=== PATIENT | female | born 1950 | race Caucasian/White ===

== ENCOUNTER → 2017-05-16 | Outpatient (CLI) | payer MEDICARE ==
[2017-05-16 08:57] LABS: Basophils % (A) 1 %; CH 33.1; CHCM 33.4; Eosinophils # (A) 0.1 k/uL (0-0.7); Eosinophils % (A) 3 %; HCT 43.4 % (34.0-46.0); HDW 3.13; HGB 14.5 gm/dL (11.4-16.0); Luc # (Auto) 0.12; Luc % (Auto) 5; Lymphocytes # (A) 0.7 k/uL (1.0-4.8); Lymphocytes % (A) 28 %; MCH 33.4 pg (25.0-35.0); MCHC 33.4 g/dL (31.0-37.0); MCV 99.9 fL (80.0-100.0); Macrocytosis Slight; Mean Platelet Volume 7.5; Monocytes # (A) 0.2 k/uL (0-1.0); Monocytes % (A) 7 %; Neutrophils # (A) 1.5 k/uL (1.3-7.7); Neutrophils % (A) 57 %; RBC 4.34 m/uL (3.80-5.40); RDW 14.5 % (11.5-15.5); WBC 2.7 k/uL (3.8-10.6); WBC (Perox) 2.74
== END | disposition home or self-care (01) ==
LOC: LABWHC1 08:11
PROVIDERS: ATTEND Internal Medicine Geriatric Medicine
DX: R79.9 Abnormal finding of blood chemistry, unspecified (principal)
CPT/HCPCS: 36415; 80061; 83036; 84439; 84443; 85025

== ENCOUNTER → 2017-06-05 | Outpatient (CLI) | payer MEDICARE ==
--- NOTE | 2017-06-05 14:30 | US ---
EXAMINATION TYPE: US kidneys/renal and bladder DATE OF EXAM: 06/05/2017 COMPARISON: CT urogram December 19, 2014 CLINICAL HISTORY: N28.1 CYST OF KIDNEY. Pt states recurrent UTI's EXAM MEASUREMENTS: Right Kidney: 10.6 x 5.4 x 6.0 cm Left Kidney: 8.4 x 3.4 x 3.4 cm Right Kidney: Appeared wnl Left Kidney: Atrophic with probable renal calculi at lower pole 7mm and 6mm in size Bladder: wnl Bilateral Jets seen: Yes Incidental finding enlarged spleen and cyst within spleen Visualized right kidney is unremarkable. Bilateral distal ureter jets are seen in not greatly distend ed bladder. There is redemonstration of asymmetric atrophy and cortical thinning left kidney. No jennifer s hydronephrosis is present. Suspect shadowing 7 mm calculus mid to lower pole level left kidney. Spl een is enlarged in size measuring 13.6 cm on long axis with 1.4 cm simple appearing cyst marked by te chnologist. Towards end of the exam technologist cook to 6 mm hyperechoic foci possible calculi lowe r pole level left kidney, finding correlates with prior CT. IMPRESSION: Asymmetric left-sided renal atrophy with left-sided renal calculi all redemonstrated.
== END | disposition home or self-care (01) ==
LOC: RADUSWWP 13:52
PROVIDERS: ATTEND Internal Medicine Geriatric Medicine
DX: N20.0 Calculus of kidney (principal); N26.1 Atrophy of kidney (terminal)
CPT/HCPCS: 76770

== ENCOUNTER → 2017-06-30 | Outpatient (CLI) | payer MEDICARE ==
[2017-06-30 12:07] LABS: Bilirubin, Delta 0.5 mg/dL (0.0-0.2); Calcium 10.5 mg/dL (8.4-10.2); Potassium 4.6 mmol/L (3.5-5.1); Total Bilirubin 2.1 mg/dL (0.2-1.3); Total Protein 6.4 g/dL (6.3-8.2)
[2017-06-30 12:40] LABS: Aty Lym Flag Slight; CH 33.2; CHCM 32.4; HCT 42.3 % (34.0-46.0); HDW 3.07; HGB 13.8 gm/dL (11.4-16.0); Hypochromasia Slight; MCH 33.6 pg (25.0-35.0); MCHC 32.5 g/dL (31.0-37.0); MCV 103.4 fL (80.0-100.0); Macrocytosis Moderate; Mean Platelet Volume 7.6; RBC 4.09 m/uL (3.80-5.40); RDW 15.4 % (11.5-15.5); WBC 2.4 k/uL (3.8-10.6); WBC (Perox) 2.49
[2017-06-30 13:00] LABS: Add Differential Manual Differential
[2017-06-30 13:07] LABS: Manual Review Performed; Nucleated Red Blood Cells 0 /100 WBC (0-0); Total Cells Counted 100
[2017-06-30 13:08] LABS: Polychromasia Present
[2017-06-30 13:43] LABS: Erythrocyte Sedimentation Rate 8 mm/hr (0-20)
== END | disposition home or self-care (01) ==
LOC: LABWHC1 11:26
PROVIDERS: ATTEND Nurse Practitioner Family
DX: R79.9 Abnormal finding of blood chemistry, unspecified (principal)
CPT/HCPCS: 36415; 80053; 82164; 82248; 85025; 85652

== ENCOUNTER → 2018-06-19 | Outpatient (CLI) | payer MEDICARE ==
[2018-06-19 08:52] LABS: Basophils % (A) 1 %; Eosinophils # (A) 0.2 k/uL (0-0.7); Eosinophils % (A) 6 %; HCT 40.8 % (34.0-46.0); HGB 13.1 gm/dL (11.4-16.0); Lymphocytes # (A) 1.1 k/uL (1.0-4.8); Lymphocytes % (A) 33 %; MCH 33.2 pg (25.0-35.0); MCHC 32.2 g/dL (31.0-37.0); MCV 103.2 fL (80.0-100.0); Macrocytosis Slight; Mean Platelet Volume 7.1; Monocytes # (A) 0.2 k/uL (0-1.0); Monocytes % (A) 7 %; Neutrophils # (A) 1.7 k/uL (1.3-7.7); Neutrophils % (A) 50 %; Platelet Count 100 k/uL (150-450); RBC 3.95 m/uL (3.80-5.40); WBC 3.5 k/uL (3.8-10.6)
[2018-06-19 09:07] LABS: Calcium 10.5 mg/dL (8.4-10.2); Magnesium 1.5 mg/dL (1.6-2.3); Total Bilirubin 2.2 mg/dL (0.2-1.3)
[2018-06-19 09:23] LABS: T4, Free (Free Thyroxine) 1.35 ng/dL (0.78-2.19)
[2018-06-19 17:31] LABS: Vitamin D 25 Hydroxy 11.7 ng/mL (30.0-100.0)
[2018-06-19 18:09] LABS: Hemoglobin A1C 4.8 % (4.0-6.0)
== END | disposition home or self-care (01) ==
LOC: LABWHC1 08:19
PROVIDERS: ATTEND Nurse Practitioner Family
DX: I10 Essential (primary) hypertension (principal); G89.4 Chronic pain syndrome; E55.9 Vitamin D deficiency, unspecified
CPT/HCPCS: 36415; 80053; 80061; 82306; 82607; 83036; 83735; 84439; 84443; 85025

== ENCOUNTER 2018-08-13 17:43 | Emergency (ER) | payer MEDICARE ==
[2018-08-13] MEDS ORDERED: IPRATROPIUM-ALBUTEROL 3 ML NEB INHALATION STA (18:35)
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
--- NOTE | 2018-08-13 19:26 | XR ---
EXAMINATION TYPE: XR chest 2V DATE OF EXAM: 08/13/2018 COMPARISON: 10/10/2015 HISTORY: Cough TECHNIQUE: Frontal and lateral views of the chest are obtained. FINDINGS: Heart and mediastinum are normal. There is some coarsening of interstitial markings. There is no heart failure. Bony thorax is intact. There is no pleural effusion. There is old left clavicle healed fracture. IMPRESSION: No active cardiopulmonary disease. Mild fibrotic changes.
[2018-08-13] MEDS ORDERED: methylPREDNISolone SOD SUCCI 125 MG/2 ML VIAL IM ONE (20:16)
[2018-08-13 21:06] VITALS: BP 140/53; PULSE 70; RESP 18; TEMP 97.9
== END 2018-08-13 21:06 | disposition home or self-care (01) ==
LOC: EC 17:43
DX: R05 Cough (principal); R06.2 Wheezing; H72.92 Unspecified perforation of tympanic membrane, left ear; R09.89 Other specified symptoms and signs involving the circulatory and respiratory systems; J84.10 Pulmonary fibrosis, unspecified; R06.02 Shortness of breath; I10 Essential (primary) hypertension; D86.9 Sarcoidosis, unspecified; Z87.891 Personal history of nicotine dependence; Z91.041 Radiographic dye allergy status; Z79.899 Other long term (current) drug therapy; Z86.14 Personal history of Methicillin resistant Staphylococcus aureus infection; Z82.5 Family history of asthma and other chronic lower respiratory diseases; Z90.89 Acquired absence of other organs
CPT/HCPCS: 94640; 71046; 99284; 96372; J2930

== ENCOUNTER → 2018-11-09 | Outpatient (CLI) | payer MEDICARE ==
[2018-11-09 10:09] LABS: Basophils % (A) 1 %; Eosinophils # (A) 0.1 k/uL (0-0.7); Eosinophils % (A) 5 %; HCT 40.5 % (34.0-46.0); HGB 12.7 gm/dL (11.4-16.0); Hypochromasia Slight; Lymphocytes # (A) 0.8 k/uL (1.0-4.8); Lymphocytes % (A) 33 %; MCH 32.7 pg (25.0-35.0); MCHC 31.4 g/dL (31.0-37.0); MCV 104.2 fL (80.0-100.0); Macrocytosis Moderate; Mean Platelet Volume 7.2; Monocytes # (A) 0.1 k/uL (0-1.0); Monocytes % (A) 6 %; Neutrophils # (A) 1.2 k/uL (1.3-7.7); Neutrophils % (A) 51 %; RBC 3.88 m/uL (3.80-5.40); RDW 15.6 % (11.5-15.5); WBC 2.3 k/uL (3.8-10.6)
[2018-11-09 10:33] LABS: Platelet Count 93 k/uL (150-450)
[2018-11-09 15:57] LABS: Parathyroid Hormone Intact 62.1 pg/mL (14.0-72.0)
[2018-11-09 15:58] LABS: Albumin 3.2 g/dL (3.80-4.90); Albumin/Globulin Ratio 1.39 (1.60-3.17); Anion Gap 6.9 mmol/L (4.00-12.00); Calcium 10.4 mg/dL (8.7-10.3); Carbon Dioxide 28.1 mmol/L (21.6-31.8); Globulin 2.3 g/dL (1.6-3.3); Magnesium 1.8 mg/dL (1.5-2.4); Phosphorus 2.4 mg/dL (2.4-5.1); Potassium 4.5 mmol/L (3.5-5.5); Total Bilirubin 2.7 mg/dL (0.3-1.2); Total Protein 5.5 g/dL (6.2-8.2)
== END | disposition home or self-care (01) ==
LOC: LABWHC1 09:00
PROVIDERS: ATTEND Nurse Practitioner Adult Health
DX: N20.0 Calculus of kidney (principal); G89.21 Chronic pain due to trauma; I10 Essential (primary) hypertension; E55.9 Vitamin D deficiency, unspecified; D89.9 Disorder involving the immune mechanism, unspecified; M15.9 Polyosteoarthritis, unspecified; K21.9 Gastro-esophageal reflux disease without esophagitis; D69.6 Thrombocytopenia, unspecified
CPT/HCPCS: 36415; 80053; 82164; 82306; 83735; 83970; 84100; 84133; 84300; 85025

== ENCOUNTER → 2018-11-22 | Outpatient (CLI) | payer MEDICARE ==
--- NOTE | 2018-11-24 09:18 | MM ---
Reason for exam: screening (asymptomatic). Last mammogram was performed 10 years ago. History: Patient is postmenopausal. Physical Findings: A clinical breast exam by your physician is recommended on an annual basis and results should be correlated with mammographic findings. MG 3D Screening Mammo W/Cad Bilateral CC and MLO view(s) were taken. Prior study comparison: November 28, 2008, bilateral digital screening mammogram. There are scattered fibroglandular densities. There is chronic nodularity in the right breast. Superior left breast asymmetry MLO view appears more defined. Incompletely disperses on 3D. ASSESSMENT: Incomplete: need additional imaging evaluation, BI-RAD 0 RECOMMENDATION: Special view mammogram of the left breast. (3D) If lesion persists on supplemental views, image directed ultrasound is recommended. [facility] will attempt to contact patient to return for supplemental views and ultrasound if indicated.
== END | disposition home or self-care (01) ==
LOC: RADMAMWWP 14:30
PROVIDERS: ATTEND Internal Medicine
DX: Z12.31 Encounter for screening mammogram for malignant neoplasm of breast (principal)
CPT/HCPCS: 77063; 77067

== ENCOUNTER → 2018-11-29 | Outpatient (CLI) | payer MEDICARE ==
--- NOTE | 2018-11-29 10:51 | MM ---
Reason for exam: additional evaluation requested from abnormal screening. Last mammogram was performed less than 1 month ago. History: Patient is postmenopausal. Physical Findings: Nurse did not find any significant physical abnormalities on exam. MG 3D Work Up W/Cad LT ML and spot compression MLO view(s) were taken of the left breast. Prior study comparison: November 22, 2018, bilateral MG 3d screening mammo w/cad. November 28, 2008, bilateral digital screening mammogram. The breast tissue is heterogeneously dense. This may lower the sensitivity of mammography. No suspicious abnormality. The previously seen left superior asymmetry appear as fibroglandular tissue on additional views. These results were verbally communicated with the patient and result sheet given to the patient on 11/29/18. ASSESSMENT: Negative, BI-RAD 1 RECOMMENDATION: Return to routine screening mammogram schedule for both breasts.
== END | disposition home or self-care (01) ==
LOC: RADMAMWWP 09:45
PROVIDERS: ATTEND Internal Medicine
DX: R92.8 Other abnormal and inconclusive findings on diagnostic imaging of breast (principal)
CPT/HCPCS: 77065; G0279; 77061

== ENCOUNTER → 2019-02-24 | Outpatient (CLI) | payer MEDICARE ==
--- NOTE | 2019-02-25 10:08 | ECHOF ---
Referral Reason:R60.0 Lower extremity edema MEASUREMENTS -------- HEIGHT: 160.0 cm WEIGHT: 108.9 kg BP: 221/92 RVIDd: 3.7 cm (< 3.3) IVSd: 1.3 cm (0.6 - 1.1) LVIDd: 4.0 cm (3.9 - 5.3) LVPWd: 1.3 cm (0.6 - 1.1) IVSs: 1.5 cm LVIDs: 2.9 cm LVPWs: 1.6 cm LA Diam: 3.4 cm (2.7 - 3.8) LAESV Index (A-L): 32.97 ml/m Ao Diam: 3.1 cm (2.0 - 3.7) AV Cusp: 2.2 cm (1.5 - 2.6) MV EXCURSION: 14.577 mm (> 18.000) MV EF SLOPE: 14 mm/s (70 - 150) EPSS: 0.8 cm MV E Earl: 0.78 m/s MV DecT: 360 ms MV A Earl: 0.90 m/s MV E/A Ratio: 0.87 AV maxP.96 mmHg AV meanP.68 mmHg RAP: 5.00 mmHg RVSP: 98.41 mmHg FINDINGS -------- Sinus rhythm. This was a technically good study. The left ventricular size is normal. There is mild concentric left ventricular hypertrophy. Overa ll left ventricular systolic function is normal with, an EF between 60 - 65 %. The right ventricle is mild to moderately enlarged. LA is midly dilated 29-33ml/m2. The right atrium is normal in size. Interatrial and interventricular septum intact. There is mild aortic valve sclerosis. The mitral valve leaflets are mildly thickened. Moderate tricuspid regurgitation present. There is severe pulmonary hypertension. The right ventr icular systolic pressure, as measured by Doppler, is 98.41mmHg. Trace/mild (physiologic) pulmonic regurgitation. The aortic root size is normal. The inferior vena cava is dilated with poor inspiratory collapse which is consistent with estimated r ight atrial pressure of 15 mmHg. There is no pericardial effusion. CONCLUSIONS -------- 1. Sinus rhythm. 2. This was a technically good study. 3. The left ventricular size is normal. 4. There is mild concentric left ventricular hypertrophy. 5. Overall left ventricular systolic function is normal with, an EF between 60 - 65 %. 6. The right ventricle is mild to moderately enlarged. 7. LA is midly dilated 29-33ml/m2. 8. The right atrium is normal in size. 9. Interatrial and interventricular septum intact. 10. There is mild aortic valve sclerosis. 11. The mitral valve leaflets are mildly thickened. 12. Moderate tricuspid regurgitation present. 13. There is severe pulmonary hypertension. 14. The right ventricular systolic pressure, as measured by Doppler, is 98.41mmHg. 15. Trace/mild (physiologic) pulmonic regurgitation. 16. The aortic root size is normal. 17. The inferior vena cava is dilated with poor inspiratory collapse which is consistent with estimat ed right atrial pressure of 20 mmHg. 18. There is no pericardial effusion. MORTGAGE ANALYST: Ragini Tolbert RDCS
== END | disposition home or self-care (01) ==
LOC: RADECHMAIN 11:02
PROVIDERS: ATTEND Internal Medicine
DX: I07.1 Rheumatic tricuspid insufficiency (principal); I27.20 Pulmonary hypertension, unspecified; I35.8 Other nonrheumatic aortic valve disorders; I05.9 Rheumatic mitral valve disease, unspecified; I86.8 Varicose veins of other specified sites
CPT/HCPCS: 93306

== ENCOUNTER 2019-02-28 02:01 | Emergency (ER) | payer MEDICARE ==
[2019-02-28 02:21] VITALS: RESP 18
[2019-02-28 03:10] LABS: Albumin 2.7 g/dL (3.5-5.0); Calcium 10.1 mg/dL (8.4-10.2); Magnesium 1.5 mg/dL (1.6-2.3); Potassium 4.3 mmol/L (3.5-5.1); Total Bilirubin 2.5 mg/dL (0.2-1.3); Total Protein 5.6 g/dL (6.3-8.2)
[2019-02-28 03:13] LABS: Basophils % (A) 0 %; Eosinophils # (A) 0.1 k/uL (0-0.7); Eosinophils % (A) 2 %; HCT 39.5 % (34.0-46.0); HGB 13.4 gm/dL (11.4-16.0); Lymphocytes # (A) 0.3 k/uL (1.0-4.8); Lymphocytes % (A) 6 %; MCHC 33.9 g/dL (31.0-37.0); MCV 97.2 fL (80.0-100.0); Monocytes # (A) 0.3 k/uL (0-1.0); Monocytes % (A) 7 %; Neutrophils # (A) 4.1 k/uL (1.3-7.7); Neutrophils % (A) 82 %; RBC 4.06 m/uL (3.80-5.40); RDW 15.5 % (11.5-15.5)
--- NOTE | 2019-02-28 03:16 | XR ---
EXAM: XR Chest, 1 View CLINICAL HISTORY: ITS.REASON XR Reason: Pain TECHNIQUE: Frontal view of the chest. COMPARISON: 08/13/18 x-ray IMPRESSION: Cardiomegaly. Trace left pleural effusion. No consolidation.
[2019-02-28] MEDS ORDERED: SODIUM CHLORIDE 0.9% 1,000 ML IV ONE (03:43)
[2019-02-28] MEDS: MAGNESIUM SULFATE-D5W PMX 1 GM in DEXTROSE/WATER 1 100ML.BAG IVPB SCH ×2 (03:54→04:52)
[2019-02-28 04:00] LABS: Appearance,Urine Cloudy (Clear); Bacteria,Urine Moderate /hpf; Bilirubin,Urine Negative (Negative); Blood,Urine Moderate (Negative); Color,Urine Yellow; Glucose,Urine (UA) Negative (Negative); Ketones,Urine Negative (Negative); Leukocyte Esterase,Urine Large (Negative); Mucus,Urine Rare /hpf; Nitrite,Urine Negative (Negative); Protein,Urine 2+ (Negative); RBC,Urine 133 /hpf (0-5); Specific Gravity,Urine 1.018 (1.001-1.035); Squamous Epithelial Cell,Urine 4 /hpf (0-4); WBC,Urine 94 /hpf (0-5)
[2019-02-28] MEDS ORDERED: LEVOFLOXACIN 750 MG TAB PO STA (04:11)
[2019-02-28 04:23] LABS: Platelet Count 65 k/uL (150-450)
[2019-02-28] MEDS ORDERED: HYDROmorphone 0.5 MG/0.5 ML SYRINGE IVP STA (04:42)
[2019-02-28] MEDS ORDERED: DIAZEPAM 5 MG/ML 2 ML INJ IVP STA (05:42)
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
--- NOTE | 2019-02-28 08:35 | US ---
EXAMINATION TYPE: US venous doppler duplex LE BI DATE OF EXAM: 02/28/2019 8:19 AM COMPARISON: NONE CLINICAL HISTORY: Pain. Left foot pain with weight bearing: HT5'4", WT 250lbs; sarcoidosis per patien t SIDE PERFORMED: bilateral TECHNIQUE: The lower extremity deep venous system is examined utilizing real time linear array sonog silvia with graded compression, doppler sonography and color-flow sonography. VESSELS IMAGED: Common Femoral Vein Deep Femoral Vein Greater Saphenous Vein * Femoral Vein Popliteal Vein Small Saphenous Vein * Proximal Calf Veins (* superficial vessels) US exam is technically limited by large body habitus. Right Leg: Negative for DVT Left Leg: Negative for DVT Grayscale, color doppler, spectral doppler imaging performed of the deep veins of the lower extremiti es. There is normal flow, compressibility, vascular waveforms. Subcutaneous edema is noted that is generalized. IMPRESSION: No sonographic evidence of deep venous thrombosis within either of the bilateral lower e xtremities. Subcutaneous edema is noted throughout.
[2019-02-28] MEDS ORDERED: KETOROLAC 30 MG/ML 1 ML VIAL IVP STA (08:45)
[2019-02-28] MEDS ORDERED: methylPREDNISolone SOD SUCCI 125 MG/2 ML VIAL IM ONE (12:44)
[2019-02-28] MEDS ORDERED: HYDROmorphone 1 MG/ML 1 ML SYRINGE IM STA (12:45)
[2019-02-28 13:39] VITALS: BP 134/66; PULSE 91; TEMP 98.7
== END 2019-02-28 13:40 | disposition home or self-care (01) ==
LOC: EC 02:01
DX: E83.42 Hypomagnesemia (principal); N39.0 Urinary tract infection, site not specified; M54.5 Low back pain; G89.29 Other chronic pain; I45.10 Unspecified right bundle-branch block; I10 Essential (primary) hypertension; Z87.891 Personal history of nicotine dependence; Z91.041 Radiographic dye allergy status; Z79.51 Long term (current) use of inhaled steroids; Z79.899 Other long term (current) drug therapy; Z86.14 Personal history of Methicillin resistant Staphylococcus aureus infection
CPT/HCPCS: 36415; 93005; 80053; 83605; 83735; 84484; 85025; 81001; 87086; 71045; 93970; 99285; 96365; 96375 ×3; 96361; 96372 ×2; J2930; J3360; J1885; J1170 ×2; J3475; 87077; 87186

== ENCOUNTER → 2019-04-12 | Outpatient (CLI) | payer MEDICARE ==
[2019-04-12 09:36] LABS: Basophils % (A) 0 %; Eosinophils # (A) 0.1 k/uL (0-0.7); Eosinophils % (A) 1 %; HCT 34.9 % (34.0-46.0); HGB 10.9 gm/dL (11.4-16.0); Hypochromasia Slight; Lymphocytes # (A) 0.8 k/uL (1.0-4.8); Lymphocytes % (A) 7 %; MCH 32.7 pg (25.0-35.0); MCHC 31.2 g/dL (31.0-37.0); Macrocytosis Moderate; Monocytes # (A) 0.4 k/uL (0-1.0); Monocytes % (A) 3 %; Neutrophils % (A) 86 %; RBC 3.33 m/uL (3.80-5.40); RDW 15.7 % (11.5-15.5); WBC 11.6 k/uL (3.8-10.6)
[2019-04-12 09:37] LABS: MCV 104.9 fL (80.0-100.0); Platelet Count 110 k/uL (150-450)
[2019-04-12 17:21] LABS: Vitamin D 25 Hydroxy 43.4 ng/mL (30.0-100.0)
[2019-04-12 17:36] LABS: African American GFR (CKD) 27.7 (60.0-200.0); Albumin 2.6 g/dL (3.80-4.90); Albumin/Globulin Ratio 0.76 (1.60-3.17); Anion Gap 8.4 mmol/L (4.00-12.00); BUN/Creat Ratio 35.24 Ratio (12.00-20.00); Carbon Dioxide 23.6 mmol/L (21.6-31.8); Globulin 3.4 g/dL (1.6-3.3); LDL Cholesterol,Calculated 53.8 mg/dL (0.0-131.0); Magnesium 2.2 mg/dL (1.5-2.4); Parathyroid Hormone Intact 37.2 pg/mL (14.0-72.0); Phosphorus 2.8 mg/dL (2.4-5.1); Potassium 4.9 mmol/L (3.5-5.5); Total Bilirubin 1.3 mg/dL (0.3-1.2); VLDL Calculation 20.2 mg/dL (5.00-40.00)
[2019-04-12 18:12] LABS: Vitamin B12 >4000.0 pg/mL (211-911)
== END | disposition home or self-care (01) ==
LOC: LABWHC1 07:51
PROVIDERS: ATTEND Nurse Practitioner Adult Health
DX: I10 Essential (primary) hypertension (principal); N20.0 Calculus of kidney; G89.21 Chronic pain due to trauma; E55.9 Vitamin D deficiency, unspecified; D89.9 Disorder involving the immune mechanism, unspecified; M15.9 Polyosteoarthritis, unspecified; K21.9 Gastro-esophageal reflux disease without esophagitis; D69.6 Thrombocytopenia, unspecified; F45.42 Pain disorder with related psychological factors
CPT/HCPCS: 36415; 80053; 80061; 82306; 82607; 83735; 83970; 84100; 85025

== ENCOUNTER 2019-04-20 19:30 | Inpatient (IN) | payer OTHER, MEDICARE ==
[2019-04-20] MEDS ORDERED: ACETAMINOPHEN TAB 500 MG TAB PO STA (20:00)
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
[2019-04-20 20:18] LABS: Anisocytosis Slight; Basophils % (A) 0 %; Eosinophils # (A) 0.1 k/uL (0-0.7); Eosinophils % (A) 1 %; HCT 31.6 % (34.0-46.0); HGB 10.2 gm/dL (11.4-16.0); Hypochromasia Slight; Lymphocytes # (A) 0.3 k/uL (1.0-4.8); Lymphocytes % (A) 4 %; MCH 33.4 pg (25.0-35.0); MCHC 32.4 g/dL (31.0-37.0); MCV 103.2 fL (80.0-100.0); Macrocytosis Moderate; Mean Platelet Volume 7.8; Monocytes # (A) 0.4 k/uL (0-1.0); Monocytes % (A) 4 %; Neutrophils # (A) 7.8 k/uL (1.3-7.7); Neutrophils % (A) 89 %; Platelet Count 215 k/uL (150-450); Poikilocytosis Slight; RBC 3.06 m/uL (3.80-5.40); RDW 16.7 % (11.5-15.5); WBC 8.8 k/uL (3.8-10.6)
[2019-04-20 20:23] LABS: Albumin 2.3 g/dL (3.5-5.0); Calcium 10.1 mg/dL (8.4-10.2); Magnesium 2.1 mg/dL (1.6-2.3); Potassium 4.5 mmol/L (3.5-5.1); Total Bilirubin 1.4 mg/dL (0.2-1.3)
[2019-04-20] MEDS ORDERED: SODIUM CHLORIDE 0.9% 1,000 ML IV ONE (20:29)
--- NOTE | 2019-04-20 21:07 | XR ---
EXAMINATION TYPE: XR chest 2V DATE OF EXAM: 04/20/2019 COMPARISON: Prior chest x-ray 02/28/2019 HISTORY: Difficulty breathing TECHNIQUE: Frontal and lateral views of the chest are obtained. FINDINGS: There are overlying cardiac leads. There is no focal air space opacity, pleural effusion, o r pneumothorax seen. The cardiac silhouette size is stable, enlarged. Prominence of pulmonary princess ry may be due to pulmonary artery hypertension. The osseous structures are intact. IMPRESSION: No acute cardiopulmonary process. Cardiomegaly. Correlate for pulmonary artery hypertens ion Additional findings above.
[2019-04-20 23:43] LABS: Appearance,Urine Cloudy (Clear); Bacteria,Urine Moderate /hpf; Bilirubin,Urine Negative (Negative); Blood,Urine Trace (Negative); Color,Urine Yellow; Glucose,Urine (UA) Negative (Negative); Ketones,Urine Negative (Negative); Leukocyte Esterase,Urine Large (Negative); Mucus,Urine Rare /hpf; Nitrite,Urine Positive (Negative); PH, Urine 5.5 (5.0-8.0); Protein,Urine 1+ (Negative); RBC,Urine 2 /hpf (0-5); Specific Gravity,Urine 1.017 (1.001-1.035); Squamous Epithelial Cell,Urine 5 /hpf (0-4); Urobilinogen,Urine <2.0 mg/dL (<2.0); WBC,Urine 54 /hpf (0-5)
[2019-04-21] MEDS ORDERED: cefTRIAXone IN SWFI 1,000 MG/10 ML SYRINGE IVP STA (02:08)
[2019-04-21] MEDS ORDERED: NALOXONE 0.4 MG/ML 1 ML VIAL IV PRN (03:38)
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
[2019-04-21] MEDS: PANTOPRAZOLE 40 MG TABLET PO SCH (09:52)
[2019-04-21] MEDS: LISINOPRIL 20 MG TAB PO SCH (09:52)
[2019-04-21 12:59] LABS: Basophils % (A) 0 %; Eosinophils % (A) 0 %; HCT 27.3 % (34.0-46.0); HGB 8.8 gm/dL (11.4-16.0); Hypochromasia Slight; Lymphocytes # (A) 0.2 k/uL (1.0-4.8); Lymphocytes % (A) 4 %; MCH 33.3 pg (25.0-35.0); MCHC 32.4 g/dL (31.0-37.0); Macrocytosis Moderate; Mean Platelet Volume 7.3; Monocytes # (A) 0.3 k/uL (0-1.0); Monocytes % (A) 5 %; Neutrophils # (A) 4.7 k/uL (1.3-7.7); Neutrophils % (A) 87 %; Platelet Count 143 k/uL (150-450); RBC 2.65 m/uL (3.80-5.40); RDW 15.6 % (11.5-15.5); WBC 5.4 k/uL (3.8-10.6)
[2019-04-21] MEDS: SODIUM CHLORIDE 0.9% 1,000 ML IV SCH ×2 (13:07→18:57)
[2019-04-21 13:13] LABS: Albumin 1.9 g/dL (3.5-5.0); Calcium 9.8 mg/dL (8.4-10.2); Potassium 5.4 mmol/L (3.5-5.1); Total Bilirubin 1.2 mg/dL (0.2-1.3); Total Protein 5.3 g/dL (6.3-8.2)
[2019-04-21] MEDS: HYDROcodone/APAP 10-325MG 1 EACH TAB PO PRN (14:02)
[2019-04-21] MEDS ORDERED: POLYETHYLENE GLYCOL 3350 17 GM POWD.PACK PO STA (16:28)
--- NOTE | 2019-04-21 16:29 | P.PN ---
Progress Note - Text Progress Note Date: 04/21/19 Briefly this is a 68-year-old female with a past medical history of sarcoidosis essential hypertension that was admitted with metabolic encephalopathy after she presented with confusion suspected secondary due to a urinary tract infection, she was started on empiric IV antibiotics and urine and blood cultures have been ordered, she is also noted to have a mildly elevated lactic acid. The patient has apparently failed outpatient therapy with Macrobid and Bactrim for previous urinary tract infections. I will plan to consult ID for further recommendations.She's also noted to be anemic with of 8.8, she reports constipation Also mentions chronic pain. Stool occult is been ordered, will check iron studies. Continue to follow her clinical course
[2019-04-21] MEDS: IBUPROFEN 600 MG TAB PO PRN (22:31)
[2019-04-22 01:04] LABS: Iron Saturation 4.32 (12.00-45.00)
[2019-04-22] MEDS: SODIUM CHLORIDE 0.9% 1,000 ML IV SCH ×4 (01:55→20:10)
[2019-04-22] MEDS: HYDROcodone/APAP 10-325MG 1 EACH TAB PO PRN ×2 (05:49→20:03)
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
[2019-04-22] MEDS: POLYETHYLENE GLYCOL 3350 17 GM POWD.PACK PO SCH (10:33)
[2019-04-22] MEDS: PANTOPRAZOLE 40 MG TABLET PO SCH (10:33)
[2019-04-22] MEDS: LISINOPRIL 20 MG TAB PO SCH (10:33)
[2019-04-22] MEDS: IBUPROFEN 600 MG TAB PO PRN (11:36)
--- NOTE | 2019-04-22 12:32 | P.PN ---
Subjective Progress Note Date: 04/22/19 Patient seen and examined at bedside. The resting in bed with present, patient reports that she's feeling fine and her pain is controlled. Apparently has had a bowel movement and has been sitting up and is been eating and is not nearly as confused. Urine cultures are pending, the patient remains afebrile Objective - Vital Signs Vital signs: Vital Signs Temp 97.8 F 04/22/19 07:55 Pulse 84 04/22/19 07:55 Resp 16 04/22/19 07:55 BP 142/71 04/22/19 07:55 Pulse Ox 96 04/22/19 07:55 Intake & Output 04/21/19 04/22/19 04/22/19 18:59 06:59 18:59 Intake Total 120 750 175 Output Total 400 Balance 120 350 175 Intake: Intake, IV Titration 750 Amount Sodium Chloride 0.9% 1, 600 000 ml @ 150 mls/hr IV . Q6H40M [facility] Rx#:[id number] ceFAZolin 2 gm In Sodium 150 Chloride 0.9% 50 ml @ 100 mls/hr IVPB Q8HR [facility] Rx# :[id number] Oral 120 175 Output: Urine 400 Other: Voiding Method Bedpan Incontinent # Voids 2 # Bowel Movements 1 - Exam Constitutional: No acute distress, conversant, pleasant Eyes: Anicteric sclerae, moist conjunctiva, no lid-lag, PERRLA ENMT: NC/AT,Oropharynx clear, no erythema, exudates Neck:Supple, FROM, no masses, or JVD, No carotid bruits; No thyromegaly Lungs: Clear to auscultation, Clear to percussion, Normal respiratory effort, no accessory muscle use Cardiovascular: Heart regular in rate and rhythm, No murmurs, gallops, or rubs no peripheral edema Abdominal: Soft Nontender, nom distended, no guarding, no rebound or rigidity, Normoactive bowel sounds No hepatomegaly, No splenomegaly, No palpable mass No abdominal wall hernia noted Skin: Normal temperature, tone, texture, turgor, No induration No subcutaneous nodules, No rash, lesions, No ulcers Extremities: Bilateral lymphedema in the lower extremities, Psychiatric: Alert and oriented to person, place and time, Appropriate affect Intact judgement Neuro: Muscles Strength 5/5 in all 4 extremities, Sensation to light touch grossly present throughout, Cranial nerves II-XII grossly intact. No focal sensory deficits - Labs CBC & Chem 7: 04/21/19 12:20 04/21/19 12:20 Labs: Abnormal Lab Results - Last 24 Hours (Table) 04/21/19 04/21/19 04/21/19 Range/Units 07:26 12:20 12:20 RBC 2.65 L (3.80-5.40) m/uL Hgb 8.8 L (11.4-16.0) gm/dL Hct 27.3 L (34.0-46.0) % MCV 103.0 H (80.0-100.0) fL RDW 15.6 H (11.5-15.5) % Plt Count 143 L (150-450) k/uL Lymphocytes # 0.2 L (1.0-4.8) k/uL Potassium 5.4 H (3.5-5.1) mmol/L Chloride 109 H (98-107) mmol/L BUN 39 H (7-17) mg/dL Creatinine 1.38 H (0.52-1.04) mg/dL Iron (50-170) ug/dL TIBC (228-460) ug/dL Iron Saturation (12.00-45.00) Ferritin (10.0-291.0) ng/mL Total Protein 5.3 L (6.3-8.2) g/dL Albumin 1.9 L (3.5-5.0) g/dL Stool Occult Blood Positive H (Negative) 04/21/19 Range/Units 12:28 RBC (3.80-5.40) m/uL Hgb (11.4-16.0) gm/dL Hct (34.0-46.0) % MCV (80.0-100.0) fL RDW (11.5-15.5) % Plt Count (150-450) k/uL Lymphocytes # (1.0-4.8) k/uL Potassium (3.5-5.1) mmol/L Chloride (98-107) mmol/L BUN (7-17) mg/dL Creatinine (0.52-1.04) mg/dL Iron 7 L (50-170) ug/dL TIBC 162 L (228-460) ug/dL Iron Saturation 4.32 L (12.00-45.00) Ferritin 680.0 H (10.0-291.0) ng/mL Total Protein (6.3-8.2) g/dL Albumin (3.5-5.0) g/dL Stool Occult Blood (Negative) Microbiology - Last 24 Hours (Table) 04/20/19 20:20 Blood Culture Gram Stain - Preliminary Blood Blood Culture - Preliminary Strep agalactiae - (group b) 04/20/19 20:20 Blood Culture - Final Blood Assessment and Plan (1) UTI (urinary tract infection) Narrative/Plan: * Review of prior cultures from patient's PCP clinic visit cultures growing Klebsiella and Citrobacter * The patient has apparently failed treatment with Macrobid and Bactrim both of which had indicated sensitivities to both strains of bacteria * Appreciate ID recommendations patient's changed to cefazolin * Positive blood culture with strep agalactiae possible contaminant ID following Current Visit: No Status: Acute Code(s): N39.0 - URINARY TRACT INFECTION, SITE NOT SPECIFIED SNOMED Code(s): 78843032 (2) Essential hypertension Narrative/Plan: * Blood pressure stable controlled resume home medications * Continue spironolactone and enalapril Current Visit: Yes Status: Chronic Code(s): I10 - ESSENTIAL (PRIMARY) HYPERTENSION SNOMED Code(s): 34066049 (3) Chronic pain Narrative/Plan: * Continue current regimen of home dose of Newell will add Cymbalta to her pain regimen Current Visit: Yes Status: Chronic Code(s): G89.29 - OTHER CHRONIC PAIN SNOMED Code(s): 76539793 (4) Constipation Narrative/Plan: * Continue with MiraLAX patient having bowel movements Current Visit: Yes Status: Resolved Code(s): K59.00 - CONSTIPATION, UNSPECIFIED SNOMED Code(s): 75768964 (5) CKD (chronic kidney disease), stage III Narrative/Plan: * Currently stable Current Visit: Yes Status: Chronic Code(s): N18.3 - CHRONIC KIDNEY DISEASE, STAGE 3 (MODERATE) SNOMED Code(s): 955897477 Plan: Disposition * Anticipated discharge 1-2 days
[2019-04-22] MEDS: DULoxetine HCL 30 MG CAPSULE.DR PO SCH (16:12)
[2019-04-22] MEDS ORDERED: ONDANSETRON 4 MG/2 ML VIAL IVP PRN (18:38)
--- NOTE | 2019-04-22 19:27 | PN ---
PROGRESS NOTE DATE OF SERVICE: 04/22/2019. REASON FOR FOLLOWUP: Streptococcus agalactiae bacteremia and left lower extremity cellulitis. INTERVAL HISTORY: The patient is currently afebrile. The patient has been breathing comfortably. The patient denies having any chest pain or shortness of breath or cough. No abdominal pain. No urinary symptoms. Did have swelling in the leg. No significant pain. PHYSICAL EXAMINATION: Blood pressure 146/78 with a pulse of 84, temperature 97.6. She is 95% on room air. General description is an elderly female lying in bed in no distress. Respiratory system: Unlabored breathing. Clear to auscultation anteriorly. Heart S1, S2. Regular rate and rhythm. Abdomen soft, no tenderness. Bilateral lower extremity swelling. However, left leg is warm to touch, more than the right. No open wound or any drainage. LABS: Hemoglobin is 8.8, white count 5.4, BUN of 39, creatinine is 1.3. DIAGNOSTIC IMPRESSION AND PLAN: Patient with streptococcal agalactiae bacteremia, source is likely left lower extremity cellulitis. The patient will continue with cefazolin 2 g q.8 hours and monitor clinical course closely. Hopefully finish therapy with oral antibiotics. Waiting for repeat blood cultures to finalize. Continue supportive care. MMODL / IJN: [id number] /
[2019-04-23] MEDS: SODIUM CHLORIDE 0.9% 1,000 ML IV SCH ×3 (01:02→22:36)
[2019-04-23] MEDS: IBUPROFEN 600 MG TAB PO PRN (04:04)
[2019-04-23 08:53] LABS: Calcium 9.9 mg/dL (8.4-10.2); Potassium 4.3 mmol/L (3.5-5.1)
[2019-04-23] MEDS ORDERED: SPIRONOLACTONE 25 MG TAB PO SCH (09:00)
[2019-04-23 10:03] LABS: HCT 29.7 % (34.0-46.0); HGB 9.3 gm/dL (11.4-16.0); Hypochromasia Slight; MCH 32.2 pg (25.0-35.0); MCHC 31.3 g/dL (31.0-37.0); MCV 102.9 fL (80.0-100.0); Macrocytosis Slight; Mean Platelet Volume 7.3; Platelet Count 185 k/uL (150-450); Poikilocytosis Slight; RBC 2.89 m/uL (3.80-5.40); RDW 15.3 % (11.5-15.5); WBC 6.7 k/uL (3.8-10.6)
[2019-04-23] MEDS: DULoxetine HCL 30 MG CAPSULE.DR PO SCH (10:04)
[2019-04-23] MEDS: PANTOPRAZOLE 40 MG TABLET PO SCH (10:04)
[2019-04-23] MEDS: POLYETHYLENE GLYCOL 3350 17 GM POWD.PACK PO SCH ×2 (10:05→10:07)
[2019-04-23] MEDS: LISINOPRIL 20 MG TAB PO SCH (10:06)
[2019-04-23] MEDS ORDERED: POLYETHYLENE GLYCOL 3350 17 GM POWD.PACK PO PRN (11:31)
[2019-04-23] MEDS: MORPHINE SULFATE 4 MG/ML SYRINGE IVP PRN (11:44)
--- NOTE | 2019-04-23 11:47 | P.PN ---
Subjective Progress Note Date: 04/23/19 Principal diagnosis: Confusion Patient is a 68-year-old female with a past medical history of lower extremity edema, sarcoidosis with kidney stones, hypertension, and arthritis who presented to the emergency department with complaints of confusion and generalized weakness. On arrival to the emergency department she was found to be hypoxic with an O2 sat of 88% on room air and was tachycardic with a pulse of 111. Initial laboratory analysis demonstrated newly discovered anemia with hemoglobin 10.9, elevated lactic acid at 2.1, elevated BNP at 6330, and elevated creatinine consistent with known prior. Urinalysis appeared contaminated, stool occult blood was positive. Blood cultures were completed. She was admitted for further monitoring and care. She was subsequently found to have bacteremia. Infectious disease was consulted and bacteremia came back as strep agalactiae and the patient was continued on Cefazolin 1. Was felt to likely be due secondary to skin infection from her lymphedema. Patient was supposed to see lymphedema clinic on 04/25. We have attempted to decrease her pain medications which has caused her to become more anxious and painful. Echo completed 02/13 consistent with severe pulmonary HTN. Patient seen and examined at bedside. No chest pain, shortness of breath, no numbness or tingling, does not feel any palpitations. Did have some nausea this morning. Feeling painful as her home pain medication dose had been decreased during hospitalization and she was started on Cymbalta. She also feels anxious but known is addressing her pain and concern that she is missing her appointment at the lymphedema clinic on Thursday. Daughter present at bedside and all questions answered. We discussed a trial of morphine and she remained tachycardic and assessment for possible pulmonary embolism. She does not have any known history of sarcoid in the lung. Objective - Vital Signs Vital signs: Vital Signs Temp 98.2 F 04/23/19 07:18 Pulse 128 H 04/23/19 10:09 Resp 20 04/23/19 07:18 BP 145/83 04/23/19 07:18 Pulse Ox 96 04/23/19 07:18 Intake & Output 04/22/19 04/23/19 04/23/19 18:59 06:59 18:59 Intake Total 375 718 180 Output Total 700 550 Balance -325 168 180 Weight 110.5 kg Intake: Intake, IV Titration 600 Amount Sodium Chloride 0.9% 1, 300 000 ml @ 150 mls/hr IV . Q6H40M [facility] Rx#:[id number] ceFAZolin 2 gm In Sodium 300 Chloride 0.9% 50 ml @ 100 mls/hr IVPB Q8HR [facility] Rx# :[id number] Oral 375 118 180 Output: Urine 700 550 Other: Voiding Method Incontinent Incontinent Incontinent - Exam General: ill appearing, no distress, appears at stated age Derm: warm, dry Head: atraumatic, normocephalic, symmetric Eyes: EOMI, no lid lag, anicteric sclera Mouth: no lip lesion, mucus membranes moist Cardiovascular: S1S2 reg, no murmur, positive posterior tibial pulse bilateral, Lungs: decreased bs bilateral, no rhonchi, no rales , no accessory muscle use Abdominal: soft, nontender to palpation, no guarding, no appreciable organomegaly Ext: no gross muscle atrophy, 4+ pitting edema bilateral lower extremities, no contractures Neuro: CN II-XI grossly intact, no focal neuro deficits Psych: Alert, oriented, appropriate affect - Labs CBC & Chem 7: 04/23/19 08:01 04/23/19 08:01 Labs: Abnormal Lab Results - Last 24 Hours (Table) 04/21/19 04/23/19 04/23/19 Range/Units 07:26 08:01 08:01 RBC 2.89 L (3.80-5.40) m/uL Hgb 9.3 L (11.4-16.0) gm/dL Hct 29.7 L (34.0-46.0) % MCV 102.9 H (80.0-100.0) fL Chloride 109 H (98-107) mmol/L BUN 33 H (7-17) mg/dL Creatinine 1.12 H (0.52-1.04) mg/dL Stool Occult Blood Positive H (Negative) Microbiology - Last 24 Hours (Table) 04/20/19 20:20 Blood Culture Gram Stain - Final Blood Blood Culture - Final Strep agalactiae - (group b) Assessment and Plan Assessment: Group B strep bacteremia, probable skin source - ID recs - Cefazolin - Likely from skin source pre ID Lymphedema - had echo in January showed severe pulm HTN (suspect related to sarcoidosis) - ACEI wraps - will start diuresis, if HR improves - associated with leg pain, resume home norco dose, morphine for prn pain, stop cymbalta as causing nausea. stop motrin as can exacerbate fluid retention. Tachycardia - no complaints of chest pain, EKG non ischemia - pain control - CTA chest if remains tachycardiac 30 mins after morphine given (will remain in bed until then Klebiella and citrobacteria CHronic conolization of Urine, hx of renal stones - per ID no need for treatment and agree as patient currently without complaints of urinary symptoms Anemia, + FOB - will need outpatient colonoscopy - Follow HgB - Fe studies consistent with chronic disease Morbid ibesity with BMI 41.8 - treatment of lymphedema and then outpatient structured weight loss Toxic metabolic encephalopathy - resolved Dehydration - resolved Elevated lactic acid, resolved Chronic conditions: HTN Sarcoidosis DVT prophylaxis: Will start lovenox Discussed with: Patient, daughter, nursing Anticipated discharge: 1-[address]: home with home health A total of 45 minutes was spent on the care of this complex patient more than 50% of the time was spent in counseling and care coordination.
[2019-04-23] MEDS ORDERED: methylPREDNISolone SOD SUCCI 40 MG/ML 1 ML VIAL IV STA (14:13)
[2019-04-23] MEDS ORDERED: methylPREDNISolone SOD SUCCI 125 MG/2 ML VIAL IV STA (14:42)
[2019-04-23] MEDS ORDERED: diphenhydrAMINE 50 MG/ML 1 ML VIAL IVP STA (14:42)
[2019-04-23] MEDS ORDERED: FAMOTIDINE 20 MG/2 ML VIAL IV STA (14:42)
[2019-04-23] MEDS ORDERED: diphenhydrAMINE 50 MG/ML 1 ML VIAL IVP ONE (16:00)
--- NOTE | 2019-04-23 16:51 | CT ---
EXAMINATION TYPE: CT angio chest DATE OF EXAM: 04/23/2019 COMPARISON: 10/10/2015 HISTORY: 68 year-old female shortness of breath Pulmonary embolism TECHNIQUE: Contiguous axial scanning of the chest performed with IV Contrast, patient injected with 8 0 mL of Isovue 370. Coronal/sagittal MIP reconstructions performed. CT DLP: 292.2 mGycm Automated exposure control for dose reduction was used. FINDINGS: Heart upper limits of normal in size without pericardial effusion. Aorta normal caliber with a conventional arch vessel branching anatomy. No evidence for aortic dissection. Large caliber to the main right and left pulmonary arteries measuring up to 3.1 cm. Satisfactory opac ification of the pulmonary arterial system below with respiratory motion limiting evaluation. No larg e central and no definite lobar pulmonary embolus. Many of the segmental and more distal arterial bra nches are very limited and nondiagnostic. Mild scattered emphysematous change. Small peribronchial thickening. Some mild patchy groundglass is also present suggesting the anterior right upper lobe and some mild reticular changes in the subpleur al region of the lower lungs. No pleural effusion. Visualized upper abdomen shows a probable cyst partially visualized in the spleen measuring 1.8 cm. S pleen is enlarged measuring 14.4 cm. Bones: No osseous destructive process. IMPRESSION: 1. RESPIRATORY MOTION ARTIFACT LIMITING ASSESSMENT. NO LARGE CENTRAL OR DEFINITE LOBAR PULMONARY EMBO THOR. MANY OF THE SEGMENTAL AND MORE DISTAL ARTERIAL BRANCHES ARE VERY LIMITED OR NONDIAGNOSTIC AND EM BOLI IN THESE LOCATIONS CANNOT BE ADEQUATELY EXCLUDED ON THE BASIS OF THIS EXAM. 2. PULMONARY ARTERIAL HYPERTENSION. 3. MILD EMPHYSEMATOUS CHANGE. MILD PATCHY GROUNDGLASS RIGHT UPPER LOBE COULD REPRESENT NONSPECIFIC IN FECTIOUS/INFLAMMATORY FOCUS. SOME CHRONIC INTERSTITIAL SCARRING IN THE LOWER LUNGS. 4. MILD SPLENOMEGALY (14.4 CM).
[2019-04-23] MEDS: HYDROcodone/APAP 7.5-325MG 1 EACH TAB PO PRN (22:43)
[2019-04-23] MEDS: ENOXAPARIN 40 MG/0.4 ML SYRINGE SQ SCH (22:45)
[2019-04-24] MEDS: HYDROcodone/APAP 7.5-325MG 1 EACH TAB PO PRN ×2 (08:16→15:29)
[2019-04-24] MEDS: ENOXAPARIN 40 MG/0.4 ML SYRINGE SQ SCH (08:18)
[2019-04-24] MEDS: PANTOPRAZOLE 40 MG TABLET PO SCH (08:18)
[2019-04-24] MEDS: LISINOPRIL 20 MG TAB PO SCH (08:18)
[2019-04-24 08:36] LABS: Magnesium 1.9 mg/dL (1.6-2.3); Potassium 4.8 mmol/L (3.5-5.1)
[2019-04-24 08:53] LABS: HCT 32.2 % (34.0-46.0); HGB 10.2 gm/dL (11.4-16.0); Hypochromasia Moderate; MCH 33.6 pg (25.0-35.0); MCHC 31.6 g/dL (31.0-37.0); MCV 106.3 fL (80.0-100.0); Macrocytosis Moderate; Mean Platelet Volume 7.7; Platelet Count 201 k/uL (150-450); Poikilocytosis Slight; RBC 3.03 m/uL (3.80-5.40); RDW 15.9 % (11.5-15.5); WBC 6.4 k/uL (3.8-10.6)
[2019-04-24] MEDS: FUROSEMIDE 10 MG/ML 4 ML VIAL IV SCH ×2 (12:51→20:01)
--- NOTE | 2019-04-24 13:37 | PN ---
PROGRESS NOTE DATE OF SERVICE: 04/23/2019. REASON FOR FOLLOWUP VISIT: Likely bacteremia secondary left lower extremity cellulitis. INTERVAL HISTORY: The patient is currently afebrile. Patient is breathing comfortably. The patient denies having any chest pain, shortness of breath or cough. No abdominal pain. No pain to the left leg area. PHYSICAL EXAMINATION: Blood pressure 142/83 with a pulse of 93, temperature 97.8. She is 90% on room air. General description is an elderly female lying in bed in no distress. RESPIRATORY SYSTEM: Unlabored breathing, clear to auscultation anteriorly. HEART: S1, S2. Regular rate and rhythm. ABDOMEN: Soft, no tenderness. Left leg swelling persists, not as warm to touch. No open wound or drainage. LABS: Hemoglobin 9.8, white count 6.7, BUN of 33, creatinine 1.12. DIAGNOSTIC IMPRESSION AND PLAN: Patient with Streptococcus agalactiae bacteremia, source is likely left lower consolidation. The patient did have evidence of significant lymphedema and warmth to the left leg responding to cefazolin. Continue to finish therapy with oral antibiotic. Family present at bedside. Questions are answered. MMODL / IJN: [id number] /
--- NOTE | 2019-04-24 15:56 | P.PN ---
Subjective Progress Note Date: 04/24/19 Principal diagnosis: Confusion Patient is a 68-year-old female with a past medical history of lower extremity edema, sarcoidosis with kidney stones, hypertension, and arthritis who presented to the emergency department with complaints of confusion and generalized weakness. On arrival to the emergency department she was found to be hypoxic with an O2 sat of 88% on room air and was tachycardic with a pulse of 111. Initial laboratory analysis demonstrated newly discovered anemia with hemoglobin 10.9, elevated lactic acid at 2.1, elevated BNP at 6330, and elevated creatinine consistent with known prior. Urinalysis appeared contaminated, stool occult blood was positive. Blood cultures were completed. She was admitted for further monitoring and care. She was subsequently found to have bacteremia. Infectious disease was consulted and bacteremia came back as strep agalactiae and the patient was continued on Cefazolin 1. Was felt to likely be due secondary to skin infection from her lymphedema. Patient was supposed to see lymphedema clinic on 04/25. We have attempted to decrease her pain medications which has caused her to become more anxious and painful. Tachycariac on 04/23 improved with pain medications, CTA negative for pulmonary embolism but did show ground glass opacification in the RUL and prior echo showed pulm HTN therefore would recommend outpatient rheumatology follow-up for sarcoidosis. Renal function stable after CTA chest and diuresis started. Bilateral Marcelino wrap applied 04/23 with good results. Patient seen and examined at bedside. No chest pain, no shortness breath, no nausea, no vomiting, edema slightly better after applying Marcelino wraps. Feeling fairly well overall. Patient states she saw Dr. Nunez for rheumatology in the past but she wanted her to get a liver biopsy which the patient was not comfortable with, she has ne thu been on any treatment for sarcoidosis. Objective - Vital Signs Vital signs: Vital Signs Temp 97.5 F L 04/24/19 07:00 Pulse 128 H 04/24/19 12:53 Resp 14 04/24/19 07:00 BP 142/87 04/24/19 12:53 Pulse Ox 93 L 04/24/19 12:53 Intake & Output 04/23/19 04/24/19 04/24/19 18:59 06:59 18:59 Intake Total 1560 1080 600 Output Total 1750 Balance 1560 -670 600 Weight 112 kg Intake: IV 1200 900 600 Sodium Chloride 0.9% 1, 1200 900 600 000 ml @ 150 mls/hr IV . Q6H40M [facility] Rx#:[id number] Oral 360 180 Output: Urine 1750 Other: Voiding Method Incontinent Incontinent - Exam General: ill appearing, no distress, appears at stated age, obese Derm: warm, dry Head: atraumatic, normocephalic, symmetric Eyes: EOMI, no lid lag, anicteric sclera Mouth: no lip lesion, mucus membranes moist Cardiovascular: S1S2 reg, no murmur, positive posterior tibial pulse bilateral, Lungs: decreased bs bilateral, no rhonchi, no rales , no accessory muscle use Abdominal: soft, nontender to palpation, no guarding, no appreciable organomegaly Ext: no gross muscle atrophy, 4+ pitting edema bilateral lower extremities, no contractures Neuro: CN II-XI grossly intact, no focal neuro deficits Psych: Alert, oriented, appropriate affect - Labs CBC & Chem 7: 04/24/19 07:37 04/24/19 07:37 Labs: Abnormal Lab Results - Last 24 Hours (Table) 04/24/19 04/24/19 Range/Units 07:37 07:37 RBC 3.03 L (3.80-5.40) m/uL Hgb 10.2 L (11.4-16.0) gm/dL Hct 32.2 L (34.0-46.0) % MCV 106.3 H (80.0-100.0) fL RDW 15.9 H (11.5-15.5) % Chloride 110 H (98-107) mmol/L Carbon Dioxide 21 L (22-30) mmol/L BUN 30 H (7-17) mg/dL Creatinine 1.09 H (0.52-1.04) mg/dL Glucose 121 H (74-99) mg/dL Microbiology - Last 24 Hours (Table) 04/23/19 08:11 Blood Culture - Preliminary Blood No Growth after 24 hours 04/23/19 08:01 Blood Culture - Preliminary Blood No Growth after 24 hours Assessment and Plan Assessment: Group B strep bacteremia, probable skin source - ID recs - Cefazolin - Likely from skin source pre ID -Repeat blood cultures in a.m. Lymphedema - had echo in January showed severe pulm HTN (suspect related to sarcoidosis) - ACEI wraps -Start Lasix 40 twice daily today, if does not diuresis well could consider Bumex secondary to low albumin - associated with leg pain, home norco dose, morphine for prn pain, Off motrin as can exacerbate fluid retention. Tachycardia - no complaints of chest pain, EKG non ischemia - pain control -CTA of the chest without signs of pulmonary embolism -To show groundglass opacification the right upper lobe likely consistent with sarcoidosis - Diuresis to see if this will improve work of breathing and tachycardia -Check thyroid studies Sarcodiosis - f/u with rheumatology (Dr. Benson) as an outpatient. Patient does have groundglass of calcification right upper lobe as well as elevated RVSP consistent with pulmonary hypertension. May benefit from treatment of sarcoidosis. Klebsiella and citrobacteria Chronic conolization of Urine, hx of renal stones - per ID no need for treatment and agree as patient currently without complaints of urinary symptoms Anemia, + FOB - will need outpatient colonoscopy - Follow HgB - Fe studies consistent with chronic disease, if able Morbid obesity with BMI 41.8 - treatment of lymphedema and then outpatient structured weight loss Toxic metabolic encephalopathy - resolved Dehydration - resolved Elevated lactic acid, resolved Chronic conditions: HTN Sarcoidosis DVT prophylaxis: lovenox Discussed with: Patient, , nursing Anticipated discharge: 1-[address]: home with home health A total of 45 minutes was spent on the care of this complex patient more than 50% of the time was spent in counseling and care coordination.
[2019-04-24] MEDS: MORPHINE SULFATE 4 MG/ML SYRINGE IVP PRN (20:07)
[2019-04-25] MEDS: PANTOPRAZOLE 40 MG TABLET PO SCH (08:11)
[2019-04-25] MEDS: ENOXAPARIN 40 MG/0.4 ML SYRINGE SQ SCH (08:11)
[2019-04-25] MEDS: LISINOPRIL 20 MG TAB PO SCH (08:12)
[2019-04-25] MEDS: FUROSEMIDE 10 MG/ML 4 ML VIAL IV SCH ×2 (08:12→19:58)
[2019-04-25] MEDS: MORPHINE SULFATE 4 MG/ML SYRINGE IVP PRN (08:17)
[2019-04-25] MEDS: HYDROcodone/APAP 7.5-325MG 1 EACH TAB PO PRN (09:17)
[2019-04-25 12:18] LABS: Magnesium 1.7 mg/dL (1.6-2.3); Potassium 4.5 mmol/L (3.5-5.1)
--- NOTE | 2019-04-25 12:51 | P.PN ---
Subjective Progress Note Date: 04/25/19 Principal diagnosis: lymphedema, right lower extremity. Patient was seen and examined. No acute events overnight. Heart rate in the 130s this morning. Patient states that she woke up with excruciating right lower extremity pain in the dorsum of foot. Described as knifelike in nature. Patient states that she was given morphine and [place] which relieved the pain slightly. patient also reports difficulty ambulating from bed to bathroom. States that she lives with her provides modest help. She denies any chest pain, shortness of breath or palpitations. Otherwise, patient reports improvement in her lower extremity swelling from lymphedema. Objective - Vital Signs Vital signs: Vital Signs Temp 97.9 F 04/25/19 07:00 Pulse 133 H 04/25/19 07:00 Resp 16 04/25/19 07:00 BP 142/89 04/25/19 07:00 Pulse Ox 98 04/25/19 07:00 Intake & Output 04/24/19 04/25/19 04/25/19 18:59 06:59 18:59 Intake Total 600 100 250 Output Total 1000 Balance 600 -900 250 Weight 112.5 kg Intake: IV 600 Sodium Chloride 0.9% 1, 600 000 ml @ 150 mls/hr IV . Q6H40M FOR[facility]LY [facility], [facility] Rx#:[id number] Oral 100 250 Output: Urine 1000 Other: Voiding Method Incontinent Incontinent - Exam General: [non toxic], [no distress], [appears at stated age] Derm: [warm], [dry] Head: [atraumatic], [normocephalic], [symmetric] Eyes: [EOMI], [no lid lag], [anicteric sclera] Mouth: [no lip lesion], [mucus membranes moist] Cardiovascular: [S1S2 reg], [no murmur], [positive posterior tibial pulse alvarez ateral], Lungs: [decreased breath sounds bilateral], [no rhonchi, no rales] , [no accessory muscle use] Abdominal: [soft], [ nontender to palpation], [no guarding], [no appreciable organomegaly] Ext: [no gross muscle atrophy], [bilateral edema, YAMILETH wrap], [no contractures] Neuro: [ CN II-XI grossly intact], [no focal neuro deficits] Psych: [Alert], [oriented], [appropriate affect] - Labs CBC & Chem 7: 04/24/19 07:37 04/25/19 11:21 Labs: Microbiology - Last 24 Hours (Table) 04/23/19 08:11 Blood Culture - Preliminary Blood No Growth after 48 hours 04/23/19 08:01 Blood Culture - Preliminary Blood No Growth after 48 hours Assessment and Plan Assessment: Group B strep bacteremia, probable cellulitis Lymphedema Tachycardia Sarcoidosis Asymptomatic bacteriuria Anemia with positive FOBT Morbid obesity with BMI 42.6 Hypertension Resolved: Acute kidney injury on chronic kidney disease, toxic metabolic encephalopathy, lactic acidosis Blood culture from 04/20/2019 positive for group B strep. Repeat blood cultures preliminary negative at 48 hours. Plans: Follow ID recommendations. Follow repeat blood cultures. Plans: YAMILETH wraps. Continue Lasix 40 mg IV twice a day. Adequate pain managementwith [place] and morphine as needed. Needs follow-up with PT and OT for lymphedema in the outpatient setting. Heart rate 133. In the 90s on admission. Heart rate 78 during examination today. Patient asymptomatic. CTA of the chest rules out PE. Likely related to pain. EKG shows sinus tachycardia without signs of ischemia. Plans: Insure adequate pain control. Follow TSH. Telemetry monitoring. Plans: Needs adequate outpatient follow up. Shows signs of right heart strain, would benefit from treatment. Urine culture positive Klebsiella and Citrobacter. Patient with no complaints. Plans: No treatment as per ID recommendations. Hemoglobin 10.2. Current study shows anemia of chronic disease. Plans: Daily CBC. Will need colonoscopy in the outpatient setting. Plans: Structured weight loss program. BP 142/89. Plans: Continue lisinopril. [Patient with improved swelling with Lasix IV. Would benefit from 1 more day. Plans to consult PT. Likely DC in 1-2 days this pain well-controlled.]
--- NOTE | 2019-04-25 19:48 | PN ---
PROGRESS NOTE DATE OF SERVICE: 04/25/2019. REASON FOR FOLLOWUP: Left lower extremity cellulitis and Streptococcus agalactiae bacteremia. INTERVAL HISTORY: The patient is currently afebrile. Patient has been breathing comfortably. Denies having any chest pain, shortness of breath or cough. No nausea, vomiting. No abdominal pain or any diarrhea. PHYSICAL EXAMINATION: Blood pressure 132/82 with a pulse of 130, temperature 97.7. He is 100% on 2 L nasal cannula. General description is an elderly female lying in bed in no distress. Respiratory system unlabored breathing. Clear to auscultation anteriorly. Heart S1, S2. Tachycardic. ABDOMEN: Soft. No tenderness. Left leg with swelling. No redness. No open wound or any drainage. LABS: BUN of 32, creatinine 1.32. Blood culture repeat has been negative. DIAGNOSTIC IMPRESSION AND PLAN: Patient with acute left lower extremity cellulitis in this patient who did have agalactiae bacteremia. Patient is currently with cefazolin 2 g q.8h to continue while monitoring clinical course closely. Continue supportive care. MMODL / IJN: [id number] /
[2019-04-26 07:35] VITALS: BP 144/84; PULSE 80; RESP 17; TEMP 97.8
[2019-04-26] MEDS: ENOXAPARIN 40 MG/0.4 ML SYRINGE SQ SCH (09:35)
[2019-04-26] MEDS: LISINOPRIL 20 MG TAB PO SCH (09:35)
[2019-04-26] MEDS: CEPHALEXIN 500 MG CAP PO SCH ×2 (09:35→13:44)
[2019-04-26] MEDS: PANTOPRAZOLE 40 MG TABLET PO SCH (09:35)
--- NOTE | 2019-04-26 10:09 | P.DS ---
Providers Date of admission: 04/22/19 09:56 Expected date of discharge: 04/26/19 Attending physician: Ashish Jones MD Consults: 04/21/19 08:24 Consult Physician Routine Consulting Provider: Rohan Crowe Consult Reason/Comments: recurrent UTI Do you want consulting provider notified?: Yes Primary care physician: [facility] Course: Patient is a 68-year-old female with a past medical history of lower extremity edema, sarcoidosis with kidney stones, hypertension, and arthritis who presented to the emergency department with complaints of confusion and generalized weakness. On arrival to the emergency department she was found to be hypoxic with an O2 sat of 88% on room air and was tachycardic with a pulse of 111. Initial laboratory analysis demonstrated newly discovered anemia with hemoglobin 10.9, elevated lactic acid at 2.1, elevated BNP at 6330, and elevated creatinine consistent with known prior. Urinalysis appeared contaminated, stool occult blood was positive. Blood cultures were completed. She was admitted for further monitoring and care. She was subsequently found to have bacteremia. Infectious disease was consulted and bacteremia came back as strep agalactiae and the patient was continued on Cefazolin 1. Was felt to likely be due secondary to skin infection from her lymphedema. Antibiotics were transitioned to oral on discharge. Repeat blood cultures are negative at 72 hours. With regard to her lymphedema, YAMILETH wraps were placed with good results. Patient was started on Lasix 40 mg IV twice a day and transition to oral on discharge. Her pain was managed with Aspers and morphine as needed. Patient was noted to be tachycardic throughout her admission. Her heart rate of on the morning of April 25 7 AM was around 130. Patient had reported severe 10 out of 10 pain at that time, recheck of her pulse after adequate pain medication was 78. CT of the chest was performed and ruled out PE as a cause of tachycardi a. Patient was noted to have a urine culture positive for Klebsiella and Citrobacter. This was a symptomatically bacteria as patient had no complaints. ID was consulted and recommended no treatment. Patient was noted to have anemia with a hemoglobin of 10.2 with positive FOBT. Her hemoglobin was stable throughout admission. Iron studies were performed which showed anemia of chronic disease. Patient was seen and examined prior to discharge. No acute events overnight. Patient reports significant improvement in her swelling since starting Lasix IV along with antibiotics. She denies any chest pain, shortness of breath or palpitations. General: [non toxic], [no distress], [appears at stated age] Derm: [warm], [dry] Head: [atraumatic], [normocephalic], [symmetric] Eyes: [EOMI], [no lid lag], [anicteric sclera] Mouth: [no lip lesion], [mucus membranes moist] Cardiovascular: [S1S2 reg], [no murmur] Lungs: [decreased breath sounds bilateral], [no rhonchi, no rales] , [no accessory muscle use] Abdominal: [soft], [ nontender to palpation], [no guarding], [no appreciable organomegaly] Ext: [no gross muscle atrophy], [bilateral edema, YAMILETH wrap], [no contractures] Neuro: [no focal neuro deficits] Psych: [Alert], [oriented], [appropriate affect] Group B strep bacteremia, probable cellulitis Lymphedema Tachycardia Sarcoidosis Asymptomatic bacteriuria Anemia with positive FOBT Morbid obesity with BMI 42.6 Hypertension Resolved: Acute kidney injury on chronic kidney disease, toxic metabolic encephalopathy, lactic acidosis Blood culture from 04/20/2019 positive for group B strep. Repeat blood cultures preliminary negative at 48 hours. Plans: Follow ID recommendations. Follow repeat blood cultures. Transition to Keflex on discharge. Plans: YAMILETH wraps. Transition Lasix IV to oral. Adequate pain management with Aspers and morphine as needed. Needs follow-up with PT and OT for lymphedema in the outpatient setting. TSH within normal limits. Within normal limits today. Patient asymptomatic. CTA of the chest rules out PE. Likely related to pain. EKG shows sinus tachycardia without signs of ischemia. Plans: Insure adequate pain control. Telemetry monitoring. Plans: Needs adequate outpatient follow up. Shows signs of right heart strain, would benefit from treatment. Urine culture positive Klebsiella and Citrobacter. Patient with no complaints. Plans: No treatment as per ID recommendations. Hemoglobin 10.2. Current study shows anemia of chronic disease. Plans: Daily CBC. Will need colonoscopy in the outpatient setting. Plans: Structured weight loss program. BP 144/84. Plans: Continue lisinopril. [Patient with improved swelling with Lasix IV. We'll transition to by mouth. DC today.] Pertinent Studies: Chest x-ray, chest CTA Patient Condition at Discharge: Stable Plan - Discharge Summary Discharge Rx Participant: No New Discharge Prescriptions: New Cephalexin [Keflex] 500 mg PO Q6HR #40 cap HYDROcodone/APAP 7.5-325MG [Aspers 7.5-325] 2 each PO Q6H PRN #24 tab PRN Reason: Pain Cephalexin [Keflex] 500 mg PO QID cap Furosemide [Lasix] 40 mg PO DAILY #30 tablet Continue Cholecalciferol [Vitamin D3 (25 Mcg = 1000 Iu)] 5,000 unit PO DAILY Omeprazole [PriLOSEC] 20 mg PO DAILY Enalapril Maleate [Vasotec] 20 mg PO DAILY Ibuprofen [Motrin] 600 mg PO Q8HR PRN PRN Reason: Pain Spironolactone [Aldactone] 50 mg PO DAILY Cyanocobalamin (Vitamin B-12) [Vitamin B-12] 1,000 mg PO DAILY Discontinued Papaya [Papaya Enzyme] 1 tab PO QID Vitamin E 1,000 unit PO DAILY HYDROcodone/APAP 10-325MG [Aspers 10-325] 1 tab PO BID PRN PRN Reason: Pain Discharge Medication List Cholecalciferol [Vitamin D3 (25 Mcg = 1000 Iu)] 5,000 unit PO DAILY 08/13/18 [History] Enalapril Maleate [Vasotec] 20 mg PO DAILY 02/28/19 [History] Ibuprofen [Motrin] 600 mg PO Q8HR PRN 02/28/19 [History] Omeprazole [PriLOSEC] 20 mg PO DAILY 02/28/19 [History] Spironolactone [Aldactone] 50 mg PO DAILY 02/28/19 [History] Cyanocobalamin (Vitamin B-12) [Vitamin B-12] 1,000 mg PO DAILY 04/20/19 [History] Cephalexin [Keflex] 500 mg PO Q6HR #40 cap 04/26/19 [Rx] Cephalexin [Keflex] 500 mg PO QID cap 04/26/19 [Rx] Furosemide [Lasix] 40 mg PO DAILY #30 tablet 04/26/19 [Rx] HYDROcodone/APAP 7.5-325MG [Aspers 7.5-325] 2 each PO Q6H PRN #24 tab 04/26/19 [Rx] Follow up Appointment(s)/Referral(s): Chente Reyes MD [Primary Care Provider] - 1-2 days Rohan Crowe MD [STAFF PHYSICIAN] - 1 Week Emmie Nunez MD [STAFF PHYSICIAN] - 1 Week Activity/Diet/Wound Care/Special Instructions: Diet: Heart healthy Follow-up PCP within 1-2 days of discharge. Follow-up infectious disease within 1 week of discharge. Follow-up rheumatology within 1 week of discharge. Take all medications as advised. Discharge Disposition: HOME SELF-CARE
[2019-04-26] MEDS: FUROSEMIDE 10 MG/ML 4 ML VIAL IV SCH (10:35)
--- NOTE | 2019-04-26 13:40 | PN ---
PROGRESS NOTE DATE OF SERVICE: 04/26/2018 REASON FOR FOLLOWUP: Streptococcus agalactiae bacteremia and left lower extremity cellulitis. INTERVAL HISTORY: The patient is currently afebrile. The patient has been breathing comfortably. Denies having any chest pain or cough. No nausea, vomiting. No abdominal pain. No pain to the left leg area. PHYSICAL EXAMINATION: On examination, blood pressure is 144/84 with a pulse of 80, temperature 97.8. She is 92% on room air. General description is an elderly female lying in bed in no distress. RESPIRATORY SYSTEM: Unlabored breathing, clear to auscultation anteriorly. HEART: S1, S2. Regular rate and rhythm. ABDOMEN: Soft, no tenderness. Left leg swelling but no redness. LABS: No new labs have been obtained today. Blood cultures from 04/23 has been negative. DIAGNOSTIC IMPRESSION AND PLAN: Patient with Streptococcus agalactiae bacteremia, possible infection left leg as patient did have lymphedema, bacteremia very quickly, less likely in deep or any vascular source. The patient also on IV antibiotic switched over to Keflex 500 mg q.6 hours for another 10 days with close outpatient followup. MMODL / IJN: [id number] /
--- NOTE | 2019-05-01 17:59 | CDI ---
Documentation Clarification Form Date: 04/29/19 From: MARIA TERESA Minor Phone: If you have question, contact Therese Vear at [phone] M-F 8:30 am to 6pm Admit Date: 04/22/2019 9:56:00 AM Patient Name: Marifer Crespo Visit Number: [id number] Discharge Date: 04/26/2019 3:50:00 PM ATTENTION: The Clinical Documentation Specialists (CDI) and [facility] Coding Staff appreciate your assistance in clarifying documentation. Please respond to the clarification below the line at the bottom and electronically sign. The CDI & [facility] Coding staff will review the response and follow-up if needed. Please note: Queries are made part of the Legal Health Record. If you have any questions, please contact the author of this message via ITS. Dr. Ashish Jones Patient is admitted with left lower extremity cellulitis Bacteremia documented throughout the chart. Labs show positive streptococcus agalactiae. Antibiotics: Rocephin was started and then was switched cefazolin Bacteremia is considered a lab finding. Please clarify if that lab finding is clinical indicator of a more definitive medical diagnosis such as: Sepsis Infectious Process, please specify: Other, please specify Unable to determine ___unable to determine , please forward to Dr. Juarez, or [place] for clarification MTDD
--- NOTE | 2019-05-02 09:52 | CDI ---
Documentation Clarification Form Date: 04/29/19 From: MARIA TERESA Minor Phone: If you have question, contact Therese Vera at [phone] M-F 8:30 am to 6pm Admit Date: 04/22/2019 9:56:00 AM Patient Name: Marifer Crespo Visit Number: [id number] Discharge Date: 04/26/2019 3:50:00 PM ATTENTION: The Clinical Documentation Specialists (CDI) and [facility] Coding Staff appreciate your assistance in clarifying documentation. Please respond to the clarification below the line at the bottom and electronically sign. The CDI & [facility] Coding staff will review the response and follow-up if needed. Please note: Queries are made part of the Legal Health Record. If you have any questions, please contact the author of this message via ITS. Dr. Ashish Jones Patient is admitted with left lower extremity cellulitis Bacteremia documented throughout the chart. Labs show positive streptococcus agalactiae. Antibiotics: Rocephin was started and then was switched cefazolin Bacteremia is considered a lab finding. Please clarify if that lab finding is clinical indicator of a more definitive medical diagnosis such as: Sepsis Infectious Process, please specify: Other, please specify Unable to determine iinfectious process from cellulitis MTDD
== END 2019-04-26 15:50 | disposition home or self-care (01) | DRG 602 ==
LOC: EC 19:30 → 4SSUR 04-21 03:38 → OBSVTOIN 04-22 09:56
PROVIDERS: ADMIT Internal Medicine; ATTEND Internal Medicine
DX: L03.116 Cellulitis of left lower limb (principal); G93.41 Metabolic encephalopathy; N39.0 Urinary tract infection, site not specified; R78.81 Bacteremia; Z68.41 Body mass index [BMI] 40.0-44.9, adult; E87.2 Acidosis; N17.9 Acute kidney failure, unspecified; I89.0 Lymphedema, not elsewhere classified; G89.29 Other chronic pain; I12.9 Hypertensive chronic kidney disease with stage 1 through stage 4 chronic kidney disease, or unspecified chronic kidney disease; N18.3 Chronic kidney disease, stage 3 (moderate); D63.8 Anemia in other chronic diseases classified elsewhere; K59.00 Constipation, unspecified; B95.1 Streptococcus, group B, as the cause of diseases classified elsewhere; I27.20 Pulmonary hypertension, unspecified; D86.9 Sarcoidosis, unspecified; E66.01 Morbid (severe) obesity due to excess calories; E86.0 Dehydration; B96.1 Klebsiella pneumoniae [K. pneumoniae] as the cause of diseases classified elsewhere; B96.89 Other specified bacterial agents as the cause of diseases classified elsewhere; G40.909 Epilepsy, unspecified, not intractable, without status epilepticus; Z87.440 Personal history of urinary (tract) infections; Z79.899 Other long term (current) drug therapy; Z86.14 Personal history of Methicillin resistant Staphylococcus aureus infection; Z87.442 Personal history of urinary calculi; Z90.49 Acquired absence of other specified parts of digestive tract; Z91.041 Radiographic dye allergy status; Z87.891 Personal history of nicotine dependence; Z82.5 Family history of asthma and other chronic lower respiratory diseases; Z82.3 Family history of stroke; Z82.0 Family history of epilepsy and other diseases of the nervous system
CPT/HCPCS: 36415; 71046; 71275; 80048; 80053; 81001; 82272; 82728; 83540; 83550; 83605; 83735; 83880; 84443; 85025; 85027; 87040; 87077; 87186; 93005; 96361; 96374; 99285

== ENCOUNTER 2019-05-14 00:01 | Inpatient (IN) | payer MEDICARE, OTHER ==
[2019-05-14] MEDS ORDERED: SODIUM CHLORIDE 0.9% 500 ML 500 ML IV STA (00:39)
[2019-05-14] MEDS ORDERED: PANTOPRAZOLE 40 MG/10 ML VIAL IVP STA (00:41)
[2019-05-14] MEDS ORDERED: ONDANSETRON 4 MG/2 ML VIAL IVP STA (00:41)
[2019-05-14 02:21] LABS: Anisocytosis Slight; Basophils # (A) 0.1 k/uL (0-0.2); Basophils % (A) 1 %; Eosinophils # (A) 0.2 k/uL (0-0.7); Eosinophils % (A) 2 %; HCT 33.7 % (34.0-46.0); HGB 10.6 gm/dL (11.4-16.0); Hypochromasia Slight; Lymphocytes # (A) 1.6 k/uL (1.0-4.8); Lymphocytes % (A) 18 %; MCH 33.1 pg (25.0-35.0); MCHC 31.4 g/dL (31.0-37.0); MCV 105.4 fL (80.0-100.0); Mean Platelet Volume 9.1; Monocytes # (A) 0.4 k/uL (0-1.0); Monocytes % (A) 4 %; Neutrophils # (A) 6.4 k/uL (1.3-7.7); Neutrophils % (A) 74 %; Platelet Count 120 k/uL (150-450); Poikilocytosis Slight; RDW 17.8 % (11.5-15.5); WBC 8.7 k/uL (3.8-10.6)
[2019-05-14 02:27] LABS: Albumin 2.5 g/dL (3.5-5.0); Calcium 10.2 mg/dL (8.4-10.2); Potassium 4.5 mmol/L (3.5-5.1); Total Bilirubin 2.4 mg/dL (0.2-1.3); Total Protein 6.5 g/dL (6.3-8.2)
[2019-05-14 02:55] LABS: INR 1.6 (<1.2); Prothrombin Time 16.3 sec (9.0-12.0)
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
[2019-05-14 03:24] LABS: Macrocytosis Marked; Polychromasia Present
[2019-05-14] MEDS ORDERED: ONDANSETRON 4 MG/2 ML VIAL IVP PRN (04:11)
[2019-05-14] MEDS ORDERED: NALOXONE 0.4 MG/ML 1 ML VIAL IV PRN (04:11)
[2019-05-14] MEDS: SODIUM CHLORIDE 0.9% 1,000 ML IV SCH (04:55)
[2019-05-14] MEDS ORDERED: SODIUM CHLORIDE 0.9% 500 ML 500 ML IV ONE (07:09)
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
[2019-05-14 08:11] LABS: Anisocytosis Slight; Basophils # (A) 0.1 k/uL (0-0.2); Basophils % (A) 1 %; Eosinophils # (A) 0.1 k/uL (0-0.7); Eosinophils % (A) 1 %; HCT 27.3 % (34.0-46.0); Hypochromasia Moderate; Lymphocytes # (A) 0.6 k/uL (1.0-4.8); Lymphocytes % (A) 8 %; MCH 33.8 pg (25.0-35.0); MCHC 31.9 g/dL (31.0-37.0); Macrocytosis Marked; Mean Platelet Volume 8.7; Monocytes # (A) 0.5 k/uL (0-1.0); Monocytes % (A) 6 %; Neutrophils % (A) 84 %; Poikilocytosis Slight; RBC 2.57 m/uL (3.80-5.40); RDW 17.3 % (11.5-15.5); WBC 7.2 k/uL (3.8-10.6)
[2019-05-14 08:13] LABS: HGB 8.7 gm/dL (11.4-16.0)
[2019-05-14 08:21] LABS: Platelet Count 90 k/uL (150-450)
[2019-05-14] MEDS ORDERED: PANTOPRAZOLE 40 MG/10 ML VIAL IV SCH (09:00)
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
[2019-05-14] MEDS ORDERED: PROPOFOL 10 MG/ML 20 ML VIAL IV ONE (09:56)
[2019-05-14] MEDS ORDERED: IV FLUID CONTINUATION 1,000 ML IV ONE (10:02)
[2019-05-14] MEDS ORDERED: EPINEPHrine 10 ML SYRINGE (0.1 MG/ML) MISCELLANE ONE (10:15)
--- NOTE | 2019-05-14 11:08 | P.PCN ---
Date of Procedure: 05/14/19 Description of Procedure: BRIEF HISTORY: Patient is a 68 yo female with a PMH of HTN, sarcoidos, and recent treatment of lower extremity cellulitis who presented to the hospital with complaints of vomiting blood. She reports 2 episodes of vomiting of gross red blood prior to presentation to the hospital. She reports no previous episodes of vomiting blood and has never required an EGD in the past. She reports feeling nauseated prior to the vomiting. After presentation to the hospital she reported dark colored stool. She also seen melanotic bowel movements 2 weeks earlier when she had presented for treatment of lower extremity cellulitis. She denies any history of peptic ulcer disease. No colonoscopy in the past. She denies any associated abdominal pain. No blood thinner use. She has been taking to 600 mg Motrin nightly over the past 2 weeks. On presentation hemoglobin was found to be 10.6 and subsequently fell to 8.7. In February 2019 hemoglobin was noted to be 13.4, and was also normal prior to this. Creatinine on presentation 1.2, total bilirubin 2.4, hemoglobin 135, AST 36, T12, lactic acid 4.2 on presentation and 3 on repeat draw. Currently the patient is seen lying in bed. She denies any further signs or symptoms of GI bleeding since presentation to the hospital. She has been nothing by mouth and started on IV Protonix 40 mg twice a day. PROCEDURE PERFORMED: Esophagogastroduodenoscopy with epinephrine injection and Endo Clip placement. PREOPERATIVE DIAGNOSIS: Hematemesis, anemia of acute blood loss, melena. ESTIMATED BLOOD LOSS: Minimal. IV sedation per anesthesia. PROCEDURE: After informed consent was obtained, the patient was brought into the endoscopy unit. IV sedation was administered by Anesthesia under continuous monitoring. Initially the Olympus GIF-190 video endoscope was inserted into the mouth. Esophagus intubated without any difficulty. It was gradually advanced into the stomach and duodenum and carefully examined. A 1 cm nonbleeding ulcer was seen in the duodenal bulb with a clot noted at the ulcer site. Lavage was performed to try to remove the clot however was unsuccessful. Injection of 6 mL of epinephrine was then placed circumferentially around the ulcer. 4 endoclips were used to approximate the edges of the ulcer. No bleeding was noted at the end of the interventions. The scope at this time was withdrawn to the stomach, adequately insufflated with air, and upon careful examination, mucosa of the antrum, body, cardia and the fundus appeared normal. The scope was then withdrawn into the esophagus. The GE junction was located at 35 cm from the incisors. The esophagus appeared normal. There were no erosions or ulcerations seen and the patient tolerated the procedure well. IMPRESSION: 1. 1 cm duodenal bulb ulcer with clot noted over the ulcer site. Injection of epinephrine and Endo Clip placement performed with no bleeding at the end of the intervention. RECOMMENDATIONS: The findings of this examination were discussed with the patient and her . Given the location of the ulcer if further bleeding occurs surgical service should be consult dated for evaluation of surgical intervention or patient should be transferred to tertiary center for CT angiography with coiling. Okay for liquids today. Continue to monitor hemoglobin every 6 hours and transfuse as needed. Continue Protonix 40 mg IV twice a day. Avoid NSAID use. Patient should also have a colonoscopy in the outpatient setting after discharge.
[2019-05-14] MEDS: CYANOCOBALAMIN 500 MCG TAB PO SCH (11:23)
[2019-05-14] MEDS: PANTOPRAZOLE 40 MG/10 ML VIAL IV SCH ×2 (11:23→20:00)
[2019-05-14] MEDS: FUROSEMIDE 40 MG TAB PO SCH (11:24)
[2019-05-14] MEDS ORDERED: HYDROcodone/APAP 5-325MG 1 EACH TAB PO PRN (14:09)
[2019-05-14] MEDS: HYDROcodone/APAP 10-325MG 1 EACH TAB PO PRN (14:22)
[2019-05-14 14:30] LABS: Anisocytosis Slight; Basophils % (A) 0 %; Eosinophils # (A) 0.1 k/uL (0-0.7); Eosinophils % (A) 1 %; HCT 28.7 % (34.0-46.0); HGB 8.9 gm/dL (11.4-16.0); Hypochromasia Marked; Lymphocytes # (A) 0.6 k/uL (1.0-4.8); Lymphocytes % (A) 5 %; MCH 34.2 pg (25.0-35.0); MCV 110.6 fL (80.0-100.0); Macrocytosis Marked; Mean Platelet Volume 8.5; Monocytes # (A) 0.4 k/uL (0-1.0); Monocytes % (A) 4 %; Neutrophils % (A) 89 %; RDW 17.9 % (11.5-15.5); WBC 10.1 k/uL (3.8-10.6)
[2019-05-14 14:31] LABS: Platelet Count 99 k/uL (150-450)
[2019-05-14] MEDS ORDERED: SODIUM CHLORIDE 0.9% 1,000 ML IV ONE (15:00)
--- NOTE | 2019-05-14 16:31 | P.PN ---
Subjective Progress Note Date: 05/14/19 (Delayed charting patient seen at 11:30 AM) Principal diagnosis: GI bleed Patient is a 68-year-old female with a past medical history of hypertension, sarcoidosis, lymphedema, arthritis, and seizure disorder who presented to the ER after 2 episodes of vomiting up blood. Patient had been taking Motrin 600 mg nightly for the last 2 weeks secondary to pain from her lymphedema. In the ER she underwent an extensive evaluation. On arrival she was tachycardic with a pulse of 133 vital signs were otherwise within normal limits. Laboratory analysis showed a hemoglobin of 10.6 which was consistent with her prior hemoglobin from last month. An hour slightly prolonged at 1.6. Lactic acid was significantly elevated at 4.2. Patient's creatinine was near her baseline of 1.1-1.2. She is given a dose of IV Protonix and arrangements were made for admission. She was started on serial CBCs and IV fluids. She was seen by GI and underwent EGD which showed a 1 cm duodenal ulcer with clot over the ulcer site. This was injected with epinephrine and Endo Clip placed with no bleeding at the end intervention. GI recommended clear liquid diet today, continue to monitor hemoglobin every 6 hours, Protonix IV twice a day, and avoiding NSAID use. They also recommended colonoscopy in outpatient setting after discharge. Family notified that if further bleeding should occur patient to be transferred to a tertiary care center for CTA with coiling. Patient seen and examined at bedside. She is still lethargic from her procedure. She denies any chest pain or shortness of breath. She is currently not nauseous. She is having some abdominal pain that is epigastric. She denies any diarrhea. was present and states that she is due to start at the lymphedema clinic in 3 weeks. She is due to have Marcelino wrap. Objective - Vital Signs Vital signs: Vital Signs Temp 98.3 F 05/14/19 16:00 Pulse 133 H 05/14/19 16:00 Resp 18 05/14/19 16:00 BP 130/61 05/14/19 16:00 Pulse Ox 97 05/14/19 16:00 Intake & Output 05/13/19 05/14/19 05/14/19 18:59 06:59 18:59 Intake Total 300 Balance 300 Weight 113.398 kg Intake: IV 300 Other: # Bowel Movements 1 - Exam General: Ill-appearing, no distress, appears at stated age Derm: warm, dry Head: atraumatic, normocephalic, symmetric Eyes: EOMI, no lid lag, anicteric sclera Mouth: no lip lesion, mucus membranes moist Cardiovascular: S1S2 reg, no murmur, positive posterior tibial pulse bilateral, Lungs: Decreased breath sounds bilateral, no rhonchi, no rales , no accessory muscle use Abdominal: soft, nontender to palpation, no guarding, no appreciable organo megaly Ext: no gross muscle atrophy, gross lymphedema bilateral lower extremities, no contractures Neuro: CN II-XI grossly intact, no focal neuro deficits Psych: Alert, lethargic due to recent procedure, appropriate affect - Labs CBC & Chem 7: 05/14/19 14:01 05/14/19 02:04 Labs: Abnormal Lab Results - Last 24 Hours (Table) 05/14/19 05/14/19 05/14/19 Range/Units 02:04 02:04 02:04 RBC 3.20 L (3.80-5.40) m/uL Hgb 10.6 L (11.4-16.0) gm/dL Hct 33.7 L (34.0-46.0) % MCV 105.4 H (80.0-100.0) fL RDW 17.8 H (11.5-15.5) % Plt Count 120 L (150-450) k/uL Neutrophils # (1.3-7.7) k/uL Lymphocytes # (1.0-4.8) k/uL Macrocytosis Marked A PT (9.0-12.0) sec INR (<1.2) BUN 34 H (7-17) mg/dL Creatinine 1.20 H (0.52-1.04) mg/dL Glucose 110 H (74-99) mg/dL Plasma Lactic Acid Remy 4.2 H* (0.7-2.0) mmol/L Total Bilirubin 2.4 H (0.2-1.3) mg/dL Alkaline Phosphatase 135 H (38-126) U/L Albumin 2.5 L (3.5-5.0) g/dL Crossmatch 05/14/19 05/14/19 05/14/19 Range/Units 02:04 02:04 06:30 RBC (3.80-5.40) m/uL Hgb (11.4-16.0) gm/dL Hct (34.0-46.0) % MCV (80.0-100.0) fL RDW (11.5-15.5) % Plt Count (150-450) k/uL Neutrophils # (1.3-7.7) k/uL Lymphocytes # (1.0-4.8) k/uL Macrocytosis PT 16.3 H (9.0-12.0) sec INR 1.6 H (<1.2) BUN (7-17) mg/dL Creatinine (0.52-1.04) mg/dL Glucose (74-99) mg/dL Plasma Lactic Acid Remy 3.0 H* (0.7-2.0) mmol/L Total Bilirubin (0.2-1.3) mg/dL Alkaline Phosphatase (38-126) U/L Albumin (3.5-5.0) g/dL Crossmatch See Detail 05/14/19 05/14/19 05/14/19 Range/Units 07:42 11:00 14:01 RBC 2.57 L 2.60 L (3.80-5.40) m/uL Hgb 8.7 L D 8.9 L (11.4-16.0) gm/dL Hct 27.3 L 28.7 L (34.0-46.0) % MCV 106.0 H 110.6 H (80.0-100.0) fL RDW 17.3 H 17.9 H (11.5-15.5) % Plt Count 90 L 99 L (150-450) k/uL Neutrophils # 9.0 H (1.3-7.7) k/uL Lymphocytes # 0.6 L 0.6 L (1.0-4.8) k/uL Macrocytosis Marked A Marked A PT (9.0-12.0) sec INR (<1.2) BUN (7-17) mg/dL Creatinine (0.52-1.04) mg/dL Glucose (74-99) mg/dL Plasma Lactic Acid Remy 3.3 H* (0.7-2.0) mmol/L Total Bilirubin (0.2-1.3) mg/dL Alkaline Phosphatase (38-126) U/L Albumin (3.5-5.0) g/dL Crossmatch 05/14/19 Range/Units 14:01 RBC (3.80-5.40) m/uL Hgb (11.4-16.0) gm/dL Hct (34.0-46.0) % MCV (80.0-100.0) fL RDW (11.5-15.5) % Plt Count (150-450) k/uL Neutrophils # (1.3-7.7) k/uL Lymphocytes # (1.0-4.8) k/uL Macrocytosis PT (9.0-12.0) sec INR (<1.2) BUN (7-17) mg/dL Creatinine (0.52-1.04) mg/dL Glucose (74-99) mg/dL Plasma Lactic Acid Remy 4.1 H* (0.7-2.0) mmol/L Total Bilirubin (0.2-1.3) mg/dL Alkaline Phosphatase (38-126) U/L Albumin (3.5-5.0) g/dL Crossmatch Assessment and Plan Assessment: GI bleed secondary to duodenal ulcer status post appendectomy injection along with clipping -Continue serial CBCs -Avoid NSAIDs -PPI twice a day -GI recommendations appreciated -She'll need to be transferred to a tertiary care center if bleeding recurs for CT-guided quailing Lactic acidosis suspect secondary to GI bleed -IV fluids -Continue to follow lactic acid Sinus tachycardia -Persistent from last hospitalization -Await cardiology consultation -Trend troponins -Continue with telemetry monitoring Coagulopathy INR 1.6 -Undetermined etiology -Patient had been having poor appetite may be due to vitamin K deficiency due to poor oral intake -Repeat INR in a.m. Hypertension - lisinopril - follow BP Chronic kidney disease stage III -Creatinine at baseline -Continue to follow basic metabolic profile -Avoid NSAID therapy DVT prophylaxis: SCDs Discussed with: patient, nursing, family Anticipated discharge: 1-[address]: home A total of 45 minutes was spent on the care of this complex patient more than 50% of the time was spent in counseling and care coordination.
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
[2019-05-14] MEDS: VERAPAMIL 40 MG TAB PO SCH ×2 (17:27→20:00)
[2019-05-14 20:11] LABS: Anisocytosis Slight; Basophils % (A) 0 %; Eosinophils # (A) 0.1 k/uL (0-0.7); Eosinophils % (A) 1 %; HCT 22.6 % (34.0-46.0); Hypochromasia Moderate; Lymphocytes # (A) 0.9 k/uL (1.0-4.8); Lymphocytes % (A) 11 %; MCH 33.4 pg (25.0-35.0); MCHC 31.1 g/dL (31.0-37.0); MCV 107.5 fL (80.0-100.0); Mean Platelet Volume 8.4; Monocytes # (A) 0.4 k/uL (0-1.0); Monocytes % (A) 5 %; Neutrophils # (A) 6.2 k/uL (1.3-7.7); Neutrophils % (A) 80 %; Platelet Count 87 k/uL (150-450); Poikilocytosis Slight; RDW 18.1 % (11.5-15.5); WBC 7.7 k/uL (3.8-10.6)
[2019-05-14 20:27] LABS: Macrocytosis Marked
[2019-05-14] MEDS ORDERED: DICYCLOMINE 20 MG TAB PO STA (21:10)
[2019-05-15 02:44] LABS: Anisocytosis Slight; Basophils % (A) 1 %; Eosinophils # (A) 0.2 k/uL (0-0.7); Eosinophils % (A) 3 %; HCT 25.6 % (34.0-46.0); HGB 7.7 gm/dL (11.4-16.0); Hypochromasia Marked; Lymphocytes % (A) 17 %; MCHC 29.9 g/dL (31.0-37.0); MCV 106.9 fL (80.0-100.0); Macrocytosis Marked; Monocytes # (A) 0.3 k/uL (0-1.0); Monocytes % (A) 5 %; Neutrophils # (A) 4.1 k/uL (1.3-7.7); Neutrophils % (A) 70 %; Platelet Count 84 k/uL (150-450); Poikilocytosis Moderate; RDW 19.7 % (11.5-15.5); WBC 5.9 k/uL (3.8-10.6)
[2019-05-15] MEDS: SODIUM CHLORIDE 0.9% 1,000 ML IV SCH ×2 (04:15→10:26)
[2019-05-15] MEDS: PANTOPRAZOLE 40 MG/10 ML VIAL IV SCH ×2 (08:39→20:30)
[2019-05-15] MEDS: LISINOPRIL 20 MG TAB PO SCH (08:39)
[2019-05-15] MEDS: CYANOCOBALAMIN 500 MCG TAB PO SCH (08:39)
[2019-05-15] MEDS: FUROSEMIDE 40 MG TAB PO SCH (08:39)
[2019-05-15] MEDS: VERAPAMIL 40 MG TAB PO SCH ×3 (08:39→21:21)
[2019-05-15] MEDS ORDERED: LISINOPRIL 20 MG TAB PO SCH (09:00)
[2019-05-15 10:12] LABS: Anisocytosis Slight; HCT 25.6 % (34.0-46.0); Hypochromasia Marked; MCH 32.8 pg (25.0-35.0); MCHC 31.2 g/dL (31.0-37.0); MCV 105.1 fL (80.0-100.0); Macrocytosis Marked; Mean Platelet Volume 8.4; Poikilocytosis Moderate; RBC 2.44 m/uL (3.80-5.40); WBC 6.1 k/uL (3.8-10.6)
[2019-05-15 10:16] LABS: Platelet Count 94 k/uL (150-450)
[2019-05-15 11:22] LABS: Eosinophils # (M) 0.24 k/uL (0-0.7); Lymphocytes # (M) 0.98 k/uL (1.0-4.8); Monocytes # (M) 0.31 k/uL (0-1.0); Neutrophils # (M) 4.58 k/uL (1.3-7.7); Neutrophils % (M) 75 %; Nucleated Red Blood Cells 0 /100 WBC (0-0); Total Cells Counted 100
--- NOTE | 2019-05-15 14:39 | P.PN ---
Subjective This is Kavitha Darling PA-C dictating a progress note on this patient The patient was interviewed and examined by me as well as by Dr. Bean Case discussed with Dr. Bean and he agrees with the plan of care IMPRESSION / ASSESSMENT: Upper GI bleed status post endoscopy Supraventricular tachycardia, converted with verapamil, currently in sinus rhythm, TSH within normal limits PLAN: Decrease Lisinopril Continue verapamil 40 mg 3 times a day Continue to monitor telemetry HPI/interval history Patient is a 68-year-old female with a past medical history of hypertension, sarcoidosis, presented with GI bleeding. She underwent endoscopy with epinephrine injection and Endo Clip placement yesterday. She was found to have atrial tachycardia the 130 bpm and was started on verapamil 40 mg 3 times a day. She converted to sinus rhythm but became slightly hypotensive with this. Has been in sinus rhythm the 70s overnight. Patient seen and examined sitting up at the side of the bed. States she feels much better today. Her breathing has improved. Denies palpitations or chest pain. Denies dizziness, lightheadedness or syncope. EXAMINATION Temperature 98.2F, pulse 74, respirations 18, blood pressure 111/64, oxygen saturation 97% on 2 L nasal cannula Patient seen and examined sitting up at the side of the bed, in no acute dis tress Lungs clear to auscultation bilaterally Heart is regular, normal S1-S2, no murmurs appreciated 1+ pitting edema bilaterally REVIEW OF LABS, ECG Telemetry revealed sinus rhythm overnight line TSH within normal limits Hemoglobin 8.0, WBC 6.1, potassium 4.5, BUN 34, creatinine 1.2 Objective - Vital Signs Vital signs: Vital Signs Temp 98.2 F 05/15/19 12:00 Pulse 74 05/15/19 12:00 Resp 18 05/15/19 12:00 BP 111/64 05/15/19 12:00 Pulse Ox 97 05/15/19 12:00 Intake & Output 05/14/19 05/15/19 05/15/19 18:59 06:59 18:59 Intake Total 660 310 480 Balance 660 310 480 Weight 112 kg Intake: IV 300 Oral 360 480 Blood Product 310 Rc As-1 Unit 310 [id number] Other: # Bowel Movements 1 - Labs CBC & Chem 7: 05/15/19 09:50 05/14/19 02:04 Labs: Abnormal Lab Results - Last 24 Hours (Table) 05/14/19 05/14/19 05/14/19 Range/Units 02:04 19:57 19:57 RBC 2.10 L (3.80-5.40) m/uL Hgb 7.0 L D (11.4-16.0) gm/dL Hct 22.6 L (34.0-46.0) % MCV 107.5 H (80.0-100.0) fL MCHC (31.0-37.0) g/dL RDW 18.1 H (11.5-15.5) % Plt Count 87 L (150-450) k/uL Lymphocytes # 0.9 L (1.0-4.8) k/uL Lymphocytes # (Manual) (1.0-4.8) k/uL Macrocytosis Marked A Plasma Lactic Acid Remy 3.0 H* (0.7-2.0) mmol/L Crossmatch See Detail 05/15/19 05/15/19 Range/Units 02:23 09:50 RBC 2.40 L 2.44 L (3.80-5.40) m/uL Hgb 7.7 L 8.0 L (11.4-16.0) gm/dL Hct 25.6 L 25.6 L (34.0-46.0) % MCV 106.9 H 105.1 H (80.0-100.0) fL MCHC 29.9 L (31.0-37.0) g/dL RDW 19.7 H 20.0 H (11.5-15.5) % Plt Count 84 L 94 L (150-450) k/uL Lymphocytes # (1.0-4.8) k/uL Lymphocytes # (Manual) 0.98 L (1.0-4.8) k/uL Macrocytosis Marked A Marked A Plasma Lactic Acid Remy (0.7-2.0) mmol/L Crossmatch
--- NOTE | 2019-05-15 14:46 | P.PN ---
Subjective Progress Note Date: 05/15/19 (delayed charting seen at 10am) Principal diagnosis: GI bleed Patient is a 68-year-old female with a past medical history of hypertension, sarcoidosis, lymphedema, arthritis, and seizure disorder who presented to the ER after 2 episodes of vomiting up blood. Patient had been taking Motrin 600 mg nightly for the last 2 weeks secondary to pain from her lymphedema. In the ER she underwent an extensive evaluation. On arrival she was tachycardic with a pulse of 133 vital signs were otherwise within normal limits. Laboratory analysis showed a hemoglobin of 10.6 which was consistent with her prior hemoglobin from last month. An hour slightly prolonged at 1.6. Lactic acid was significantly elevated at 4.2. Patient's creatinine was near her baseline of 1.1-1.2. She is given a dose of IV Protonix and arrangements were made for admission. She was started on serial CBCs and IV fluids. She was seen by GI and underwent EGD which showed a 1 cm duodenal ulcer with clot over the ulcer site. This was injected with epinephrine and Endo Clip placed with no bleeding at the end intervention. GI recommended clear liquid diet today, continue to monitor hemoglobin every 6 hours, Protonix IV twice a day, and avoiding NSAID use. They also recommended colonoscopy in outpatient setting after discharge. Family notified that if further bleeding should occur patient to be transferred to a tertiary care center for CTA with coiling. HgB dropped slightly overnight, given 1 unit or pRBC but likely due to fluid resuscitation and not continued bleeding. Patient seen and examined at bedside. Feeling well today. Slightly short of breath with increasing lower extremity edema. No chest pain. Some abdominal pain no vomiting. Tolerating clear liquid diet. Still had several stools that were dark in color but improving. Objective - Vital Signs Vital signs: Vital Signs Temp 98.2 F 05/15/19 12:00 Pulse 74 05/15/19 12:00 Resp 18 05/15/19 12:00 BP 111/64 05/15/19 12:00 Pulse Ox 97 05/15/19 12:00 Intake & Output 05/14/19 05/15/19 05/15/19 18:59 06:59 18:59 Intake Total 660 310 480 Balance 660 310 480 Weight 112 kg Intake: IV 300 Oral 360 480 Blood Product 310 Rc As-1 Unit 310 [id number] Other: # Bowel Movements 1 - Exam General: Nontoxic, no distress, appears at stated age Derm: warm, dry Head: atraumatic, normocephalic, symmetric Eyes: EOMI, no lid lag, anicteric sclera Mouth: no lip lesion, mucus membranes moist Cardiovascular: S1S2 reg, no murmur, positive posterior tibial pulse bilateral, Lungs: Decreased breath sounds bilateral, no rhonchi, no rales , no accessory muscle use Abdominal: soft, nontender to palpation, no guarding, no appreciable organomeg cat Ext: no gross muscle atrophy, gross lymphedema bilateral lower extremities, no contractures Neuro: CN II-XI grossly intact, no focal neuro deficits Psych: Alert, oriented, appropriate affect - Labs CBC & Chem 7: 05/15/19 09:50 05/14/19 02:04 Labs: Abnormal Lab Results - Last 24 Hours (Table) 05/14/19 05/14/19 05/14/19 Range/Units 02:04 19:57 19:57 RBC 2.10 L (3.80-5.40) m/uL Hgb 7.0 L D (11.4-16.0) gm/dL Hct 22.6 L (34.0-46.0) % MCV 107.5 H (80.0-100.0) fL MCHC (31.0-37.0) g/dL RDW 18.1 H (11.5-15.5) % Plt Count 87 L (150-450) k/uL Lymphocytes # 0.9 L (1.0-4.8) k/uL Lymphocytes # (Manual) (1.0-4.8) k/uL Macrocytosis Marked A Plasma Lactic Acid Remy 3.0 H* (0.7-2.0) mmol/L Crossmatch See Detail 05/15/19 05/15/19 Range/Units 02:23 09:50 RBC 2.40 L 2.44 L (3.80-5.40) m/uL Hgb 7.7 L 8.0 L (11.4-16.0) gm/dL Hct 25.6 L 25.6 L (34.0-46.0) % MCV 106.9 H 105.1 H (80.0-100.0) fL MCHC 29.9 L (31.0-37.0) g/dL RDW 19.7 H 20.0 H (11.5-15.5) % Plt Count 84 L 94 L (150-450) k/uL Lymphocytes # (1.0-4.8) k/uL Lymphocytes # (Manual) 0.98 L (1.0-4.8) k/uL Macrocytosis Marked A Marked A Plasma Lactic Acid Remy (0.7-2.0) mmol/L Crossmatch Assessment and Plan Assessment: GI bleed secondary to duodenal ulcer status post appendectomy injection along with clipping -Continue serial CBCs -Avoid NSAIDs -PPI twice a day -GI recommendations appreciated: We'll advance diet today, if hemoglobin stable okay for discharge in a.m. -She'll need to be transferred to a tertiary care center if bleeding recurs for CT-guided quailing Supraventricular tachycardia -Cardiology recommendations appreciated -Patient is on verapamil and lisinopril - decreased and now is in sinus rhythm -Outpatient follow-up with Dr. Rosas Chronic lymphedema b/l LE - lasix IVP BID - resume oral lasix once improved - b/l LE ACEI wrappings - outpatient lymphedema clinic to start in may. Coagulopathy INR 1.6 -Undetermined etiology -Patient had been having poor appetite may be due to vitamin K deficiency due to poor oral intake -Repeat INR in a.m. Hypertension - lisinopril - follow BP Chronic kidney disease stage III -Creatinine at baseline -Continue to follow basic metabolic profile -Avoid NSAID therapy Lactic acidosis suspect secondary to GI bleed, resolved DVT prophylaxis: SCDs Discussed with: patient, nursing, family, GI Anticipated discharge: in AM Anticipated discharge place: home A total of 25 minutes was spent on the care of this complex patient more than 50% of the time was spent in counseling and care coordination.
[2019-05-15] MEDS: FUROSEMIDE 10 MG/ML 4 ML VIAL IV SCH ×2 (15:17→20:30)
[2019-05-15 16:19] LABS: Anisocytosis Slight; HCT 24.8 % (34.0-46.0); Hypochromasia Slight; MCH 33.5 pg (25.0-35.0); MCHC 32.4 g/dL (31.0-37.0); MCV 103.4 fL (80.0-100.0); Macrocytosis Marked; Mean Platelet Volume 8.8; Poikilocytosis Moderate; RDW 19.9 % (11.5-15.5); WBC 5.8 k/uL (3.8-10.6)
[2019-05-15 16:23] LABS: Platelet Count 87 k/uL (150-450)
[2019-05-15 17:11] LABS: Eosinophils # (M) 0.35 k/uL (0-0.7); Monocytes # (M) 0.12 k/uL (0-1.0); Neutrophils # (M) 4.64 k/uL (1.3-7.7); Neutrophils % (M) 80 %; Nucleated Red Blood Cells 0 /100 WBC (0-0); Total Cells Counted 100
--- NOTE | 2019-05-15 18:19 | P.PN ---
Subjective Progress Note Date: 05/15/19 Principal diagnosis: Anemia of acute blood loss, hematemesis Patient seen lying in bed denying any abdominal pain. Tolerating a liquid diet. Did report one dark bowel movement this morning. No further hematemesis. Objective - Vital Signs Vital signs: Vital Signs Temp 98.6 F 05/15/19 08:00 Pulse 74 05/15/19 08:00 Resp 18 05/15/19 08:00 BP 107/74 05/15/19 08:00 Pulse Ox 97 05/15/19 08:00 Intake & Output 05/14/19 05/15/19 05/15/19 18:59 06:59 18:59 Intake Total 660 310 Balance 660 310 Weight 112 kg Intake: IV 300 Oral 360 Blood Product 310 Rc As-1 Unit 310 [id number] Other: # Bowel Movements 1 - Exam On physical examination, patient appears comfortable in no apparent distress. HEAD: Normocephalic, atraumatic. EYES: No scleral icterus. No conjunctival injection. MOUTH: No lesions, tongue midline. NECK: Trachea midline, no gross abnormalities. CHEST: Clear to auscultation with no wheezing or rhonchi appreciated. HEART: Regular rate and rhythm. ABDOMEN: Soft, obese. Bowel sounds are positive. No organomegaly. No guarding or rigidity. EXTREMITIES: Bilateral lower extremity lymphedema. SKIN: No rashes, no jaundice. NEUROLOGIC: Alert and oriented x3. No focal deficits. . - Labs CBC & Chem 7: 05/15/19 15:54 05/14/19 02:04 Labs: Abnormal Lab Results - Last 24 Hours (Table) 05/14/19 05/14/19 05/14/19 Range/Units 02:04 11:00 14:01 RBC 2.60 L (3.80-5.40) m/uL Hgb 8.9 L (11.4-16.0) gm/dL Hct 28.7 L (34.0-46.0) % MCV 110.6 H (80.0-100.0) fL MCHC (31.0-37.0) g/dL RDW 17.9 H (11.5-15.5) % Plt Count 99 L (150-450) k/uL Neutrophils # 9.0 H (1.3-7.7) k/uL Lymphocytes # 0.6 L (1.0-4.8) k/uL Macrocytosis Marked A Plasma Lactic Acid Remy 3.3 H* (0.7-2.0) mmol/L Crossmatch See Detail 05/14/19 05/14/19 05/14/19 Range/Units 14:01 19:57 19:57 RBC 2.10 L (3.80-5.40) m/uL Hgb 7.0 L D (11.4-16.0) gm/dL Hct 22.6 L (34.0-46.0) % MCV 107.5 H (80.0-100.0) fL MCHC (31.0-37.0) g/dL RDW 18.1 H (11.5-15.5) % Plt Count 87 L (150-450) k/uL Neutrophils # (1.3-7.7) k/uL Lymphocytes # 0.9 L (1.0-4.8) k/uL Macrocytosis Marked A Plasma Lactic Acid Remy 4.1 H* 3.0 H* (0.7-2.0) mmol/L Crossmatch 05/15/19 Range/Units 02:23 RBC 2.40 L (3.80-5.40) m/uL Hgb 7.7 L (11.4-16.0) gm/dL Hct 25.6 L (34.0-46.0) % MCV 106.9 H (80.0-100.0) fL MCHC 29.9 L (31.0-37.0) g/dL RDW 19.7 H (11.5-15.5) % Plt Count 84 L (150-450) k/uL Neutrophils # (1.3-7.7) k/uL Lymphocytes # (1.0-4.8) k/uL Macrocytosis Marked A Plasma Lactic Acid Remy (0.7-2.0) mmol/L Crossmatch Assessment and Plan (1) Upper GI bleed Narrative/Plan: The patient is a 68 yo F with a PMH of HTN, sarcoidos, and recent treatment of lower extremity cellulitis who presented to the hospital with complaints of vomiting blood. She reports 2 episodes of vomiting of gross red blood prior to presentation to the hospital. She reports no previous episodes of vomiting blood and has never required an EGD in the past. After presentation to the hospital she reported dark colored stool. She also seen melanotic bowel mov ements 2 weeks earlier when she had presented for treatment of lower extremity cellulitis. She denies any history of peptic ulcer disease. No colonoscopy in the past. She denies any associated abdominal pain. No blood thinner use. She has been taking to 600 mg Motrin nightly over the past 2 weeks. Patient was taken for EGD with findings of a duodenal bulb ulcer treated with Endo Clip placement and injection of epinephrine Current Visit: Yes Status: Acute Code(s): K92.2 - GASTROINTESTINAL HEMORRHAGE, UNSPECIFIED SNOMED Code(s): 17705977 (2) Anemia associated with acute blood loss Current Visit: Yes Status: Acute Code(s): D62 - ACUTE POSTHEMORRHAGIC ANEMIA SNOMED Code(s): 896689839 Plan: Supportive care Okay for full liquid diet Continue Protonix 40 mg IV twice a day Continue to monitor hemoglobin and transfuse as needed Continue to monitor for signs or symptoms of bleeding If further bleeding occurs patient would need transfer to tertiary referral center for CT angiography with coiling Avoid NSAID use Thank you for allowing us to dissipate in the care of the patient, if patient remains clinically stable and hemoglobin remains normal okay for advancing diet tomorrow and discharging
[2019-05-15] MEDS: HYDROcodone/APAP 10-325MG 1 EACH TAB PO PRN (20:30)
[2019-05-16] MEDS: FUROSEMIDE 10 MG/ML 4 ML VIAL IV SCH (06:32)
--- NOTE | 2019-05-16 08:18 | P.PN ---
Subjective Progress Note Date: 05/16/19 Principal diagnosis: GI bleeding No abdominal complaints. Tolerating clear liquids. No BMs last night. No episodes of hematemesis. CBC pending. Afebrile. Objective - Vital Signs Vital signs: Vital Signs Temp 97.6 F 05/16/19 04:00 Pulse 70 05/16/19 04:00 Resp 20 05/16/19 04:00 BP 127/69 05/16/19 04:00 Pulse Ox 95 05/16/19 04:00 Intake & Output 05/15/19 05/16/19 05/16/19 18:59 06:59 18:59 Intake Total 840 400 Output Total 200 Balance 840 200 Weight 104.3 kg Intake: Intake, IV Titration 400 Amount Sodium Chloride 0.9% 1, 400 000 ml @ 100 mls/hr IV . Q10H STEFAN Rx#:[id number] Oral 840 Output: Urine 200 Other: # Voids 1 - Exam General appearance: The patient is alert, oriented, in no acute distress. HET: Head is normocephalic and atraumatic. Pupils are equal and reactive. Oropharynx is clear without lesions. Neck: Supple without lymphadenopathy. Trachea midline. Heart: S1 S2. Regular rate and rhythm. Lungs: No crackles or wheezes are heard. Abdomen: Soft, nontender, nondistended with bowel sounds. No peritoneal signs. No palpable organomegaly or masses. Extremities: Normal skin color and turgor. No cyanosis, rash, ulceration, clubbing, or edema. Radial and pedal pulses are 2/4 bilaterally. Neurological: No focal deficits. Strength and sensation are grossly intact. - Labs CBC & Chem 7: 05/15/19 15:54 05/14/19 02:04 Labs: Abnormal Lab Results - Last 24 Hours (Table) 05/14/19 05/15/19 05/15/19 Range/Units 02:04 09:50 15:54 RBC 2.44 L 2.40 L (3.80-5.40) m/uL Hgb 8.0 L 8.0 L (11.4-16.0) gm/dL Hct 25.6 L 24.8 L (34.0-46.0) % MCV 105.1 H 103.4 H (80.0-100.0) fL RDW 20.0 H 19.9 H (11.5-15.5) % Plt Count 94 L 87 L (150-450) k/uL Lymphocytes # (Manual) 0.98 L 0.70 L (1.0-4.8) k/uL Macrocytosis Marked A Marked A Crossmatch See Detail Assessment and Plan (1) Duodenal ulcer Current Visit: Yes Status: Acute Code(s): K26.9 - DUODENAL ULCER, UNSP ACUTE OR CHRONIC, W/O HEMOR OR PERF SNOMED Code(s): 85665148 (2) Upper GI bleed Current Visit: Yes Status: Acute Code(s): K92.2 - GASTROINTESTINAL HEMORRHAGE, UNSPECIFIED SNOMED Code(s): 51727261 (3) Anemia associated with acute blood loss Current Visit: Yes Status: Acute Code(s): D62 - ACUTE POSTHEMORRHAGIC ANEMIA SNOMED Code(s): 629577705 Plan: 1. Full liquid diet. Continue Protonix 40 mg twice daily. Avoid NSAIDs. Discharge per medicine. Return to GI office in 2-3 weeks. Assessment and plan a care discussed with Dr. May
[2019-05-16] MEDS: LISINOPRIL 20 MG TAB PO SCH (08:27)
[2019-05-16] MEDS: VERAPAMIL 40 MG TAB PO SCH ×2 (08:27→16:37)
[2019-05-16] MEDS: CYANOCOBALAMIN 500 MCG TAB PO SCH (08:27)
[2019-05-16] MEDS: PANTOPRAZOLE 40 MG/10 ML VIAL IV SCH (08:29)
[2019-05-16 08:37] LABS: Anisocytosis Slight; HCT 27.3 % (34.0-46.0); HGB 8.4 gm/dL (11.4-16.0); Hypochromasia Marked; MCH 33.4 pg (25.0-35.0); Macrocytosis Marked; Mean Platelet Volume 8.8; Poikilocytosis Slight; RBC 2.53 m/uL (3.80-5.40); RDW 19.4 % (11.5-15.5); WBC 4.9 k/uL (3.8-10.6)
[2019-05-16 08:49] LABS: Calcium 9.5 mg/dL (8.4-10.2)
[2019-05-16 08:50] LABS: INR 1.5 (<1.2); Prothrombin Time 15.5 sec (9.0-12.0)
[2019-05-16 08:53] LABS: Potassium 3.9 mmol/L (3.5-5.1)
[2019-05-16 08:55] LABS: Magnesium 1.6 mg/dL (1.6-2.3)
[2019-05-16 10:10] LABS: Anisocytosis Slight; HCT 26.8 % (34.0-46.0); HGB 8.5 gm/dL (11.4-16.0); Hypochromasia Moderate; MCH 32.8 pg (25.0-35.0); MCHC 31.6 g/dL (31.0-37.0); MCV 103.6 fL (80.0-100.0); Macrocytosis Marked; Mean Platelet Volume 8.8; Poikilocytosis Moderate; RBC 2.59 m/uL (3.80-5.40); RDW 18.9 % (11.5-15.5)
[2019-05-16 10:28] LABS: Platelet Count 83 k/uL (150-450)
--- NOTE | 2019-05-16 11:24 | P.PN ---
Subjective Progress Note Date: 05/16/19 this is a pleasant 68 -year-old female with known history of hypertension, history of sarcoidosis, who underwent endoscopy, she presented to the hospital with active bleeding and hematocrit emesis. Cardiology consultation was initially requested because of a tachyarrhythmia which appears to be possibly atrial tachycardia. TSH level came back to be normal. Patient had been getting IV Lasix, her creatinine today went up to 1.8 from 1.2 yesterday. hemoglobin8.5 today. today She does have chronic lymphedema according to her. Blood pressure 132/60 with a heart rate in the 70s, 98% on room air. In normal sinus rhythm no arrhythmias noted. Objective - Vital Signs Vital signs: Vital Signs Temp 98.1 F 05/16/19 08:00 Pulse 70 05/16/19 08:00 Resp 16 05/16/19 08:00 BP 132/61 05/16/19 08:00 Pulse Ox 98 05/16/19 08:00 Intake & Output 05/15/19 05/16/19 05/16/19 18:59 06:59 18:59 Intake Total 840 400 Output Total 200 Balance 840 200 Weight 104.3 kg Intake: Intake, IV Titration 400 Amount Sodium Chloride 0.9% 1, 400 000 ml @ 100 mls/hr IV . Q10H STEFAN Rx#:[id number] Oral 840 Output: Urine 200 Other: # Voids 1 - Exam PHYSICAL EXAMINATION: GENERAL: 68-year-old female in no acute distress at the time of my examination HEENT: Head is atraumatic, normocephalic. Pupils equal, round. Sclera anicteric. Conjunctiva are clear. Mucous membranes of the mouth are moist. Nec k is supple. There is no elevated jugular venous pressure.No carotid bruit is heard. HEART EXAMINATION: [Heart S1, S2 systolic murmur is heard] CHEST EXAMINATION:[ Lungs are clear to auscultation and precussion. No chest wall tenderness is noted on palpation or with deep breathing.] ABDOMEN: [ Soft, nontender. Bowel sounds are heard. No organomegaly noted]. EXTREMITIES:[ 2+ peripheral pulses with 1-2 + evidence of peripheral edema and no calf tenderness noted]. NEUROLOGIC [patient is awake, alert and oriented 3.] . - Labs CBC & Chem 7: 05/16/19 09:09 05/16/19 07:50 Labs: Abnormal Lab Results - Last 24 Hours (Table) 05/14/19 05/15/19 05/15/19 Range/Units 02:04 09:50 15:54 RBC 2.40 L (3.80-5.40) m/uL Hgb 8.0 L (11.4-16.0) gm/dL Hct 24.8 L (34.0-46.0) % MCV 103.4 H (80.0-100.0) fL RDW 19.9 H (11.5-15.5) % Plt Count 94 L 87 L (150-450) k/uL Lymphocytes # (Manual) 0.98 L 0.70 L (1.0-4.8) k/uL Macrocytosis Marked A PT (9.0-12.0) sec INR (<1.2) Chloride (98-107) mmol/L BUN (7-17) mg/dL Creatinine (0.52-1.04) mg/dL Glucose (74-99) mg/dL Crossmatch See Detail 05/16/19 05/16/19 05/16/19 Range/Units 07:50 07:50 07:50 RBC 2.53 L (3.80-5.40) m/uL Hgb 8.4 L (11.4-16.0) gm/dL Hct 27.3 L (34.0-46.0) % MCV 108.0 H (80.0-100.0) fL RDW 19.4 H (11.5-15.5) % Plt Count (150-450) k/uL Lymphocytes # (Manual) (1.0-4.8) k/uL Macrocytosis Marked A PT 15.5 H (9.0-12.0) sec INR 1.5 H (<1.2) Chloride 111 H (98-107) mmol/L BUN 44 H (7-17) mg/dL Creatinine 1.85 H (0.52-1.04) mg/dL Glucose 73 L (74-99) mg/dL Crossmatch 05/16/19 Range/Units 09:09 RBC 2.59 L (3.80-5.40) m/uL Hgb 8.5 L (11.4-16.0) gm/dL Hct 26.8 L (34.0-46.0) % MCV 103.6 H (80.0-100.0) fL RDW 18.9 H (11.5-15.5) % Plt Count 83 L (150-450) k/uL Lymphocytes # (Manual) (1.0-4.8) k/uL Macrocytosis Marked A PT (9.0-12.0) sec INR (<1.2) Chloride (98-107) mmol/L BUN (7-17) mg/dL Creatinine (0.52-1.04) mg/dL Glucose (74-99) mg/dL Crossmatch Assessment and Plan Plan: Assessment and plan #1 Upper GI bleed status post endoscopy #2 tachyarrhythmia in the form of atrial tachycardia, remaining in normal sinus rhythm #3 mild renal insufficiency #4 chronic lymphedema Plan We will discontinue the Lasix today and repeat lytes BUN and creatinine tomorrow, decrease her IV fluids to 75 mL per hour. DNP note has been reviewed, I agree with a documented findings and plan of care. Patient was seen and examined.
--- NOTE | 2019-05-16 12:04 | P.DS ---
Providers Date of admission: 05/14/19 04:44 Expected date of discharge: 05/16/19 Attending physician: Jim Gomez MD Consults: 05/14/19 04:12 Consult Physician Routine Consulting Provider: David May Consult Reason/Comments: Upper GI Bleed Do you want consulting provider notified?: Yes 05/14/19 06:39 Consult Physician Urgent Consulting Provider: Yogi Key Consult Reason/Comments: ST-changes w/ tachycardia Do you want consulting provider notified?: Yes Primary care physician: [facility] Course: 68-year-old female with PMH of hypertension, sarcoidosis, lymphedema and seizure disorder presented to the ED after 2 episodes of vomiting blood. She reported taking Motrin on a regular basis over the last 2 weeks for her lymphedema. On arrival, she was tachycardic with a pulse of 133. Hemoglobin was 10.6 and lactic acid was elevated at 4.2. Patient was given IV Protonix and GI was consulted. Patient underwent EGD which showed a 1 cm duodenal ulcer with clot over the ulcer. This was injected with epinephrine and Endo Clip placed without complication. On 05/14/2019 her hemoglobin dropped from 10.6-8.7 and 7.0. The drop in hemoglobin that was thought to be due to hemodilution rather than from acute bleed. She was transfused 1 unit of PRBC. Her hemoglobin remained stable and was 8.5 on discharge. Patient was seen and examined prior to discharge. No acute events overnight. Patient reports no more episodes of vomiting blood. She denies any chest pain, shortness of breath or palpitations. No nausea or vomiting. No fever or chills. General [no distress], [appears at stated age] Derm: [warm], [dry] Head: [atraumatic], [normocephalic], [symmetric] Eyes: [EOMI], [no lid lag], [anicteric sclera] Mouth: [no lip lesion], [mucus membranes moist] Cardiovascular: [S1S2 reg], [no murmur], [positive posterior tibial pulse bilateral] Lungs: [CTA bilateral], [no rhonchi, no rales] , [no accessory muscle use] Abdominal: [soft], [ nontender to palpation], [no guarding], [no appreciable organomegaly] Ext: [no gross muscle atrophy], [no edema], [no contractures] Neuro: [ CN II-XI grossly intact], [no focal neuro deficits] Psych: [Alert], [oriented], [appropriate affect] Assessment and Plan GI bleed secondary to duodenal ulcer status post epinephrine injection and Endo Clip Acute kidney injury on chronic kidney disease stage III Supraventricular tachycardia Chronic bilateral lymphedema Coagulopathy with INR 1.6 Hypertension Resolved: Lactic acidosis Post EGD showing duodenal ulcer, post epinephrine injection with Endo Clip. As per GI, cleared for DC, outpatient follow-up for colonoscopy. Plans: Repeat CBC in 3 days. Continue Protonix by mouth. Creatinine 1.85, above baseline. Likely secondary to IV Lasix. Plans: Repeat BMP in 3 days. Avoid nephrotoxins. Encourage hydration by mouth. TSH is within normal limits. Discussed with HERI Prasad and Dr. Corea, cleared for DC. Plans: Continue verapamil. Outpatient lymphedema clinic to start in May. Plans: Resume Lasix by mouth. Continue bilateral YAMILETH wraps. INR 1.6-1.5. Possibly due to poor appetite. Plans: Repeat INR in 3 days. BP 132/61. Plans: Continue verapamil and lisinopril. Monitor vitals, adjust medications as necessary. Patient to be DC today. Follow-up with cardiology within 1 week. Follow-up with GI within 1 week. Take Protonix by mouth. Repeat CBC and BMP in 3 days, to be followed with PCP.. Procedures: EGD Patient Condition at Discharge: Stable Plan - Discharge Summary Discharge Rx Participant: No New Discharge Prescriptions: New Verapamil [Isoptin] 40 mg PO TID #90 tab Pantoprazole Sodium [Protonix] 40 mg PO BID #60 tablet. Continue Cholecalciferol [Vitamin D3 (25 Mcg = 1000 Iu)] 5,000 unit PO DAILY Enalapril Maleate [Vasotec] 20 mg PO DAILY Cyanocobalamin (Vitamin B-12) [Vitamin B-12] 1,000 mg PO DAILY Furosemide [Lasix] 40 mg PO DAILY #30 tablet HYDROcodone/APAP 10-325MG [Kennard 10-325] 1 tab PO TID PRN PRN Reason: Pain Acetaminophen Tab [Tylenol] 1,000 mg PO Q6HR PRN PRN Reason: Pain Magnesium 200 mg PO DAILY Discontinued Omeprazole [PriLOSEC] 20 mg PO DAILY PRN PRN Reason: Heartburn Ibuprofen [Motrin] 600 mg PO Q8HR PRN PRN Reason: Pain Discharge Medication List Cholecalciferol [Vitamin D3 (25 Mcg = 1000 Iu)] 5,000 unit PO DAILY 08/13/18 [History] Enalapril Maleate [Vasotec] 20 mg PO DAILY 02/28/19 [History] Cyanocobalamin (Vitamin B-12) [Vitamin B-12] 1,000 mg PO DAILY 04/20/19 [History] Furosemide [Lasix] 40 mg PO DAILY #30 tablet 04/26/19 [Rx] Acetaminophen Tab [Tylenol] 1,000 mg PO Q6HR PRN 05/14/19 [History] HYDROcodone/APAP 10-325MG [Kennard 10-325] 1 tab PO TID PRN 05/14/19 [History] Magnesium 200 mg PO DAILY 05/14/19 [History] Pantoprazole Sodium [Protonix] 40 mg PO BID #60 tablet. 05/16/19 [Rx] Verapamil [Isoptin] 40 mg PO TID #90 tab 05/16/19 [Rx] Follow up Appointment(s)/Referral(s): Chente Reyes MD [Primary Care Provider] - 1-2 days Zoe Corea MD [STAFF PHYSICIAN] - 1 Week David May MD [STAFF PHYSICIAN] - 1 Week Ambulatory/Diagnostic Orders: Basic Metabolic Panel [LAB.AMB] Time Frame: 3 Days, Location: None Selected Complete Blood Count w/diff [LAB.AMB] Time Frame: 3 Days, Location: None Selected Prothrombin Time INR [LAB.AMB] Time Frame: 3 Days, Location: None Selected Activity/Diet/Wound Care/Special Instructions: Diet: GI soft Follow-up with PCP within 1-2 days of discharge. Follow-up with GI within 1 week of discharge. Follow-up with cardiology within 1 week of discharge. Please obtain CBC, BMP and INR within 3 days of discharge. Please follow results with PCP. Discharge Disposition: HOME SELF-CARE
[2019-05-16 12:29] VITALS: BP 123/58; PULSE 72; RESP 18; TEMP 97.9
[2019-05-16] MEDS: HYDROcodone/APAP 10-325MG 1 EACH TAB PO PRN (16:37)
== END 2019-05-16 17:41 | disposition home or self-care (01) | DRG 378 ==
LOC: EC 00:01 → 3SCARD 04:44
PROVIDERS: ADMIT Internal Medicine; ATTEND Internal Medicine
PROC: 30233N1 Transfusion of Nonautologous Red Blood Cells into Peripheral Vein, Percutaneous Approach (ICD-10-PCS; 2019-05-14)
PROC: 3E0G8GC Introduction of Other Therapeutic Substance into Upper GI, Via Natural or Artificial Opening Endoscopic (ICD-10-PCS; principal; 2019-05-14 09:26)
PROC: 0W3P8ZZ Control Bleeding in Gastrointestinal Tract, Via Natural or Artificial Opening Endoscopic (ICD-10-PCS; 2019-05-14 09:26)
DX: K26.4 Chronic or unspecified duodenal ulcer with hemorrhage (principal); D62 Acute posthemorrhagic anemia; E87.2 Acidosis; I47.1 Supraventricular tachycardia; N17.9 Acute kidney failure, unspecified; D69.6 Thrombocytopenia, unspecified; N18.3 Chronic kidney disease, stage 3 (moderate); R79.1 Abnormal coagulation profile; D86.9 Sarcoidosis, unspecified; G40.909 Epilepsy, unspecified, not intractable, without status epilepticus; I12.9 Hypertensive chronic kidney disease with stage 1 through stage 4 chronic kidney disease, or unspecified chronic kidney disease; I89.0 Lymphedema, not elsewhere classified; T50.1X5A Adverse effect of loop [high-ceiling] diuretics, initial encounter; M19.90 Unspecified osteoarthritis, unspecified site; Z79.899 Other long term (current) drug therapy; Z91.041 Radiographic dye allergy status; Z90.49 Acquired absence of other specified parts of digestive tract; Z87.891 Personal history of nicotine dependence; Z87.442 Personal history of urinary calculi; Z87.440 Personal history of urinary (tract) infections; Z86.14 Personal history of Methicillin resistant Staphylococcus aureus infection; Z82.0 Family history of epilepsy and other diseases of the nervous system; Z82.3 Family history of stroke; Z82.5 Family history of asthma and other chronic lower respiratory diseases; Z82.49 Family history of ischemic heart disease and other diseases of the circulatory system
CPT/HCPCS: 36415; 43243; 43255; 80048; 80053; 83605; 83735; 84443; 84484; 85025; 85027; 85610; 85730; 86850; 86900; 86901; 86920; 93005; 96374; 96375; 99285

== ENCOUNTER → 2019-05-18 | Outpatient (CLI) | payer MEDICARE, OTHER ==
[2019-05-18 12:12] LABS: ALT 24 U/L (9-52); AST 34 U/L (14-36); African American GFR (CKD) 40 (>60 ml/min/1.73 sqM); Albumin 2.4 g/dL (3.5-5.0); Albumin/Globulin Ratio 0.7; Alkaline Phosphatase 114 U/L (38-126); Anion Gap 5 mmol/L; Blood Urea Nitrogen 40 mg/dL (7-17); Calcium 10.4 mg/dL (8.4-10.2); Carbon Dioxide 24 mmol/L (22-30); Chloride 112 mmol/L (98-107); Globulin 3.5 g/dL; Glucose 97 mg/dL (74-99); Non-African American GFR(CKD) 35 (>60 ml/min/1.73 sqM); Sodium 141 mmol/L (137-145); Total Bilirubin 1.9 mg/dL (0.2-1.3); Total Protein 5.9 g/dL (6.3-8.2)
== END | disposition home or self-care (01) ==
LOC: LABWHC1 10:43
PROVIDERS: ATTEND Nurse Practitioner Adult Health
DX: D62 Acute posthemorrhagic anemia (principal); K92.2 Gastrointestinal hemorrhage, unspecified; D68.9 Coagulation defect, unspecified; N18.3 Chronic kidney disease, stage 3 (moderate)
CPT/HCPCS: 36415; 80053

== ENCOUNTER 2019-05-20 13:16 | Inpatient (IN) | payer MEDICARE ==
[2019-05-20] MEDS ORDERED: ACETAMINOPHEN TAB 500 MG TAB PO STA (13:40)
[2019-05-20] MEDS ORDERED: methylPREDNISolone SOD SUCCI 125 MG/2 ML VIAL IV STA (13:41)
[2019-05-20] MEDS ORDERED: diphenhydrAMINE 50 MG/ML 1 ML VIAL IVP STA (13:41)
[2019-05-20] MEDS: SODIUM CHLORIDE 0.9% 1,000 ML IV SCH ×2 (14:21→17:56)
[2019-05-20] MEDS: SODIUM CHLORIDE 0.9% 500 ML 500 ML IV SCH ×2 (14:22→15:04)
[2019-05-20] MEDS ORDERED: cefTRIAXone IN SWFI 1,000 MG/10 ML SYRINGE IVP STA (14:45)
[2019-05-20 14:54] LABS: Albumin 2.1 g/dL (3.5-5.0); Calcium 9.9 mg/dL (8.4-10.2); Total Bilirubin 2.6 mg/dL (0.2-1.3); Total Protein 5.3 g/dL (6.3-8.2)
[2019-05-20 14:59] LABS: Anisocytosis Slight; Basophils % (A) 0 %; Eosinophils % (A) 1 %; HCT 28.3 % (34.0-46.0); HGB 8.7 gm/dL (11.4-16.0); Hypochromasia Slight; INR 1.6 (<1.2); Lymphocytes # (A) 0.2 k/uL (1.0-4.8); Lymphocytes % (A) 5 %; MCH 32.5 pg (25.0-35.0); MCHC 30.9 g/dL (31.0-37.0); MCV 105.1 fL (80.0-100.0); Macrocytosis Marked; Mean Platelet Volume 8.6; Monocytes # (A) 0.2 k/uL (0-1.0); Monocytes % (A) 4 %; Neutrophils # (A) 4.6 k/uL (1.3-7.7); Neutrophils % (A) 90 %; Partial Thromboplastin Time 22.3 sec (22.0-30.0); Poikilocytosis Slight; Prothrombin Time 15.8 sec (9.0-12.0); RBC 2.69 m/uL (3.80-5.40); RDW 18.7 % (11.5-15.5); WBC 5.1 k/uL (3.8-10.6)
[2019-05-20 15:20] LABS: Anisocytosis (M) Present; Hypochromasia (M) Present; Polychromasia Present
[2019-05-20 15:21] LABS: Platelet Count 98 k/uL (150-450)
[2019-05-20] MEDS ORDERED: MORPHINE SULFATE 4 MG/ML SYRINGE IVP STA (16:08)
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
--- NOTE | 2019-05-20 16:33 | US ---
EXAMINATION TYPE: US venous doppler duplex LE LT DATE OF EXAM: 05/20/2019 1:38 PM COMPARISON: US CLINICAL HISTORY: Pain. Bilateral large lower extremities with edema post gastric ulcer surgery repai r SIDE PERFORMED: Left TECHNIQUE: The lower extremity deep venous system is examined utilizing real time linear array sonog silvia with graded compression, doppler sonography and color-flow sonography. VESSELS IMAGED: Common Femoral Vein Deep Femoral Vein Greater Saphenous Vein * Femoral Vein Popliteal Vein Small Saphenous Vein * Proximal Calf Veins (* superficial vessels) Left Leg: Negative for DVT as technologist was able to assess leg as very large lower extremities li mited distal Femoral Vein visualization. Multiple edema channels are noted anteriorly throughout left leg. IMPRESSION: No evidence for DVT.
[2019-05-20 16:50] LABS: Appearance,Urine Cloudy (Clear); Bacteria,Urine Many /hpf; Bilirubin,Urine Negative (Negative); Blood,Urine Negative (Negative); Color,Urine Yellow; Glucose,Urine (UA) Negative (Negative); Ketones,Urine Negative (Negative); Leukocyte Esterase,Urine Moderate (Negative); Mucus,Urine Rare /hpf; Nitrite,Urine Positive (Negative); PH, Urine 5.5 (5.0-8.0); Protein,Urine Trace (Negative); Specific Gravity,Urine 1.012 (1.001-1.035); Squamous Epithelial Cell,Urine 1 /hpf (0-4); Urobilinogen,Urine <2.0 mg/dL (<2.0); WBC,Urine 35 /hpf (0-5)
--- NOTE | 2019-05-20 17:01 | CT ---
EXAMINATION TYPE: CT chest angio for PE DATE OF EXAM: 05/20/2019 COMPARISON: 04/23/2019 HISTORY: Post-op complications. PT recently had sx for GI bleed. Pt has not had bowel movement since, nauseated and swelling. Elevated D-dimer. Labs B-32 C-1.[address] G-[address] Lipscomb approved, pending pt hy drated before and after exam. CT DLP: 719.4 mGycm Automated exposure control for dose reduction was used. CONTRAST: CT Chest for pulmonary embolism performed with with IV Contrast, patient injected with 80 mL of Isovu e 370. FINDINGS: Heart is enlarged. There are no hilar masses. There is normal contrast opacification of the pulmonary arteries. I see no filling defect. There is no mediastinal adenopathy. Thoracic aorta shows no aneur ysm or dissection. There is some mild reticular interstitial infiltrate anterior segment right upper lobe. There is mild pleural thickening left posterior lung base with pleural fluid and atelectasis. T here are large central pulmonary arteries. Bony thorax is intact. I see no bony destructive process. IMPRESSION: Cardiomegaly. Small left pleural effusion and left basilar minimal infiltrate and atelectasis. Right upper lobe interstitial infiltrate. No evidence of pulmonary embolism. Left lower lobe abnormality increased compared to old exam. Large pulmonary arteries consistent with pulmonary hypertension.
--- NOTE | 2019-05-20 17:02 | XR ---
EXAMINATION TYPE: XR chest 2V DATE OF EXAM: 05/20/2019 COMPARISON: 04/20/2019 HISTORY: Nausea and fever TECHNIQUE: Frontal and lateral views of the chest are obtained. FINDINGS: Heart is enlarged. Is coarsening of the lung markings. There is no gross heart failure. Th ere is some blunting of left costophrenic angle. IMPRESSION: Cardiomegaly. Left pleural effusion and minimal left lower lobe infiltrate new compared to old exam. Pulmonary fibrotic changes. No overt heart failure.
[2019-05-20] MEDS ORDERED: PIPERACILLIN-TAZOBACTAM 3.375 GM in SODIUM CHLORIDE 0.9% 100 ML IVPB STA (17:22)
[2019-05-20] MEDS ORDERED: VANCOMYCIN IV PER PHARMACY 1 EACH MISC MISCELLANE PRN (17:22)
[2019-05-20] MEDS ORDERED: VANCOMYCIN 1,750 MG in SODIUM CHLORIDE 0.9% 500 ML 500 ML IVPB STA (17:37)
[2019-05-20] MEDS ORDERED: NALOXONE 0.4 MG/ML 1 ML VIAL IV PRN (17:49)
[2019-05-20] MEDS ORDERED: IBUPROFEN IV 400 MG in SODIUM CHLORIDE 0.9% 100 ML IV ONE (18:00)
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
[2019-05-20] MEDS ORDERED: ACETAMINOPHEN TAB 325 MG TAB PO PRN (22:00)
[2019-05-21] MEDS ORDERED: VANCOMYCIN IV PER PHARMACY 1 EACH MISC MISCELLANE PRN (09:10)
--- NOTE | 2019-05-21 09:21 | US ---
EXAMINATION TYPE: US abdomen limited DATE OF EXAM: 05/21/2019 COMPARISON: NONE CLINICAL HISTORY: RUQ . Cholecystectomy, sepsis EXAM MEASUREMENTS: Liver Length: 13.2 cm Gallbladder Wall: Surgically absent CBD: 0.9 cm Right Kidney: 10.7 x 5.2 x 5.9 cm *Technical limitations due to patient's body habitus and large amount of overlying bowel content Pancreas: Obscured by bowel gas Liver: left portal vein appears enlarged as on prior exam Gallbladder: Surgically absent Evidence for sonographic Ramirez's sign: no CBD: appears wnl Right Kidney: no evidence of hydronephrosis IMPRESSION: 1. No suspicious acute ultrasound abnormality within the abdomen. 2. Some limitation due to body habitus and bowel gas.
[2019-05-21 10:19] LABS: Calcium 9.5 mg/dL (8.4-10.2)
[2019-05-21] MEDS: PANTOPRAZOLE 40 MG TABLET PO SCH ×2 (10:49→17:37)
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
[2019-05-21] MEDS: VANCOMYCIN 1,750 MG in SODIUM CHLORIDE 0.9% 500 ML 500 ML IVPB SCH (12:19)
--- NOTE | 2019-05-21 13:00 | ECHOF ---
Referral Reason:edema, CHF, pulm HTN MEASUREMENTS -------- HEIGHT: 162.6 cm WEIGHT: 103.9 kg BP: 109/55 RVIDd: 4.2 cm (< 3.3) IVSd: 1.4 cm (0.6 - 1.1) LVIDd: 3.7 cm (3.9 - 5.3) LVPWd: 1.2 cm (0.6 - 1.1) IVSs: 1.9 cm LVIDs: 2.7 cm LVPWs: 1.6 cm LA Diam: 3.1 cm (2.7 - 3.8) LAESV Index (A-L): 22.51 ml/m Ao Diam: 3.4 cm (2.0 - 3.7) AV Cusp: 2.0 cm (1.5 - 2.6) MV EXCURSION: 16.269 mm (> 18.000) MV EF SLOPE: 57 mm/s (70 - 150) EPSS: 0.5 cm MV E Earl: 0.96 m/s MV DecT: 245 ms MV A Earl: 0.87 m/s MV E/A Ratio: 1.11 RAP: 15.00 mmHg RVSP: 85.28 mmHg FINDINGS -------- Sinus rhythm. This was a technically adequate study. The left ventricular size is normal. There is moderate concentric left ventricular hypertrophy. O verall left ventricular systolic function is normal with, an EF between 60 - 65 %. There is septal flattening in diastole which is consistent with right ventricular volume overload. The right ventricle is severely enlarged. The right ventricular systolic function is moderately imp aired. Normal LA size by volume 22+/-6 ml/m2. RA appears enlarged. Interatrial and interventricular septum intact. The aortic valve is trileaflet, and appears structurally normal. No aortic stenosis or regurgitation. The mitral valve leaflets are mildly thickened. There is trace to mild mitral regurgitation. Moderate tricuspid regurgitation present. There is severe pulmonary hypertension. The right ventr icular systolic pressure, as measured by Doppler, is 85.28mmHg. There is no pulmonic regurgitation present. The aortic root size is normal. The inferior vena cava is dilated with poor inspiratory collapse which is consistent with estimated r ight atrial pressure of 15 mmHg. There is no pericardial effusion. CONCLUSIONS -------- 1. Sinus rhythm. 2. This was a technically adequate study. 3. The left ventricular size is normal. 4. There is moderate concentric left ventricular hypertrophy. 5. Overall left ventricular systolic function is normal with, an EF between 60 - 65 %. 6. There is septal flattening in diastole which is consistent with right ventricular volume overload. 7. The right ventricle is severely enlarged. 8. The right ventricular systolic function is moderately impaired. 9. Normal LA size by volume 22+/-6 ml/m2. 10. RA appears enlarged. 11. The aortic valve is trileaflet, and appears structurally normal. No aortic stenosis or regurgitat ion. 12. The mitral valve leaflets are mildly thickened. 13. There is trace to mild mitral regurgitation. 14. Moderate tricuspid regurgitation present. 15. There is severe pulmonary hypertension. 16. There is no pulmonic regurgitation present. 17. The aortic root size is normal. 18. The inferior vena cava is dilated with poor inspiratory collapse which is consistent with estimat ed right atrial pressure of 20 mmHg. 19. There is no pericardial effusion. WINDOW CLEANER: Ragini Tolbert RDCS
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
[2019-05-21] MEDS: HYDROcodone/APAP 10-325MG 1 EACH TAB PO PRN ×2 (15:25→23:12)
[2019-05-21] MEDS: VERAPAMIL 40 MG TAB PO SCH ×2 (15:25→21:12)
[2019-05-22] MEDS: PANTOPRAZOLE 40 MG TABLET PO SCH ×2 (06:21→16:16)
[2019-05-22 07:57] LABS: Potassium 5.2 mmol/L (3.5-5.1)
[2019-05-22] MEDS: VERAPAMIL 40 MG TAB PO SCH ×3 (08:03→20:18)
[2019-05-22 08:37] LABS: Anisocytosis Slight; Basophils % (A) 0 %; Eosinophils # (A) 0.1 k/uL (0-0.7); Eosinophils % (A) 0 %; HGB 9.8 gm/dL (11.4-16.0); Hypochromasia Moderate; Lymphocytes # (A) 0.5 k/uL (1.0-4.8); Lymphocytes % (A) 3 %; MCH 33.6 pg (25.0-35.0); MCHC 31.7 g/dL (31.0-37.0); Macrocytosis Marked; Mean Platelet Volume 10.6; Monocytes # (A) 0.7 k/uL (0-1.0); Monocytes % (A) 4 %; Neutrophils # (A) 14.3 k/uL (1.3-7.7); Neutrophils % (A) 91 %; Poikilocytosis Slight; RBC 2.93 m/uL (3.80-5.40); RDW 18.2 % (11.5-15.5); WBC 15.8 k/uL (3.8-10.6)
[2019-05-22 08:38] LABS: Platelet Count 89 k/uL (150-450)
[2019-05-22 09:18] LABS: Crenated RBC Present
[2019-05-22] MEDS ORDERED: PIPERACILLIN-TAZOBACTAM 3.375 GM in SODIUM CHLORIDE 0.9% 100 ML IVPB SCH (11:00)
[2019-05-22] MEDS: VANCOMYCIN 1,750 MG in SODIUM CHLORIDE 0.9% 500 ML 500 ML IVPB SCH (11:39)
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
[2019-05-22] MEDS ORDERED: PHYTONADIONE 5 MG in SODIUM CHLORIDE 0.9% 50 ML IVPB STA (12:42)
[2019-05-22 12:45] LABS: Bilirubin, Delta 0.5 mg/dL (0.0-0.2); Bilirubin,Unconjugated 0.5 mg/dL (0.0-1.1)
--- NOTE | 2019-05-22 15:57 | P.PN ---
Subjective Progress Note Date: 05/22/19 Principal diagnosis: altered mentation Patient is a 68-year-old female past medical history of hypertension, sarcoidosis, lymphedema bilateral lower extremities, and arthritis who presented to the emergency department via EMS initially was believed to be for left lower extremity redness and pain, however her states it was because she was so lethargic and sleeping so much. She had recently been hospitalized here from 05/14 through 05/16 for upper GI bleed secondary to bleeding duodenal ulcer. She underwent injection with epinephrine as well as Endo Clip without complication. In the ER here she underwent an extensive evaluation. On initial exam she had a temperature of 101.6 hypoxic at 88% on room air. Initial laboratory analysis showed hemoglobin of 8.7, up from discharge, platelet count of 98 which is chronic for her, INR 1.6, creatinine 1.29 which is chronic, and albumin of 2.1. Her lactic acid was elevated at 2.3. She was started on IV fluids, Rocephin, and vancomycin. She underwent a CTA of the chest which showed infiltrate and pleural effusion. She underwent lower extremity venous Doppler which did not show any evidence of DVT. She was admitted for further management of her cellulitis with sepsis. Also found to have gram negative UTI and bacteremia. IF consulted. Heme consulted for chronic thrombocytopenia with coagulopathy, or not patient had a complete liver eval in 2013. Patient seen and examined at bedside. Feeling better today. Energy increasing, no chest pain, breathing at baseline, no nausea, no diarrhea. She states her sarcoidosis was diagnosed in 2004 or 2005 after suffering a ankle fracture and rejecting the hardware that was placed. The surgeon referred her to oncology. She subsequently states she underwent bone marrow biopsy which was consistent with sarcoidosis. She saw Dr. Wiseman for this. She is currently not seeing anyone for sarcoid. She has seen Dr. Nunez in the past to undergo additional testing but the patient refused. She also reports she has seen rheumatology out of [facility] but is not currently seeing them. She is not on any medications for her sarcoidosis. Objective - Vital Signs Vital signs: Vital Signs Temp 97.8 F 05/22/19 08:00 Pulse 63 05/22/19 08:00 Resp 16 05/22/19 08:00 BP 121/54 05/22/19 08:00 Pulse Ox 99 05/22/19 08:00 Intake & Output 05/21/19 05/22/19 05/22/19 18:59 06:59 18:59 Intake Total 1182 452 Output Total 950 0 Balance 232 452 Weight 104.3 kg 68 kg Intake: Intake, IV Titration 630 Amount Sodium Chloride 0.9% 1, 80 000 ml @ 100 mls/hr IV . Q10H [facility] Rx#:[id number] Vancomycin 1,750 mg In 500 Sodium Chloride 0.9% 500 ml 500 ml @ 167 mls/hr IVPB Q24H [facility] Rx#: [id number] cefTRIAXone 2 gm In 50 Sodium Chloride 0.9% 50 ml @ 100 mls/hr IVPB Q24HR [facility] Rx#:[id number] Oral 552 452 Output: Urine 950 0 Other: Voiding Method Indwelling Catheter Indwelling Catheter Indwelling Catheter # Voids 0 - Exam General: non toxic, no distress, ears older than stated age, obese Derm: warm, dry Head: atraumatic, normocephalic, symmetric Eyes: EOMI, no lid lag, anicteric sclera Mouth: no lip lesion, mucus membranes moist Cardiovascular: S1S2 reg, no murmur, positive posterior tibial pulse bilateral, Lungs: Decreased breath sounds bilateral bases, no rhonchi, no rales , no accessory muscle use Abdominal: soft, nontender to palpation, no guarding, no appreciable organomegaly Ext: no gross muscle atrophy, diffuse anasarca, no contractures Neuro: CN II-XI grossly intact, no focal neuro deficits Psych: Alert, oriented, affect - Labs CBC & Chem 7: 05/22/19 06:56 05/22/19 06:56 Labs: Abnormal Lab Results - Last 24 Hours (Table) 05/22/19 05/22/19 Range/Units 06:56 06:56 WBC 15.8 H (3.8-10.6) k/uL RBC 2.93 L (3.80-5.40) m/uL Hgb 9.8 L (11.4-16.0) gm/dL Hct 31.0 L (34.0-46.0) % MCV 106.0 H (80.0-100.0) fL RDW 18.2 H (11.5-15.5) % Plt Count 89 L (150-450) k/uL Neutrophils # 14.3 H (1.3-7.7) k/uL Lymphocytes # 0.5 L (1.0-4.8) k/uL Macrocytosis Marked A Potassium 5.2 H (3.5-5.1) mmol/L Chloride 117 H (98-107) mmol/L Carbon Dioxide 17 L (22-30) mmol/L BUN 40 H (7-17) mg/dL Creatinine 1.53 H (0.52-1.04) mg/dL Glucose 121 H (74-99) mg/dL Microbiology - Last 24 Hours (Table) 05/20/19 14:30 Blood Culture Gram Stain - Preliminary Blood Blood Culture - Preliminary Gram Neg Bacilli 05/20/19 16:14 Urine Culture - Preliminary Urine,Catheterized Gram Neg Bacilli Assessment and Plan Assessment: UTI with gram negative bacteremia with sepsis and chronic lymphedema -Continue with Vanco and Rocephin -ID recs appreciated -Repeat blood cultures id able Pulmonary infiltrates with history of sarcoidosis -Pulm recs appreciated, Do not recommend ABX at this time -Does not appear to fit with pneumonia type picture clinically. Patient denies productive cough. - YAMILETH level 9 in 10/30/18 Severe pulmonary hypertension as diagnosed on previous echocardiogram - IV diuretic therapy -Follow creatinine Chronic kidney disease stage III - atrophic left kidney on prior imaging 2014 -Undetermined cause -With diuresis continue to follow basic metabolic profile -Avoid additional nephrotoxic medications -outpatient follow-up SVT -Continue patient's home verapamil -Patient has outpatient appointment with Dr. craven on 05/23 Coagulopathy, thrombocytopenia, anemia, and history of leukopenia, splenomegally on CT from 04/23/19 with cyst -heme onc recs appreciated - Patient had a complete liver evaluation when the symptoms were present in 2013. She had a negative hepatitis profile, negative CALLIE, slightly positive antimitochondrial antibody, negative anti-smooth muscle antibody, elevated gamma globulins with normal profile, SPEP which showed hypoalbuminemia, negative AFP, negative CEA. Will ask GI to re-eval to see if repeat testing warranted. -Secondary to thrombocytopenia and coagulopathy liver ultrasound was done which was unremarkable. - ferritin 680, B 12 >4000, HTN, controlled - verapamil - follow BP High suspicion for component of sarcoidosis causing multiple symptoms. DVT prophylaxis: SCDs due to recent GI bleed Discussed with: patient, ID, nursing Anticipated discharge: 3-[address]: SNF vs home A total of 35 minutes was spent on the care of this complex patient more than 50% of the time was spent in counseling and care coordination.
[2019-05-22] MEDS: HYDROcodone/APAP 10-325MG 1 EACH TAB PO PRN (18:07)
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
[2019-05-23] MEDS: PANTOPRAZOLE 40 MG TABLET PO SCH ×2 (06:47→16:57)
[2019-05-23] MEDS: VERAPAMIL 40 MG TAB PO SCH ×3 (09:54→22:35)
[2019-05-23] MEDS ORDERED: FUROSEMIDE 10 MG/ML 2 ML VIAL IV ONE (14:25)
--- NOTE | 2019-05-23 14:36 | P.PN ---
Subjective Progress Note Date: 05/23/19 Patient is a 68-year-old female past medical history of hypertension, sarcoidosis, lymphedema bilateral lower extremities, and arthritis who presented to the emergency department via EMS initially was believed to be for left lower extremity redness and pain, however her states it was because she was so lethargic and sleeping so much. She had recently been hospitalized here from 05/14 through 05/16 for upper GI bleed secondary to bleeding duodenal ulcer. She underwent injection with epinephrine as well as Endo Clip without complication. In the ER here she underwent an extensive evaluation. On initial exam she had a temperature of 101.6 hypoxic at 88% on room air. Initial laboratory analysis showed hemoglobin of 8.7, up from discharge, platelet count of 98 which is chronic for her, INR 1.6, creatinine 1.29 which is chronic, and albumin of 2.1. Her lactic acid was elevated at 2.3. She was started on IV fluids, Rocephin, and vancomycin. She underwent a CTA of the chest which showed infiltrate and pleural effusion. She underwent lower extremity venous Doppler which did not show any evidence of DVT. She was admitted for further management of her cellulitis with sepsis. Also found to have gram negative UTI and bacteremia. IF consulted. Heme consulted for chronic thrombocytopenia with coagulopathy, or not patient had a complete liver eval in 2013. Patient reports that she is feeling better today her was at the bedside and he stated that patient's appetite is now slightly better as compared to a few days ago. She reported that she is getting swelling of her both upper extremity along with her chronic leg swelling. Patient denies complaints today and denies chest pain, palpitation, diaphoresis, nausea, vomiting, diarrhea, fever, chills and denies rest of the review of system. Patient reported that she has not got out of the bed and she is feeling weak and requires physical therapy helps to lift her legs. Patient also reported that she had outpatient follow-up with the lymphedema specialist nurse for the Marcelino wrap around her legs. Objective - Vital Signs Vital signs: Vital Signs Temp 97.6 F 05/23/19 08:10 Pulse 75 05/23/19 11:05 Resp 16 05/23/19 11:05 BP 140/53 05/23/19 11:05 Pulse Ox 96 05/23/19 11:05 Intake & Output 0805/23/19 05/23/19 18:59 06:59 18:59 Intake Total 1459 50 Output Total 200 350 Balance 1259 -350 50 Weight 124.5 kg Intake: Intake, IV Titration 650 50 Amount Phytonadione 5 mg In 50 Sodium Chloride 0.9% 50 ml @ 100 mls/hr IVPB [facility] Rx#:[id number] Piperacillin-Tazobactam 3 100 .375 gm In Sodium Chloride 0.9% 100 ml @ 25 mls/hr IVPB Q8HR [facility] Rx# :[id number] Vancomycin 1,750 mg In 500 Sodium Chloride 0.9% 500 ml 500 ml @ 167 mls/hr IVPB Q24H [facility] Rx#: [id number] cefTRIAXone 2 gm In 50 Sodium Chloride 0.9% 50 ml @ 100 mls/hr IVPB Q24HR [facility] Rx#:[id number] Oral 809 Output: Urine 200 350 Other: Voiding Method Indwelling Catheter Indwelling Catheter Indwelling Catheter # Bowel Movements 1 - Constitutional General appearance: Present: cooperative, no acute distress - EENT Eyes: Present: EOMI, normal appearance ENT: Present: hearing grossly normal, NA/AT - Neck Neck: Present: normal ROM. Absent: lymphadenopathy, rigidity, stridor, thyromegaly - Respiratory Respiratory: bilateral: CTA, negative: rales, rhonchi, wheezing - Cardiovascular Rhythm: regular Heart sounds: normal: S1, S2 Abnormal Heart Sounds: Absent: systolic murmur, diastolic murmur, S3 Gallop, S4 Gallop - Gastrointestinal General gastrointestinal: Present: normal bowel sounds, soft. Absent: distended, rigid, tenderness - Neurologic Neurologic: Present: CNII-XII intact. Absent: focal deficits - Psychiatric Psychiatric: Present: A&O x's 3, appropriate affect, intact judgment & insight - Allied health notes Allied health notes reviewed: nursing - Labs CBC & Chem 7: 05/22/19 06:56 05/22/19 06:56 Labs: Abnormal Lab Results - Last 24 Hours (Table) 05/22/19 Range/Units 16:45 Fibrinogen 156 L (200-500) mg/dL Microbiology - Last 24 Hours (Table) 05/20/19 14:30 Blood Culture Gram Stain - Final Blood Blood Culture - Final Citrobacter freundii 05/20/19 16:14 Urine Culture - Final Urine,Catheterized Citrobacter youngae Assessment and Plan (1) Gram negative sepsis Current Visit: Yes Status: Acute Priority: High Code(s): A41.50 - GRAM- NEGATIVE SEPSIS, UNSPECIFIED SNOMED Code(s): 746871638 (2) UTI (urinary tract infection) Current Visit: Yes Status: Acute Priority: High Code(s): N39.0 - URINARY TRACT INFECTION, SITE NOT SPECIFIED SNOMED Code(s): 06667828 (3) Coagulopathy Current Visit: Yes Status: Acute Priority: High Code(s): D68.9 - COAGULATION DEFECT, UNSPECIFIED SNOMED Code(s): 27093480 (4) History of GI bleed Current Visit: Yes Status: Acute Priority: High Code(s): Z87.19 - PERSONAL HISTORY OF OTHER DISEASES OF THE DIGESTIVE SYSTEM SNOMED Code(s): 076244065 (5) Sarcoidosis Current Visit: Yes Status: Acute Priority: Medium Code(s): D86.9 - SARCOIDOSIS, UNSPECIFIED SNOMED Code(s): 29947703 (6) CKD (chronic kidney disease), stage III Current Visit: Yes Status: Chronic Priority: Medium Code(s): N18.3 - CHRONIC KIDNEY DISEASE, STAGE 3 (MODERATE) SNOMED Code(s): 105108864 (7) Chronic pain Current Visit: Yes Status: Chronic Priority: Low Code(s): G89.29 - OTHER CHRONIC PAIN SNOMED Code(s): 84053359 (8) Essential hypertension Current Visit: Yes Status: Chronic Priority: Medium Code(s): I10 - ESSENTIAL (PRIMARY) HYPERTENSION SNOMED Code(s): 82386393 (9) Constipation Current Visit: Yes Status: Resolved Priority: Medium Code(s): K59.00 - CONSTIPATION, UNSPECIFIED SNOMED Code(s): 22837201 Plan: Patient was difficult to get IV access and blood drawn her blood work was not done this morning. It was recommended to get central line single-lumen with the anesthesiologist help and that will be used for frequent blood draws and to do the repeat blood cultures. Patient will be continued on IV antibiotics for her gram-negative bacteremia and urinary tract infection. She is being followed by hematology for her thrombocytopenia and coagulopathy and she has been referred to Dr. Nunez for her sarcoidosis as she had seen her in the past but was not able to follow up regularly. Dr.'s office has been notified and await her recommendations. Patient was encouraged and counseled a lot regarding her rehabilitation process and she will be a good candidate for subacute rehabilitation. She is the unable to move her legs because of the weakness/deconditioning and worsening chronic lymphedema of the legs. Once she gets her rehabilitation process she will be able to ambulate on her own. Patient and her both were educated about the rehabilitation process and deconditioning during acute hospitalization and patient's proactive involvement in the rehabilitation process and both verbalized understanding. Total time spent was more than 45 minutes and more than 50% was in counseling and educating the patient and her . Time with Patient: Greater than 30
--- NOTE | 2019-05-23 15:37 | P.PN ---
Subjective Progress Note Date: 05/23/19 Principal diagnosis: bacteremia and Cytopenia No labs today. Afebrile Objective - Vital Signs Vital signs: Vital Signs Temp 97.6 F 05/23/19 08:10 Pulse 75 05/23/19 11:05 Resp 16 05/23/19 11:05 BP 140/53 05/23/19 11:05 Pulse Ox 96 05/23/19 11:05 Intake & Output 05/22/19 05/23/19 05/23/19 18:59 06:59 18:59 Intake Total 1459 50 Output Total 200 350 Balance 1259 -350 50 Weight 124.5 kg Intake: Intake, IV Titration 650 50 Amount Phytonadione 5 mg In 50 Sodium Chloride 0.9% 50 ml @ 100 mls/hr IVPB ONCE [facility] Rx#:[id number] Piperacillin-Tazobactam 3 100 .375 gm In Sodium Chloride 0.9% 100 ml @ 25 mls/hr IVPB Q8HR [facility] Rx# :[id number] Vancomycin 1,750 mg In 500 Sodium Chloride 0.9% 500 ml 500 ml @ 167 mls/hr IVPB Q24H [facility] Rx#: [id number] cefTRIAXone 2 gm In 50 Sodium Chloride 0.9% 50 ml @ 100 mls/hr IVPB Q24HR [facility] Rx#:[id number] Oral 809 Output: Urine 200 350 Other: Voiding Method Indwelling Catheter Indwelling Catheter Indwelling Catheter # Bowel Movements 1 - Exam - Constitutional General appearance: cooperative, morbidly obese, no acute distress - EENT Eyes: anicteric sclerae, EOMI ENT: hearing grossly normal, normal oropharynx - Neck Neck: no lymphadenopathy - Respiratory Respiratory: bilateral: CTA, no increased effort - Cardiovascular generalized anasarca Rhythm: regular Heart sounds: normal: S1, S2 Abnormal Heart Sounds: no systolic murmur, no diastolic murmur, no rub, no S3 Gallop, no S4 Gallop, no click, no other leg Peripheral Edema: bilateral: 2+ - Gastrointestinal General gastrointestinal: no absent bowel sounds, no decreased bowel sounds, a - Neurologic Neurologic: Non focal - Musculoskeletal Musculoskeletal: generalized weakness, strength equal bilaterally - Psychiatric Psychiatric: A&O x's 3, appropriate affect, intact judgment & insight - Labs CBC & Chem 7: 05/22/19 06:56 05/22/19 06:56 Labs: Abnormal Lab Results - Last 24 Hours (Table) 05/22/19 Range/Units 16:45 Fibrinogen 156 L (200-500) mg/dL Microbiology - Last 24 Hours (Table) 05/22/19 12:10 Blood Culture - Preliminary Blood No Growth after 24 hours 05/20/19 14:30 Blood Culture Gram Stain - Final Blood Blood Culture - Final Citrobacter freundii 05/20/19 16:14 Urine Culture - Final Urine,Catheterized Citrobacter youngae Assessment and Plan Plan: CT scan - chest: report reviewed US - abdomen: report reviewed Venous US: report reviewed Assessment and Plan Sepsis - Gram Negative Bacteremia - Blood cultures and Urine Cultures Positive - IV antibiotics managed by Infectious Disease History of GI bleed Anemia associated with acute blood loss - Patient hemoglobin is overall stable in comparison with her hemoglobin during admission for GI bleed. - Iron studies were evaluated at that time, she was low on iron. - During acute illness parenteral iron is not usually recommended. - We'll hold until she has had adequate treatment for her gram-negative bacilli bacteremia and UTI before initiating. Thrombocytopenia - Patient's platelet count greater than 50K yesterday although decreased. - Monitor Daily - Patient's platelets have been noted to be low since 2013. Due to patient's other abnormal lab values (i.e. INR of 1.6, bilirubin of 2.6) high suspicion for underlying liver disease etiology Coagulopathy - INR is 1.6. Hemolysis labs have been ordered. Recheck INR in the a.m. - Monitor for DIC CKD (chronic kidney disease), stage III - Could impact patient's ability to recover after recent acute bleeding episode. - Supplementation with iron first, as she was noted to be low at the end of March. Would recommend follow-up with Nephrology for chronic kidney disease, and the potential need for erythropoietin supplementation in the future. Continue current supportive care and close monitor of CBC
[2019-05-23] MEDS: HYDROcodone/APAP 10-325MG 1 EACH TAB PO PRN (16:57)
[2019-05-23] MEDS ORDERED: PHYTONADIONE 5 MG in SODIUM CHLORIDE 0.9% 50 ML IVPB STA (19:51)
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
--- NOTE | 2019-05-23 22:18 | P.PN ---
Subjective Progress Note Date: 05/23/19 68-year-old female who is known to infectious disease service from her many hospitalizations. Was recently hospitalized with difficulty for an upper gastrointestinal bleed should require intervention with endoscopic evaluation and injection therapy. She fortunately recovered and was to do somewhat better, but then developed difficulties as noted to presentation. She had progressive weakness, difficulty trying to ambulate, fever and altered mental status. With her history of her many problems she was brought to the emergency center has been admitted with concerns to fever, leukocytosis and sepsis. Imaging studies did not reveal evidence of any acute new pneumonia and with hydration was started on antibiotic therapy her fever has started to improve. She still feels quite weak but has regained her appetite is denying other acute new symptoms. She has chronic lymphedema and is to be evaluated in the outpatient clinic by the lymphedema specialist near future. The goal will be to have the drained and lymphedema wraps in the near future. She relates that she would really like to go to home for her to care for her. It is noted that she has had multiple bouts of infections usually urinary tract and has had many pathogens that include E. coli ,klebsiella and Citrobacter. 05/23/2019 the patient's care has been complicated by her very poor IV access and great difficulty with blood draw. The anesthesia services have been able to apply and anterior chest wall small gauge IV which is adequate for the treatment that she is getting with Rocephin which is a somewhat low volume and non- astringent agent. Once we have negative blood culture PICC line can be placed which will facilitate her antibiotic therapy and I believe it utilization at the time of discharge. Objective - Vital Signs Vital signs: Vital Signs Temp 98.8 F 05/23/19 19:52 Pulse 75 05/23/19 19:52 Resp 18 05/23/19 19:52 BP 124/56 05/23/19 19:52 Pulse Ox 93 L 05/23/19 19:52 Intake & Output 05/23/19 05/23/19 05/24/19 06:59 18:59 06:59 Intake Total 50 Output Total 350 Balance -350 50 Weight 124.5 kg Intake: Intake, IV Titration 50 Amount cefTRIAXone 2 gm In 50 Sodium Chloride 0.9% 50 ml @ 100 mls/hr IVPB Q24HR [facility] Rx#:[id number] Output: Urine 350 Other: Voiding Method Indwelling Catheter Indwelling Catheter Indwelling Catheter # Voids 0 # Bowel Movements 1 - Exam HEENT: Anicteric conjunctiva are pink and moist nasal mucosa grossly intact without significant lesions, there is no thrush. Neck: The neck is supple without significant lymphadenopathy or thyromegaly. Lungs: Symmetrical air entry with expiratory wheezes that are scattered no bronchial sounds in all dullness or egophony Heart: Irregular with a soft S4. There is no significant murmur click or rub, PMI was nondisplaced. Abdomen: Positive bowel sounds soft and nontender without palpable masses or organomegaly. There was no guarding or rebound. Extremities: The upper extremities have excellent pulses they are symmetric, no significant petechiae or telangiectasia. No splinter hemorrhages were noted. The lower extremities have evidence of the chronic bilateral lower extremity edema and lymphedema for which some wraps are in place. This chronic skin discoloration but no open ulcerations are noted Neuro: Awake alert oriented to person place and time. There are no acute new gross focal sensory motor deficits. Apparently this is markedly improved from admission. - Labs CBC & Chem 7: 05/22/19 06:56 05/22/19 06:56 Labs: Microbiology - Last 24 Hours (Table) 05/22/19 12:10 Blood Culture - Preliminary Blood No Growth after 24 hours 05/20/19 14:30 Blood Culture Gram Stain - Final Blood Blood Culture - Final Citrobacter freundii Laboratory Results WBC 15.8 k/uL (3.8-10.6) H 05/22/19 06:56 RBC 2.93 m/uL (3.80-5.40) L 05/22/19 06:56 Hgb 9.8 gm/dL (11.4-16.0) L 05/22/19 06:56 Hct 31.0 % (34.0-46.0) L 05/22/19 06:56 MCV 106.0 fL (80.0-100.0) H 05/22/19 06:56 MCH 33.6 pg (25.0-35.0) 05/22/19 06:56 MCHC 31.7 g/dL (31.0-37.0) 05/22/19 06:56 RDW 18.2 % (11.5-15.5) H 05/22/19 06:56 Plt Count 89 k/uL (150-450) L 05/22/19 06:56 Neutrophils % 91 % 05/22/19 06:56 Lymphocytes % 3 % 05/22/19 06:56 Monocytes % 4 % 05/22/19 06:56 Eosinophils % 0 % 05/22/19 06:56 Basophils % 0 % 05/22/19 06:56 Neutrophils # 14.3 k/uL (1.3-7.7) H 05/22/19 06:56 Lymphocytes # 0.5 k/uL (1.0-4.8) L 05/22/19 06:56 Monocytes # 0.7 k/uL (0-1.0) 05/22/19 06:56 Eosinophils # 0.1 k/uL (0-0.7) 05/22/19 06:56 Basophils # 0.0 k/uL (0-0.2) 05/22/19 06:56 Manual Slide Review Performed 05/22/19 06:56 Polychromasia Present 05/20/19 14:30 Hypochromasia Moderate 05/22/19 06:56 Hypochromasia (manual) Present 05/20/19 14:30 Poikilocytosis Slight 05/22/19 06:56 Anisocytosis Slight 05/22/19 06:56 Anisocytosis (manual) Present 05/20/19 14:30 Macrocytosis Marked A 05/22/19 06:56 Crenated Cell Present 05/22/19 06:56 Haptoglobin 113.0 mg/dL (31.2-198.0) 05/22/19 12:10 PT 15.8 sec (9.0-12.0) H 05/20/19 14:30 INR 1.6 (<1.2) H 05/20/19 14:30 APTT 22.3 sec (22.0-30.0) 05/20/19 14:30 Fibrinogen 156 mg/dL (200-500) L 05/22/19 16:45 D-Dimer 6.09 mg/L FEU (<0.60) H 05/20/19 14:30 Sodium 142 mmol/L (137-145) 05/22/19 06:56 Potassium 5.2 mmol/L (3.5-5.1) H 05/22/19 06:56 Chloride 117 mmol/L (98-107) H 05/22/19 06:56 Carbon Dioxide 17 mmol/L (22-30) L 05/22/19 06:56 Anion Gap 8 mmol/L 05/22/19 06:56 BUN 40 mg/dL (7-17) H 05/22/19 06:56 Creatinine 1.53 mg/dL (0.52-1.04) H 05/22/19 06:56 Est GFR (CKD-EPI)AfAm 41 (>60 ml/min/1.73 sqM) 05/22/19 06:56 Est GFR (CKD-EPI)NonAf 35 (>60 ml/min/1.73 sqM) 05/22/19 06:56 Glucose 121 mg/dL (74-99) H 05/22/19 06:56 Lactic Ac Sepsis Rflx Y 05/20/19 19:20 Plasma Lactic Acid Remy 1.6 mmol/L (0.7-2.0) 05/20/19 22:44 Calcium 10.0 mg/dL (8.4-10.2) 05/22/19 06:56 Total Bilirubin 1.0 mg/dL (0.2-1.3) 05/22/19 12:10 Conjugated Bilirubin 0.0 mg/dL (0.0-0.3) 05/22/19 12:10 Unconjugated Bilirubin 0.5 mg/dL (0.0-1.1) 05/22/19 12:10 Delta Bilirubin 0.5 mg/dL (0.0-0.2) H 05/22/19 12:10 AST 27 U/L (14-36) 05/20/19 14:30 ALT 23 U/L (9-52) 05/20/19 14:30 Alkaline Phosphatase 110 U/L (38-126) 05/20/19 14:30 Lactate Dehydrogenase 743 U/L (313-618) H 05/22/19 12:10 Troponin I <0.012 ng/mL (0.000-0.034) 05/20/19 14:30 NT-Pro-B Natriuret Pep 2160 pg/mL 05/20/19 14:30 Total Protein 5.3 g/dL (6.3-8.2) L 05/20/19 14:30 Albumin 2.1 g/dL (3.5-5.0) L 05/20/19 14:30 Urine Color Yellow 05/20/19 16:14 Urine Appearance Cloudy (Clear) H 05/20/19 16:14 Urine pH 5.5 (5.0-8.0) 05/20/19 16:14 Ur Specific Norco 1.012 (1.001-1.035) 05/20/19 16:14 Urine Protein Trace (Negative) H 05/20/19 16:14 Urine Glucose (UA) Negative (Negative) 05/20/19 16:14 Urine Ketones Negative (Negative) 05/20/19 16:14 Urine Blood Negative (Negative) 05/20/19 16:14 Urine Nitrite Positive (Negative) H 05/20/19 16:14 Urine Bilirubin Negative (Negative) 05/20/19 16:14 Urine Urobilinogen <2.0 mg/dL (<2.0) 05/20/19 16:14 Ur Leukocyte Esterase Moderate (Negative) H 05/20/19 16:14 Urine WBC 35 /hpf (0-5) H 05/20/19 16:14 Urine WBC Clumps Few /hpf (None) H 05/20/19 16:14 Ur Squamous Epith Cells 1 /hpf (0-4) 05/20/19 16:14 Urine Bacteria Many /hpf (None) H 05/20/19 16:14 Urine Mucus Rare /hpf (None) H 05/20/19 16:14 Stool Occult Blood Negative (Negative) 05/20/19 17:17 Blood Type A Positive 05/20/19 14:30 Blood Type Recheck No 05/20/19 14:30 Antibody Screen NEGATIVE 05/20/19 14:30 Spec Expiration Date 05/23/2019 - 232905/20/19 14:30 Microbiology 05/22/19 12:10 Blood Blood Culture - Preliminary No Growth after 24 hours 05/20/19 14:30 Blood Blood Culture Gram Stain - Final 05/20/19 14:30 Blood Blood Culture - Final Citrobacter freundii 05/20/19 16:14 Urine,Catheterized Urine Culture - Final Citrobacter youngae 05/20/19 14:30 Blood Blood Culture - Final Assessment and Plan (1) UTI (urinary tract infection) Current Visit: Yes Status: Acute Priority: High Code(s): N39.0 - URINARY TRACT INFECTION, SITE NOT SPECIFIED SNOMED Code(s): 22907700 (2) Gram negative sepsis Narrative/Plan: 68-year-old woman who has a history of multiple medical troubles inclu ding multiple recent hospitalizations now presents to hospital with alteration of her mental status generalized fatigue malaise and fever. She's noticed to have evidence of gram-negative sepsis from a urinary tract infection. Urinalysis is abnormal, urine culture reveals evidence of gram-negative bacilli as does the blood culture. There is evidence of recent urinary tract infection with E. coli is resistant to Bactrim and Levaquin she also has had Citrobacter and Klebsiella in the recent past. Ceftriaxone will give us coverage for most recent pathogens and other antibiotics can be discontinued. Follow blood cultures been requested and once this is negative and IV to be placed and hopefu lly outpatient intravenous antibiotic therapy with Rocephin can be completed in the home setting. 05/23/2019 the patient is feeling somewhat better but is anxious about her IV access. Anesthesia has applied a small gauge IV to the left anterior chest which is working well. Hopefully we'll have a negative blood culture tomorrow which will allow the placement of the PICC line so she can complete her several week course of intravenous antibiotic therapy for her Citrobacter urinary tract infection and bacteremia. She does feel slightly better today. The extensive lower extremity lymphedema is noted is being wrapped with Marcelino wraps. She has been seen by the carding utility tender and will phone the outpatient clinic will likely be referred to the pulmonary hypertension clinic [facility] for evaluation of the pulmonary retention and her pulmonary sarcoidosis. She is not a candidate for immunosuppressive therapy at this time given her sepsis and poor functional status. Current Visit: Yes Status: Acute Priority: High Code(s): A41.50 - GRAM- NEGATIVE SEPSIS, UNSPECIFIED SNOMED Code(s): 187606014 (3) Fever Current Visit: Yes Status: Acute Code(s): R50.9 - FEVER, UNSPECIFIED SNOMED Code(s): 719345551 (4) Sarcoidosis Current Visit: Yes Status: Acute Priority: Medium Code(s): D86.9 - SARCOIDOSIS, UNSPECIFIED SNOMED Code(s): 73983881
[2019-05-24] MEDS: PANTOPRAZOLE 40 MG TABLET PO SCH ×2 (06:35→16:19)
--- NOTE | 2019-05-24 07:45 | P.ANPRN ---
Procedure Note - Anesthesia - Invasive Line Central Line Time Out Performed: Yes Date of Procedure: 05/24/19 Time of Procedure: 07:42 Location of Patient Procedure: PACU Preparation: Sterile Prep, Sterile Dressing ( i put in a triple lumen central line 7fr.sterile technique used) Narrative: Central line placement per sterile protocol utilized.
--- NOTE | 2019-05-24 08:17 | XR ---
EXAMINATION TYPE: XR chest 1V confirm line plcny DATE OF EXAM: 05/24/2019 COMPARISON: 05/20/19 HISTORY: Central line placement TECHNIQUE: Single frontal view of the chest is obtained. FINDINGS: Right internal jugular central venous catheter has been placed terminating in the high rig ht atrium. No postprocedural pneumothorax is seen. Small left pleural effusion layers at the costophr enic angle. Cardiomediastinal silhouette is enlarged with enlargement of the central pulmonary vascul ature. IMPRESSION: Newly placed right internal jugular central venous catheter terminates in the high right atrium. Persistent small left pleural effusion in Central pulmonary vascular engorgement.
[2019-05-24] MEDS: HYDROcodone/APAP 10-325MG 1 EACH TAB PO PRN ×2 (08:53→17:39)
[2019-05-24 10:22] LABS: INR 1.3 (<1.2); Partial Thromboplastin Time 27.9 sec (22.0-30.0); Prothrombin Time 13.4 sec (9.0-12.0)
[2019-05-24] MEDS: VERAPAMIL 40 MG TAB PO SCH ×3 (10:25→20:56)
[2019-05-24 10:31] LABS: Albumin 1.9 g/dL (3.5-5.0); Bilirubin, Delta 0.5 mg/dL (0.0-0.2); Bilirubin,Unconjugated 0.4 mg/dL (0.0-1.1); Calcium 9.7 mg/dL (8.4-10.2); Total Bilirubin 0.9 mg/dL (0.2-1.3)
[2019-05-24 11:03] LABS: Anisocytosis Slight; Basophils % (A) 0 %; Eosinophils # (A) 0.3 k/uL (0-0.7); Eosinophils % (A) 4 %; HCT 28.2 % (34.0-46.0); HGB 8.6 gm/dL (11.4-16.0); Hypochromasia Marked; Lymphocytes # (A) 0.8 k/uL (1.0-4.8); Lymphocytes % (A) 11 %; MCH 32.3 pg (25.0-35.0); MCHC 30.4 g/dL (31.0-37.0); MCV 106.2 fL (80.0-100.0); Macrocytosis Marked; Mean Platelet Volume 8.8; Monocytes # (A) 0.3 k/uL (0-1.0); Monocytes % (A) 5 %; Neutrophils # (A) 5.3 k/uL (1.3-7.7); Neutrophils % (A) 78 %; Platelet Count 111 k/uL (150-450); Poikilocytosis Slight; RBC 2.65 m/uL (3.80-5.40); RDW 17.6 % (11.5-15.5); WBC 6.9 k/uL (3.8-10.6)
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
[2019-05-24 12:14] LABS: Polychromasia Present
--- NOTE | 2019-05-24 13:16 | P.PN ---
Subjective Progress Note Date: 05/24/19 Principal diagnosis: Elevated bilirubin History sarcoidosis 2004/2005 per bone marrow biopsy. Underlying stage III kidney disease. Evidence of clinical megaly on CT. History of positive AMA in the past. Repeat AMA pending. Total bilirubin normalized 0.9. AST ALT AP normal. No abdominal complaints. Objective - Vital Signs Vital signs: Vital Signs Temp 98.4 F 05/24/19 12:37 Pulse 80 05/24/19 12:37 Resp 18 05/24/19 10:58 BP 151/71 05/24/19 12:37 Pulse Ox 92 L 05/24/19 12:37 Intake & Output 05/23/19 05/24/19 05/24/19 18:59 06:59 18:59 Intake Total 50 200 240 Output Total 700 Balance 50 -500 240 Weight 118.5 kg Intake: Intake, IV Titration 50 200 Amount Phytonadione 5 mg In 100 Sodium Chloride 0.9% 50 ml @ 100 mls/hr IVPB ONCE STA Rx#:[id number] cefTRIAXone 2 gm In 50 100 Sodium Chloride 0.9% 50 ml @ 100 mls/hr IVPB Q24HR [facility] Rx#:[id number] Oral 240 Output: Urine 700 Uretheral (Santos) 450 Other: Voiding Method Indwelling Catheter Indwelling Catheter Indwelling Catheter # Voids 0 # Bowel Movements 1 - Exam General appearance: The patient is alert, oriented, in no acute distress. HET: Head is normocephalic and atraumatic. Pupils are equal and reactive. Oropharynx is clear without lesions. Neck: Supple without lymphadenopathy. Trachea midline. Heart: S1 S2. Regular rate and rhythm. Lungs: Clear bilaterally. Abdomen: Soft, nontender, nondistended with bowel sounds. No peritoneal signs. No palpable organomegaly or masses. Extremities: +2 bilateral lower extremity edema. Neurological: No focal deficits. Strength and sensation are grossly intact. - Labs CBC & Chem 7: 05/24/19 09:52 05/24/19 09:52 Labs: Abnormal Lab Results - Last 24 Hours (Table) 05/24/19 05/24/19 05/24/19 Range/Units 09:52 09:52 09:52 RBC 2.65 L (3.80-5.40) m/uL Hgb 8.6 L (11.4-16.0) gm/dL Hct 28.2 L (34.0-46.0) % MCV 106.2 H (80.0-100.0) fL MCHC 30.4 L (31.0-37.0) g/dL RDW 17.6 H (11.5-15.5) % Plt Count 111 L (150-450) k/uL Lymphocytes # 0.8 L (1.0-4.8) k/uL Macrocytosis Marked A PT 13.4 H (9.0-12.0) sec INR 1.3 H (<1.2) Chloride 109 H (98-107) mmol/L BUN 34 H (7-17) mg/dL Creatinine 1.16 H (0.52-1.04) mg/dL Glucose 109 H (74-99) mg/dL Delta Bilirubin 0.5 H (0.0-0.2) mg/dL Total Protein 5.0 L (6.3-8.2) g/dL Albumin 1.9 L (3.5-5.0) g/dL Microbiology - Last 24 Hours (Table) 05/22/19 12:10 Blood Culture - Preliminary Blood No Growth after 24 hours 05/20/19 14:30 Blood Culture Gram Stain - Final Blood Blood Culture - Final Citrobacter freundii Assessment and Plan (1) Antimitochondrial antibody positive Narrative/Plan: History of sarcoidosis per bone marrow biopsy and history of elevated antimitochondrial antibody repeat testing is pending. Underlying intrinsic live r disease cannot be excluded. Current Visit: Yes Status: Acute Code(s): R76.8 - OTHER SPECIFIED ABNORMAL IMMUNOLOGICAL FINDINGS IN SERUM SNOMED Code(s): 145522798 (2) Elevated bilirubin Current Visit: Yes Status: Acute Code(s): R17 - UNSPECIFIED JAUNDICE SNOMED Code(s): 98416927 (3) Coagulopathy Current Visit: Yes Status: Acute Priority: High Code(s): D68.9 - COAGULATION DEFECT, UNSPECIFIED SNOMED Code(s): 25031166 (4) Gram negative sepsis Current Visit: Yes Status: Acute Priority: High Code(s): A41.50 - GRAM- NEGATIVE SEPSIS, UNSPECIFIED SNOMED Code(s): 253599601 (5) History of GI bleed Current Visit: Yes Status: Acute Priority: High Code(s): Z87.19 - PERSONAL HISTORY OF OTHER DISEASES OF THE DIGESTIVE SYSTEM SNOMED Code(s): 928914138 (6) Sarcoidosis Current Visit: Yes Status: Chronic Priority: Medium Code(s): D86.9 - SARCOIDOSIS, UNSPECIFIED SNOMED Code(s): 03663970 (7) Duodenal ulcer Current Visit: No Status: Acute Code(s): K26.9 - DUODENAL ULCER, UNSP ACUTE OR CHRONIC, W/O HEMOR OR PERF SNOMED Code(s): 40497850 Plan: 1. From a GI standpoint no further workup. Patient is advised to follow-up in the office 2 weeks after discharge discuss repeat serologic testing results. If AMA is positive liver biopsy is recommended which can be pursued on an outpatient basis. Assessment and plan a care discussed with Dr. May
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
[2019-05-24 15:00] LABS: Protein, Total 4.5 g/dL (6.2-8.2)
[2019-05-24] MEDS: FUROSEMIDE 10 MG/ML 2 ML VIAL IV SCH (16:19)
--- NOTE | 2019-05-25 00:01 | P.PN ---
Subjective Progress Note Date: 05/24/19 68-year-old female who is known to infectious disease service from her many hospitalizations. Was recently hospitalized with difficulty for an upper gastrointestinal bleed should require intervention with endoscopic evaluation and injection therapy. She fortunately recovered and was to do somewhat better, but then developed difficulties as noted to presentation. She had progressive weakness, difficulty trying to ambulate, fever and altered mental status. With her history of her many problems she was brought to the emergency center has been admitted with concerns to fever, leukocytosis and sepsis. Imaging studies did not reveal evidence of any acute new pneumonia and with hydration was started on antibiotic therapy her fever has started to improve. She still feels quite weak but has regained her appetite is denying other acute new symptoms. She has chronic lymphedema and is to be evaluated in the outpatient clinic by the lymphedema specialist near future. The goal will be to have the drained and lymphedema wraps in the near future. She relates that she would really like to go to home for her to care for her. It is noted that she has had multiple bouts of infections usually urinary tract and has had many pathogens that include E. coli ,klebsiella and Citrobacter. 05/23/2019 the patient's care has been complicated by her very poor IV access and great difficulty with blood draw. The anesthesia services have been able to apply and anterior chest wall small gauge IV which is adequate for the treatment that she is getting with Rocephin which is a somewhat low volume and non- astringent agent. Once we have negative blood culture PICC line can be placed which will facilitate her antibiotic therapy and I believe it utilization at the time of discharge. 05/24/2019 the patient is feeling somewhat better, her voluminous and placed the right jugular. Receiving antibiotics and ongoing therapy. Objective - Vital Signs Vital signs: Vital Signs Temp 97.9 F 05/24/19 23:25 Pulse 72 05/24/19 23:25 Resp 18 05/24/19 23:25 BP 137/76 05/24/19 23:25 Pulse Ox 93 L 05/24/19 23:25 Intake & Output 05/24/19 05/24/19 05/25/19 06:59 18:59 06:59 Intake Total 200 462 Output Total 700 1000 Balance -500 -538 Weight 118.5 kg Intake: Intake, IV Titration 200 Amount Phytonadione 5 mg In 100 Sodium Chloride 0.9% 50 ml @ 100 mls/hr IVPB ONCE ST[facility] Rx#:[id number] cefTRIAXone 2 gm In 100 Sodium Chloride 0.9% 50 ml @ 100 mls/hr IVPB Q24HR [facility] Rx#:[id number] Oral 462 Output: Urine 700 1000 Uretheral (Santos) 450 Other: Voiding Method Indwelling Catheter Indwelling Catheter Indwelling Catheter # Voids 0 - Exam HEENT: Anicteric conjunctiva are pink and moist nasal mucosa grossly intact without significant lesions, there is no thrush. Neck: Is no thyromegaly no lymphadenopathy, triple-lumen catheter right jugular without bleeding Lungs: Symmetrical air entry with expiratory wheezes that are scattered no bronchial sounds in all dullness or egophony Heart: Irregular with a soft S4. There is no significant murmur click or rub, PMI was nondisplaced. Abdomen: Positive bowel sounds soft and nontender without palpable masses or organomegaly. There was no guarding or rebound. Extremities: The upper extremities have excellent pulses they are symmetric, no significant petechiae or telangiectasia. No splinter hemorrhages were noted. The lower extremities have evidence of the chronic bilateral lower extremity edema and lymphedema for which some wraps are in place. This chronic skin discoloration but no open ulcerations are noted Neuro: Awake alert oriented to person place and time. There are no acute new gross focal sensory motor deficits. Apparently this is markedly improved from admission. - Labs CBC & Chem 7: 05/24/19 09:52 05/24/19 09:52 Labs: Abnormal Lab Results - Last 24 Hours (Table) 05/24/19 05/24/19 05/24/19 Range/Units 09:52 09:52 09:52 RBC 2.65 L (3.80-5.40) m/uL Hgb 8.6 L (11.4-16.0) gm/dL Hct 28.2 L (34.0-46.0) % MCV 106.2 H (80.0-100.0) fL MCHC 30.4 L (31.0-37.0) g/dL RDW 17.6 H (11.5-15.5) % Plt Count 111 L (150-450) k/uL Lymphocytes # 0.8 L (1.0-4.8) k/uL Macrocytosis Marked A PT 13.4 H (9.0-12.0) sec INR 1.3 H (<1.2) Chloride (98-107) mmol/L BUN (7-17) mg/dL Creatinine (0.52-1.04) mg/dL Glucose (74-99) mg/dL Delta Bilirubin (0.0-0.2) mg/dL Total Protein (6.3-8.2) g/dL Total Protein (PEP) 4.5 L (6.2-8.2) g/dL Albumin (3.5-5.0) g/dL CALLIE Screen POSITIVE H (NEGATIVE) 05/24/19 Range/Units 09:52 RBC (3.80-5.40) m/uL Hgb (11.4-16.0) gm/dL Hct (34.0-46.0) % MCV (80.0-100.0) fL MCHC (31.0-37.0) g/dL RDW (11.5-15.5) % Plt Count (150-450) k/uL Lymphocytes # (1.0-4.8) k/uL Macrocytosis PT (9.0-12.0) sec INR (<1.2) Chloride 109 H (98-107) mmol/L BUN 34 H (7-17) mg/dL Creatinine 1.16 H (0.52-1.04) mg/dL Glucose 109 H (74-99) mg/dL Delta Bilirubin 0.5 H (0.0-0.2) mg/dL Total Protein 5.0 L (6.3-8.2) g/dL Total Protein (PEP) (6.2-8.2) g/dL Albumin 1.9 L (3.5-5.0) g/dL CALLIE Screen (NEGATIVE) Microbiology - Last 24 Hours (Table) 05/22/19 12:10 Blood Culture - Preliminary Blood No Growth after 48 hours Laboratory Results WBC 6.9 k/uL (3.8-10.6) 05/24/19 09:52 RBC 2.65 m/uL (3.80-5.40) L 05/24/19 09:52 Hgb 8.6 gm/dL (11.4-16.0) L 05/24/19 09:52 Hct 28.2 % (34.0-46.0) L 05/24/19 09:52 MCV 106.2 fL (80.0-100.0) H 05/24/19 09:52 MCH 32.3 pg (25.0-35.0) 05/24/19 09:52 MCHC 30.4 g/dL (31.0-37.0) L 05/24/19 09:52 RDW 17.6 % (11.5-15.5) H 05/24/19 09:52 Plt Count 111 k/uL (150-450) L 05/24/19 09:52 Neutrophils % 78 % 05/24/19 09:52 Lymphocytes % 11 % 05/24/19 09:52 Monocytes % 5 % 05/24/19 09:52 Eosinophils % 4 % 05/24/19 09:52 Basophils % 0 % 05/24/19 09:52 Neutrophils # 5.3 k/uL (1.3-7.7) 05/24/19 09:52 Lymphocytes # 0.8 k/uL (1.0-4.8) L 05/24/19 09:52 Monocytes # 0.3 k/uL (0-1.0) 05/24/19 09:52 Eosinophils # 0.3 k/uL (0-0.7) 05/24/19 09:52 Basophils # 0.0 k/uL (0-0.2) 05/24/19 09:52 Manual Slide Review Performed 05/24/19 09:52 Polychromasia Present 05/24/19 09:52 Hypochromasia Marked 05/24/19 09:52 Hypochromasia (manual) Present 05/20/19 14:30 Poikilocytosis Slight 05/24/19 09:52 Anisocytosis Slight 05/24/19 09:52 Anisocytosis (manual) Present 05/20/19 14:30 Macrocytosis Marked A 05/24/19 09:52 Crenated Cell Present 05/22/19 06:56 Haptoglobin 113.0 mg/dL (31.2-198.0) 05/22/19 12:10 PT 13.4 sec (9.0-12.0) H 05/24/19 09:52 INR 1.3 (<1.2) H 05/24/19 09:52 APTT 27.9 sec (22.0-30.0) 05/24/19 09:52 Fibrinogen 156 mg/dL (200-500) L 05/22/19 16:45 D-Dimer 6.09 mg/L FEU (<0.60) H 05/20/19 14:30 Sodium 137 mmol/L (137-145) 05/24/19 09:52 Potassium 4.0 mmol/L (3.5-5.1) 05/24/19 09:52 Chloride 109 mmol/L (98-107) H 05/24/19 09:52 Carbon Dioxide 25 mmol/L (22-30) 05/24/19 09:52 Anion Gap 3 mmol/L 05/24/19 09:52 BUN 34 mg/dL (7-17) H 05/24/19 09:52 Creatinine 1.16 mg/dL (0.52-1.04) H 05/24/19 09:52 Est GFR (CKD-EPI)AfAm 57 (>60 ml/min/1.73 sqM) 05/24/19 09:52 Est GFR (CKD-EPI)NonAf 49 (>60 ml/min/1.73 sqM) 05/24/19 09:52 Glucose 109 mg/dL (74-99) H 05/24/19 09:52 Lactic Ac Sepsis Rflx Y 05/20/19 19:20 Plasma Lactic Acid Remy 1.6 mmol/L (0.7-2.0) 05/20/19 22:44 Calcium 9.7 mg/dL (8.4-10.2) 05/24/19 09:52 Total Bilirubin 0.9 mg/dL (0.2-1.3) 05/24/19 09:52 Conjugated Bilirubin 0.0 mg/dL (0.0-0.3) 05/24/19 09:52 Unconjugated Bilirubin 0.4 mg/dL (0.0-1.1) 05/24/19 09:52 Delta Bilirubin 0.5 mg/dL (0.0-0.2) H 05/24/19 09:52 AST 23 U/L (14-36) 05/24/19 09:52 ALT 23 U/L (9-52) 05/24/19 09:52 Alkaline Phosphatase 108 U/L (38-126) 05/24/19 09:52 Lactate Dehydrogenase 743 U/L (313-618) H 05/22/19 12:10 Troponin I <0.012 ng/mL (0.000-0.034) 05/20/19 14:30 NT-Pro-B Natriuret Pep 2160 pg/mL 05/20/19 14:30 Total Protein 5.0 g/dL (6.3-8.2) L 05/24/19 09:52 Total Protein (PEP) 4.5 g/dL (6.2-8.2) L 05/24/19 09:52 Albumin 1.9 g/dL (3.5-5.0) L 05/24/19 09:52 Urine Color Yellow 05/20/19 16:14 Urine Appearance Cloudy (Clear) H 05/20/19 16:14 Urine pH 5.5 (5.0-8.0) 05/20/19 16:14 Ur Specific [place] 1.012 (1.001-1.035) 05/20/19 16:14 Urine Protein Trace (Negative) H 05/20/19 16:14 Urine Glucose (UA) Negative (Negative) 05/20/19 16:14 Urine Ketones Negative (Negative) 05/20/19 16:14 Urine Blood Negative (Negative) 05/20/19 16:14 Urine Nitrite Positive (Negative) H 05/20/19 16:14 Urine Bilirubin Negative (Negative) 05/20/19 16:14 Urine Urobilinogen <2.0 mg/dL (<2.0) 05/20/19 16:14 Ur Leukocyte Esterase Moderate (Negative) H 05/20/19 16:14 Urine WBC 35 /hpf (0-5) H 05/20/19 16:14 Urine WBC Clumps Few /hpf (None) H 05/20/19 16:14 Ur Squamous Epith Cells 1 /hpf (0-4) 05/20/19 16:14 Urine Bacteria Many /hpf (None) H 05/20/19 16:14 Urine Mucus Rare /hpf (None) H 05/20/19 16:14 Stool Occult Blood Negative (Negative) 05/20/19 17:17 CALLIE Screen POSITIVE (NEGATIVE) H 05/24/19 09:52 Blood Type A Positive 08/23/19 14:30 Blood Type Recheck No 05/20/19 14:30 Antibody Screen NEGATIVE 05/20/19 14:30 Spec Expiration Date 05/23/2019 - 2330 05/20/19 14:30 Microbiology 05/22/19 12:10 Blood Blood Culture - Preliminary No Growth after 48 hours 05/20/19 14:30 Blood Blood Culture Gram Stain - Final 05/20/19 14:30 Blood Blood Culture - Final Citrobacter freundii 05/20/19 16:14 Urine,Catheterized Urine Culture - Final Citrobacter youngae 05/20/19 14:30 Blood Blood Culture - Final Assessment and Plan (1) UTI (urinary tract infection) Current Visit: Yes Status: Acute Priority: High Code(s): N39.0 - URINARY TRACT INFECTION, SITE NOT SPECIFIED SNOMED Code(s): 17683517 (2) Gram negative sepsis Narrative/Plan: 68-year-old woman who has a history of multiple medical troubles including multiple recent hospitalizations now presents to hospital with alteration of her mental status generalized fatigue malaise and fever. She's noticed to have evidence of gram-negative sepsis from a urinary tract infection. Urinalysis is abnormal, urine culture reveals evidence of gram-negative bacilli as does the blood culture. There is evidence of recent urinary tract infection with E. coli is resistant to Bactrim and Levaquin she also has had Citrobacter and Klebsiella in the recent past. Ceftriaxone will give us coverage for most recent pathogens and other antibiotics can be discontinued. Follow blood cultures been requested and once this is negative and IV to be placed and hopefully outpatient intravenous antibiotic therapy with Rocephin can be completed in the home setting. 05/23/2019 the patient is feeling somewhat better but is anxious about her IV access. Anesthesia has applied a small gauge IV to the left anterior chest which is working well. Hopefully we'll have a negative blood culture tomorrow which will allow the placement of the PICC line so she can complete her several week course of intravenous antibiotic therapy for her Citrobacter urinary tract infection and bacteremia. She does feel slightly better today. The extensive lower extremity lymphedema is noted is being wrapped with Marcelino wraps. She has been seen by the men's custom hair piece consultant and will phone the outpatient clinic will likely be referred to the pulmonary hypertension clinic [facility] for evaluation of the pulmonary retention and her pulmonary sarcoidosis. She is not a candidate for immunosuppressive therapy at this time given her sepsis and poor functional status. 05/24/2019 patient is improving. If blood cultures are negative then arrangements for a PICC line can be made for her to complete HER-2 weeks of intravenous antibiotic therapy with Rocephin for Citrobacter infection. As noted yesterday when she has improved only to follow-up the [facility] pulmonary hypertension clinic as well as evaluation of her sarcoidosis. Current Visit: Yes Status: Acute Priority: High Code(s): A41.50 - GRAM- NEGATIVE SEPSIS, UNSPECIFIED SNOMED Code(s): 752028384 (3) Fever Current Visit: Yes Status: Acute Code(s): R50.9 - FEVER, UNSPECIFIED S NOMED Code(s): 899201795 (4) Sarcoidosis Current Visit: Yes Status: Chronic Priority: Medium Code(s): D86.9 - SARCOIDOSIS, UNSPECIFIED SNOMED Code(s): 51693468
[2019-05-25 06:29] LABS: Anisocytosis Slight; Basophils % (A) 0 %; Eosinophils # (A) 0.5 k/uL (0-0.7); Eosinophils % (A) 9 %; HCT 28.7 % (34.0-46.0); HGB 8.6 gm/dL (11.4-16.0); Hypochromasia Marked; Lymphocytes # (A) 1.1 k/uL (1.0-4.8); Lymphocytes % (A) 20 %; MCH 32.2 pg (25.0-35.0); MCV 107.1 fL (80.0-100.0); Mean Platelet Volume 8.1; Monocytes # (A) 0.4 k/uL (0-1.0); Monocytes % (A) 7 %; Neutrophils # (A) 3.4 k/uL (1.3-7.7); Neutrophils % (A) 60 %; Platelet Count 108 k/uL (150-450); Poikilocytosis Slight; RBC 2.68 m/uL (3.80-5.40); RDW 17.4 % (11.5-15.5); WBC 5.6 k/uL (3.8-10.6)
[2019-05-25 06:40] LABS: Calcium 9.9 mg/dL (8.4-10.2); Potassium 3.9 mmol/L (3.5-5.1)
[2019-05-25 06:51] LABS: Macrocytosis Marked
[2019-05-25] MEDS: PANTOPRAZOLE 40 MG TABLET PO SCH ×2 (08:12→16:00)
[2019-05-25] MEDS: FUROSEMIDE 10 MG/ML 2 ML VIAL IV SCH (08:12)
[2019-05-25] MEDS: VERAPAMIL 40 MG TAB PO SCH ×2 (08:12→16:00)
[2019-05-25 10:30] LABS: Albumin 1.82 g/dL (3.80-4.90); Gamma Globulin 1.41 g/dL (0.70-1.50)
[2019-05-25 10:58] LABS: ANA Pattern Homogeneous
[2019-05-25 11:00] VITALS: BMI 43.3
[2019-05-25 11:46] LABS: Liver/Kidney Microsome Antibod 1.1 UNITS (<=20)
[2019-05-25] MEDS: HYDROcodone/APAP 10-325MG 1 EACH TAB PO PRN (11:47)
[2019-05-25] MEDS ORDERED: LIDOCAINE 1% INJ 10MG/ML (20 ML MDV) ONE (14:01)
[2019-05-25] MEDS ORDERED: LIDOCAINE 1% INJ 10MG/ML (20 ML MDV) SQ ONE (14:14)
[2019-05-25 14:16] VITALS: BP 157/81; PULSE 90; RESP 16; TEMP 98
--- NOTE | 2019-05-25 14:32 | P.DS ---
Providers Date of admission: 05/20/19 17:49 Expected date of discharge: 05/25/19 Attending physician: Jim Gomez MD Consults: 05/21/19 08:03 Consult Physician Routine Consulting Provider: Frederick Reid Consult Reason/Comments: abnormal CT chest with hx sacroid Do you want consulting provider notified?: Yes 05/21/19 09:11 Consult Physician Routine Consulting Provider: Baldemar Silvestre Consult Reason/Comments: cellulits LLE recent bacteremia Do you want consulting provider notified?: Yes 05/21/19 10:55 Consult Physician Routine Consulting Provider: Germán Cunningham Consult Reason/Comments: thrombocytopenia, coagulopathy, anemia Do you want consulting provider notified?: Yes 05/22/19 08:48 Consult Physician Routine Consulting Provider: Emmie Nunez Consult Reason/Comments: sarcoidosis Do you want consulting provider notified?: Yes, Notify in am 05/22/19 15:55 Consult Physician Routine Consulting Provider: David May Consult Reason/Comments: elevated INR and bili, low plts Do you want consulting provider notified?: Yes, Notify in am 05/23/19 09:29 Consult Physician Routine Consulting Provider: Dustin Miller Consult Reason/Comments: Central line insertion for ABx & blood draws- avoiding PICC line Do you want consulting provider notified?: Yes Primary care physician: Chente [facility] Course: 68-year-old female past medical history of hypertension, sarcoidosis, lymphedema bilateral lower extremities, and arthritis who presented to the emergency department via EMS initially was believed to be for left lower extremity redness and pain, however her states it was because she was so lethargic and sleeping so much. She had recently been hospitalized here from 05/14 through 05/16 for upper GI bleed secondary to bleeding duodenal ulcer. She underwent injection with epinephrine as well as Endo Clip without complication. In the ER here she underwent an extensive evaluation. On initial exam she had a temperature of 101.6 hypoxic at 88% on room air. Initial laboratory analysis showed hemoglobin of 8.7, up from discharge, platelet count of 98 which is chronic for her, INR 1.6, creatinine 1.29 which is chronic, and albumin of 2.1. Her lactic acid was elevated at 2.3. She was started on IV fluids, Rocephin, and vancomycin. She underwent a CTA of the chest which showed infiltrate and pleural effusion. She underwent lower extremity venous Doppler which did not show any evidence of DVT. She was admitted for further management of her cellulitis with sepsis. Also found to have gram negative UTI and bacteremia. ID consulted. Heme consulted for chronic thrombocytopenia with coagulopathy, or not patient had a complete liver eval in 2013. Blood cultures from May 20 positive for Citrobacter. Urine culture was positive for Citrobacter. Repeat blood cultures on May 22 was preliminary negative at 48 hours. ID was consulted and recommended 2 weeks of Rocephin IV on discharge. Patient difficulties with IV access and central line was placed on May 24. Her leukocytosis resolved at the time of discharge. Lactic acid was within normal limits on repeat. GI was consulted for elevated liver enzymes. Total bilirubin is 2.6 on admission. Liver enzymes were within normal limits on discharge. GI recommended autoimmune workup including CALLIE, antimitochondrial antibody, liver and kidney microsomal antibody, protein electrophoresis, smooth muscle antibody. GI recommended outpatient follow-up for possible liver biopsy if AMA was positive. CALLIE was positive at the time of discharge. Rheumatology was consulted for patient's sarcoidosis and recommended outpatient follow-up in 4 weeks. Patient was seen and examined prior to discharge. No acute events overnight. She denies any chest pain, shortness of breath or palpitations. No nausea or vomiting. No fever or chills. Patient reports improvement in her fatigue and symptoms since admission. General: [no distress], [appears at stated age] Derm: [warm], [dry] Head: [atraumatic], [normocephalic], [symmetric], [right EJ] Eyes: [EOMI], [no lid lag], [anicteric sclera] Mouth: [no lip lesion], [mucus membranes moist] Cardiovascular: [S1S2 reg], [no murmur] Lungs: [CTA bilateral], [no rhonchi, no rales] , [no accessory muscle use] Abdominal: [soft], [ nontender to palpation], [no guarding], [no appreciable organomegaly] Ext: [no gross muscle atrophy], [3+ nonpitting lower extremity edema], [no contractures] Neuro: [no focal neuro deficits] Psych: [Alert], [oriented], [appropriate affect] Assessment and Plan UTI gram-negative bacteremia with sepsis Pulmonary infiltrates with history of sarcoidosis Severe pulmonary hypertension Chronic kidney disease stage III SVT Anemia with recent history of GI bleed Coagulopathy with elevated liver enzymes Thrombocytopenia Hypertension Patient initially met sepsis criteria. Sepsis has resolved. Lactic acid initially elevated, within normal limits on repeat. Urine culture positive for Citrobacter. Blood culture from May 20 positive for Citrobacter. Repeat blood cultures from May 22 negative at 48 hours. ID consulted, recommends 2 weeks of Rocephin IV on discharge. Plans: Follow repeat blood cultures. Continue Rocephin. Tylenol as needed for fever. As seen on chest CTA. Clinically, no concerns for pneumonia. Repeat chest x- ray showing no consolidation. Plans: Follow pulmonology and ID recommendations. No clinical signs of pneumonia. As seen on previous echocardiogram. Plans: Continue diuresis with Lasix 20 mg IV daily. Per rheumatology, needs follow-up with claim processing specialist at [facility] for treatment of pulmonary hypertension. Atrophic left kidney. Creatinine 1.07. Improved from previous admission. Plans: Avoid nephrotoxins. Daily BMP. Stable. Plans: Continue verapamil. Follow Dr. Corea May 23 appointment. Hemoglobin remaining stable from previous admission. Macrocytic. Plans: Transfuse if hemoglobin less than 7. GI consulted. CALLIE positive. INR 1.6-1.3. Plans: Autoimmune workup ordered. Needs follow-up with GI in the outpatient setting. Platelet count 108. Likely related to bone marrow involvement of sarcoidosis. No signs of bleeding. Plans: Daily CBC. BP 131/60. Plans: Continue verapamil. Monitor vitals, adjust medications as necessary. [Pending repeat cultures for discharge planning. Will need PICC line and removal of EJ, to complete 2 weeks of Rocephin. Likely DC 1-2 days.] Pertinent Studies: He next duplex, chest CTA, abdominal ultrasound, echocardiogram Procedures: Right EJ, PICC line Patient Condition at Discharge: Stable Plan - Discharge Summary Discharge Rx Participant: No New Discharge Prescriptions: Continue Cyanocobalamin (Vitamin B-12) [Vitamin B-12] 1,000 mg PO DAILY HYDROcodone/APAP 10-325MG [[place] 10-325] 1 tab PO TID PRN PRN Reason: Pain Verapamil [Isoptin] 40 mg PO TID #90 tab Pantoprazole Sodium [Protonix] 40 mg PO BID #60 tablet. Ondansetron Odt [Zofran ODT] 4 mg PO Q12HR PRN #10 tab PRN Reason: Nausea Vitamin D3(Unknown Dose) 1 cap PO DAILY Magnesium Oxide [Howell] 500 mg PO DAILY Discharge Medication List Cyanocobalamin (Vitamin B-12) [Vitamin B-12] 1,000 mg PO DAILY 04/20/19 [History] HYDROcodone/APAP 10-325MG [[place] 10-325] 1 tab PO TID PRN 05/14/19 [History] Ondansetron Odt [Zofran ODT] 4 mg PO Q12HR PRN #10 tab 05/16/19 [Rx] Pantoprazole Sodium [Protonix] 40 mg PO BID #60 tablet.dr 05/16/19 [Rx] Verapamil [Isoptin] 40 mg PO TID #90 tab 05/16/19 [Rx] Magnesium Oxide [[place]ell] 500 mg PO DAILY 05/20/19 [History] Vitamin D3(Unknown Dose) 1 cap PO DAILY 05/20/19 [History] Follow up Appointment(s)/Referral(s): Chente Reyes MD [Primary Care Provider] - 1-2 days
--- NOTE | 2019-05-25 15:13 | IR ---
PICC LINE PLACEMENT: HISTORY: Infection requiring long-term antibiotic therapy PROCEDURE: Ultrasound and fluoroscopic guidance of PICC line placement. COMPLICATIONS: None ANESTHESIA: 1. 1% Lidocaine locally. FINDINGS/TECHNIQUE: The procedure was explained to the patient. The risks, complications, benefits and alternatives were discussed and any questions were answered. Informed consent was obtained. The patient was placed supine on the fluoroscopic table and prepped and draped [facility] the [facility]. Utilizing a 21 gauge needle and sonographic and fluoroscopic guidance, access in the vein was achieved and there is placement of a 0.018 guidewire. The vein is patent. A 4-F sheath was placed o thu the guidewire. The guidewire and dilator were removed and a 4-F. PICC line was placed through th e sheath with the tip at the level of the SVC. The sheath was removed, the catheter was flushed and sutured into position. The patient was stable throughout the procedure and remained stable upon disc harge from the Department of Radiology. The vein puncture was patent under ultrasound. A barrera scale image was obtained to document patency of the vein punctured. All elements of the maximal barrier technique were utilized. FLUOROSCOPY TIME: 0.1 minutes and one image submitted IMPRESSION: Successful PICC line placement under ultrasound and fluoroscopic guidance.
== END 2019-05-25 16:50 | DRG 872 ==
LOC: EC 13:16 → 3SCARD 17:49 → 4MS4W 05-24 22:44
PROVIDERS: ADMIT Internal Medicine; ATTEND Internal Medicine
PROC: 02H633Z Insertion of Infusion Device into Right Atrium, Percutaneous Approach (ICD-10-PCS; principal; 2019-05-24 07:08)
PROC: 02HV33Z Insertion of Infusion Device into Superior Vena Cava, Percutaneous Approach (ICD-10-PCS; 2019-05-25)
DX: A41.50 Gram-negative sepsis, unspecified (principal); N39.0 Urinary tract infection, site not specified; E87.2 Acidosis; L03.116 Cellulitis of left lower limb; D62 Acute posthemorrhagic anemia; D68.9 Coagulation defect, unspecified; J84.9 Interstitial pulmonary disease, unspecified; I47.1 Supraventricular tachycardia; Z68.41 Body mass index [BMI] 40.0-44.9, adult; J90 Pleural effusion, not elsewhere classified; R17 Unspecified jaundice; R65.20 Severe sepsis without septic shock; E66.01 Morbid (severe) obesity due to excess calories; D69.6 Thrombocytopenia, unspecified; N18.3 Chronic kidney disease, stage 3 (moderate); K26.9 Duodenal ulcer, unspecified as acute or chronic, without hemorrhage or perforation; I27.20 Pulmonary hypertension, unspecified; E88.09 Other disorders of plasma-protein metabolism, not elsewhere classified; I12.9 Hypertensive chronic kidney disease with stage 1 through stage 4 chronic kidney disease, or unspecified chronic kidney disease; R09.02 Hypoxemia; D86.0 Sarcoidosis of lung; D63.8 Anemia in other chronic diseases classified elsewhere; D53.9 Nutritional anemia, unspecified; R60.1 Generalized edema; N26.1 Atrophy of kidney (terminal); I89.0 Lymphedema, not elsewhere classified; M19.90 Unspecified osteoarthritis, unspecified site; G89.29 Other chronic pain; K59.00 Constipation, unspecified; R26.2 Difficulty in walking, not elsewhere classified; Z79.899 Other long term (current) drug therapy; Z71.3 Dietary counseling and surveillance; Z87.440 Personal history of urinary (tract) infections; Z87.442 Personal history of urinary calculi; Z87.828 Personal history of other (healed) physical injury and trauma; Z86.69 Personal history of other diseases of the nervous system and sense organs; Z86.14 Personal history of Methicillin resistant Staphylococcus aureus infection; Z90.49 Acquired absence of other specified parts of digestive tract; Z87.891 Personal history of nicotine dependence; Z74.01 Bed confinement status; Z91.041 Radiographic dye allergy status; Z81.8 Family history of other mental and behavioral disorders; Z82.3 Family history of stroke; Z83.2 Family history of diseases of the blood and blood-forming organs and certain disorders involving the immune mechanism; Z82.5 Family history of asthma and other chronic lower respiratory diseases
CPT/HCPCS: 36415; 71046; 71275; 76705; 80048; 80053; 81001; 82248; 82272; 83010; 83516; 83605; 83615; 83880; 83921; 84165; 84484; 85025; 85379; 85384; 85610; 85730; 86038; 86039; 86376; 86850; 86900; 86901; 87040; 87077; 87086; 87186; 93005; 93306; 96365; 96375; 99285

== ENCOUNTER 2019-09-10 12:39 | Inpatient (IN) | payer MEDICARE ==
[2019-09-10] MEDS ORDERED: SODIUM CHLORIDE 0.9% 500 ML 500 ML IV STA (12:54)
[2019-09-10] MEDS ORDERED: methylPREDNISolone SOD SUCCI 125 MG/2 ML VIAL IV STA (12:54)
[2019-09-10] MEDS ORDERED: IPRATROPIUM-ALBUTEROL 3 ML NEB INHALATION STA (12:54)
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
[2019-09-10 13:36] LABS: Anisocytosis Slight; Basophils % (A) 1 %; Eosinophils # (A) 0.1 k/uL (0-0.7); Eosinophils % (A) 3 %; HCT 33.7 % (34.0-46.0); HGB 10.4 gm/dL (11.4-16.0); Hypochromasia Slight; Lymphocytes # (A) 0.5 k/uL (1.0-4.8); Lymphocytes % (A) 11 %; MCH 31.3 pg (25.0-35.0); MCHC 30.9 g/dL (31.0-37.0); MCV 101.2 fL (80.0-100.0); Macrocytosis Moderate; Mean Platelet Volume 7.8; Monocytes # (A) 0.2 k/uL (0-1.0); Monocytes % (A) 5 %; Neutrophils # (A) 3.3 k/uL (1.3-7.7); Neutrophils % (A) 77 %; Platelet Count 109 k/uL (150-450); RBC 3.33 m/uL (3.80-5.40); RDW 18.7 % (11.5-15.5); WBC 4.2 k/uL (3.8-10.6)
[2019-09-10 13:47] LABS: Albumin 2.9 g/dL (3.5-5.0); Calcium 11.4 mg/dL (8.4-10.2); Magnesium 1.9 mg/dL (1.6-2.3); Potassium 3.7 mmol/L (3.5-5.1); Total Bilirubin 2.6 mg/dL (0.2-1.3); Total Protein 6.6 g/dL (6.3-8.2)
[2019-09-10 13:49] LABS: INR 1.2 (<1.2); Partial Thromboplastin Time 23.5 sec (22.0-30.0); Prothrombin Time 12.5 sec (9.0-12.0)
--- NOTE | 2019-09-10 14:23 | XR ---
EXAMINATION TYPE: XR chest 2V DATE OF EXAM: 09/10/2019 COMPARISON: 05/24/2019 HISTORY: Short of breath TECHNIQUE: 2 views FINDINGS: Heart is enlarged. There is pulmonary vascular congestion. There is slight blunting of the costophrenic angles. IMPRESSION: There is mild heart failure that is new compared to old exam. Small pleural effusions pro bably new compared to old exam.
[2019-09-10] MEDS ORDERED: FUROSEMIDE 10 MG/ML 4 ML VIAL IV STA (14:46)
[2019-09-10] MEDS ORDERED: AZITHROMYCIN 500 MG in SODIUM CHLORIDE 0.9% 250 ML IVPB STA (15:12)
[2019-09-10] MEDS: SODIUM CHLORIDE 0.9% 1,000 ML IV SCH (15:23)
[2019-09-10] MEDS ORDERED: IPRATROPIUM-ALBUTEROL 3 ML NEB INHALATION PRN (18:52)
[2019-09-10] MEDS ORDERED: ACETAMINOPHEN TAB 325 MG TAB PO PRN (18:54)
[2019-09-10] MEDS ORDERED: HYDROmorphone 0.5 MG/0.5 ML SYRINGE IVP PRN (18:54)
[2019-09-10] MEDS ORDERED: NALOXONE 0.4 MG/ML 1 ML VIAL IV PRN (18:54)
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
[2019-09-10] MEDS: IPRATROPIUM-ALBUTEROL 3 ML NEB INHALATION SCH (20:58)
[2019-09-10] MEDS: HEPARIN SODIUM,PORCINE 5,000 UNIT/ML 1 ML VIAL SQ SCH (22:40)
[2019-09-10] MEDS: FUROSEMIDE 10 MG/ML 4 ML VIAL IV SCH (22:41)
[2019-09-10] MEDS: VERAPAMIL SR 120 MG TABLET.ER PO SCH (22:41)
[2019-09-11 06:56] LABS: Glucose,Whole Blood 145 mg/dL (75-99)
[2019-09-11 06:58] LABS: Anisocytosis Slight; Basophils % (A) 0 %; Eosinophils % (A) 0 %; HCT 31.7 % (34.0-46.0); HGB 9.8 gm/dL (11.4-16.0); Hypochromasia Slight; Lymphocytes # (A) 0.3 k/uL (1.0-4.8); Lymphocytes % (A) 7 %; MCH 31.6 pg (25.0-35.0); Macrocytosis Moderate; Monocytes # (A) 0.1 k/uL (0-1.0); Monocytes % (A) 2 %; Neutrophils # (A) 3.2 k/uL (1.3-7.7); Neutrophils % (A) 90 %; Platelet Count 114 k/uL (150-450); RBC 3.11 m/uL (3.80-5.40); RDW 18.4 % (11.5-15.5); WBC 3.6 k/uL (3.8-10.6)
[2019-09-11] MEDS: methylPREDNISolone SOD SUCCI 125 MG/2 ML VIAL IV SCH ×2 (06:59→07:00)
[2019-09-11] MEDS: INSULIN ASPART (NovoLOG) 100 UNIT/ML VIAL SQ SCH ×4 (07:00→21:48)
[2019-09-11 07:18] LABS: Calcium 10.8 mg/dL (8.4-10.2); Potassium 3.8 mmol/L (3.5-5.1)
[2019-09-11] MEDS: FUROSEMIDE 10 MG/ML 4 ML VIAL IV SCH ×2 (08:35→21:49)
[2019-09-11] MEDS: HEPARIN SODIUM,PORCINE 5,000 UNIT/ML 1 ML VIAL SQ SCH ×2 (08:35→21:47)
[2019-09-11] MEDS: AZITHROMYCIN 500 MG in SODIUM CHLORIDE 0.9% 250 ML IVPB SCH (08:36)
[2019-09-11] MEDS: VERAPAMIL SR 120 MG TABLET.ER PO SCH ×2 (08:36→21:47)
[2019-09-11] MEDS: PANTOPRAZOLE 40 MG TABLET PO SCH (08:41)
[2019-09-11] MEDS: IPRATROPIUM-ALBUTEROL 3 ML NEB INHALATION SCH ×4 (08:55→19:34)
--- NOTE | 2019-09-11 09:06 | US ---
EXAMINATION TYPE: US kidneys/renal and bladder DATE OF EXAM: 09/11/2019 COMPARISON: US CLINICAL HISTORY: Urinary hesitancy, elevated Cr. Abnormal renal labs EXAM MEASUREMENTS: Right Kidney: 11.6 5.8 x 6.3 cm Left Kidney: 8.3 x 3.9 x 3.9 cm Severely, morbidly obese pt, difficult exam Right Kidney: Appeared wnl Left Kidney: Atrophic, difficult to visualize Bladder: wnl Bilateral Jets seen: No Incidental findings, enlarged spleen with cyst and varicosities at splenic hilum The spleen is upper limits of normal in size at 12.4 cm. There are varices in the splenic hilum. Ther e is a cyst within the spleen. The left kidney is not well seen and appears atrophic measuring only 8.3 cm. IMPRESSION: 1. ATROPHIC LEFT KIDNEY. 2. EVIDENCE OF SPLENIC VARICES.
--- NOTE | 2019-09-11 10:22 | P.PN ---
Subjective Progress Note Date: 09/11/19 Principal diagnosis: shortness of breath Patient was seen and examined. No acute events overnight. Patient reports slight improvement in her breathing. States that she is able to ambulate to bedside commode with minor difficulties. She denies any chest pain or palpitations. No nausea or vomiting. No fever or chills. Objective - Vital Signs Vital signs: Vital Signs Temp 98 F 09/11/19 08:00 Pulse 80 09/11/19 09:07 Resp 20 09/11/19 08:00 BP 164/71 09/11/19 08:00 Pulse Ox 96 09/11/19 08:55 Intake & Output 09/10/19 09/11/19 09/11/19 18:59 06:59 18:59 Intake Total 360 Balance 360 Weight 104.326 kg 102.1 kg Intake: Oral 360 Other: # Voids 1 - Exam General: [non toxic], [no distress on 4 L NC], [appears at stated age] Derm: [warm], [dry] Head: [atraumatic], [normocephalic], [symmetric] Eyes: [EOMI], [no lid lag], [anicteric sclera] Mouth: [no lip lesion], [mucus membranes moist] Cardiovascular: [S1S2 reg], [mild diastolic murmur] Lungs: [End expiratory wheezing bilateral], [no rhonchi, no rales] , [no accessory muscle use] Abdominal: [soft], [ nontender to palpation], [no guarding], [no appreciable organomegaly] Ext: [no gross muscle atrophy], [lower extremities wrapped bilaterally to the thighs], [no contractures] Neuro: [no focal neuro deficits] Psych: [Alert], [oriented], [appropriate affect] - Labs CBC & Chem 7: 09/11/19 06:23 09/11/19 06:23 Labs: Abnormal Lab Results - Last 24 Hours (Table) 09/10/19 09/10/19 09/10/19 Range/Units 13:21 13:21 13:21 WBC (3.8-10.6) k/uL RBC 3.33 L (3.80-5.40) m/uL Hgb 10.4 L (11.4-16.0) gm/dL Hct 33.7 L (34.0-46.0) % MCV 101.2 H (80.0-100.0) fL MCHC 30.9 L (31.0-37.0) g/dL RDW 18.7 H (11.5-15.5) % Plt Count 109 L (150-450) k/uL Lymphocytes # 0.5 L (1.0-4.8) k/uL PT (9.0-12.0) sec INR (<1.2) Carbon Dioxide 33 H (22-30) mmol/L BUN (7-17) mg/dL Creatinine 1.28 H (0.52-1.04) mg/dL Glucose (74-99) mg/dL POC Glucose (mg/dL) (75-99) mg/dL Plasma Lactic Acid Remy 2.3 H* (0.7-2.0) mmol/L Calcium 11.4 H (8.4-10.2) mg/dL Total Bilirubin 2.6 H (0.2-1.3) mg/dL Alkaline Phosphatase 164 H (38-126) U/L Albumin 2.9 L (3.5-5.0) g/dL 09/10/19 09/11/19 09/11/19 Range/Units 13:21 06:23 06:23 WBC 3.6 L (3.8-10.6) k/uL RBC 3.11 L (3.80-5.40) m/uL Hgb 9.8 L (11.4-16.0) gm/dL Hct 31.7 L (34.0-46.0) % MCV 102.0 H (80.0-100.0) fL MCHC (31.0-37.0) g/dL RDW 18.4 H (11.5-15.5) % Plt Count 114 L (150-450) k/uL Lymphocytes # 0.3 L (1.0-4.8) k/uL PT 12.5 H (9.0-12.0) sec INR 1.2 H (<1.2) Carbon Dioxide 33 H (22-30) mmol/L BUN 18 H (7-17) mg/dL Creatinine 1.29 H (0.52-1.04) mg/dL Glucose 139 H (74-99) mg/dL POC Glucose (mg/dL) (75-99) mg/dL Plasma Lactic Acid Remy (0.7-2.0) mmol/L Calcium 10.8 H (8.4-10.2) mg/dL Total Bilirubin (0.2-1.3) mg/dL Alkaline Phosphatase (38-126) U/L Albumin (3.5-5.0) g/dL 09/11/19 Range/Units 06:56 WBC (3.8-10.6) k/uL RBC (3.80-5.40) m/uL Hgb (11.4-16.0) gm/dL Hct (34.0-46.0) % MCV (80.0-100.0) fL MCHC (31.0-37.0) g/dL RDW (11.5-15.5) % Plt Count (150-450) k/uL Lymphocytes # (1.0-4.8) k/uL PT (9.0-12.0) sec INR (<1.2) Carbon Dioxide (22-30) mmol/L BUN (7-17) mg/dL Creatinine (0.52-1.04) mg/dL Glucose (74-99) mg/dL POC Glucose (mg/dL) 145 H (75-99) mg/dL Plasma Lactic Acid Remy (0.7-2.0) mmol/L Calcium (8.4-10.2) mg/dL Total Bilirubin (0.2-1.3) mg/dL Alkaline Phosphatase (38-126) U/L Albumin (3.5-5.0) g/dL Assessment and Plan Assessment: Acute on chronic hypoxic respiratory failure likely due to a combination of sarcoidosis, pulmonary hypertension, purulent tracheobronchitis and diastolic CHF Lactic acidosis Acute kidney injury Urinary hesitancy with history of kidney stones Lower extremity edema related to lymphedema Hypertension Morbid obesity with BMI 39.5 Macrocytic anemia Eesolved: Lactic acidosis Patient is currently on 4 L NC saturating 90s. BNP 2850,chest x-ray shows mild heart failure with pleural effusions. Troponin 0.016, less than 0.0122 EKG showing sinus rhythm with first-degree AV block and occasional PVCs, ACS ruled out. Most recent echocardiogram in April is EF 60-65% with moderate concentric LVH and severe pulmonary hypertension. Plans: [Patient will be started on Lasix 40 mg IV twice a day. Repeat echocardiogram is ordered. Strict intake and output. Daily weights. Telemetry monitoring. Cardiology consultation.][We will also optimize her COPD medications including DuoNeb scheduled and as needed for shortness of breath and wheezing along with Solu-Medrol.][Patient to be started on azithromycin for treatment of her line tracheobronchitis.][We will also consult pulmonology for further recommendations of her Sarcoidosis.] Creatinine 1.28-1.29. Likely due to Lasix use. Given bolus in the ED. Plans: Avoid nephrotoxins. We will repeat BMP tomorrow morning. Patient reports urinary hesitancy with history of kidney stones. Kidney and bladder ultrasound shows atrophic left kidney as seen on previous ultrasounds. Plans: Repeat UA with reflux to urine culture. Plans: YAMILETH wrap above the thighs. BP 164/71. Plans: Continue verapamil. Monitor vitals, adjust medications as necessary. Plans: Structured weight loss program. Hemoglobin 9.8 with MCV 102. Patient is on B12 supplementation at home. Plans: Continue to monitor hemoglobin here. Transfuse if hemoglobin less than 7. [Patient has shown mild improvement. Continue diuresis with Lasix IV. Repeat chest x-ray tomorrow morning. Echocardiogram pending. Attempt wean down oxygen. Follow UA and urine culture. Patient is pending clinical improvement. Likely DC in 1-2 days.]
[2019-09-11 10:48] LABS: Appearance,Urine Clear (Clear); Bilirubin,Urine Negative (Negative); Blood,Urine Negative (Negative); Color,Urine Light Yellow; Glucose,Urine (UA) Negative (Negative); Ketones,Urine Negative (Negative); Leukocyte Esterase,Urine Negative (Negative); Nitrite,Urine Negative (Negative); PH, Urine 6.5 (5.0-8.0); Protein,Urine Trace (Negative); Specific Gravity,Urine 1.006 (1.001-1.035); Urobilinogen,Urine <2.0 mg/dL (<2.0)
--- NOTE | 2019-09-11 11:31 | CONS ---
CONSULTATION PULMONARY/CRITICAL CARE CONSULTATION: DATE OF SERVICE: September 11, 2019 This is a patient who typically sees Dr. Chente Reyes as a primary. She presents to the emergency room on September [address] Dhaliwal for shortness of breath. This is a 68-year-old female with a history of a seizure disorder, chronic kidney disease, sarcoidosis, who presents to the emergency room with complaints of shortness of breath. She apparently went to the walk-in clinic in [place] and was instructed to come to the emergency department due to abnormal chest x-ray. For the last couple of days prior to admission, she had been having worsening shortness of breath, and cough. She is bringing up occasional phlegm. She feels like she is also wheezing. She denies any fever or chills. No night sweats. No chest pain or chest discomfort. She has been using oxygen at home since she was discharged from the hospital back in May. She does have a history of sarcoidosis, but denies a history of asthma, COPD, emphysema chronic bronchitis, etc. The patient was seen in the emergency room by Dr. Dhaliwal and admitted with diagnosis of heart failure, and respiratory failure with hypoxia. Her chest x-ray shows some mild heart failure. She had never had heart failure before she tells us. I have apparently seen her in the distant past at which time I made a diagnosis of sarcoidosis. She also had a recent admission to the hospital for lower extremity edema and cellulitis with sepsis. She was seen by our nurse practitioner, Dr. Marisela Biggs at that time. She seems to be resting comfortably. Nasal O2 in place. CURRENT HOME MEDICATIONS: Include vitamin B12, magnesium oxide, Macrobid, Protonix, papaya, verapamil, vitamin D3, and Meeker. ALLERGIES: IVP DYE. MEDICAL HISTORY: GI bleed, hypertension, osteoarthritis, chronic kidney disease, seizure disorder, UTI, sarcoidosis, kidney stones, cellulitis with sepsis, and chronic anemia requiring blood transfusions. She has also had multiple infections including vancomycin-resistant enterococci and Methicillin-resistant Staph aureus. SURGICAL HISTORY: Includes adenoidectomy, appendectomy, cholecystectomy, tonsillectomy, multiple ankle and knee surgeries, and kidney stone removal. SOCIAL HISTORY: Positive for previous tobacco use. She denies any alcohol use or illicit drug use. FAMILY HISTORY: Positive for father with dementia. Mother with DVT and stroke, a sister with COPD. A brother who is healthy. Daughter who is healthy and a son is healthy. REVIEW OF SYSTEMS: CONSTITUTIONAL negative. NEUROLOGIC negative. HEENT negative. CARDIOVASCULAR negative. PULMONARY: Shortness of breath, chest congestion, wheezing and occasional phlegm production. GI negative. negative. RHEUMATOLOGIC negative. IMMUNOLOGIC negative. ENDOCRINOLOGIC negative. DERMATOLOGIC negative. PHYSICAL EXAMINATION: VITAL SIGNS: Current vital signs are reviewed. Temperature is 98, heart rate 78, respiratory rate 20, blood pressure 164/71, mean 102, 4 L saturations between 96% and 97%. Appears no acute distress. HEENT examination is grossly unremarkable. Mucous membranes are moist. No oral lesions. NECK: Supple. Full range of motion. No adenopathy. Neck veins are flat. CARDIOVASCULAR examination reveals regular rhythm and rate. Heart rate about 80 beats per minute. S1, S2 normal. No distinct murmur. LUNGS: Reveal some crackles bilaterally. No wheezes. No rhonchi. Breath sounds are equal. ABDOMEN: Soft. Bowel sounds are heard. EXTREMITIES are not viewed directly. Her lower extremities are quite edematous and are wrapped bilaterally. She apparently has chronic cellulitis and chronic venous stasis changes with edema of the lower extremities. As mentioned above, she did have a recent admission for lower extremity cellulitis and sepsis. SKIN otherwise is without lesion. NEUROLOGIC: Examination is brief but nonfocal. Microbiology is thus far negative. LABS: Reviewed. White count 3.6, hemoglobin 9.8, hematocrit 31.7, platelet count 114,000. Sodium and potassium were normal. Chloride 103. CO2 33. Anion gap is 4. BUN and creatinine were 18 and 1.29. Troponins were negative x2. Calcium 10.8. Urine is negative. Her N terminal proBNP was elevated at 2850. The rest of the labs look okay. A chest x-ray is consistent with mild fluid overload/CHF. There are small bilateral pleural effusions. Current medications are reviewed, she is currently on Tylenol, Zithromax, Lasix, heparin, Meeker, Dilaudid, insulin, updrafts, Solu-Medrol, Narcan, Protonix, verapamil, and a basic IV. ASSESSMENT: 1. Shortness of breath, most likely related to underlying fluid overload/congestive heart failure. 2. Possible mild tracheobronchitis with reactive bronchospasm. 3. History of chronic lower extremity edema with cellulitis and recent admission for sepsis. 4. Multiple previous infections including vancomycin-resistant enterococcal urinary tract infection and prior MRSA infection secondary to cellulitis. 5. History of gastrointestinal bleed. 6. Hypertension. 7. Degenerative joint disease. 8. History of seizure disorder. 9. Prior history of urinary tract infection. 10.History of history of inactive sarcoidosis. 11.History of nephrolithiasis. 12.Previous history of sepsis. PLAN: Please see my orders. I think the updrafts are appropriate. We will DC the Solu- Medrol. The antibiotics are fine for now. No additional recommendations are made. We will continue to follow. Obviously she needs treatment for her fluid overload with diuretics. Her sarcoidosis is inactive/quiescent. Apparently I made a diagnosis many years back. No additional recommendations are made. MMODL / IJN: [id number] /
[2019-09-11 12:58] LABS: Glucose,Whole Blood 133 mg/dL (75-99)
[2019-09-11] MEDS: HYDROcodone/APAP 10-325MG 1 EACH TAB PO PRN ×2 (13:45→21:53)
[2019-09-11 14:49] VITALS: BMI 38.6
[2019-09-11 17:08] LABS: Glucose,Whole Blood 145 mg/dL (75-99)
[2019-09-11 20:35] LABS: Glucose,Whole Blood 191 mg/dL (75-99)
[2019-09-11] MEDS: SODIUM CHLORIDE 0.9% 1,000 ML IV SCH (21:49)
[2019-09-12 06:05] LABS: Calcium 10.9 mg/dL (8.4-10.2); Potassium 4.1 mmol/L (3.5-5.1)
[2019-09-12] MEDS: PANTOPRAZOLE 40 MG TABLET PO SCH (06:55)
--- NOTE | 2019-09-12 08:03 | XR ---
EXAMINATION TYPE: XR chest 1V portable DATE OF EXAM: 09/12/2019 COMPARISON: Prior chest x-ray dated 09/10/2019 HISTORY: Shortness of breath TECHNIQUE: Single frontal view of the chest is obtained. FINDINGS: The heart is enlarged. Left hemidiaphragm is obscured similar to prior exam. There is no e vident pneumothorax. Central vascularity and interstitium are increased. There are overlying cardiac leads. IMPRESSION: Correlate for pulmonary venous hypertension and interstitial edema, there may be left lo wer lobe atelectasis versus pneumonia, associated effusion, edema. Follow-up suggested.
[2019-09-12] MEDS: IPRATROPIUM-ALBUTEROL 3 ML NEB INHALATION SCH ×3 (08:22→15:33)
[2019-09-12] MEDS: VERAPAMIL SR 120 MG TABLET.ER PO SCH (09:30)
[2019-09-12] MEDS: FUROSEMIDE 10 MG/ML 4 ML VIAL IV SCH (09:31)
[2019-09-12] MEDS: HEPARIN SODIUM,PORCINE 5,000 UNIT/ML 1 ML VIAL SQ SCH (09:31)
[2019-09-12] MEDS: AZITHROMYCIN 500 MG in SODIUM CHLORIDE 0.9% 250 ML IVPB SCH (09:31)
[2019-09-12] MEDS: INSULIN ASPART (NovoLOG) 100 UNIT/ML VIAL SQ SCH ×2 (09:32→12:20)
[2019-09-12 10:47] VITALS: RESP 16; TEMP 97.9
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
--- NOTE | 2019-09-12 11:21 | P.DS ---
Providers Date of admission: 09/10/19 15:13 Expected date of discharge: 09/12/19 Attending physician: Chip Schulz MD Consults: 09/10/19 15:13 Consult Physician Routine Consulting Provider: Amber Hernandez Consult Reason/Comments: hypoxia, history of sarcoidosis Do you want consulting provider notified?: Yes Consult Physician Routine Consulting Provider: [place] Consult Reason/Comments: new heart failure Do you want consulting provider notified?: Yes Primary care physician: [facility] Course: 68-year-old female with PMH of sarcoidosis, history of urinary tract infection with kidney stones, hypertension, history of GI bleed, lymphedema presents to the ED for shortness of breath. Patient states that she has had a cold for the last 3-4 days. Patient reports coughing up green sputum. Patient states that she is coughing so much that it is causing her to throw up. When her symptoms did not resolve, she went to her walk-in clinic today. She was found to have a low O2 saturation and sent to the ED for further evaluation. Of note, patient was recently discharged from [facility] on June 13 on 2 L nasal cannula. Patient reports since then, she has experienced multiple UTIs and has been prescribed 6-7 different antibiotics. Patient reports smoking half pack a day for 15 years but quit 30 years ago. She denies any headache, nausea, fever or chills, chest pain, palpitations, changes in bowel habits. She does report urinary hesitancy and malodorous urine. No changes in appetite or weight. She denies any dizziness, numbness/weakness/tingling of the extremities. Patient does report a history of bilateral lower extremity swelling that she attributes to lymphedema. In the ED, patient underwent extensive evaluation. Vital signs showed the patient was hypoxic to 77% on admission. Her vital signs were otherwise relatively stable. CBC showed hemoglobin of 10.4, MCV of 101.2 and platelet count of 109. Coagulation panel showed INR of 1.2. CMP showed bicarbonate of 31, creatinine of 1.28, calcium of 11.4, total bilirubin of 2.6, alkaline phosphatase of 164. Lactic acid was 2.3. BNP was 2850 with chest x- ray showing signs of congestive heart failure. Patient is admitted for shortness of breath, CHF exacerbation with pulmonology on consult. Her shortness of breath was thought to be secondary to a combination of sarcoi dosis, pulmonary hypertension, Tracheobronchitis and diastolic CHF exacerbation. Troponin was 0.016, less than 0.0122 with EKG showing sinus rhythm with first degree AV block and occasional PVCs, ACS was ruled out. Patient had an echocardiogram in April which showed EF 60-65% with moderate concentric LVH and severe pulmonary hypertension. She was started on Lasix 40 mg IV twice a day. Repeat echocardiogram was ordered and cardiology was consulted. Patient was also started on her COPD medications including DuoNeb scheduled and as needed for shortness of breath and wheezing along with Solu-Medrol that was discontinued by pulmonology. She was given 3 days of azithromycin for acute bronchitis. Patient had acute kidney injury with creatinine of 1.28 on admission. This was thought to be related to the use of Lasix. Her creatinine was 1.42 on discharge. Patient did complain of urinary hesitancy on admission. Urinalysis was negative for UTI. Kidney and bladder ultrasound showed atrophic left kidney. She was provided YAMILETH wrap for her lymphedema. Otherwise, her home medications were resumed for hypertension. Patient was seen and examined. No acute events overnight. Patient is currently saturating mid 90s on 2 L NC. She reports considerable improvement in her breathing since admission. she denies any chest pain or palpitations. No nausea or vomiting. No fever or chills. General: [non toxic], [no distress on 2 L NC], [appears at stated age] Derm: [warm], [dry] Head: [atraumatic], [normocephalic], [symmetric] Eyes: [EOMI], [no lid lag], [anicteric sclera] Mouth: [no lip lesion], [mucus membranes moist] Cardiovascular: [S1S2 reg], [mild diastolic murmur] Lungs: [Decreased breath sounds bilateral], [no rhonchi, no rales] , [no accessory muscle use] Abdominal: [soft], [ nontender to palpation], [no guarding], [no appreciable organomegaly] Ext: [no gross muscle atrophy], [lower extremities wrapped bilaterally to the thighs], [no contractures] Neuro: [no focal neuro deficits] Psych: [Alert], [oriented], [appropriate affect] Acute on chronic hypoxic respiratory failure likely due to a combination of sarcoidosis, pulmonary hypertension, purulent tracheobronchitis and diastolic CHF Lactic acidosis Acute kidney injury Urinary hesitancy with history of kidney stones Lower extremity edema related to lymphedema Hypertension Morbid obesity with BMI 39.5 Macrocytic anemia Eesolved: Lactic acidosis Patient is currently on 2 L NC saturating 90s. BNP 2850, chest x-ray shows mild heart failure with pleural effusions. Troponin 0.016, less than 0.0122 EKG showing sinus rhythm with first-degree AV block and occasional PVCs, ACS ruled out. Most recent echocardiogram in April is EF 60-65% with moderate concentric LVH and severe pulmonary hypertension. Plans: [Transition Lasix to oral. Repeat echocardiogram is ordered. Strict intake and output. Daily weights. Telemetry monitoring. Cardiology consultation.][We will also optimize her COPD medications including DuoNeb scheduled and as needed for shortness of breath and wheezing, Solu-Medrol discontinued by pulmonology.][Completed 3 days of azithromycin for tracheobronchitis.][We will also consult pulmonology for further recommendations of her Sarcoidosis.] Creatinine 1.28-1.29-1.42. Likely due to Lasix use. Given bolus in the ED. Plans: Avoid nephrotoxins. Repeat BMP in 3 days. Patient reports urinary hesitancy with history of kidney stones. Kidney and bladder ultrasound shows atrophic left kidney as seen on previous ultrasounds. UA shows no LE or nitrites. Plans: Nothing further to do. Plans: YAMILETH wrap above the thighs. BP 138/63. Plans: Continue verapamil. Monitor vitals, adjust medications as necessary. Plans: Structured weight loss program. Hemoglobin 9.8 with MCV 102. Patient is on B12 supplementation at home. Plans: Continue to monitor hemoglobin here. Transfuse if hemoglobin less than 7. [Patient has shown mild improvement. Echocardiogram pending. Advised to ambulate hallway on 2L NC. Plans for DC today if cleared by Cardiology and Pulmonology.] Pertinent Studies: chest x-ray, echocardiogram, kidney and bladder ultrasound Patient Condition at Discharge: Stable Plan - Discharge Summary Discharge Rx Participant: No New Discharge Prescriptions: New Ipratropium-Albuterol Nebulize [Duoneb 0.5 mg-3 mg/3 ml Soln] 3 ml INHALATION RT-QID PRN #90 ampul.neb PRN Reason: Shortness Of Breath Or Wheezing Furosemide [Lasix] 40 mg PO DAILY #30 tablet Continue Cyanocobalamin (Vitamin B-12) [Vitamin B-12] 500 mg PO DAILY Magnesium Oxide [Howell] 500 mg PO DAILY Cholecalciferol (Vitamin D3) [Vitamin D3] 2,000 unit PO DAILY #30 capsule Pantoprazole Sodium [Protonix] 40 mg PO DAILY Verapamil HCl [Verapamil ER] 60 mg PO BID Ascorbic Acid [Vitamin C] 1,000 mg PO DAILY HYDROcodone/APAP 10-325MG [Lumpkin 10-325] 1 each PO TID PRN PRN Reason: Pain Discharge Medication List Cyanocobalamin (Vitamin B-12) [Vitamin B-12] 500 mg PO DAILY 04/20/19 [History] Magnesium Oxide [Howell] 500 mg PO DAILY 05/20/19 [History] Cholecalciferol (Vitamin D3) [Vitamin D3] 2,000 unit PO DAILY #30 capsule 05/25/19 [Rx] Pantoprazole Sodium [Protonix] 40 mg PO DAILY 08/23/19 [History] Ascorbic Acid [Vitamin C] 1,000 mg PO DAILY 09/10/19 [History] HYDROcodone/APAP 10-325MG [Lumpkin 10-325] 1 each PO TID PRN 09/10/19 [History] Verapamil HCl [Verapamil ER] 60 mg PO BID 09/10/19 [History] Furosemide [Lasix] 40 mg PO DAILY #30 tablet 09/12/19 [Rx] Ipratropium-Albuterol Nebulize [Duoneb 0.5 mg-3 mg/3 ml Soln] 3 ml INHALATION RT-QID PRN #90 ampul.neb 09/12/19 [Rx] Follow up Appointment(s)/Referral(s): Chente Reyes MD [Primary Care Provider] - 1-2 days Ambulatory/Diagnostic Orders: Basic Metabolic Panel [LAB.AMB] Time Frame: 3 Days, Location: None Selected XR chest 2V [RAD.AMB] Time Frame: 1 Week, Location: None Selected Activity/Diet/Wound Care/Special Instructions: Diet: Low-salt Follow-up PCP within 3 days. Repeat BMP within 3 days. repeat chest x-ray in 1 week. Follow-up results of BMP and chest x-ray with PCP. Follow-up cardiology within 1 week. Follow-up pulmonology within 1 week. take all medications as advised. Discharge Disposition: HOME SELF-CARE
[2019-09-12 12:15] LABS: Glucose,Whole Blood 82 mg/dL (75-99)
[2019-09-12] MEDS ORDERED: SPIRONOLACTONE 25 MG TAB PO SCH (12:30)
--- NOTE | 2019-09-12 12:53 | CONS ---
CONSULTATION Mrs. Crespo is a 68-year-old female who is seen for cardiac evaluation. The patient's medical records reviewed. She is a 68-year-old female who has a history of chronic kidney disease, sarcoidosis and seizure disorder. Patient presented to the hospital with complaint of increasing shortness of breath for about 2 days prior to the admission. She has been having some minimal nonproductive cough. She denied any fever or chills. Denied any chest pain. Patient denies any history of asthma, emphysema or chronic bronchitis. Patient has a history of sarcoidosis. Patient's chest x-ray showed mild heart failure. PAST MEDICAL HISTORY: Past medical history includes a history of a GI bleed, hypertension, osteoarthritis, chronic kidney disease, seizure disorder, appendicectomy, cholecystectomy, multiple ankle and knee surgeries. MEDICATIONS: Patient's home medications included Macrobid, Protonix, verapamil, vitamin D3, and [place]. PHYSICAL EXAMINATION: Physical examination at present reveals a 68-year-old female who at present is comfortable, does not appear to be in any acute distress. Patient's heart rate is 84 per minute, blood pressure is 138/63 mmHg. HEENT examination is negative. Neck is supple. There is no increase in jugular venous pressure. Both the carotid pulses are felt. There is no bruit. Chest is symmetrical. HEART: The PMI is not felt. First and second heart sounds are heard. Lungs reveal a few basal rales. Abdomen is negative. EXTREMITIES: There is no evidence of any leg edema. Patient's electrolytes are normal. The BUN is 21, creatinine is 1.42. Patient's troponins are negative. ProBNP level is 2850. The patient's echocardiogram reveals overall normal left ventricular systolic function. The right ventricle is enlarged with evidence of moderate degree of tricuspid regurgitation with severe pulmonary hypertension. FINAL IMPRESSION: This patient is admitted with symptoms of shortness of breath secondary to congestive cardiac failure. It could be secondary to acute on chronic diastolic heart failure. The patient has a significantly enlarged right ventricle and severe pulmonary hypertension which is not significantly changed from before. We will continue the patient on Lasix 40 mg IV b.i.d. and I will add Aldactone 25 mg daily. MMODL / IJN: [id number] /
[2019-09-12] MEDS: HYDROcodone/APAP 10-325MG 1 EACH TAB PO PRN (13:12)
[2019-09-12 17:03] VITALS: BP 130/59; PULSE 78
[2019-09-12 17:14] LABS: Glucose,Whole Blood 135 mg/dL (75-99)
--- NOTE | 2019-09-12 18:46 | ECHOF ---
Referral Reason:SOB MEASUREMENTS -------- HEIGHT: 162.6 cm WEIGHT: 102.5 kg BP: 126/58 RVIDd: 4.1 cm (< 3.3) IVSd: 1.5 cm (0.6 - 1.1) LVIDd: 4.3 cm (3.9 - 5.3) LVPWd: 1.6 cm (0.6 - 1.1) IVSs: 2.0 cm LVIDs: 2.4 cm LVPWs: 1.8 cm LAESV Index (A-L): 35.06 ml/m Ao Diam: 3.1 cm (2.0 - 3.7) AV Cusp: 2.0 cm (1.5 - 2.6) LA Diam: 3.3 cm (2.7 - 3.8) MV EXCURSION: 17.354 mm (> 18.000) MV EF SLOPE: 32 mm/s (70 - 150) EPSS: 0.9 cm MV E Earl: 1.41 m/s MV DecT: 250 ms MV A Earl: 1.04 m/s MV E/A Ratio: 1.36 RAP: 20.00 mmHg RVSP: 82.25 mmHg TAPSE: 31.63 mm FINDINGS -------- Sinus rhythm. This was a technically adequate study. The left ventricular size is normal. There is moderate concentric left ventricular hypertrophy. O verall left ventricular systolic function is normal with, an EF between 55 - 60 %. The right ventricle is severely enlarged. The right ventricular systolic function is normal. LA is moderately dilated 34-39 ml/m2 The right atrial size is normal. The aortic valve is trileaflet and appears structurally normal. The mitral valve is normal. The mitral valve leaflets are mildly thickened. Moderate mitral regur gitation is present. The tricuspid valve appears structurally normal. Moderate tricuspid regurgitation present. There is severe pulmonary hypertension. The right ventricular systolic pressure, as measured by Doppler, is 82.25mmHg. There is no pulmonic regurgitation present. The aortic root size is normal. The inferior vena cava is dilated with no significant inspiratory collapse which is consistent estima dara right atrial pressure of >20 mmHg. There is a small, generalized pericardial effusion present. CONCLUSIONS -------- 1. Sinus rhythm. 2. This was a technically adequate study. 3. The left ventricular size is normal. 4. There is moderate concentric left ventricular hypertrophy. 5. Overall left ventricular systolic function is normal with, an EF between 55 - 60 %. 6. The right ventricle is severely enlarged. 7. The right ventricular systolic function is normal. 8. LA is moderately dilated 34-39 ml/m2 9. The right atrial size is normal. 10. The aortic valve is trileaflet and appears structurally normal. 11. The mitral valve is normal. 12. The mitral valve leaflets are mildly thickened. 13. Moderate mitral regurgitation is present. 14. The tricuspid valve appears structurally normal. 15. Moderate tricuspid regurgitation present. 16. There is severe pulmonary hypertension. 17. The right ventricular systolic pressure, as measured by Doppler, is 82.25mmHg. 18. There is no pulmonic regurgitation present. 19. The aortic root size is normal. 20. The inferior vena cava is dilated with no significant inspiratory collapse which is consistent es timated right atrial pressure of >20 mmHg. 21. There is a small, generalized pericardial effusion present. DIRECTOR OF MARKETING OPERATIONS: Mallory Cordero RDCS
== END 2019-09-12 18:14 | disposition home or self-care (01) | DRG 291 ==
LOC: EC 12:39 → 3SCARD 15:13
PROVIDERS: ADMIT Family Medicine; ATTEND Family Medicine
DX: I13.0 Hypertensive heart and chronic kidney disease with heart failure and stage 1 through stage 4 chronic kidney disease, or unspecified chronic kidney disease (principal); J96.21 Acute and chronic respiratory failure with hypoxia; I50.33 Acute on chronic diastolic (congestive) heart failure; E87.4 Mixed disorder of acid-base balance; N17.9 Acute kidney failure, unspecified; D86.0 Sarcoidosis of lung; N18.9 Chronic kidney disease, unspecified; M19.90 Unspecified osteoarthritis, unspecified site; K21.9 Gastro-esophageal reflux disease without esophagitis; I27.20 Pulmonary hypertension, unspecified; G40.909 Epilepsy, unspecified, not intractable, without status epilepticus; E66.01 Morbid (severe) obesity due to excess calories; E86.0 Dehydration; I44.0 Atrioventricular block, first degree; D53.9 Nutritional anemia, unspecified; T50.1X5A Adverse effect of loop [high-ceiling] diuretics, initial encounter; J44.9 Chronic obstructive pulmonary disease, unspecified; J40 Bronchitis, not specified as acute or chronic; Z99.81 Dependence on supplemental oxygen; Z87.891 Personal history of nicotine dependence; Z87.442 Personal history of urinary calculi; Z87.440 Personal history of urinary (tract) infections; Z86.14 Personal history of Methicillin resistant Staphylococcus aureus infection; Z82.5 Family history of asthma and other chronic lower respiratory diseases; Z82.3 Family history of stroke; Z79.899 Other long term (current) drug therapy; Z68.39 Body mass index [BMI] 39.0-39.9, adult; Z91.041 Radiographic dye allergy status; Z86.19 Personal history of other infectious and parasitic diseases; Z90.49 Acquired absence of other specified parts of digestive tract; Z90.89 Acquired absence of other organs; Z82.49 Family history of ischemic heart disease and other diseases of the circulatory system
CPT/HCPCS: 36415; 71045; 71046; 76770; 80048; 80053; 81003; 82375; 83605; 83735; 83880; 84484; 85025; 85610; 85730; 87040; 93005; 93306; 94640; 94760; 96361; 96365; 96366; 96375; 99285

== ENCOUNTER → 2019-09-19 | Outpatient (CLI) | payer MEDICARE ==
[2019-09-19 12:12] LABS: Calcium 10.5 mg/dL (8.4-10.2); Potassium 3.8 mmol/L (3.5-5.1)
--- NOTE | 2019-09-19 15:06 | XR ---
EXAMINATION TYPE: XR chest 2V DATE OF EXAM: 09/19/2019 COMPARISON: Prior chest x-ray 09/12/2019 HISTORY: Congestive heart failure, shortness of breath TECHNIQUE: Frontal and lateral views of the chest are obtained. FINDINGS: Heart is enlarged. There is blunting of the left costophrenic angle as on prior exam. Cent ral vascularity and interstitium appear prominently. No evident pneumothorax. Old left clavicular fra cture appears healed. Wedge compression deformity at the thoracic lumbar junction level is chronic. IMPRESSION: Correlate for congestive heart failure
== END | disposition home or self-care (01) ==
LOC: RADXRMAIN 10:25
PROVIDERS: ATTEND Family Medicine
DX: I50.9 Heart failure, unspecified (principal)
CPT/HCPCS: 36415; 71046; 80048

== ENCOUNTER → 2019-10-13 | Outpatient (CLI) | payer MEDICARE ==
[2019-10-13 19:53] LABS: African American GFR (CKD) 77.2 (60.0-200.0); Anion Gap 6.8 mmol/L (4.00-12.00); BUN/Creat Ratio 17.78 Ratio (12.00-20.00); Calcium 10.7 mg/dL (8.7-10.3); Carbon Dioxide 28.2 mmol/L (21.6-31.8); Non-African American GFR(CKD) 66.6 (60.0-200.0); Potassium 4.9 mmol/L (3.5-5.5)
== END | disposition home or self-care (01) ==
LOC: LABWHC1 11:42
PROVIDERS: ATTEND Internal Medicine Clinical Cardiac Electrophysiology
DX: N18.9 Chronic kidney disease, unspecified (principal); I27.20 Pulmonary hypertension, unspecified; Z79.899 Other long term (current) drug therapy
CPT/HCPCS: 36415; 80048

== ENCOUNTER 2020-07-31 20:17 | Inpatient (IN) | payer MEDICARE ==
[2020-07-31] MEDS ORDERED: ACETAMINOPHEN TAB 500 MG TAB PO STA (20:52)
[2020-07-31] MEDS ORDERED: ACETAMINOPHEN TAB 500 MG TAB PO PRN (20:52)
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
--- NOTE | 2020-07-31 21:48 | XR ---
EXAMINATION TYPE: XR chest 1V portable DATE OF EXAM: 07/31/2020 COMPARISON: 09/30/2019 HISTORY: Sarcoidosis difficulty breathing TECHNIQUE: FINDINGS: There is no heart failure nor confluent pneumonic infiltrate. Heart appears enlarged. There is coarsening of interstitial markings. There is very slight blunting of the costophrenic angles. IMPRESSION: Small left pleural effusion and improved compared to old exam. Coarsening of interstitial markings consistent with pulmonary fibrosis. No obvious heart failure.
[2020-07-31 22:03] LABS: Albumin 2.6 g/dL (3.5-5.0); C Reactive Protein 87.9 mg/L (<10.0); INR 1.1 (<1.2); Magnesium 1.6 mg/dL (1.6-2.3); Partial Thromboplastin Time 23.7 sec (22.0-30.0); Potassium 4.1 mmol/L (3.5-5.1); Prothrombin Time 10.9 sec (9.0-12.0); Total Bilirubin 3.2 mg/dL (0.2-1.3); Total Protein 5.6 g/dL (6.3-8.2)
[2020-07-31 22:12] LABS: Basophils % (A) 0 %; Eosinophils # (A) 0.1 k/uL (0-0.7); Eosinophils % (A) 1 %; HCT 43.7 % (34.0-46.0); HGB 13.4 gm/dL (11.4-16.0); Lymphocytes # (A) 0.3 k/uL (1.0-4.8); Lymphocytes % (A) 4 %; MCH 31.4 pg (25.0-35.0); MCHC 30.7 g/dL (31.0-37.0); MCV 102.2 fL (80.0-100.0); Macrocytosis Slight; Monocytes # (A) 0.1 k/uL (0-1.0); Monocytes % (A) 1 %; Neutrophils # (A) 6.2 k/uL (1.3-7.7); Neutrophils % (A) 93 %; RBC 4.27 m/uL (3.80-5.40); RDW 15.4 % (11.5-15.5); WBC 6.7 k/uL (3.8-10.6)
[2020-07-31 22:44] LABS: Anisocytosis (M) Present; Polychromasia Present
[2020-07-31 22:45] LABS: Platelet Count 83 k/uL (150-450)
[2020-07-31] MEDS ORDERED: NALOXONE 0.4 MG/ML 1 ML VIAL IV PRN (23:06)
[2020-07-31] MEDS: SODIUM CHLORIDE 0.9% 1,000 ML IV SCH (23:34)
[2020-07-31] MEDS: dexAMETHasone 2 MG TAB PO SCH (23:35)
[2020-07-31] MEDS ORDERED: diphenhydrAMINE 50 MG/ML 1 ML VIAL IVP STA (23:48)
[2020-07-31] MEDS ORDERED: methylPREDNISolone SOD SUCCI 125 MG/2 ML VIAL IV STA (23:48)
[2020-07-31] MEDS ORDERED: FAMOTIDINE 20 MG/2 ML VIAL IV STA (23:49)
--- NOTE | 2020-08-01 00:42 | CT ---
EXAM: CT Angiography Chest With Intravenous Contrast CLINICAL HISTORY: ITS.REASON CT Reason: Elevated D Dimer TECHNIQUE: Axial computed tomographic angiography images of the chest with intravenous contrast. CTDI is 387.07 mGy and DLP is 393.9 mGy-cm. This CT exam was performed using one or more of the following dose reduction techniques: automated exposure control, adjustment of the mA and/or kV according to patient size, and/or use of iterative reconstruction technique. MIP reconstructed images were created and reviewed. COMPARISON: May 20, 2019 FINDINGS: Pulmonary arteries: The pulmonary arterial tree is well-opacified with contrast. No pulmonary emboli are identified. The main pulmonary artery is upper normal measuring 3.9 cm in diameter. Some component of pulmonary arterial hypertension may be present. Aorta: The thoracic aorta is nondilated. There is no aneurysm or dissection. Lungs: Scattered linear infiltrate versus scarring in the right upper lobe and both lung bases, unchanged since previous. No mass. Pleural space: Unremarkable. No significant effusion. No pneumothorax. Heart: The heart is mildly enlarged. No pericardial effusion is seen. No evidence of RV dysfunction. Bones/joints: Old compression fracture at L1. No acute fracture or subluxation is seen involving the thoracic spine. Soft tissues: Unremarkable. Lymph nodes: Unremarkable. No enlarged lymph nodes. Gallbladder and bile ducts: Previous cholecystectomy. Spleen: 1.7 cm cyst in the spleen, unchanged. Kidneys and ureters: Left renal atrophy. IMPRESSION: No evidence of pulmonary embolism or acute aortic abnormality. Mild emphysema and cardiomegaly with scattered areas of thin linear scarring in the lungs, unchanged. Mildly dilated pulmonary arteries suggesting mild pulmonary artery hypertension, unchanged.
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
[2020-08-01 05:23] LABS: Ferritin 208.7 ng/mL (10.0-291.0)
[2020-08-01] MEDS ORDERED: HEPARIN SODIUM,PORCINE 5,000 UNIT/ML 1 ML VIAL SQ SCH (08:00)
[2020-08-01] MEDS: PANTOPRAZOLE 40 MG TABLET PO SCH (08:06)
[2020-08-01] MEDS: dexAMETHasone 2 MG TAB PO SCH (08:07)
[2020-08-01] MEDS ORDERED: ASCORBIC ACID 500 MG TAB PO SCH (09:00)
[2020-08-01] MEDS ORDERED: CHOLECALCIFEROL 1,000 UNIT TAB PO SCH (09:00)
[2020-08-01] MEDS ORDERED: HYDROcodone/APAP 10-325MG 1 EACH TAB PO PRN (09:03)
[2020-08-01] MEDS ORDERED: BENZONATATE 100 MG CAP PO PRN (09:04)
[2020-08-01] MEDS ORDERED: AZITHROMYCIN 500 MG TAB PO SCH (09:15)
[2020-08-01] MEDS: SODIUM CHLORIDE 0.9% 1,000 ML IV SCH (10:31)
--- NOTE | 2020-08-01 10:51 | XR ---
EXAMINATION TYPE: XR chest 1V DATE OF EXAM: 08/01/2020 COMPARISON: Prior chest x-ray 07/31/2020 HISTORY: Dyspnea TECHNIQUE: Single frontal view of the chest is obtained. FINDINGS: There is no focal air space opacity, pleural effusion, or pneumothorax seen. There are jenn e minimal subsegmental basilar atelectatic changes. Prominence of pulmonary artery suggests underlyin g pulmonary artery hypertension. The cardiac silhouette size is within normal limits. The osseous s tructures are intact. IMPRESSION: No acute process.
[2020-08-01] MEDS: ENOXAPARIN 40 MG/0.4 ML SYRINGE SQ SCH (15:17)
[2020-08-01 15:38] LABS: Appearance,Urine Clear (Clear); Bilirubin,Urine Negative (Negative); Blood,Urine Small (Negative); Budding Yeast,Urine Occasional /hpf; Color,Urine Yellow; Glucose,Urine (UA) Negative (Negative); Ketones,Urine Negative (Negative); Leukocyte Esterase,Urine Large (Negative); Mucus,Urine Rare /hpf; Nitrite,Urine Negative (Negative); Protein,Urine 1+ (Negative); RBC,Urine 72 /hpf (0-5); Squamous Epithelial Cell,Urine 1 /hpf (0-4); Urobilinogen,Urine <2.0 mg/dL (<2.0); WBC,Urine 70 /hpf (0-5)
[2020-08-01 15:53] LABS: Specific Gravity,Urine 1.046 (1.001-1.035)
--- NOTE | 2020-08-01 17:17 | P.PN ---
Subjective Progress Note Date: 08/01/20 Patient is doing fairly well today. She denies any fevers or chills. No shortness of breath or cough. Objective - Vital Signs Vital signs: Vital Signs Temp 97 F L 08/01/20 16:07 Pulse 71 08/01/20 16:07 Resp 18 08/01/20 16:07 BP 117/65 08/01/20 16:07 Pulse Ox 99 08/01/20 16:07 Intake & Output 07/31/20 08/01/20 08/01/20 18:59 06:59 18:59 Intake Total 1660 Balance 1660 Weight 81.647 kg Intake: Intake, IV Titration 1010 Amount Sodium Chloride 0.9% 1, 960 000 ml @ 120 mls/hr IV . Q8H20M STEFAN Rx#:[id number] cefTRIAXone 1 gm In 50 Sodium Chloride 0.9% 50 ml @ 100 mls/hr IVPB Q24HR STEFAN Rx#:[id number] Oral 650 Other: # Voids 3 - Exam General: The patient is awake and alert, in no distress Eye: there is normal conjunctiva bilaterally. Neck: The neck is supple, there is no JVD. Cardiovascular: Normal S1-S2, no S3-S4, no murmurs. Respiratory: Lungs clear to auscultation bilaterally Gastrointestinal: Abdomen is soft, nontender Musculoskeletal: There is no pedal edema. Neurological:. Speech is normal. Skin: Skin is warm and dry - Labs CBC & Chem 7: 07/31/20 21:29 07/31/20 21:29 Labs: Abnormal Lab Results - Last 24 Hours (Table) 07/31/20 07/31/20 07/31/20 Range/Units 21:29 21:29 21:29 MCV 102.2 H (80.0-100.0) fL MCHC 30.7 L (31.0-37.0) g/dL Plt Count 83 L (150-450) k/uL Lymphocytes # 0.3 L (1.0-4.8) k/uL D-Dimer (<0.60) mg/L FEU Sodium 134 L (137-145) mmol/L Chloride 109 H (98-107) mmol/L Carbon Dioxide 21 L (22-30) mmol/L BUN 28 H (7-17) mg/dL Creatinine 1.16 H (0.52-1.04) mg/dL Plasma Lactic Acid Remy 2.6 H* (0.7-2.0) mmol/L Total Bilirubin 3.2 H (0.2-1.3) mg/dL Alkaline Phosphatase 156 H (38-126) U/L Lactate Dehydrogenase 619 H (313-618) U/L C-Reactive Protein 87.9 H (<10.0) mg/L Total Protein 5.6 L (6.3-8.2) g/dL Albumin 2.6 L (3.5-5.0) g/dL Procalcitonin (0.02-0.09) ng/mL Ur Specific [place] (1.001-1.035) Urine Protein (Negative) Urine Blood (Negative) Ur Leukocyte Esterase (Negative) Urine RBC (0-5) /hpf Urine WBC (0-5) /hpf Urine Mucus (None) /hpf Urine Yeast (Budding) (None) /hpf 07/31/20 07/31/20 08/01/20 Range/Units 21:29 21:29 00:30 MCV (80.0-100.0) fL MCHC (31.0-37.0) g/dL Plt Count (150-450) k/uL Lymphocytes # (1.0-4.8) k/uL D-Dimer 8.52 H (<0.60) mg/L FEU Sodium (137-145) mmol/L Chloride (98-107) mmol/L Carbon Dioxide (22-30) mmol/L BUN (7-17) mg/dL Creatinine (0.52-1.04) mg/dL Plasma Lactic Acid Remy 2.9 H* (0.7-2.0) mmol/L Total Bilirubin (0.2-1.3) mg/dL Alkaline Phosphatase (38-126) U/L Lactate Dehydrogenase (313-618) U/L C-Reactive Protein (<10.0) mg/L Total Protein (6.3-8.2) g/dL Albumin (3.5-5.0) g/dL Procalcitonin 13.09 H (0.02-0.09) ng/mL Ur Specific [place] (1.001-1.035) Urine Protein (Negative) Urine Blood (Negative) Ur Leukocyte Esterase (Negative) Urine RBC (0-5) /hpf Urine WBC (0-5) /hpf Urine Mucus (None) /hpf Urine Yeast (Budding) (None) /hpf 08/01/20 Range/Units 15:23 MCV (80.0-100.0) fL MCHC (31.0-37.0) g/dL Plt Count (150-450) k/uL Lymphocytes # (1.0-4.8) k/uL D-Dimer (<0.60) mg/L FEU Sodium (137-145) mmol/L Chloride (98-107) mmol/L Carbon Dioxide (22-30) mmol/L BUN (7-17) mg/dL Creatinine (0.52-1.04) mg/dL Plasma Lactic Acid Remy (0.7-2.0) mmol/L Total Bilirubin (0.2-1.3) mg/dL Alkaline Phosphatase (38-126) U/L Lactate Dehydrogenase (313-618) U/L C-Reactive Protein (<10.0) mg/L Total Protein (6.3-8.2) g/dL Albumin (3.5-5.0) g/dL Procalcitonin (0.02-0.09) ng/mL Ur Specific [place] 1.046 H (1.001-1.035) Urine Protein 1+ H (Negative) Urine Blood Small H (Negative) Ur Leukocyte Esterase Large H (Negative) Urine RBC 72 H (0-5) /hpf Urine WBC 70 H (0-5) /hpf Urine Mucus Rare H (None) /hpf Urine Yeast (Budding) Occasional H (None) /hpf Assessment and Plan Assessment: This is a 69-year-old female with complex past medical history noted below who presented to the emergency room with upper respiratory symptoms and congestion as well as altered mental status. Patient was evaluated in the ER and currently admitted to the hospital for further management of her medical problems noted below. 1. UTI, recurrent problem for this patient. I would check bladder scan to rule out retention. Last urine culture in December showed Citrobacter resistant to ceftriaxone so I would switch her antibiotic to IV cefepime awaiting final urine culture. 2. Viral URI symptoms on presentation, chest x-ray with no acute findings. Influenza A/B screen negative in the ER. COVID-19 screen pending. Pro- calcitonin, CRP, d-dimer, and LDH are all elevated concerning for COVID-19 but her clinical picture is less likely. I would consult pulmonology for further evaluation. Patient was started on Decadron 6 mg daily. 3. Elevated d-dimer, CT angiogram in the ER negative for PE 4. Underlying severe pulmonary hypertension with right-sided heart failure, stable with no evidence of exacerbation 5. History of sarcoidosis 6. DVT prophylaxis with subcu Lovenox, GI prophylaxis with Prilosec
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
[2020-08-01] MEDS: CEFEPIME 1 GM in SODIUM CHLORIDE 0.9% 50 ML IVPB SCH (20:11)
[2020-08-02] MEDS ORDERED: SODIUM CHLORIDE 0.9% 500 ML 500 ML IV ONE (09:50)
[2020-08-02] MEDS: MAGNESIUM OXIDE 400 MG TAB PO SCH (09:54)
[2020-08-02] MEDS: PANTOPRAZOLE 40 MG TABLET PO SCH (09:54)
[2020-08-02] MEDS: SPIRONOLACTONE 25 MG TAB PO SCH (09:55)
[2020-08-02] MEDS: CEFEPIME 1 GM in SODIUM CHLORIDE 0.9% 50 ML IVPB SCH ×2 (09:55→21:17)
[2020-08-02] MEDS: dexAMETHasone 2 MG TAB PO SCH (09:55)
[2020-08-02] MEDS: ENOXAPARIN 40 MG/0.4 ML SYRINGE SQ SCH (09:55)
--- NOTE | 2020-08-02 09:56 | US ---
EXAMINATION TYPE: US renals and bladder DATE OF EXAM: 08/02/2020 COMPARISON: NONE CLINICAL HISTORY: pyelonephritis/nephrolithiasis. left renal atrophy EXAM MEASUREMENTS: Right Kidney: 9.6 x 5.1 x 4.0 cm Left Kidney: 7.8 x 3.5 x 3.1 cm Right Kidney: cystic areas noted, largest = 1.4 x 1.1 x 1.1cm, possible stone mid = 1.0cm Left Kidney: difficult to visualize, atrophic Bladder: appears wnl Bilateral Jets seen: no Incidental note made of a hepatic cyst. IMPRESSION: Left kidney is somewhat atrophic correlate for chronic renal medical disease. Hypoechoic nodule in th e right kidney too small to characterize but likely related to a cyst. Findings also are compatible w ith a nonobstructing 1 cm right renal calculus.
[2020-08-02] MEDS: ALBUTEROL HFA INHALER INHALATION PRN ×3 (11:46→20:41)
--- NOTE | 2020-08-02 14:30 | P.PN ---
Subjective Progress Note Date: 08/02/20 Patient is feeling better today. She does not have any complaints this morning. Objective - Vital Signs Vital signs: Vital Signs Temp 98.0 F 08/02/20 08:00 Pulse 105 H 08/02/20 08:00 Resp 17 08/02/20 08:00 BP 152/86 08/02/20 08:00 Pulse Ox 96 08/02/20 08:00 Intake & Output 08/01/20 08/02/20 08/02/20 18:59 06:59 18:59 Intake Total 1660 Balance 1660 Weight 81.647 kg Intake: Intake, IV Titration 1010 Amount Sodium Chloride 0.9% 1, 960 000 ml @ 120 mls/hr IV . Q8H20M STEFAN Rx#:[id number] cefTRIAXone 1 gm In 50 Sodium Chloride 0.9% 50 ml @ 100 mls/hr IVPB Q24HR STEFAN Rx#:[id number] Oral 650 Other: # Voids 3 2 2 # Bowel Movements 1 - Exam General: The patient is awake and alert, in no distress Eye: there is normal conjunctiva bilaterally. Neck: The neck is supple, there is no JVD. Cardiovascular: Normal S1-S2, no S3-S4, no murmurs. Respiratory: Lungs clear to auscultation bilaterally Gastrointestinal: Abdomen is soft, nontender Musculoskeletal: There is no pedal edema. Neurological:. Speech is normal. Skin: Skin is warm and dry - Labs CBC & Chem 7: 07/31/20 21:29 07/31/20 21:29 Labs: Abnormal Lab Results - Last 24 Hours (Table) 08/01/20 08/02/20 Range/Units 15:23 09:47 D-Dimer 3.05 H (<0.60) mg/L FEU Ur Specific [place] 1.046 H (1.001-1.035) Urine Protein 1+ H (Negative) Urine Blood Small H (Negative) Ur Leukocyte Esterase Large H (Negative) Urine RBC 72 H (0-5) /hpf Urine WBC 70 H (0-5) /hpf Urine Mucus Rare H (None) /hpf Urine Yeast (Budding) Occasional H (None) /hpf Microbiology - Last 24 Hours (Table) 08/01/20 15:23 Urine Culture - Preliminary Urine,Voided 07/31/20 21:29 Blood Culture - Preliminary Blood No Growth after 24 hours Assessment and Plan Assessment: This is a 69-year-old female with complex past medical history noted below who presented to the emergency room with upper respiratory symptoms and congestion as well as altered mental status. Patient was evaluated in the ER and currently admitted to the hospital for further management of her medical problems noted below. 1. UTI, recurrent problem for this patient. Last urine culture in December showed Citrobacter resistant to ceftriaxone so I would switch her antibiotic to IV cefepime awaiting final urine culture. Kidney ultrasound showed no evidence of hydronephrosis. Left kidney somewhat atrophic with suspicion for chronic renal disease. Currently living with non-obstructing 1 cm calculus 2. Viral URI symptoms on presentation, chest x-ray with no acute findings. Influenza A/B screen negative in the ER. COVID-19 screen pending. Pro- calcitonin, CRP, d-dimer, and LDH are all elevated concerning for COVID-19 but her clinical picture is less likely. Patient was started on Decadron 6 mg daily. Pulmonary following closely. Appreciate recommendation 3. Elevated d-dimer, CT angiogram in the ER negative for PE 4. Underlying severe pulmonary hypertension with right-sided heart failure, stable with no evidence of exacerbation 5. History of sarcoidosis 6. DVT prophylaxis with subcu Lovenox, GI prophylaxis with Prilosec
--- NOTE | 2020-08-02 15:06 | P.PN ---
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 Patient presented to the ER yesterday with multiple complaints including low-grade fever, symptoms of right flank pain, cough, some chills, and generalized body aches and pains. According to the she was also a bit confused last night, and had previous symptoms in the past when she had a urinary tract infection/pyelonephritis. Patient has been noticing her urine to be dark, she does have symptoms of frequent urination. But no dysuria, no hematuria. She did notice her urine to have a foul smelling odor. At any rate the patient was evaluated in the ER, and she was noted to have slightly low oxygen upon evaluation, she had elevated d-dimer, CT angiogram of the chest was done and it was basically negative. CT angiogram of the chest was done because she was noted to have low oxygen saturations, and she was also noted to have elevated d- dimer. Based on the CT of the chest, patient had no evidence of pulmonary embolism, she was noted to have mild emphysematous changes, and scattered areas of thin linear scarring in the lungs bilaterally no clear-cut evidence of pneumonia, patient is being worked up for possible covid 19 pneumonitis, and this consult was initiated. Her history is rather vague, patient has mostly symptoms of urinary tract infections more so than pulmonary symptoms. The patient is seen today 08/02/2020 in follow-up on the regular medical floor. She is sitting up in bed. Awake and alert in no acute distress. Maintaining O2 saturations in the mid 90s on 2 L/m per nasal cannula. She's been afebrile. Hemodynamically stable. Blood and urine cultures are pending. Pro Calcitonin 50.2. Currently on cefepime. Renal ultrasound revealed left kidney to be somewhat atrophic. A coag nodule on the right kidney to small to characterize but most likely a cyst. There is also a nonobstructing 1 cm right renal calculus. Right-sided flank pain is improving. She denies any dysuria. Covid screen pending. She is continued on dexamethasone and Lovenox. Objective - Vital Signs Vital signs: Vital Signs Temp 98.0 F 08/02/20 08:00 Pulse 105 H 08/02/20 08:00 Resp 17 08/02/20 08:00 BP 152/86 08/02/20 08:00 Pulse Ox 96 08/02/20 08:00 Intake & Output 08/01/20 08/02/20 08/02/20 18:59 06:59 18:59 Intake Total 1660 Balance 1660 Weight 81.647 kg Intake: Intake, IV Titration 1010 Amount Sodium Chloride 0.9% 1, 960 000 ml @ 120 mls/hr IV . Q8H20M STEFAN Rx#:[id number] cefTRIAXone 1 gm In 50 Sodium Chloride 0.9% 50 ml @ 100 mls/hr IVPB Q24HR STEFAN Rx#:[id number] Oral 650 Other: # Voids 3 2 2 # Bowel Movements 1 - Exam GENERAL EXAM: Alert, pleasant 69-year-old female patient, comfortable in no apparent distress. On 2 L nasal cannula. HEAD: Normocephalic. EYES: Normal reaction of pupils, equal size. NOSE: Clear with pink turbinates. THROAT: No erythema or exudates. NECK: No masses, no JVD. CHEST: No chest wall deformity. LUNGS: Equal air entry, no crackles or rhonchi or wheezes. CVS: S1 and S2 normal with no audible murmur, regular rhythm. ABDOMEN: No hepatosplenomegaly, normal bowel sounds, no guarding or rigidity. SPINE: No scoliosis or deformity SKIN: No rashes CENTRAL NERVOUS SYSTEM: No focal deficits, tone is normal in all 4 extremities. EXTREMITIES: Trace of bipedal edema, good pulses bilaterally. - Labs CBC & Chem 7: 07/31/20 21:29 07/31/20 21:29 Labs: Abnormal Lab Results - Last 24 Hours (Table) 08/01/20 08/02/20 08/02/20 Range/Units 15:23 09:47 09:47 D-Dimer 3.05 H (<0.60) mg/L FEU Procalcitonin 50.20 H (0.02-0.09) ng/mL Ur Specific [place] 1.046 H (1.001-1.035) Urine Protein 1+ H (Negative) Urine Blood Small H (Negative) Ur Leukocyte Esterase Large H (Negative) Urine RBC 72 H (0-5) /hpf Urine WBC 70 H (0-5) /hpf Urine Mucus Rare H (None) /hpf Urine Yeast (Budding) Occasional H (None) /hpf Microbiology - Last 24 Hours (Table) 08/01/20 15:23 Urine Culture - Preliminary Urine,Voided 07/31/20 21:29 Blood Culture - Preliminary Blood No Growth after 24 hours Assessment and Plan Assessment: Acute urinary tract infection, suspect acute polynephritis. Multiple constitutional symptoms with fever chills, weakness, most likely related to her UTI and acute febrile illness. Doubt covid 19 pneumonitis at this point. However considering the patient has elevated inflammatory markers, it would be worthwhile screening for Covid 19 pneumonitis. History of sarcoidosis./Remote History of chronic and recurrent urinary tract infections. History of seizure disorder. History of nephrolithiasis. Former smoker. Suspect some component of COPD. Likely mild based on her symptoms. Plan: The patient was seen and evaluated by Dr. Reid Labs and renal ultrasounds reviewed Continued on cefepime Covid 19 screen pending Continue isolation precautions We'll continue to follow I, the cosigning physician, performed a history & physical examination of the patient. Lungs sounds are clear. Maintaining good O2 saturations in the 90s on 2 L/m per nasal cannula. I discussed the assessment and plan of care with my nurse practitioner, Marisela Biggs. I attest to the above note as dictated by her.
--- NOTE | 2020-08-02 15:13 | CDI ---
Documentation Clarification Form Date: 08/02/2020 02:45:17 PM From: Nazanin Oliver RN CCDS Admit Date: 07/31/2020 11:06:00 PM Patient Name: Marifer Crespo Visit Number: [id number] Discharge Date: ATTENTION: The Clinical Documentation Specialists (CDI) and [facility] Coding Staff appreciate your assistance in clarifying documentation. Please respond to the clarification below the line at the bottom and electronically sign. The CDI & [facility] Coding staff will review the response and follow-up if needed. Please note: Queries are made part of the Legal Health Record. If you have any questions, please contact the author of this message via ITS. Dr. Alicia Ozuna Altered Mental Status was documented in the Internal medicine progress notes 08/01 & 08/02 History/Risk Factors: 69 -year-old female presents to the ED with a four-day history of upper respiratory infection symptoms include congestion of the nose, nonproductive cough, fevers, chills, loss of taste and smell sensation and body aches. The pat seemed to be confused and disorientated per the . Clinical Indicators: Medical History: HTN; OA; UTI; Seizures 07/31 B/P 146/92; HR 125; Temp 99.0 F Oral; RR 22; SpO2 95% 6L nasal cannula 07/31 Labs: Plt count 83; Lymph 0.3; d-dimer 8.52; Na 134; Chl 21; BUN 28; CR 1.16; Lactic acid 2.6; 2.9; Total bilirubin 3.2; Alk phos 156; LDH 619; CRP 87.9; Total protein 5.6; Albumin 2.6; Procalcitonin 13.09; UA Leukocyte esterase large; Wbc 70; Treatment: 08/01 Cefepime Iv Q 12hr; 08/01 Ceftriaxone Iv x1; 0.9 Ns 500cc bolus In your professional opinion, please clarify the etiology of the Altered Mental Status, if known. Metabolic Encephalopathy (specify Type and Underlying Medical Illness) Other condition (please specify) Unable to determine (Last Revision: December 2017) MTDD
[2020-08-02 15:21] LABS: African American GFR (CKD) 54.2 (60.0-200.0); Anion Gap 11.5 mmol/L (4.00-12.00); C Reactive Protein 10.9 mg/dL (0.0-0.8); Carbon Dioxide 19.5 mmol/L (21.6-31.8); Non-African American GFR(CKD) 46.7 (60.0-200.0); Potassium 5.1 mmol/L (3.5-5.5)
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
[2020-08-03] MEDS: ENOXAPARIN 40 MG/0.4 ML SYRINGE SQ SCH (07:45)
[2020-08-03] MEDS: dexAMETHasone 2 MG TAB PO SCH (07:45)
[2020-08-03] MEDS: PANTOPRAZOLE 40 MG TABLET PO SCH (07:46)
[2020-08-03] MEDS: SPIRONOLACTONE 25 MG TAB PO SCH (07:46)
[2020-08-03] MEDS: MAGNESIUM OXIDE 400 MG TAB PO SCH (07:46)
[2020-08-03 07:48] VITALS: BP 145/81; PULSE 60; RESP 20; TEMP 97.9
[2020-08-03] MEDS: CEFEPIME 1 GM in SODIUM CHLORIDE 0.9% 50 ML IVPB SCH (08:15)
[2020-08-03] MEDS: ALBUTEROL HFA INHALER INHALATION PRN ×2 (09:24→12:15)
--- NOTE | 2020-08-03 09:50 | P.DS ---
Providers Date of admission: 07/31/20 23:06 Expected date of discharge: 08/03/20 Attending physician: Ashish Jones MD Consults: 08/01/20 09:01 Consult Physician Routine Consulting Provider: Frederick Reid Consult Reason/Comments: COVID? Remdesivir? Do you want consulting provider notified?: Yes 08/02/20 12:07 Consult Physician Routine Consulting Provider: Eirk Moser Consult Reason/Comments: nephrolithiasis Do you want consulting provider notified?: Yes Primary care physician: Dio [facility] Course: This is a 69-year-old female with complex past medical history noted below who presented to the emergency room with upper respiratory symptoms and congestion as well as altered mental status. Patient was evaluated in the ER and currently admitted to the hospital for further management of her medical problems noted below. 1. UTI, recurrent problem for this patient. Urine culture negative. Will d/c antibiotics. Last urine culture in December showed Citrobacter so Ipatient was started on IV cefepime. Kidney ultrasound showed no evidence of hydronephrosis. Left kidney somewhat atrophic with suspicion for chronic renal disease. L kidney with non-obstructing 1 cm calculus. seen by urology. no intervention at this time 2. Viral URI symptoms on presentation, chest x-ray with no acute findings. Influenza A/B screen negative in the ER. COVID-19 screen pending. Less likely clnically 3. Elevated d-dimer, CT angiogram in the ER negative for PE 4. Underlying severe pulmonary hypertension with right-sided heart failure, stable with no evidence of exacerbation 5. History of sarcoidosis 6. Metabolic encephalopathy on presentation 10/30/ UTI: resolved Patient Condition at Discharge: Fair Plan - Discharge Summary Discharge Rx Participant: No New Discharge Prescriptions: Continue Cyanocobalamin (Vitamin B-12) [Vitamin B-12] 500 mg PO DAILY Magnesium Oxide [[place]] 500 mg PO DAILY Cholecalciferol (Vitamin D3) [Vitamin D3] 2,000 unit PO DAILY #30 capsule Ascorbic Acid [Vitamin C] 1,000 mg PO DAILY HYDROcodone/APAP 10-325MG [[place] 10-325] 1 tab PO TID PRN PRN Reason: Pain Spironolactone [Aldactone] 25 mg PO DAILY Omeprazole [PriLOSEC] 40 mg PO DAILY L.acidoph,Paracasei, B.lactis [Probiotic] 1 cap PO DAILY Discontinued Nitrofurantoin Monohyd/M-Cryst [Macrobid] 100 mg PO Q12HR Discharge Medication List Cyanocobalamin (Vitamin B-12) [Vitamin B-12] 500 mg PO DAILY 04/20/19 [History] Magnesium Oxide [[place]] 500 mg PO DAILY 05/20/19 [History] Cholecalciferol (Vitamin D3) [Vitamin D3] 2,000 unit PO DAILY #30 capsule 05/25/19 [Rx] Ascorbic Acid [Vitamin C] 1,000 mg PO DAILY 09/10/19 [History] HYDROcodone/APAP 10-325MG [[place] 10-325] 1 tab PO TID PRN 09/10/19 [History] L.acidoph,Paracasei, B.lactis [Probiotic] 1 cap PO DAILY 07/31/20 [History] Omeprazole [PriLOSEC] 40 mg PO DAILY 07/31/20 [History] Spironolactone [Aldactone] 25 mg PO DAILY 07/31/20 [History] Follow up Appointment(s)/Referral(s): Dio Arceo [Primary Care Provider] - 1-2 days Discharge Disposition: HOME SELF-CARE
--- NOTE | 2020-08-03 14:17 | P.PN ---
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 Patient presented to the ER yesterday with multiple complaints including low-grade fever, symptoms of right flank pain, cough, some chills, and generalized body aches and pains. According to the she was also a bit confused last night, and had previous symptoms in the past when she had a urinary tract infection/pyelonephritis. Patient has been noticing her urine to be dark, she does have symptoms of frequent urination. But no dysuria, no hematuria. She did notice her urine to have a foul smelling odor. At any rate the patient was evaluated in the ER, and she was noted to have slightly low oxygen upon evaluation, she had elevated d-dimer, CT angiogram of the chest was done and it was basically negative. CT angiogram of the chest was done because she was noted to have low oxygen saturations, and she was also noted to have elevated d- dimer. Based on the CT of the chest, patient had no evidence of pulmonary embolism, she was noted to have mild emphysematous changes, and scattered areas of thin linear scarring in the lungs bilaterally no clear-cut evidence of pneumonia, patient is being worked up for possible covid 19 pneumonitis, and this consult was initiated. Her history is rather vague, patient has mostly symptoms of urinary tract infections more so than pulmonary symptoms. The patient is seen today 08/02/2020 in follow-up on the regular medical floor. She is sitting up in bed. Awake and alert in no acute distress. Maintaining O2 saturations in the mid 90s on 2 L/m per nasal cannula. She's been afebrile. Hemodynamically stable. Blood and urine cultures are pending. Pro Calcitonin 50.2. Currently on cefepime. Renal ultrasound revealed left kidney to be somewhat atrophic. A coag nodule on the right kidney to small to characterize but most likely a cyst. There is also a nonobstructing 1 cm right renal calculus. Right-sided flank pain is improving. She denies any dysuria. Covid screen pending. She is continued on dexamethasone and Lovenox. Patient is seen today 08/03/2020 in follow-up on the regular medical floor. She is awake and alert in no acute distress. Sitting up at the bedside. No worsening shortness of breath, cough or congestion. Maintaining O2 saturation the mid 90s on room air. She's been afebrile. Hemodynamically stable. Blood and urine cultures revealed no growth. She had been seen and evaluated by urology. No further interventions planned for left renal calculus. Objective - Vital Signs Vital signs: Vital Signs Temp 97.9 F 08/03/20 07:48 Pulse 60 08/03/20 08:00 Resp 20 08/03/20 08:00 BP 145/81 08/03/20 07:48 Pulse Ox 96 08/03/20 07:48 Intake & Output 08/02/20 08/03/20 08/03/20 18:59 06:59 18:59 Intake Total 500 Balance 500 Intake: Intake, IV Titration 200 Amount Cefepime 1 gm In Sodium 200 Chloride 0.9% 50 ml @ 12. 5 mls/hr IVPB Q12HR [facility] Rx#:[id number] Oral 300 Other: # Voids 3 4 - Exam GENERAL EXAM: Alert, pleasant 69-year-old female patient, comfortable in no apparent distress. On room air. HEAD: Normocephalic. EYES: Normal reaction of pupils, equal size. NOSE: Clear with pink turbinates. THROAT: No erythema or exudates. NECK: No masses, no JVD. CHEST: No chest wall deformity. LUNGS: Equal air entry, no crackles or rhonchi or wheezes. CVS: S1 and S2 normal with no audible murmur, regular rhythm. ABDOMEN: No hepatosplenomegaly, normal bowel sounds, no guarding or rigidity. SPINE: No scoliosis or deformity SKIN: No rashes CENTRAL NERVOUS SYSTEM: No focal deficits, tone is normal in all 4 extremities. EXTREMITIES: Trace of bipedal edema, good pulses bilaterally. - Labs CBC & Chem 7: 07/31/20 21:29 08/02/20 09:47 Labs: Abnormal Lab Results - Last 24 Hours (Table) 08/02/20 08/02/20 Range/Units 09:47 09:47 Carbon Dioxide 19.5 L (21.6-31.8) mmol/L BUN 36.0 H (9.0-27.0) mg/dL Est GFR (CKD-EPI)AfAm 54.2 L (60.0-200.0) Est GFR (CKD-EPI)NonAf 46.7 L (60.0-200.0) BUN/Creatinine Ratio 30.00 H (12.00-20.00) Ratio Glucose 115 H (70-110) mg/dL Lactate Dehydrogenase 392 H (120-246) U/L C-Reactive Protein 10.9 H (0.0-0.8) mg/dL Procalcitonin 50.20 H (0.02-0.09) ng/mL Microbiology - Last 24 Hours (Table) 08/01/20 15:23 Urine Culture - Final Urine,Voided 07/31/20 21:29 Blood Culture - Preliminary Blood No Growth after 48 hours Assessment and Plan Assessment: Acute urinary tract infection, suspect acute polynephritis. No plans for intervention per urology. Multiple constitutional symptoms with fever chills, weakness, most likely related to her UTI and acute febrile illness. Doubt covid 19 pneumonitis at this point. However considering the patient has elevated inflammatory markers, it would be worthwhile screening for Covid 19 pneumonitis. History of sarcoidosis./Remote History of chronic and recurrent urinary tract infections. History of seizure disorder. History of nephrolithiasis. Former smoker. Suspect some component of COPD. Likely mild based on her symptoms. Plan: The patient was seen and evaluated by Dr. Reid Cleared for discharge from the pulmonary standpoint Continue home self isolation until CoVID results received Follow-up with her PCP I, the cosigning physician, performed a history & physical examination of the patient. Lungs sounds are clear. Maintaining good O2 saturations in the 90s on room air. I discussed the assessment and plan of care with my nurse practitioner, Marisela Biggs. I attest to the above note as dictated by her.
--- NOTE | 2020-08-07 20:34 | CDI ---
Documentation Clarification Form Date: 08/08/2020 From:Luke Carvajal Phone: If you have a question about this query, please contact Therese Vera Ski Molder at [phone] between 8am and 5pm. Admit Date: 07/31/2020 Discharge Date: 08/03/2020 Patient Name: Marifer Crespo Visit Number: [id number] ATTENTION: The Clinical Documentation Specialists (CDI) and [facility] Coding Staff appreciate your assistance in clarifying documentation. Please respond to the clarification below the line at the bottom and electronically sign. The CDI & [facility] Coding staff will review the response and follow-up if needed. Please note: Queries are made part of the Legal Health Record. If you have any questions, please contact the author of this message via ITS. Dear Alicia Hendrix MD., Covid Screen pending, is documented in the DS. Patient history/risk factors: acute respiratory failure, HTN, CHF, pulmonary hypertension, ISMAEL Clinical Indicators: AMS, upper respiratory symptoms. Labs: COVID TEST_ NOT DETECTED Vital Signs: Temp 97.9 F 08/03/20 07:48 Pulse 60 08/03/20 08:00 Resp 20 08/03/20 08:00 BP 145/81 08/03/20 07:48 Pulse Ox 96 08/03/20 07:48 Per DS "Viral URI symptoms on presentation, chest x-ray with no acute findings. Influenza A/B screen negative in the ER. COVID-19 screen pending.Less likely clnically". In order to capture the severity of condition, please clarify if the above treatment/clinical indicators signify: COVID-19 Suspected COVID-19 ruled out COVID-19 confirmed Other, please specify Unable to determine Ruled out test result came after patient was discharged and discharge summary was dictated MTDD
== END 2020-08-03 13:03 | disposition home or self-care (01) | DRG 689 ==
LOC: EC 20:17 → 4SSUR 23:06
PROVIDERS: ADMIT Internal Medicine; ATTEND Internal Medicine
DX: N39.0 Urinary tract infection, site not specified (principal); G93.41 Metabolic encephalopathy; J96.01 Acute respiratory failure with hypoxia; E87.2 Acidosis; N17.9 Acute kidney failure, unspecified; J06.9 Acute upper respiratory infection, unspecified; I11.0 Hypertensive heart disease with heart failure; I27.29 Other secondary pulmonary hypertension; M19.90 Unspecified osteoarthritis, unspecified site; G40.909 Epilepsy, unspecified, not intractable, without status epilepticus; D72.810 Lymphocytopenia; D69.6 Thrombocytopenia, unspecified; D86.0 Sarcoidosis of lung; N28.1 Cyst of kidney, acquired; N20.0 Calculus of kidney; Z20.828 Contact with and (suspected) exposure to other viral communicable diseases; J84.10 Pulmonary fibrosis, unspecified; Z79.899 Other long term (current) drug therapy; Z91.041 Radiographic dye allergy status; Z87.440 Personal history of urinary (tract) infections; Z82.5 Family history of asthma and other chronic lower respiratory diseases; Z87.891 Personal history of nicotine dependence; Z87.442 Personal history of urinary calculi; Z90.49 Acquired absence of other specified parts of digestive tract; Z90.89 Acquired absence of other organs; Z98.890 Other specified postprocedural states; Z82.3 Family history of stroke; Z86.14 Personal history of Methicillin resistant Staphylococcus aureus infection
CPT/HCPCS: 36415; 71045; 71275; 76770; 80048; 80053; 81001; 82728; 83605; 83615; 83735; 84145; 85025; 85379; 85610; 85730; 86140; 87040; 87086; 87502; 93005; 94640; 99285

== ENCOUNTER → 2021-07-03 | Outpatient (CLI) | payer MEDICARE ==
[2021-07-03 11:35] LABS: Basophils % (A) 0 %; Eosinophils # (A) 0.1 k/uL (0-0.7); Eosinophils % (A) 4 %; HCT 45.4 % (34.0-46.0); HGB 15.3 gm/dL (11.4-16.0); Lymphocytes # (A) 1.1 k/uL (1.0-4.8); Lymphocytes % (A) 32 %; MCH 34.7 pg (25.0-35.0); MCHC 33.7 g/dL (31.0-37.0); Macrocytosis Slight; Mean Platelet Volume 8.7; Monocytes # (A) 0.2 k/uL (0-1.0); Monocytes % (A) 5 %; Neutrophils # (A) 1.8 k/uL (1.3-7.7); Neutrophils % (A) 55 %; RBC 4.41 m/uL (3.80-5.40); RDW 14.3 % (11.5-15.5); WBC 3.3 k/uL (3.8-10.6)
[2021-07-03 15:00] LABS: Large Platelets Present; Platelet Count 90 k/uL (150-450); Poikilocytosis (M) Present
[2021-07-03 19:32] LABS: LDL Cholesterol,Calculated 109.6 mg/dL (0.0-131.0)
== END | disposition home or self-care (01) ==
LOC: LABWHC1 09:52
PROVIDERS: ATTEND Internal Medicine
DX: I10 Essential (primary) hypertension (principal)
CPT/HCPCS: 36415; 80053; 80061; 82306; 84443; 85025

== ENCOUNTER 2022-04-13 23:07 | Inpatient (IN) | payer MEDICARE ==
[2022-04-13] MEDS ORDERED: SODIUM CHLORIDE 0.9% 1,000 ML IV STA ×2 (23:22)
[2022-04-13] MEDS ORDERED: cefTRIAXone IN SWFI 1,000 MG/10 ML SYRINGE IVP STA (23:22)
[2022-04-13] MEDS ORDERED: AMPICILLIN-SULBACTAM 3 GM in SODIUM CHLORIDE 0.9% 100 ML IVPB STA (23:22)
[2022-04-13] MEDS ORDERED: ACETAMINOPHEN IV (For NPO) 1,000 MG in EMPTY BAG 1 BAG IVPB STA (23:22)
[2022-04-13] MEDS ORDERED: KETOROLAC 15 MG/ML 1 ML VIAL IVP STA (23:22)
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
[2022-04-14 00:23] LABS: Albumin 3.4 g/dL (3.5-5.0); Calcium 10.5 mg/dL (8.4-10.2); Total Bilirubin 3.4 mg/dL (0.2-1.3); Total Protein 6.6 g/dL (6.3-8.2)
[2022-04-14 00:38] LABS: Magnesium 1.3 mg/dL (1.6-2.3); Phosphorus 1.9 mg/dL (2.5-4.5); Potassium 4.8 mmol/L (3.5-5.1)
[2022-04-14] MEDS: HYDROcodone/APAP 10-325MG 1 EACH TAB PO PRN ×2 (00:59→08:55)
[2022-04-14] MEDS ORDERED: ONDANSETRON 4 MG/2 ML VIAL IVP PRN (01:12)
[2022-04-14] MEDS ORDERED: MORPHINE SULFATE 4 MG/ML SYRINGE IV PRN (01:12)
[2022-04-14] MEDS ORDERED: NALOXONE 0.4 MG/ML 1 ML VIAL IV PRN (01:12)
[2022-04-14] MEDS ORDERED: ACETAMINOPHEN TAB 325 MG TAB PO PRN (01:12)
[2022-04-14] MEDS ORDERED: SODIUM CHLORIDE 0.9% 1,000 ML IV STA (01:12)
[2022-04-14] MEDS ORDERED: IBUPROFEN 400 MG TAB PO PRN (01:12)
[2022-04-14 01:16] LABS: Basophils % (A) 0 %; Eosinophils # (A) 0.1 k/uL (0-0.7); Eosinophils % (A) 1 %; HCT 42.5 % (34.0-46.0); HGB 13.4 gm/dL (11.4-16.0); Lymphocytes # (A) 0.3 k/uL (1.0-4.8); Lymphocytes % (A) 3 %; MCH 33.9 pg (25.0-35.0); MCHC 31.6 g/dL (31.0-37.0); MCV 107.2 fL (80.0-100.0); Macrocytosis Marked; Mean Platelet Volume 8.9; Monocytes # (A) 0.4 k/uL (0-1.0); Monocytes % (A) 4 %; Neutrophils # (A) 8.2 k/uL (1.3-7.7); Neutrophils % (A) 90 %; RBC 3.97 m/uL (3.80-5.40); RDW 15.1 % (11.5-15.5); WBC 9.1 k/uL (3.8-10.6)
[2022-04-14 01:58] LABS: Platelet Count 68 k/uL (150-450)
[2022-04-14] MEDS ORDERED: MAGNESIUM OXIDE 400 MG TAB PO STA (02:16)
[2022-04-14] MEDS: SODIUM CHLORIDE 0.9% 1,000 ML IV SCH ×3 (03:08→23:36)
[2022-04-14] MEDS: MAGNESIUM SULFATE-D5W PMX 1 GM in DEXTROSE/WATER 1 100ML.BAG IVPB SCH ×5 (03:08→17:05)
[2022-04-14] MEDS ORDERED: PANTOPRAZOLE 40 MG TABLET PO PRN (10:41)
[2022-04-14] MEDS ORDERED: HYDROcodone/APAP 10-325MG 1 EACH TAB PO PRN (10:41)
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
[2022-04-14] MEDS: AMPICILLIN-SULBACTAM 3 GM in SODIUM CHLORIDE 0.9% 100 ML IVPB SCH ×3 (12:44→23:36)
[2022-04-14 13:41] LABS: Appearance,Urine Cloudy (Clear); Bacteria,Urine Rare /hpf; Bilirubin,Urine Negative (Negative); Blood,Urine Moderate (Negative); Color,Urine Yellow; Glucose,Urine (UA) Negative (Negative); Ketones,Urine Negative (Negative); Leukocyte Esterase,Urine Moderate (Negative); Mucus,Urine Rare /hpf; Nitrite,Urine Negative (Negative); Protein,Urine Trace (Negative); RBC,Urine 7 /hpf (0-5); Specific Gravity,Urine 1.022 (1.001-1.035); Squamous Epithelial Cell,Urine 9 /hpf (0-4); Urobilinogen,Urine <2.0 mg/dL (<2.0); WBC,Urine 41 /hpf (0-5)
[2022-04-15] MEDS: HYDROcodone/APAP 10-325MG 1 EACH TAB PO PRN (07:20)
[2022-04-15] MEDS: AMPICILLIN-SULBACTAM 3 GM in SODIUM CHLORIDE 0.9% 100 ML IVPB SCH (07:22)
[2022-04-15] MEDS ORDERED: MAGNESIUM OXIDE 400 MG TAB PO SCH (09:00)
[2022-04-15] MEDS: SODIUM CHLORIDE 0.9% 1,000 ML IV SCH (09:20)
[2022-04-15 09:26] LABS: African American GFR (CKD) 53.4 (60.0-200.0); Albumin 2.8 g/dL (3.8-4.9); Albumin/Globulin Ratio 1.27 (1.60-3.17); Anion Gap 10.1 mmol/L (10.00-18.00); BUN/Creat Ratio 20.58 Ratio (12.00-20.00); Blood Urea Nitrogen 24.7 mg/dL (9.0-27.0); Calcium 9.4 mg/dL (8.7-10.3); Carbon Dioxide 19.9 mmol/L (20.0-27.5); Globulin 2.2 g/dL (1.6-3.3); Magnesium 2.2 mg/dL (1.5-2.4); Non-African American GFR(CKD) 46.1 (60.0-200.0); Potassium 4.3 mmol/L (3.5-5.5); Total Bilirubin 1.5 mg/dL (0.30-1.20)
[2022-04-15 09:53] LABS: Basophils # (A) 0.02 X 10*3/uL (0.00-0.10); Basophils % (A) 0.3 %; Eosinophils # (A) 0.15 X 10*3/uL (0.04-0.35); HCT 37.3 % (37.2-46.3); HGB 12.1 g/dL (12.0-15.0); Immature Grans, Automated 0.3 %; Immature Platelet Fraction 5.7 % (1.1-6.1); Lymphocytes # (A) 0.97 X 10*3/uL (0.90-5.00); Lymphocytes % (A) 12.9 %; MCH 34.1 pg (27.0-32.0); MCHC 32.4 g/dL (32.0-37.0); MCV 105.1 fL (80.0-97.0); Macrocytosis (M) 2+; Mean Platelet Volume 12.8 fL (9.5-12.2); NRBC Per 100 WBC 0 /100 WBCS (0.0-0.0); Neutrophils # (A) 5.75 X 10*3/uL (1.80-7.70); Neutrophils % (A) 76.5 %; Platelet Count 57 X 10*3/uL (140-440); RBC 3.55 X 10*6/uL (4.10-5.20); RDW 15.8 % (11.5-14.5); WBC 7.51 X 10*3/uL (4.50-10.00)
[2022-04-15 15:42] VITALS: BP 109/69; PULSE 66; RESP 17; TEMP 97.6
== END 2022-04-15 16:08 | disposition home or self-care (01) | DRG 872 ==
LOC: EC 23:07 → 3SCARD 04-14 01:13 → 4SSUR 04-14 15:46
PROVIDERS: ADMIT Hospitalist; ATTEND Hospitalist
DX: A41.9 Sepsis, unspecified organism (principal); N39.0 Urinary tract infection, site not specified; E87.2 Acidosis; N17.9 Acute kidney failure, unspecified; R65.20 Severe sepsis without septic shock; D69.6 Thrombocytopenia, unspecified; E53.8 Deficiency of other specified B group vitamins; R77.8 Other specified abnormalities of plasma proteins; E83.42 Hypomagnesemia; M19.90 Unspecified osteoarthritis, unspecified site; G40.909 Epilepsy, unspecified, not intractable, without status epilepticus; D86.9 Sarcoidosis, unspecified; R09.02 Hypoxemia; E87.8 Other disorders of electrolyte and fluid balance, not elsewhere classified; I12.9 Hypertensive chronic kidney disease with stage 1 through stage 4 chronic kidney disease, or unspecified chronic kidney disease; N18.30 Chronic kidney disease, stage 3 unspecified; Z20.822 Contact with and (suspected) exposure to COVID-19; Z87.440 Personal history of urinary (tract) infections; Z86.14 Personal history of Methicillin resistant Staphylococcus aureus infection; Z86.19 Personal history of other infectious and parasitic diseases; Z87.442 Personal history of urinary calculi; Z98.890 Other specified postprocedural states; Z91.041 Radiographic dye allergy status; Z79.899 Other long term (current) drug therapy; Z82.3 Family history of stroke; Z82.5 Family history of asthma and other chronic lower respiratory diseases
CPT/HCPCS: 36415; 80053; 81001; 82607; 83605; 83735; 83880; 84100; 84484; 85025; 87040; 87086; 87502; 87635; 93005; 96361; 96365; 96366; 96367; 96368; 96375; 99291

== ENCOUNTER → 2022-06-11 | Outpatient (CLI) | payer MEDICARE ==
--- NOTE | 2022-06-11 14:34 | US ---
EXAMINATION TYPE: US kidneys/renal and bladder DATE OF EXAM: 06/11/2022 COMPARISON: CLINICAL HISTORY: N39.0 UTI. EXAM MEASUREMENTS: Right Kidney: 9.4 x 4.9 x 4.5 cm Left Kidney: 6.2 x 2.6 x 2.4 cm Right Kidney: Multiple small anechoic masses, largest in the lower medial pole measures 0.94 x 0.83 x 1.2 cm. Echogenic sinus with slightly isoechoic cortex. Left Kidney: Atrophic, echogenic sinus, isoechoic cortex Bladder: wnl, non-distended Bilateral Jets seen: No There is no evidence for hydronephrosis at this point in time. No nephrolithiasis is seen. IMPRESSION: 1. No evidence of obstructive uropathy. 2. Multiple subcentimeter renal cysts.
== END | disposition home or self-care (01) ==
LOC: RADUSWWP 13:13
PROVIDERS: ATTEND Obstetrics & Gynecology
DX: N39.0 Urinary tract infection, site not specified (principal)
CPT/HCPCS: 76770

== ENCOUNTER 2022-07-01 17:18 | Observation (INO) | payer MEDICARE ==
[2022-07-01] MEDS ORDERED: SODIUM CHLORIDE 0.9% 1,000 ML IV STA ×3 (18:04→19:43)
[2022-07-01] MEDS ORDERED: ONDANSETRON 4 MG/2 ML VIAL IVP STA (18:04)
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
[2022-07-01 18:51] LABS: Basophils % (A) 1 %; Eosinophils # (A) 0.1 k/uL (0-0.7); Eosinophils % (A) 1 %; HCT 48.5 % (34.0-46.0); HGB 15.4 gm/dL (11.4-16.0); Hypochromasia Slight; Lymphocytes # (A) 0.9 k/uL (1.0-4.8); Lymphocytes % (A) 17 %; MCH 33.3 pg (25.0-35.0); MCHC 31.7 g/dL (31.0-37.0); MCV 105.1 fL (80.0-100.0); Macrocytosis Moderate; Monocytes # (A) 0.3 k/uL (0-1.0); Monocytes % (A) 6 %; Neutrophils # (A) 3.9 k/uL (1.3-7.7); Neutrophils % (A) 72 %; RBC 4.62 m/uL (3.80-5.40); RDW 14.1 % (11.5-15.5); WBC 5.3 k/uL (3.8-10.6)
[2022-07-01 18:56] LABS: INR 1.2 (<1.2); Partial Thromboplastin Time 26.1 sec (22.0-30.0)
[2022-07-01 18:59] LABS: Platelet Count 97 k/uL (150-450)
[2022-07-01 19:01] LABS: Albumin 3.9 g/dL (3.5-5.0); Magnesium 1.5 mg/dL (1.6-2.3); Phosphorus 2.2 mg/dL (2.5-4.5); Potassium 4.2 mmol/L (3.5-5.1); Total Bilirubin 2.3 mg/dL (0.2-1.3); Total Protein 7.3 g/dL (6.3-8.2)
[2022-07-01 19:02] LABS: Appearance,Urine Cloudy (Clear); Bacteria,Urine Many /hpf; Bilirubin,Urine Negative (Negative); Blood,Urine Small (Negative); Color,Urine Yellow; Glucose,Urine (UA) Negative (Negative); Ketones,Urine Negative (Negative); Leukocyte Esterase,Urine Large (Negative); Mucus,Urine Rare /hpf; Nitrite,Urine Positive (Negative); Protein,Urine Trace (Negative); RBC,Urine 4 /hpf (0-5); Specific Gravity,Urine 1.011 (1.001-1.035); Squamous Epithelial Cell,Urine 2 /hpf (0-4); Urobilinogen,Urine <2.0 mg/dL (<2.0); WBC,Urine >182 /hpf (0-5)
--- NOTE | 2022-07-01 19:35 | XR ---
EXAMINATION TYPE: XR chest 1V portable DATE OF EXAM: 07/01/2022 6:55 PM COMPARISON: Chest radiographs from 08/01/2020 TECHNIQUE: XR chest 1V portable Portable AP radiograph of the chest. CLINICAL INDICATION:Female, 71 years old with history of weakness; FINDINGS: Lungs/Pleura: There is no evidence of pleural effusion, focal consolidation, or pneumothorax. Pulmonary vascularity: Pulmonary vascular congestion. Heart/mediastinum: Cardiomediastinal silhouette is enlarged and stable. Musculoskeletal: No acute osseous pathology. IMPRESSION: Cardiomegaly and mild pulmonary vascular congestion. Correlate with BNP for congestive heart failure.
[2022-07-01] MEDS ORDERED: ONDANSETRON 4 MG/2 ML VIAL IVP PRN (19:39)
[2022-07-01] MEDS ORDERED: ACETAMINOPHEN TAB 325 MG TAB PO PRN (19:39)
[2022-07-01] MEDS ORDERED: NALOXONE 0.4 MG/ML 1 ML VIAL IV PRN (19:39)
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
[2022-07-01] MEDS ORDERED: SODIUM PHOSPHATE 10 MMOL in SODIUM CHLORIDE 0.9% 250 ML IVPB ONE (21:41)
[2022-07-01] MEDS ORDERED: Phosphorus Replacement Protoco 1 EACH MISC MISCELLANE PRN (21:41)
[2022-07-01] MEDS ORDERED: ALPRAZolam 0.25 MG TAB PO PRN (22:27)
[2022-07-01] MEDS: MAGNESIUM SULFATE-D5W PMX 1 GM in DEXTROSE/WATER 1 100ML.BAG IVPB SCH (22:29)
[2022-07-02] MEDS: MAGNESIUM SULFATE-D5W PMX 1 GM in DEXTROSE/WATER 1 100ML.BAG IVPB SCH ×3 (00:54→02:08)
[2022-07-02] MEDS: HYDROcodone/APAP 10-325MG 1 EACH TAB PO PRN ×2 (02:10→18:19)
[2022-07-02] MEDS: PANTOPRAZOLE 40 MG TABLET PO SCH (06:17)
[2022-07-02] MEDS ORDERED: MAGNESIUM OXIDE 400 MG TAB PO SCH (09:00)
[2022-07-02] MEDS ORDERED: SPIRONOLACTONE 25 MG TAB PO SCH (09:00)
[2022-07-02] MEDS: OXYBUTYNIN XL 5 MG TAB.ER.24 PO SCH (10:18)
[2022-07-02] MEDS: CYANOCOBALAMIN 500 MCG TAB PO SCH (10:19)
[2022-07-02] MEDS: CHOLECALCIFEROL 25 MCG (1000 IU) TABLET PO SCH (10:19)
[2022-07-02] MEDS: ENOXAPARIN 40 MG/0.4 ML SYRINGE SQ SCH ×2 (10:19→17:29)
--- NOTE | 2022-07-02 10:45 | CA ---
Transthoracic Echo Report Name: Marifer Crespo Age: 71 Gender: F : 1950 Exam Date: 07/02/2022 08:08 Exam Location: [facility] Ht (in): 64 Wt (lb): 189 Ordering Physician: Ashish Jones MD Attending/Referring Phys: [id number], Karen Entrance Guard Ragini Tolbert, MATTHEW Procedure CPT: Indications: exertional dyspnea Cardiac Hx: Technical Quality: Good Contrast 1: Total Dose (mL): Contrast 2: Total Dose (mL): MEASUREMENTS (Male / Female) Normal Values 2D ECHO LV Diastolic Diameter PLAX 3.1 cm 4.2 - 5.9 / 3.9 - 5.3 cm LV Systolic Diameter PLAX 2.3 cm IVS Diastolic Thickness 1.5 cm 0.6 - 1.0 / 0.6 - 0.9 cm LVPW Diastolic Thickness 1.5 cm 0.6 - 1.0 / 0.6 - 0.9 cm LV Relative Wall Thickness 0.9 RV Internal Dim ED PLAX 3.6 cm LA Systolic Diameter LX 3.3 cm 3.0 - 4.0 / 2.7 - 3.8 cm LA Volume 41.8 cm??? 18 - 58 / 22 - 52 cm??? M-MODE Aortic Root Diameter MM 3.5 cm MV E Point Septal Separation 0.5 cm AV Cusp Separation MM 2.1 cm DOPPLER AV Peak Velocity 148.0 cm/s AV Peak Gradient 8.8 mmHg MV Area PHT 2.4 cm??? Mitral E Point Velocity 84.8 cm/s Mitral A Point Velocity 109.0 cm/s Mitral E to A Ratio 0.8 MV Deceleration Time 321.8 ms MV E' Velocity 6.7 cm/s Mitral E to MV E' Ratio 12.7 TR Peak Velocity 462.8 cm/s TR Peak Gradient 85.7 mmHg Right Ventricular Systolic Press 89.7 mmHg FINDINGS Left Ventricle Left ventricular ejection fraction is estimated at 55-60 %. Left ventricular cavity size normal. Moderate concentric left ventricular hypertrophy. Flattening of the intraventricular septum with D-shaped left ventricle Right Ventricle Mild right ventricular dilatation. Severe pulmonary hypertension. Hypokinetic right ventricle Right Atrium Normal right atrial size. Left Atrium Normal left atrial size. No evidence for an atrial septal defect. Mitral Valve Mitral valve thickened. Mild mitral regurgitation. Aortic Valve Trileaflet aortic valve. Tricuspid Valve [id number] tricuspid regurgitation.structurally normal tricuspid valve. Pulmonic Valve Pulmonic valve not well visualized. Pericardium Normal pericardium. No pericardial effusion. Aorta Normal size aortic root and proximal ascending aorta. CONCLUSIONS 1. Normal left ventricle systolic function with D-shaped left ventricle consistent with pressure overload of the right ventricle 2. Mildly dilated right ventricle severe pulmonary hypertension 3. Moderate to severe tricuspid regurgitation 4. Mild mitral regurgitation Previewed by: Dr. Zoe Corea MD (Electronically Signed) Final Date: 02 July 2022 10:44
[2022-07-02 10:54] LABS: Basophils % (A) 0 %; Eosinophils # (A) 0.1 k/uL (0-0.7); Eosinophils % (A) 2 %; HCT 41.6 % (34.0-46.0); HGB 13.2 gm/dL (11.4-16.0); Hypochromasia Moderate; Lymphocytes # (A) 0.8 k/uL (1.0-4.8); Lymphocytes % (A) 19 %; MCH 34.1 pg (25.0-35.0); MCHC 31.8 g/dL (31.0-37.0); MCV 107.2 fL (80.0-100.0); Macrocytosis Moderate; Mean Platelet Volume 8.9; Monocytes # (A) 0.2 k/uL (0-1.0); Monocytes % (A) 6 %; Neutrophils # (A) 2.9 k/uL (1.3-7.7); Neutrophils % (A) 71 %; RBC 3.88 m/uL (3.80-5.40); WBC 4.1 k/uL (3.8-10.6)
[2022-07-02 11:07] LABS: Platelet Count 83 k/uL (150-450)
[2022-07-02 11:18] LABS: Albumin 2.9 g/dL (3.5-5.0); Phosphorus 2.7 mg/dL (2.5-4.5); Potassium 4.4 mmol/L (3.5-5.1); Total Bilirubin 2.2 mg/dL (0.2-1.3); Total Protein 5.5 g/dL (6.3-8.2)
--- NOTE | 2022-07-02 11:31 | P.PN ---
Subjective Progress Note Date: 07/02/22 seen and examined at bedside. Patient denies chest pain shortness of breath nausea vomiting fevers chills. Patient is resting comfortably in bed Objective - Vital Signs Vital signs: Vital Signs Temp 97.5 F L 07/02/22 08:00 Pulse 106 H 07/02/22 08:09 Resp 19 07/02/22 08:09 BP 156/81 07/02/22 08:00 Pulse Ox 95 07/02/22 04:00 FiO2 Intake & Output 07/01/22 07/02/22 07/02/22 18:59 06:59 18:59 Intake Total 1100 118 Balance 1100 118 Weight 90.718 kg 86 kg Intake: Intake, IV Titration 1100 Amount Magnesium Sulfate-D5w Pmx 200 1 gm In Dextrose/Water 1 100ml.bag @ 100 mls/hr IVPB Q1H STEFAN Rx#: [id number] Sodium Chloride 0.9% 1, 650 000 ml @ 130 mls/hr IV . Q7H42M STA Rx#:[id number] Sodium Phosphate 10 mmol 250 In Sodium Chloride 0.9% 250 ml @ 125 mls/hr IVPB ONCE ONE Rx#:[id number] Oral 118 Other: Voiding Method Toilet # Voids 1 - Exam General: [non toxic], [no distress], [appears at stated age] Derm: [warm], [dry] Head: [atraumatic], [normocephalic], [symmetric] Eyes: [EOMI], [no lid lag], [anicteric sclera] Mouth: [no lip lesion], [mucus membranes moist] Cardiovascular: [S1S2 reg], [systolic murmur], [positive posterior tibial pulse bilateral], Lungs: [CTA bilateral], [no rhonchi, no rales] , [no accessory muscle use] Abdominal: [soft], [ nontender to palpation], [no guarding], [no appreciable org anomegaly] Ext: [no gross muscle atrophy], [bilateral lower extremity lymphedema], [no contractures] Neuro: [ CN II-XI grossly intact], [no focal neuro deficits] Psych: [Alert], [oriented], [appropriate affect] - Labs CBC & Chem 7: 07/02/22 10:49 07/02/22 10:27 Labs: Abnormal Lab Results - Last 24 Hours (Table) 07/01/22 07/01/22 07/01/22 Range/Units 18:28 18:28 18:28 Hct 48.5 H (34.0-46.0) % MCV 105.1 H (80.0-100.0) fL Plt Count 97 L (150-450) k/uL Lymphocytes # 0.9 L (1.0-4.8) k/uL PT 13.0 H (9.0-12.0) sec INR 1.2 H (<1.2) Carbon Dioxide (22-30) mmol/L BUN (7-17) mg/dL Creatinine (0.52-1.04) mg/dL Glucose (74-99) mg/dL Plasma Lactic Acid Remy (0.7-2.0) mmol/L Calcium (8.4-10.2) mg/dL Phosphorus (2.5-4.5) mg/dL Magnesium (1.6-2.3) mg/dL Total Bilirubin (0.2-1.3) mg/dL AST (14-36) U/L Alkaline Phosphatase (38-126) U/L Troponin I (0.000-0.034) ng/mL Urine Appearance Cloudy H (Clear) Urine Protein Trace H (Negative) Urine Blood Small H (Negative) Urine Nitrite Positive H (Negative) Ur Leukocyte Esterase Large H (Negative) Urine WBC >182 H (0-5) /hpf Urine WBC Clumps Many H (None) /hpf Urine Bacteria Many H (None) /hpf Urine Mucus Rare H (None) /hpf 07/01/22 07/01/22 07/01/22 Range/Units 18:28 18:28 18:28 Hct (34.0-46.0) % MCV (80.0-100.0) fL Plt Count (150-450) k/uL Lymphocytes # (1.0-4.8) k/uL PT (9.0-12.0) sec INR (<1.2) Carbon Dioxide 20 L (22-30) mmol/L BUN 24 H (7-17) mg/dL Creatinine 1.35 H (0.52-1.04) mg/dL Glucose 103 H (74-99) mg/dL Plasma Lactic Acid Remy 4.2 H* (0.7-2.0) mmol/L Calcium 11.0 H (8.4-10.2) mg/dL Phosphorus 2.2 L (2.5-4.5) mg/dL Magnesium 1.5 L (1.6-2.3) mg/dL Total Bilirubin 2.3 H (0.2-1.3) mg/dL AST 52 H (14-36) U/L Alkaline Phosphatase 180 H (38-126) U/L Troponin I 0.065 H* (0.000-0.034) ng/mL Urine Appearance (Clear) Urine Protein (Negative) Urine Blood (Negative) Urine Nitrite (Negative) Ur Leukocyte Esterase (Negative) Urine WBC (0-5) /hpf Urine WBC Clumps (None) /hpf Urine Bacteria (None) /hpf Urine Mucus (None) /hpf 07/01/22 07/01/22 07/02/22 Range/Units 21:06 21:06 00:25 Hct (34.0-46.0) % MCV (80.0-100.0) fL Plt Count (150-450) k/uL Lymphocytes # (1.0-4.8) k/uL PT (9.0-12.0) sec INR (<1.2) Carbon Dioxide (22-30) mmol/L BUN (7-17) mg/dL Creatinine (0.52-1.04) mg/dL Glucose (74-99) mg/dL Plasma Lactic Acid Remy 2.7 H* (0.7-2.0) mmol/L Calcium (8.4-10.2) mg/dL Phosphorus (2.5-4.5) mg/dL Magnesium (1.6-2.3) mg/dL Total Bilirubin (0.2-1.3) mg/dL AST (14-36) U/L Alkaline Phosphatase (38-126) U/L Troponin I 0.073 H* 0.070 H* (0.000-0.034) ng/mL Urine Appearance (Clear) Urine Protein (Negative) Urine Blood (Negative) Urine Nitrite (Negative) Ur Leukocyte Esterase (Negative) Urine WBC (0-5) /hpf Urine WBC Clumps (None) /hpf Urine Bacteria (None) /hpf Urine Mucus (None) /hpf Microbiology - Last 24 Hours (Table) 07/01/22 18:28 Urine Culture - Preliminary Urine,Voided Assessment and Plan Assessment: 1. Recurrent UTI Await cultures Continue IV fluid Continue IV antibiotics Rocephin 2. Elevated troponin trending down Likely type II [place] vs ISMAEL related Echocardiogram pending Cardiology consulted 3. Hypercalcemia with history sarcoidosis ionized calcium is elevated check 1,25 dihydroxy vitamin D and PTH Continue IV fluids 4. Hypophosphatemia and hypomagnesemia Placement therapy provided deficiencies resolved 5. Bilateral lower extremity lymphedema TRAVIS ar[place]o ordered 6. Thrombocytopenia chronic platelets this AM at 83 No sign of acute bleeding 7. GI and DVT prophylaxis 8. A.m. labs
[2022-07-02] MEDS: METOPROLOL TARTRATE 25 MG TAB PO SCH ×2 (13:01→20:16)
[2022-07-02] MEDS: SODIUM CHLORIDE 0.9% 1,000 ML IV SCH (13:02)
--- NOTE | 2022-07-03 01:22 | CONS ---
CONSULTATION HISTORY OF PRESENT ILLNESS: This is a 71-year-old lady admitted to the hospital with possible urinary tract infection, some altered mentation, dizziness, lightheadedness, shortness of breath, and her troponin was found to be elevated, 3 levels are noted, all of these are flat. She is here with very nondescript symptoms, but because of elevated troponin, I was asked to see her. She does not regularly follow up with a map compiler, but she has seen a map compiler in the past. At the time of my evaluation, she is resting comfortably without any chest pain, shortness of breath, or palpitations. She is currently already on some antibiotics as well. Her arrival to the emergency room yesterday was mainly with generalized weakness, shaky, lack of energy, and some chills. She also has some urinary incontinence type picture and takes Ditropan. PAST MEDICAL HISTORY: Remarkable for recurrent UTI, nephrolithiasis, and also chronic back pain, enlarged spleen. She has pulmonary hypertension as per the old record, but the patient is not the best of historian. Please refer to the detailed note for other information. EKG revealed a sinus mechanism, sinus tachycardia, no acute changes. Nonspecific ST abnormality was noted. PHYSICAL EXAMINATION: VITAL SIGNS: Blood pressure is 150/70. Pulse rate is about 104 per minute, regular. HEENT: Unremarkable. Fundus was not examined by me. NECK: Supple. There is JVD of 1 to 2 cm. No carotid bruits. HEART: Reveals S1, S2 with a short systolic murmur at the left lower sternal border. LUNGS: Reveal bilateral diminished air entry. ABDOMEN: Soft, nontender. LOWER EXTREMITIES: Reveal diminished pulses. CENTRAL NERVOUS SYSTEM: Normal. EKG revealed sinus mechanism, nonspecific ST-T changes. Sinus tachycardia. IMPRESSION: 1. Elevated troponins, not suggestive of myocardial injury. 2. Probable urinary tract infection. 3. Pulmonary hypertension. 4. Generalized weakness with multiple comorbid conditions. RECOMMENDATIONS: No further intervention necessary from a cardiac standpoint. I will obtain echocardiogram to assess LV function. Troponin elevation does not suggest myocardial injury, and therefore, I would not recommend any intervention at this time other than echocardiogram. I will recommend subcutaneous heparin 5000 units q.12 hours or Lovenox for DVT prophylaxis. Thank you very much for the consult. MMODL / IJN: [id number] /
[2022-07-03] MEDS: PANTOPRAZOLE 40 MG TABLET PO SCH (06:31)
[2022-07-03] MEDS: SODIUM CHLORIDE 0.9% 1,000 ML IV SCH (06:32)
[2022-07-03] MEDS: ENOXAPARIN 40 MG/0.4 ML SYRINGE SQ SCH ×2 (08:14→11:34)
[2022-07-03] MEDS: CHOLECALCIFEROL 25 MCG (1000 IU) TABLET PO SCH (08:28)
[2022-07-03] MEDS: CYANOCOBALAMIN 500 MCG TAB PO SCH (08:29)
[2022-07-03] MEDS: OXYBUTYNIN XL 5 MG TAB.ER.24 PO SCH (08:29)
[2022-07-03] MEDS: METOPROLOL TARTRATE 25 MG TAB PO SCH (08:29)
[2022-07-03 08:57] LABS: Basophils % (A) 1 %; Eosinophils # (A) 0.1 k/uL (0-0.7); Eosinophils % (A) 3 %; HCT 42.8 % (34.0-46.0); HGB 13.7 gm/dL (11.4-16.0); Lymphocytes # (A) 1.2 k/uL (1.0-4.8); Lymphocytes % (A) 30 %; MCH 33.2 pg (25.0-35.0); MCHC 32.1 g/dL (31.0-37.0); MCV 103.6 fL (80.0-100.0); Macrocytosis Slight; Mean Platelet Volume 10.5; Monocytes # (A) 0.2 k/uL (0-1.0); Monocytes % (A) 6 %; Neutrophils # (A) 2.4 k/uL (1.3-7.7); Neutrophils % (A) 58 %; RBC 4.14 m/uL (3.80-5.40); RDW 14.3 % (11.5-15.5); WBC 4.1 k/uL (3.8-10.6)
[2022-07-03 09:08] LABS: Albumin 2.9 g/dL (3.5-5.0); Total Bilirubin 2.4 mg/dL (0.2-1.3); Total Protein 5.8 g/dL (6.3-8.2)
[2022-07-03 09:11] LABS: Magnesium 1.8 mg/dL (1.6-2.3); Phosphorus 2.4 mg/dL (2.5-4.5)
[2022-07-03] MEDS: HYDROcodone/APAP 10-325MG 1 EACH TAB PO PRN (10:03)
[2022-07-03 10:42] LABS: Platelet Count 51 k/uL (150-450)
[2022-07-03] MEDS ORDERED: AMOXIC-POT CLAV 875-125MG 1 EACH TAB PO SCH (11:45)
[2022-07-03 12:18] VITALS: BP 147/68; PULSE 51; TEMP 97.8
[2022-07-03 12:19] VITALS: RESP 18
--- NOTE | 2022-07-03 14:06 | P.DS ---
Providers Date of admission: 07/01/22 19:50 Expected date of discharge: 07/03/22 Attending physician: Katt Hairston DO Consults: 07/01/22 19:39 Consult Physician Routine Consulting Provider: [place] Consult Reason/Comments: elevated troponin Do you want consulting provider notified?: Yes Primary care physician: Lamar [facility] Course: Admitting diagnosis: UTI AK I Discharge diagnoses: Recurrent UTI gram-negative bacilli ISMAEL resolved Hypercalcemia due to sarcoidosis Electrolyte abnormalities replace Chronic thrombocytopenia Elevated troponin noncardiac 71 year old female with sarcoidosis, recurrent UTI, chronic lymphedema patient comes in due to generalized weakness over past couple days, along with decrease PO intake, and diffuse abd discomfort. denies any fever chills, chest pain or trouble breathing. she did vomit one time today , non bloody non bilious. denies any flank pain , or leg pain . she recently had UTI about 2-3 months ago, and was diagnosed with sepsis and treated in the hospital , she then followed up with urology , who could not find any renal stones, or anatomical abnormalities with her urinary tract system. patient does have history of sarcoidosis , not on any inhalers, steroids, or supplemental oxygen at home, she is reporting exertional SOB with mild moderate exertion again denies chest pain. Echo cardiogram done 2018 showed LVEF 55-60% upon arrival to the ED, she seemed tired, tachycardia. blood work showed ISMAEL, hypophosphatemia , hypomagnesemia, hypercalcemia , elevated trops, elevated LA. platelet 97 covid negative denies smoking, illicit drugs or alcohol 1. Recurrent UTI due to gram-negative bacilli Patient received IV Rocephin during hospital stay Patient will be discharged on oral Augmentin Patient advised to follow-up with PCP for further culture and sensitivity of the gram-negative bacilli 2. Elevated troponin trending down Likely type II [place] vs ISMAEL related Echocardiogram revealed normal left ventricular systolic function moderate to severe tricuspid regurgitation Severe pulmonary hypertension Cardiology followed during hospital stay 3. Hypercalcemia with history sarcoidosis ionized calcium is elevated check 1,25 dihydroxy vitamin D and PTH Continue IV fluids 4. Hypophosphatemia and hypomagnesemia Placement therapy provided deficiencies resolved 5. Bilateral lower extremity lymphedema TRAVIS hose ordered 6. Thrombocytopenia chronic platelets this AM at 53 No sign of acute bleeding Physical exam General: [non toxic], [no distress], [appears at stated age] Derm: [warm], [dry] Head: [atraumatic], [normocephalic], [symmetric] Eyes: [EOMI], [no lid lag], [anicteric sclera] Mouth: [no lip lesion], [mucus membranes moist] Cardiovascular: [S1S2 reg], [no murmur], [positive posterior tibial pulse bilateral], Lungs: [CTA bilateral], [no rhonchi, no rales] , [no accessory muscle use] Abdominal: [soft], [ nontender to palpation], [no guarding], [no appreciable organomegaly] Ext: [no gross muscle atrophy], [bilateral lymphedema], [no contractures] Neuro: [ CN II-XI grossly intact], [no focal neuro deficits] Psych: [Alert], [oriented], [appropriate affect] Disposition: Home Activity: As tolerated Diet: Cardiac Condition: Fair Follow-up with PCP within one week Follow-up with cardiology in 2 weeks Patient Condition at Discharge: Fair Plan - Discharge Summary Discharge Rx Participant: Yes New Discharge Prescriptions: New Amoxic-Pot Clav 875-125Mg [Augmentin 875-125] 1 each PO Q12HR #14 tab Metoprolol Tartrate [Lopressor] 25 mg PO BID #60 tab Continue Cyanocobalamin (Vitamin B-12) [Vitamin B-12] 1,000 mg PO DAILY Magnesium Oxide [[place]] 500 mg PO Q48H HYDROcodone/APAP 10-325MG [[place] 10-325] 1 tab PO Q8H PRN PRN Reason: Pain Omeprazole [PriLOSEC] 40 mg PO DAILY PRN PRN Reason: Gi Upset Cholecalciferol (Vitamin D3) [Vitamin D3 (3000 Iu)] 75 mcg PO DAILY Oxybutynin Xl [Ditropan XL] 5 mg PO DAILY Discontinued Spironolactone 50 mg PO DAILY Discharge Medication List Cyanocobalamin (Vitamin B-12) [Vitamin B-12] 1,000 mg PO DAILY 04/20/19 [History] Magnesium Oxide [[place]ell] 500 mg PO Q48H 05/20/19 [History] HYDROcodone/APAP 10-325MG [[place] 10-325] 1 tab PO Q8H PRN 09/10/19 [History] Omeprazole [PriLOSEC] 40 mg PO DAILY PRN 07/31/20 [History] Cholecalciferol (Vitamin D3) [Vitamin D3 (3000 Iu)] 75 mcg PO DAILY 04/14/22 [History] Oxybutynin Xl [Ditropan XL] 5 mg PO DAILY 07/01/22 [History] Amoxic-Pot Clav 875-125Mg [Augmentin 875-125] 1 each PO Q12HR #14 tab 07/03/22 [Rx] Metoprolol Tartrate [Lopressor] 25 mg PO BID #60 tab 07/03/22 [Rx] Follow up Appointment(s)/Referral(s): Agnes Carvajal MD [STAFF PHYSICIAN] - 2 Weeks (The office will call with an appointment time and date. ) Lamar Bernstein MD [Primary Care Provider] - 1-2 days (The office will call with an appointment time and date. ) Patient Instructions/Handouts: Urinary Tract Infection in Women (DC) Discharge Disposition: HOME SELF-CARE Plan of Treatment: Follow-up with PCP on urine culture/sensitivity for gram negative bacilli
--- NOTE | 2022-07-04 06:24 | PN ---
PROGRESS NOTE SUBJECTIVE: This lady is here with UTI and is on antibiotics. The troponin elevation does not suggest myocardial injury. She also has pulmonary hypertension. Echo revealed good systolic function. I am recommending that we will continue current medical regimen and her further management will be by the admitting physician. We will see her if there is a need. OBJECTIVE: VITAL SIGNS: Stable. HEART: S1, S2 heard normally. No significant murmurs. LUNGS: Reveal decent air entry. ABDOMEN: Exam is unchanged. LOWER EXTREMITIES: Exam is unchanged. The patient's echo revealed good systolic function with severe pulmonary hypertension, which is not new, and the patient is aware of this. We will see her as needed. MMODL / IJN: [id number] /
== END 2022-07-03 13:35 | disposition home or self-care (01) ==
LOC: EC 17:18 → 3SCARD 19:50
PROVIDERS: ADMIT Internal Medicine; ATTEND Internal Medicine
DX: N39.0 Urinary tract infection, site not specified (principal); N17.9 Acute kidney failure, unspecified; E83.52 Hypercalcemia; D86.9 Sarcoidosis, unspecified; D69.6 Thrombocytopenia, unspecified; E86.0 Dehydration; E83.42 Hypomagnesemia; E83.39 Other disorders of phosphorus metabolism; E87.20 Acidosis, unspecified; R00.0 Tachycardia, unspecified; G40.909 Epilepsy, unspecified, not intractable, without status epilepticus; I08.1 Rheumatic disorders of both mitral and tricuspid valves; M54.9 Dorsalgia, unspecified; G89.29 Other chronic pain; I11.0 Hypertensive heart disease with heart failure; I50.810 Right heart failure, unspecified; I27.29 Other secondary pulmonary hypertension; R16.1 Splenomegaly, not elsewhere classified; I89.0 Lymphedema, not elsewhere classified; Z87.440 Personal history of urinary (tract) infections; Z91.041 Radiographic dye allergy status; Z79.899 Other long term (current) drug therapy; Z87.891 Personal history of nicotine dependence; Z87.442 Personal history of urinary calculi; Z90.49 Acquired absence of other specified parts of digestive tract; Z82.3 Family history of stroke; Z82.5 Family history of asthma and other chronic lower respiratory diseases; Z82.0 Family history of epilepsy and other diseases of the nervous system; Z20.822 Contact with and (suspected) exposure to COVID-19
CPT/HCPCS: 96376; 96366; 96367; 96365 ×2; 96361; 96375; 99285; 36415; 93005; 93306; 97162; 82652; 83880; 80053 ×3; 82330; 83605 ×2; 83735 ×3; 84100 ×3; 84443; 84484 ×2; 85025 ×3; 85610; 85730; 81001; 87040; 83970; 87086; 87077; 87186; 87635; 71045; G0378 ×3; J2405 ×2; J0696 ×3; J3475 ×2

== ENCOUNTER 2023-04-22 10:35 | Emergency (ER) | payer MEDICARE ==
[2023-04-22 10:42] VITALS: BP 151/75; PULSE 105; RESP 22; TEMP 99.1
[2023-04-22] MEDS ORDERED: ONDANSETRON 4 MG/2 ML VIAL IVP STA (11:45)
[2023-04-22] MEDS ORDERED: SODIUM CHLORIDE 0.9% 1,000 ML IV STA (11:45)
[2023-04-22] MEDS ORDERED: FAMOTIDINE 20 MG/2 ML VIAL IV STA (11:46)
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
[2023-04-22 12:33] LABS: HCT 41.9 % (34.0-46.0); HGB 13.4 gm/dL (11.4-16.0); Hypochromasia Slight; MCH 34.7 pg (25.0-35.0); MCHC 32.1 g/dL (31.0-37.0); MCV 108.2 fL (80.0-100.0); Macrocytosis Marked; RBC 3.87 m/uL (3.80-5.40); RDW 14.8 % (11.5-15.5); WBC 9.3 k/uL (3.8-10.6)
[2023-04-22 12:38] LABS: ALT 16 U/L (4-34); AST 35 U/L (14-36); African American GFR (CKD) 74 (>60 ml/min/1.73 sqM); Albumin 3.2 g/dL (3.5-5.0); Alkaline Phosphatase 190 U/L (38-126); Amylase 81 U/L (30-110); Anion Gap 5 mmol/L; Blood Urea Nitrogen 17 mg/dL (7-17); Calcium 10.4 mg/dL (8.4-10.2); Carbon Dioxide 26 mmol/L (22-30); Chloride 108 mmol/L (98-107); Glucose 101 mg/dL (74-99); Lipase 170 U/L (23-300); Non-African American GFR(CKD) 64 (>60 ml/min/1.73 sqM); Sodium 139 mmol/L (137-145); Total Bilirubin 3.2 mg/dL (0.2-1.3); Total Protein 6.5 g/dL (6.3-8.2)
[2023-04-22 14:06] LABS: Band Neutrophils % 1 %; Eosinophils # (M) 0.09 k/uL (0-0.7); Lymphocytes # (M) 0.56 k/uL (1.0-4.8); Monocytes # (M) 0.47 k/uL (0-1.0); Neutrophils % (M) 87 %; Nucleated Red Blood Cells 0 /100 WBC (0-0); Total Cells Counted 100
[2023-04-22 14:07] LABS: Platelet Count 96 k/uL (150-450)
[2023-04-22 14:20] LABS: Appearance,Urine Turbid (Clear); Bacteria,Urine Moderate /hpf; Bilirubin,Urine Negative (Negative); Blood,Urine Moderate (Negative); Color,Urine Light Red; Glucose,Urine (UA) Negative (Negative); Ketones,Urine Negative (Negative); Leukocyte Esterase,Urine Large (Negative); Mucus,Urine Rare /hpf; Nitrite,Urine Negative (Negative); Protein,Urine 2+ (Negative); RBC,Urine 62 /hpf (0-5); Specific Gravity,Urine 1.016 (1.001-1.035); Urobilinogen,Urine <2.0 mg/dL (<2.0); WBC,Urine >182 /hpf (0-5)
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
[2023-04-22] MEDS ORDERED: cefTRIAXone IN SWFI 1,000 MG/10 ML SYRINGE IVP STA (14:45)
[2023-04-22] MEDS ORDERED: traMADol 50 MG STARTER PACK 3 TAB BTL PO STA (15:44)
[2023-04-22] MEDS ORDERED: ONDANSETRON 4 MG ODT STARTER PACK 2 TAB BTL PO STA (15:44)
== END 2023-04-22 16:36 | disposition home or self-care (01) ==
LOC: EC 10:35
DX: N39.0 Urinary tract infection, site not specified (principal); N20.0 Calculus of kidney; K57.30 Diverticulosis of large intestine without perforation or abscess without bleeding; I10 Essential (primary) hypertension; M19.90 Unspecified osteoarthritis, unspecified site; Z79.899 Other long term (current) drug therapy; Z20.822 Contact with and (suspected) exposure to COVID-19; Z87.891 Personal history of nicotine dependence; Z88.8 Allergy status to other drugs, medicaments and biological substances; Z90.49 Acquired absence of other specified parts of digestive tract
CPT/HCPCS: 36415; 80053; 82150; 83605; 83690; 85025; 81001; 87086; 87077; 87186; 87636; 74176; 99284; 96374; 96375 ×2; 96361; J2405; J0696

== ENCOUNTER 2023-05-20 05:31 | Inpatient (IN) | payer MEDICARE ==
[2023-05-20] MEDS ORDERED: ONDANSETRON 4 MG/2 ML VIAL IVP STA (06:15)
[2023-05-20] MEDS ORDERED: SODIUM CHLORIDE 0.9% 1,000 ML IV STA ×2 (06:15→10:01)
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
[2023-05-20 06:42] LABS: Basophils % (A) 0 %; Eosinophils # (A) 0.1 k/uL (0-0.7); Eosinophils % (A) 2 %; HCT 37.9 % (34.0-46.0); HGB 12.3 gm/dL (11.4-16.0); Hypochromasia Moderate; Lymphocytes # (A) 0.7 k/uL (1.0-4.8); Lymphocytes % (A) 11 %; MCH 35.3 pg (25.0-35.0); MCHC 32.6 g/dL (31.0-37.0); MCV 108.4 fL (80.0-100.0); Macrocytosis Marked; Mean Platelet Volume 9.3; Monocytes # (A) 0.2 k/uL (0-1.0); Monocytes % (A) 4 %; Neutrophils # (A) 5.3 k/uL (1.3-7.7); Neutrophils % (A) 83 %; Platelet Count 67 k/uL (150-450); RDW 15.2 % (11.5-15.5); WBC 6.4 k/uL (3.8-10.6)
[2023-05-20 06:55] LABS: ALT 17 U/L (4-34); AST 38 U/L (14-36); African American GFR (CKD) 69 (>60 ml/min/1.73 sqM); Albumin 3.1 g/dL (3.5-5.0); Alkaline Phosphatase 169 U/L (38-126); Amylase 77 U/L (30-110); Anion Gap 6 mmol/L; Blood Urea Nitrogen 18 mg/dL (7-17); Calcium 10.2 mg/dL (8.4-10.2); Carbon Dioxide 26 mmol/L (22-30); Chloride 106 mmol/L (98-107); Glucose 101 mg/dL (74-99); Lipase 174 U/L (23-300); Non-African American GFR(CKD) 60 (>60 ml/min/1.73 sqM); Potassium 4.4 mmol/L (3.5-5.1); Sodium 138 mmol/L (137-145); Total Bilirubin 3.3 mg/dL (0.2-1.3); Total Protein 6.2 g/dL (6.3-8.2)
[2023-05-20] MEDS ORDERED: PROCHLORPERAZINE INJ 10 MG/2 ML VIAL IVP STA (07:27)
--- NOTE | 2023-05-20 07:31 | XR ---
EXAMINATION TYPE: XR chest 1V DATE OF EXAM: 05/20/2023 COMPARISON: 11/01/2022 INDICATION: Hypoxemia TECHNIQUE: Single frontal view of the chest is obtained. FINDINGS: The heart size is mildly prominent. The pulmonary vasculature is prominent. No suspicious focal consolidations are evident. IMPRESSION: 1. Cardiomegaly with prominent pulmonary vascular markings. Correlate for volume overload.
--- NOTE | 2023-05-20 09:24 | CT ---
EXAMINATION TYPE: CT brain wo con DATE OF EXAM: 05/20/2023 COMPARISON: None HISTORY: ams CT DLP: 1088.[address] of the brain was performed. The ventricles, basal cisterns and sulci overlying the cerebral convexities demonstrate mild enlargem ent. There is no evidence for intracranial hemorrhage or sulcal effacement. There is decreased attenuation about the periventricular white matter and deep white matter of both c erebral hemispheres, compatible with chronic small vessel ischemia. Differential diagnosis does inclu de demyelination. No mass effects are seen.No midline shift. Osseous calvarium is intact. If symptoms persist consider MRI. IMPRESSION: 1. Age related atrophic and chronic small vessel ischemic change without acute intracranial process s een at this time.
[2023-05-20 09:30] LABS: VBG PH 7.43 (7.31-7.41)
[2023-05-20] MEDS ORDERED: cefTRIAXone IN SWFI 1,000 MG/10 ML SYRINGE IVP STA (10:01)
[2023-05-20 10:03] LABS: Lactic Acid, Venous 3.7 mmol/L (0.7-2.0)
[2023-05-20 10:18] LABS: Amorphous Sediment,Urine Rare /hpf; Appearance,Urine Cloudy (Clear); Bacteria,Urine Many /hpf; Bilirubin,Urine Negative (Negative); Blood,Urine Large (Negative); Glucose,Urine (UA) Negative (Negative); Ketones,Urine Negative (Negative); Leukocyte Esterase,Urine Large (Negative); Mucus,Urine Rare /hpf; Nitrite,Urine Negative (Negative); Protein,Urine 2+ (Negative); RBC,Urine >182 /hpf (0-5); Specific Gravity,Urine 1.017 (1.001-1.035); Squamous Epithelial Cell,Urine 5 /hpf (0-4); Urobilinogen,Urine <2.0 mg/dL (<2.0); WBC,Urine 125 /hpf (0-5)
[2023-05-20 10:24] LABS: Color,Urine Yellow
[2023-05-20] MEDS ORDERED: LACTULOSE 20 GM/30 ML CUP PO ONE (10:24)
[2023-05-20] MEDS ORDERED: NALOXONE 0.4 MG/ML 1 ML VIAL IV PRN (10:40)
[2023-05-20] MEDS ORDERED: ONDANSETRON 4 MG/2 ML VIAL IVP PRN (10:40)
[2023-05-20 11:11] LABS: INR 1.3 (<1.2)
[2023-05-20 11:24] LABS: Partial Thromboplastin Time 21.8 sec (22.0-30.0)
--- NOTE | 2023-05-20 12:04 | US ---
EXAMINATION TYPE: US abdomen limited DATE OF EXAM: 05/20/2023 COMPARISON: US liver 11/02/22 CLINICAL INDICATION: Female, 72 years old with history of elebated bilirubin; elevated bilirubin; hx cholecystectomy TECHNIQUE: Multiple sonographic images of the right upper quadrant are obtained. FINDINGS: EXAM MEASUREMENTS: Liver Length: 13.4 CBD: 0.62 cm Right Kidney: 9.8 x 5.0 x 5.3 cm KENNEL WORKER NOTES:Limited evaluation due to constant patient movement and patient uncooperative Pancreas: Obscured by bowel gas Liver: Dilated vessels within Gallbladder: Surgically absent CBD: wnl Right Kidney: Hypoechoic foci noted medially (1): 1.2 x 1.1 x 1.0 cm (2): 1.2 x 1.1 x 1.0 cm. Echoge patrick foci with shadowing, both measuring 0.63 cm. IMPRESSION: 1. Prominent vascular structures within the liver. 2. Nonobstructing right renal stones. 3. Right renal cysts
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
[2023-05-20] MEDS: HYDROcodone/APAP 10-325MG 1 EACH TAB PO PRN ×2 (16:10→23:59)
[2023-05-20] MEDS: LACTULOSE 20 GM/30 ML CUP PO SCH (20:36)
[2023-05-21 04:59] LABS: African American GFR (CKD) 71 (>60 ml/min/1.73 sqM); Anion Gap 8 mmol/L; Blood Urea Nitrogen 25 mg/dL (7-17); Calcium 10.1 mg/dL (8.4-10.2); Carbon Dioxide 22 mmol/L (22-30); Chloride 110 mmol/L (98-107); Glucose 87 mg/dL (74-99); Non-African American GFR(CKD) 61 (>60 ml/min/1.73 sqM); Potassium 5.2 mmol/L (3.5-5.1); Sodium 140 mmol/L (137-145)
[2023-05-21 06:02] LABS: Anisocytosis Slight; Basophils % (A) 0 %; Eosinophils % (A) 0 %; HCT 36.6 % (34.0-46.0); HGB 11.8 gm/dL (11.4-16.0); Hypochromasia Moderate; Lymphocytes # (A) 0.5 k/uL (1.0-4.8); Lymphocytes % (A) 7 %; MCH 35.5 pg (25.0-35.0); MCHC 32.4 g/dL (31.0-37.0); MCV 109.8 fL (80.0-100.0); Macrocytosis Marked; Mean Platelet Volume 9.7; Monocytes # (A) 0.3 k/uL (0-1.0); Monocytes % (A) 4 %; Neutrophils # (A) 6.6 k/uL (1.3-7.7); Neutrophils % (A) 87 %; RBC 3.33 m/uL (3.80-5.40); WBC 7.6 k/uL (3.8-10.6)
[2023-05-21 06:39] LABS: Platelet Count 47 k/uL (150-450)
[2023-05-21] MEDS: LACTULOSE 20 GM/30 ML CUP PO SCH ×2 (08:24→20:44)
[2023-05-21] MEDS: CYANOCOBALAMIN 500 MCG TAB PO SCH (08:24)
[2023-05-21] MEDS: MAGNESIUM OXIDE 400 MG TAB PO SCH (08:25)
[2023-05-21] MEDS: CHOLECALCIFEROL 25 MCG (1000 IU) TABLET PO SCH (08:25)
[2023-05-21] MEDS: HYDROcodone/APAP 10-325MG 1 EACH TAB PO PRN ×2 (08:25→16:58)
[2023-05-21] MEDS ORDERED: ENOXAPARIN 40 MG/0.4 ML SYRINGE SQ SCH (09:00)
--- NOTE | 2023-05-21 11:12 | P.PN ---
Subjective Progress Note Date: 05/21/23 Hospital Course: Patient is a 72-year-old female with history of hypertension, chronic kidney disease, GERD, recurrent UTIs with history of MRSA, sarcoidosis, bilateral lower extremity lymphedema and pulmonary hypertension presenting with altered mental status. In the ED, temperature 90.8, pulse 63, respiratory rate 18, blood pressure 151/84, saturating at 85% on room air. WBC 6.4, hemoglobin 12.3, platelets 67, INR 1.3, potassium 4.4, BUN 18, creatinine 0.96, glucose 101, total bilirubin 2.3, AST 38, ALT 17, ALP 169, proBNP 1200, lactate 3.7, urine positive for leukocyte esterase. CT brain shows no acute process. CXR independently interpreted shows vascular congestion similar to prior xray. EKG independently interpreted shows sinus rhythm, non-specific ST T changes. The ultrasound shows prominent vascular structures within the liver, nonobstructive right renal stones and right renal cyst. Patient admitted for encephalopathy and UTI. Blood cultures positive for Klebsiella. ID consulted. Patient remains on ceftriaxone. Encephalopathy improved. Subjective: And seen and examined at bedside. No acute events overnight. Mental status is come back to baseline. Still having urinary frequency. Having bowel movements. Pertinent positives and negatives as discussed above, a complete review of systems was performed and all other systems are negative. Vitals Signs Reviewed. General: nontoxic, no distress, appears at stated age Derm: warm, dry Head: atraumatic, normocephalic, symmetric Eyes: EOMI, no lid lag, anicteric sclera Mouth: no lip lesion, mucus membranes moist Cardiovascular: S1S2 reg, no murmur Lungs: CTA bilateral, no rhonchi, no rales , no accessory muscle use Abdominal: soft, nontender to palpation, no guarding, no appreciable organomega ly Ext: no gross muscle atrophy, no edema, no contractures Neuro: CN II-XI grossly intact, no focal neuro deficits Psych: Alert, oriented, appropriate affect Data Reviewed Today: Pertinent Labs: WBC 7.6, hemoglobin 11.8, platelet 47, potassium 5.2, creatinine 0.95, lactate 2.8, TSH 0.73 Imaging: No new imaging Assessment and Plan: Active: Acute metabolic encephalopathy, suspected septic versus hepatic, resolved Urinary Tract infection Bacteremia Lactic acidosis, likely type be in the setting of liver disease Nonobstructive renal stones Acute or chronic hypoxic respiratory failure History of pulmonary hypertension Transaminitis Jaundice Elevated INR 1.3 Thrombocytopenia -Continue IV ceftriaxone -Urine culture pending -Blood cultures positive for Klebsiella -ID consulted -Does have nonobstructive renal stones -Continue normal saline at 75 mL an hour -hold diuretics -TSH normal, folic acid and B12 levels pending -continue to wean oxygen -liver US does show some dilated vessels, possibly related to pulmonary HTN -cirrhosis not excluded -continue lactulose -Thrombocytopenia possibly related to liver disease as well Chronic: Chronic lymphedema Hypertension GERD History of remote sarcoidosis DVT ppx: Hold Lovenox Code status: Full code Anticipated discharge place: Pending clinical course Anticipated discharge time: Pending clinical course Objective - Vital Signs Vital signs: Vital Signs Temp 98.8 F 05/21/23 06:49 Pulse 83 05/21/23 08:00 Resp 17 05/21/23 08:00 BP 132/68 05/21/23 06:49 Pulse Ox 100 05/21/23 06:49 FiO2 Intake & Output 05/20/23 05/21/23 05/21/23 18:59 06:59 18:59 Weight 79.379 kg Other: Voiding Method Bedpan Bedpan # Bowel Movements 1 - Labs CBC & Chem 7: 05/21/23 05:26 05/21/23 03:26 Labs: Abnormal Lab Results - Last 24 Hours (Table) 05/20/23 05/20/23 05/20/23 Range/Units 07:46 14:11 17:01 RBC (3.80-5.40) m/uL MCV (80.0-100.0) fL MCH (25.0-35.0) pg RDW (11.5-15.5) % Plt Count (150-450) k/uL Lymphocytes # (1.0-4.8) k/uL Macrocytosis PT 13.0 H (9.0-12.0) sec INR 1.3 H (<1.2) APTT 21.8 L (22.0-30.0) sec Potassium (3.5-5.1) mmol/L Chloride (98-107) mmol/L BUN (7-17) mg/dL Plasma Lactic Acid Remy 3.6 H* 3.5 H* (0.7-2.0) mmol/L 05/20/23 05/20/2305/21/23 Range/Units 20:38 23:36 03:14 RBC (3.80-5.40) m/uL MCV (80.0-100.0) fL MCH (25.0-35.0) pg RDW (11.5-15.5) % Plt Count (150-450) k/uL Lymphocytes # (1.0-4.8) k/uL Macrocytosis PT (9.0-12.0) sec INR (<1.2) APTT (22.0-30.0) sec Potassium (3.5-5.1) mmol/L Chloride (98-107) mmol/L BUN (7-17) mg/dL Plasma Lactic Acid Remy 2.2 H* 5.1 H* 2.3 H* (0.7-2.0) mmol/L 05/21/23 05/21/23 05/21/23 Range/Units 03:26 05:26 06:37 RBC 3.33 L (3.80-5.40) m/uL MCV 109.8 H (80.0-100.0) fL MCH 35.5 H (25.0-35.0) pg RDW 16.0 H (11.5-15.5) % Plt Count 47 L (150-450) k/uL Lymphocytes # 0.5 L (1.0-4.8) k/uL Macrocytosis Marked A PT (9.0-12.0) sec INR (<1.2) APTT (22.0-30.0) sec Potassium 5.2 H (3.5-5.1) mmol/L Chloride 110 H (98-107) mmol/L BUN 25 H (7-17) mg/dL Plasma Lactic Acid Remy 2.1 H* (0.7-2.0) mmol/L 05/21/23 Range/Units 09:31 RBC (3.80-5.40) m/uL MCV (80.0-100.0) fL MCH (25.0-35.0) pg RDW (11.5-15.5) % Plt Count (150-450) k/uL Lymphocytes # (1.0-4.8) k/uL Macrocytosis PT (9.0-12.0) sec INR (<1.2) APTT (22.0-30.0) sec Potassium (3.5-5.1) mmol/L Chloride (98-107) mmol/L BUN (7-17) mg/dL Plasma Lactic Acid Remy 2.8 H* (0.7-2.0) mmol/L Microbiology - Last 24 Hours (Table) 05/20/23 06:14 Blood Culture Gram Stain - Preliminary Blood Blood Culture - Preliminary Gram Neg Bacilli
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
[2023-05-21] MEDS: PIPERACILLIN-TAZOBACTAM 3.375 GM in SODIUM CHLORIDE 0.9% 100 ML IVPB SCH (22:51)
[2023-05-22] MEDS: HYDROcodone/APAP 10-325MG 1 EACH TAB PO PRN ×3 (01:17→17:49)
[2023-05-22] MEDS: PIPERACILLIN-TAZOBACTAM 3.375 GM in SODIUM CHLORIDE 0.9% 100 ML IVPB SCH ×3 (06:39→22:23)
[2023-05-22] MEDS: CHOLECALCIFEROL 25 MCG (1000 IU) TABLET PO SCH (08:10)
[2023-05-22] MEDS: CYANOCOBALAMIN 500 MCG TAB PO SCH (08:10)
[2023-05-22] MEDS: MAGNESIUM OXIDE 400 MG TAB PO SCH (08:11)
[2023-05-22] MEDS: LACTULOSE 20 GM/30 ML CUP PO SCH ×2 (08:12→21:22)
[2023-05-22] MEDS: BARIUM SULFATE 450 ML ORAL.SUSP BOTTLE PO PRN ×2 (08:41→11:26)
[2023-05-22 09:30] LABS: Basophils % (A) 0 %; Eosinophils # (A) 0.1 k/uL (0-0.7); Eosinophils % (A) 1 %; HGB 11.3 gm/dL (11.4-16.0); Hypochromasia Marked; Lymphocytes # (A) 0.7 k/uL (1.0-4.8); Lymphocytes % (A) 11 %; MCH 34.8 pg (25.0-35.0); MCHC 31.5 g/dL (31.0-37.0); MCV 110.6 fL (80.0-100.0); Macrocytosis Marked; Mean Platelet Volume 10.3; Monocytes # (A) 0.4 k/uL (0-1.0); Monocytes % (A) 6 %; Neutrophils # (A) 5.2 k/uL (1.3-7.7); Neutrophils % (A) 80 %; RBC 3.25 m/uL (3.80-5.40); RDW 15.6 % (11.5-15.5); WBC 6.6 k/uL (3.8-10.6)
[2023-05-22 09:39] LABS: Platelet Count 46 k/uL (150-450)
[2023-05-22 11:41] LABS: ALT 18 U/L (4-34); AST 60 U/L (14-36); African American GFR (CKD) 69 (>60 ml/min/1.73 sqM); Albumin 2.5 g/dL (3.5-5.0); Albumin/Globulin Ratio 0.9; Alkaline Phosphatase 86 U/L (38-126); Anion Gap 2 mmol/L; Blood Urea Nitrogen 26 mg/dL (7-17); Carbon Dioxide 27 mmol/L (22-30); Chloride 106 mmol/L (98-107); Globulin 2.9 g/dL; Glucose 92 mg/dL (74-99); Non-African American GFR(CKD) 60 (>60 ml/min/1.73 sqM); Potassium 4.2 mmol/L (3.5-5.1); Sodium 135 mmol/L (137-145); Total Bilirubin 2.1 mg/dL (0.2-1.3); Total Protein 5.4 g/dL (6.3-8.2)
--- NOTE | 2023-05-22 13:14 | P.PN ---
Subjective Progress Note Date: 05/22/23 Hospital Course: Patient is a 72-year-old female with history of hypertension, chronic kidney d isease, GERD, recurrent UTIs with history of MRSA, sarcoidosis, bilateral lower extremity lymphedema and pulmonary hypertension presenting with altered mental status. In the ED, temperature 90.8, pulse 63, respiratory rate 18, blood pressure 151/84, saturating at 85% on room air. WBC 6.4, hemoglobin 12.3, platelets 67, INR 1.3, potassium 4.4, BUN 18, creatinine 0.96, glucose 101, total bilirubin 2.3, AST 38, ALT 17, ALP 169, proBNP 1200, lactate 3.7, urine positive for leukocyte esterase. CT brain shows no acute process. CXR independently interpreted shows vascular congestion similar to prior xray. EKG independently interpreted shows sinus rhythm, non-specific ST T changes. The ultrasound shows prominent vascular structures within the liver, nonobstructive right renal stones and right renal cyst. Patient admitted for encephalopathy and UTI. Blood cultures positive for Klebsiella. ID consulted. Patient remains on ceftriaxone. Encephalopathy improved. Growing enterococcus in urine and Klebsiella in blood. Pending CT abdomen and pelvis. Subjective: Patient seen and examined at bedside. No acute events overnight. Mental status normal. Still having urinary frequency. Having bowel movements. Pertinent positives and negatives as discussed above, a complete review of sy stems was performed and all other systems are negative. Vitals Signs Reviewed. General: nontoxic, no distress, appears at stated age Derm: warm, dry Head: atraumatic, normocephalic, symmetric Eyes: EOMI, no lid lag, anicteric sclera Mouth: no lip lesion, mucus membranes moist Cardiovascular: S1S2 reg, no murmur Lungs: CTA bilateral, no rhonchi, no rales , no accessory muscle use Abdominal: soft, nontender to palpation, no guarding, no appreciable organomegaly Ext: no gross muscle atrophy, no edema, no contractures Neuro: CN II-XI grossly intact, no focal neuro deficits Psych: Alert, oriented, appropriate affect Data Reviewed Today: Pertinent Labs: WBC 6.6, hemoglobin 11.3, with a 46, sodium 135, creatinine 0.97, B12 3000, folic acid 10.5, TSH 0.7. Imaging: No new imaging Assessment and Plan: Active: Acute metabolic encephalopathy, suspected septic versus hepatic, resolved Urinary Tract infection Bacteremia Lactic acidosis, likely type be in the setting of liver disease Nonobstructive renal stones Acute or chronic hypoxic respiratory failure, now on room air History of pulmonary hypertension Transaminitis Jaundice Elevated INR 1.3 Thrombocytopenia -Antibiotics switched to IV Zosyn -ID following, CT abdomen and pelvis pending -Does have nonobstructive renal stones -Continue normal saline at 75 mL an hour -hold diuretics -liver US does show some dilated vessels, possibly related to pulmonary HTN -cirrhosis not excluded -continue lactulose , titrate to 2-3 bowel movements per day -Thrombocytopenia possibly related to liver disease as well Chronic: Chronic lymphedema Hypertension GERD History of remote sarcoidosis DVT ppx: Hold Lovenox due to thrombocytopenia Code status: Full code Anticipated discharge place: Pending clinical course Anticipated discharge time: Pending clinical course Objective - Vital Signs Vital signs: Vital Signs Temp 98.1 F 05/22/23 07:22 Pulse 53 L 05/22/23 08:11 Resp 15 05/22/23 08:11 BP 160/75 05/22/23 07:22 Pulse Ox 100 05/22/23 07:22 FiO2 Intake & Output 05/21/23 05/22/23 05/22/23 18:59 06:59 18:59 Other: Voiding Method Bedpan Bedpan # Voids 2 # Bowel Movements 4 - Labs CBC & Chem 7: 05/22/23 08:30 05/22/23 08:30 Labs: Abnormal Lab Results - Last 24 Hours (Table) 05/21/23 05/22/23 05/22/23 Range/Units 03:26 08:30 08:30 RBC 3.25 L (3.80-5.40) m/uL Hgb 11.3 L (11.4-16.0) gm/dL MCV 110.6 H (80.0-100.0) fL RDW 15.6 H (11.5-15.5) % Plt Count 46 L (150-450) k/uL Lymphocytes # 0.7 L (1.0-4.8) k/uL Macrocytosis Marked A Sodium 135 L (137-145) mmol/L BUN 26 H (7-17) mg/dL Total Bilirubin 2.1 H (0.2-1.3) mg/dL AST 60 H (14-36) U/L C-Reactive Protein 13.0 H (<1.0) mg/dL Total Protein 5.4 L (6.3-8.2) g/dL Albumin 2.5 L (3.5-5.0) g/dL Vitamin B12 3199.0 H (200.0-944.0) pg/mL Microbiology - Last 24 Hours (Table) 05/20/23 06:30 Blood Culture - Preliminary Blood 05/20/23 10:57 Urine Culture - Preliminary Urine,Catheterized Group D Enterococcus
--- NOTE | 2023-05-22 15:12 | CT ---
EXAMINATION TYPE: CT abdomen pelvis wo con DATE OF EXAM: 05/22/2023 COMPARISON: 04/22/2023 HISTORY: 72-year-old female Bacteremia CT DLP: 720.8 mGycm. Automated exposure control for dose reduction was used. TECHNIQUE: Contiguous axial scanning of the abdomen and pelvis without IV contrast. Coronal and sagit minerva reconstructions performed. FINDINGS: Mild generalized anasarca change is new. Heart mildly enlarged with similar trace pericardial effusion. Interstitial and septal lines in the l ower lungs similar to slightly increased. New small left pleural effusion. Noncontrast appearance of the liver, adrenal glands, and pancreas within normal limits. Cholecystecto my clips. Slightly atrophic left kidney. 1.6 cm hypodensity within the spleen, noted to be larger in 2019 suggesting a benign etiology. Bilateral nonobstructive renal calculi measuring up to 7 mm on the right and 5 mm on the left. Cortic al protuberance posterior mid right kidney measures 1.4 cm. Not seen back in 2014. Six-month follow-u p CT recommended. No dilated small bowel, free fluid, or free air. No mesenteric or retroperitoneal lymphadenopathy. Pr oximal sigmoid diverticulosis. No pericolonic inflammatory change. Bladder nondistended. Uterus anteverted. Both ovaries are visualized. Left-sided pelvic phlebolith. M ild pelvic free fluid. No pelvic lymphadenopathy. Bones: Moderate degenerative change at the hips. Degenerated dextroconvex scoliosis lumbar spine. Ant erior and right lateral wedge deformity L1 vertebral body with mild retropulsion into the ventral spi nal canal contributing to moderate focal spinal canal stenosis. The finding is unchanged from 08/01/20 20. IMPRESSION: 1. Correlate for CHF with early interstitial pulmonary edema. Generalized anasarca. Small left pleur al effusion. 2. Bilateral nonobstructive nephrolithiasis measuring up to 7 mm. 3. A 1.4 cm cortical protuberance posterior right kidney not seen in 2014. Recommend 6 month follow- up CT to exclude early neoplasm. 4. Proximal sigmoid diverticulosis without acute diverticulitis. 5. Similar moderate focal spinal canal stenosis at T12-L1 secondary to chronic vertebral compression deformity of L1.
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
[2023-05-23] MEDS: HYDROcodone/APAP 10-325MG 1 EACH TAB PO PRN ×2 (02:49→13:37)
[2023-05-23] MEDS: PIPERACILLIN-TAZOBACTAM 3.375 GM in SODIUM CHLORIDE 0.9% 100 ML IVPB SCH ×3 (05:46→21:50)
[2023-05-23 08:41] LABS: Basophils % (A) 0 %; Eosinophils # (A) 0.2 k/uL (0-0.7); Eosinophils % (A) 4 %; HCT 38.9 % (34.0-46.0); HGB 12.2 gm/dL (11.4-16.0); Hypochromasia Marked; Lymphocytes # (A) 0.7 k/uL (1.0-4.8); Lymphocytes % (A) 14 %; MCH 34.5 pg (25.0-35.0); MCHC 31.4 g/dL (31.0-37.0); Macrocytosis Marked; Mean Platelet Volume 9.2; Monocytes # (A) 0.2 k/uL (0-1.0); Monocytes % (A) 4 %; Neutrophils # (A) 3.6 k/uL (1.3-7.7); Neutrophils % (A) 75 %; RBC 3.54 m/uL (3.80-5.40); RDW 15.2 % (11.5-15.5); WBC 4.9 k/uL (3.8-10.6)
[2023-05-23 08:43] LABS: Platelet Count 71 k/uL (150-450)
[2023-05-23 08:51] LABS: African American GFR (CKD) 73 (>60 ml/min/1.73 sqM); Anion Gap 4 mmol/L; Blood Urea Nitrogen 21 mg/dL (7-17); Calcium 9.9 mg/dL (8.4-10.2); Carbon Dioxide 28 mmol/L (22-30); Chloride 103 mmol/L (98-107); Glucose 90 mg/dL (74-99); Non-African American GFR(CKD) 63 (>60 ml/min/1.73 sqM); Potassium 3.9 mmol/L (3.5-5.1); Sodium 135 mmol/L (137-145)
[2023-05-23] MEDS: MAGNESIUM OXIDE 400 MG TAB PO SCH (09:18)
[2023-05-23] MEDS: CHOLECALCIFEROL 25 MCG (1000 IU) TABLET PO SCH (09:18)
[2023-05-23] MEDS: CYANOCOBALAMIN 500 MCG TAB PO SCH (09:19)
[2023-05-23] MEDS: LACTULOSE 20 GM/30 ML CUP PO SCH ×2 (09:21→21:50)
--- NOTE | 2023-05-23 13:33 | P.PN ---
Subjective Progress Note Date: 05/23/23 Hospital Course: Patient is a 72-year-old female with history of hypertension, chronic kidney disease, GERD, recurrent UTIs with history of MRSA, sarcoidosis, bilateral lower extremity lymphedema and pulmonary hypertension presenting with altered mental status. In the ED, temperature 90.8, pulse 63, respiratory rate 18, blood pressure 151/84, saturating at 85% on room air. WBC 6.4, hemoglobin 12.3, platelets 67, INR 1.3, potassium 4.4, BUN 18, creatinine 0.96, glucose 101, total bilirubin 2.3, AST 38, ALT 17, ALP 169, proBNP 1200, lactate 3.7, urine positive for leukocyte esterase. CT brain shows no acute process. CXR independently interpreted shows vascular congestion similar to prior xray. EKG independently interpreted shows sinus rhythm, non-specific ST T changes. The ultrasound shows prominent vascular structures within the liver, nonobstructive right renal stones and right renal cyst. Patient admitted for encephalopathy and UTI. Blood cultures positive for Klebsiella. ID consulted. Patient remains on ceftriaxone. Encephalopathy improved. Growing enterococcus in urine and Klebsiella in blood. CT abdomen and pelvis showed interstitial pulmonary edema, generalized anasarca, small left pleural effusion, bilateral nonobstructive nephrolithiasis, 1.4 cm cortical proturberance posterior right kidney, six-month follow-up recommended, proximal sigmoid diverticulosis without diverticulitis, chronic vertebral compression deformity of L1. Subjective: Patient seen and examined at bedside. No acute events overnight. Mental status normal. Pertinent positives and negatives as discussed above, a complete review of systems was performed and all other systems are negative. Vitals Signs Reviewed. General: nontoxic, no distress, appears at stated age Derm: warm, dry Head: atraumatic, normocephalic, symmetric Eyes: EOMI, no lid lag, anicteric sclera Mouth: no lip lesion, mucus membranes moist Cardiovascular: S1S2 reg, no murmur Lungs: CTA bilateral, no rhonchi, no rales , no accessory muscle use Abdominal: soft, nontender to palpation, no guarding, no appreciable organomegaly Ext: no gross muscle atrophy, bilateral lower extremity edema, no contractures Neuro: CN II-XI grossly intact, no focal neuro deficits Psych: Alert, oriented, appropriate affect Data Reviewed Today: Pertinent Labs: WBC hemoglobin 12.2, platelets 71, sodium 135, creatinine 0.93 Imaging: CT abdomen and pelvis showed interstitial pulmonary edema, generalized anasarca, small left pleural effusion, bilateral nonobstructive nephrolithiasis, 1.4 cm cortical proturberance posterior right kidney, six-month follow-up recommended, proximal sigmoid diverticulosis without diverticulitis, chronic vertebral compression deformity of L1 Assessment and Plan: Active: Acute metabolic encephalopathy, suspected septic versus hepatic, resolved Urinary Tract infection Klebsiella bacteremia Lactic acidosis, likely type be in the setting of liver disease Nonobstructive renal stones Acute or chronic hypoxic respiratory failure, now on room air History of pulmonary hypertension Transaminitis Jaundice Elevated INR 1.3 Thrombocytopenia -On IV Zosyn -ID following, CT abdomen and pelvis did not show any clear-cut source of bacteremia -hold diuretics -liver US does show some dilated vessels, possibly related to pulmonary HTN -cirrhosis not excluded -continue lactulose , titrate to 2-3 bowel movements per day -Thrombocytopenia possibly related to liver disease as well Chronic: Chronic lymphedema Hypertension GERD History of remote sarcoidosis DVT ppx: Lovenox Code status: Full code Anticipated discharge place: Pending clinical course Anticipated discharge time: Pending clinical course Objective - Vital Signs Vital signs: Vital Signs Temp 98.3 F 05/23/23 07:34 Pulse 64 05/23/23 07:34 Resp 18 05/23/23 07:34 BP 149/75 05/23/23 07:34 Pulse Ox 98 05/23/23 12:01 FiO2 Intake & Output 05/22/23 05/23/23 05/23/23 18:59 06:59 18:59 Other: Voiding Method Bedpan Diaper # Voids 1 3 # Bowel Movements 1 3 - Labs CBC & Chem 7: 05/23/23 07:42 05/23/23 07:42 Labs: Abnormal Lab Results - Last 24 Hours (Table) 05/22/23 05/23/23 05/23/23 Range/Units 08:30 07:42 07:42 RBC 3.54 L (3.80-5.40) m/uL MCV 110.0 H (80.0-100.0) fL Plt Count 71 L D (150-450) k/uL Lymphocytes # 0.7 L (1.0-4.8) k/uL Macrocytosis Marked A Sodium 135 L (137-145) mmol/L BUN 21 H (7-17) mg/dL Procalcitonin 5.39 H (0.02-0.09) ng/mL Microbiology - Last 24 Hours (Table) 05/22/23 08:30 Blood Culture - Preliminary Blood 05/20/23 06:30 Blood Culture - Preliminary Blood 05/20/23 06:14 Blood Culture Gram Stain - Final Blood Blood Culture - Final Klebsiella oxytoca
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
[2023-05-24] MEDS: HYDROcodone/APAP 10-325MG 1 EACH TAB PO PRN ×3 (02:19→23:27)
[2023-05-24] MEDS: PIPERACILLIN-TAZOBACTAM 3.375 GM in SODIUM CHLORIDE 0.9% 100 ML IVPB SCH (05:54)
[2023-05-24] MEDS: MAGNESIUM OXIDE 400 MG TAB PO SCH (09:06)
[2023-05-24] MEDS: CHOLECALCIFEROL 25 MCG (1000 IU) TABLET PO SCH (09:06)
[2023-05-24] MEDS: CYANOCOBALAMIN 500 MCG TAB PO SCH (09:06)
[2023-05-24] MEDS: ENOXAPARIN 40 MG/0.4 ML SYRINGE SQ SCH (09:07)
[2023-05-24] MEDS: LACTULOSE 20 GM/30 ML CUP PO SCH ×2 (09:11→19:29)
--- NOTE | 2023-05-24 12:01 | P.PN ---
Subjective Progress Note Date: 05/24/23 Hospital Course: Patient is a 72-year-old female with history of hypertension, chronic kidney d isease, GERD, recurrent UTIs with history of MRSA, sarcoidosis, bilateral lower extremity lymphedema and pulmonary hypertension presenting with altered mental status. In the ED, temperature 90.8, pulse 63, respiratory rate 18, blood pressure 151/84, saturating at 85% on room air. WBC 6.4, hemoglobin 12.3, platelets 67, INR 1.3, potassium 4.4, BUN 18, creatinine 0.96, glucose 101, total bilirubin 2.3, AST 38, ALT 17, ALP 169, proBNP 1200, lactate 3.7, urine positive for leukocyte esterase. CT brain shows no acute process. CXR independently interpreted shows vascular congestion similar to prior xray. EKG independently interpreted shows sinus rhythm, non-specific ST T changes. The ultrasound shows prominent vascular structures within the liver, nonobstructive right renal stones and right renal cyst. Patient admitted for encephalopathy and UTI. Blood cultures positive for Klebsiella. ID consulted. Patient remains on ceftriaxone. Encephalopathy improved. Growing enterococcus in urine and Klebsiella in blood. CT abdomen and pelvis showed interstitial pulmonary edema, generalized anasarca, small left pleural effusion, bilateral nonobstructive nephrolithiasis, 1.4 cm cortical proturberance posterior right kidney, six-month follow-up recommended, proximal sigmoid diverticulosis without diverticulitis, chronic vertebral compression deformity of L1. Pending final cultures Subjective: Patient seen and examined at bedside. No acute events overnight. Pertinent positives and negatives as discussed above, a complete review of systems was performed and all other systems are negative. Vitals Signs Reviewed. General: nontoxic, no distress, appears at stated age Derm: warm, dry Head: atraumatic, normocephalic, symmetric Eyes: EOMI, no lid lag, anicteric sclera Mouth: no lip lesion, mucus membranes moist Cardiovascular: S1S2 reg, no murmur Lungs: CTA bilateral, no rhonchi, no rales , no accessory muscle use Abdominal: soft, nontender to palpation, no guarding, no appreciable organomegaly Ext: no gross muscle atrophy, bilateral lower extremity edema, no contractures Neuro: CN II-XI grossly intact, no focal neuro deficits Psych: Alert, oriented, appropriate affect Data Reviewed Today: Pertinent Labs: Microbiology shows urine growing group D enterococcus as well as presumptive staph aureus Imaging: No new imaging Assessment and Plan: Active: Acute metabolic encephalopathy, suspected septic versus hepatic, resolved Urinary Tract infection Klebsiella bacteremia Lactic acidosis, likely type be in the setting of liver disease, resolved Nonobstructive renal stones Acute or chronic hypoxic respiratory failure, now on room air History of pulmonary hypertension Transaminitis Jaundice Elevated INR 1.3 Thrombocytopenia -On IV Zosyn -ID following, waiting for final sensitivities -hold diuretics -liver US does show some dilated vessels, possibly related to pulmonary HTN -cirrhosis not excluded -continue lactulose , titrate to 2-3 bowel movements per day -Thrombocytopenia possibly related to liver disease as well Chronic: Chronic lymphedema Hypertension GERD History of remote sarcoidosis DVT ppx: Lovenox Code status: Full code Anticipated discharge place: Pending clinical course Anticipated discharge time: Pending clinical course Objective - Vital Signs Vital signs: Vital Signs Temp 98.1 F 05/24/23 07:06 Pulse 64 05/24/23 07:06 Resp 18 05/24/23 07:06 BP 139/76 05/24/23 07:06 Pulse Ox 99 05/24/23 09:44 FiO2 21 05/24/23 09:44 Intake & Output 05/23/23 05/24/23 05/24/23 18:59 06:59 18:59 Other: Voiding Method Diaper # Voids 2 # Bowel Movements 1 1 - Labs CBC & Chem 7: 05/23/23 07:42 05/23/23 07:42 Labs: Microbiology - Last 24 Hours (Table) 05/20/23 10:57 Urine Culture - Preliminary Urine,Catheterized Group D Enterococcus Presumptive Staph aureus 05/22/23 08:30 Blood Culture - Preliminary Blood 05/20/23 06:30 Blood Culture - Preliminary Blood
[2023-05-24] MEDS: AMPICILLIN-SULBACTAM 3 GM in SODIUM CHLORIDE 0.9% 100 ML IVPB SCH ×3 (13:22→23:27)
[2023-05-24 14:09] LABS: Appearance,Urine Cloudy (Clear); Bacteria,Urine Rare /hpf; Bilirubin,Urine Negative (Negative); Blood,Urine Large (Negative); Color,Urine Yellow; Glucose,Urine (UA) Negative (Negative); Ketones,Urine Negative (Negative); Leukocyte Esterase,Urine Large (Negative); Mucus,Urine Rare /hpf; Nitrite,Urine Negative (Negative); Protein,Urine 1+ (Negative); RBC,Urine 56 /hpf (0-5); Specific Gravity,Urine 1.024 (1.001-1.035); Squamous Epithelial Cell,Urine 6 /hpf (0-4); Urobilinogen,Urine <2.0 mg/dL (<2.0); WBC,Urine 40 /hpf (0-5)
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
[2023-05-25] MEDS: AMPICILLIN-SULBACTAM 3 GM in SODIUM CHLORIDE 0.9% 100 ML IVPB SCH ×2 (05:22→13:37)
[2023-05-25] MEDS: ENOXAPARIN 40 MG/0.4 ML SYRINGE SQ SCH (08:34)
[2023-05-25] MEDS: CHOLECALCIFEROL 25 MCG (1000 IU) TABLET PO SCH (08:34)
[2023-05-25] MEDS: LACTULOSE 20 GM/30 ML CUP PO SCH (08:34)
[2023-05-25] MEDS: CYANOCOBALAMIN 500 MCG TAB PO SCH (08:34)
[2023-05-25] MEDS: MAGNESIUM OXIDE 400 MG TAB PO SCH (08:34)
[2023-05-25] MEDS: HYDROcodone/APAP 10-325MG 1 EACH TAB PO PRN (08:40)
--- NOTE | 2023-05-25 13:13 | P.DS ---
Providers Date of admission: 05/20/23 10:54 Expected date of discharge: 05/25/23 Attending physician: Sly Byrnes MD Consults: 05/21/23 08:15 Consult Physician Routine Consulting Provider: Rohan Crowe Consult Reason/Comments: bacteremia, UTI Do you want consulting provider notified?: Yes Primary care physician: Lamar [facility] Course: Discharge Diagnosis: Acute metabolic encephalopathy, suspected septic versus hepatic Urinary Tract infection Klebsiella bacteremia Lactic acidosis, likely type be in the setting of liver disease Nonobstructive renal stones Acute or chronic hypoxic respiratory failure History of pulmonary hypertension Transaminitis Jaundice Elevated INR 1.3 Thrombocytopenia Hospital Course: Patient is a 72-year-old female with history of hypertension, chronic kidney disease, GERD, recurrent UTIs with history of MRSA, sarcoidosis, bilateral lower extremity lymphedema and pulmonary hypertension presenting with altered mental status. In the ED, temperature 90.8, pulse 63, respiratory rate 18, blood pressure 151/84, saturating at 85% on room air. WBC 6.4, hemoglobin 12.3, platelets 67, INR 1.3, potassium 4.4, BUN 18, creatinine 0.96, glucose 101, total bilirubin 2.3, AST 38, ALT 17, ALP 169, proBNP 1200, lactate 3.7, urine positive for leukocyte esterase. CT brain shows no acute process. CXR independently interpreted shows vascular congestion similar to prior xray. EKG independently interpreted shows sinus rhythm, non-specific ST T changes. The ultrasound shows prominent vascular structures within the liver, nonobstructive right renal stones and right renal cyst. Patient admitted for encephalopathy and UTI. Blood cultures positive for Klebsiella. ID consulted. Patient was on ceftriaxone. Encephalopathy improved after bowel movements. Growing enterococcus and staph (likely colonization) in urine and Klebsiella in blood. CT abdomen and pelvis showed interstitial pulmonary edema, generalized anasarca, small left pleural effusion, bilateral nonobstructive nephrolithiasis, 1.4 cm cortical proturberance posterior right kidney, six-month follow-up recommended, proximal sigmoid diverticulosis without diverticulitis, chronic vertebral compression deformity of L1. Improved. Home with oral antibiotics. Patient would need to see a GI specialist for further services workup. There is concern for cardiac cirrhosis. Patient seen and examined at bedside. Vital signs reviewed and stable. General: nontoxic, no distress, appears at stated age Derm: warm, dry Head: atraumatic, normocephalic, symmetric Eyes: EOMI, no lid lag, anicteric sclera Mouth: no lip lesion, mucus membranes moist Cardiovascular: S1S2 reg, no murmur Lungs: CTA bilateral, no rhonchi, no rales , no accessory muscle use Abdominal: soft, nontender to palpation, no guarding, no appreciable organomegaly Ext: no gross muscle atrophy, bilateral lower extremity edema, no contractures Neuro: CN II-XI grossly intact, no focal neuro deficits Psych: Alert, oriented, appropriate affect A total of 33 minutes of time were spent preparing this complex discharge summary. Patient was discharged on 05/25/23 at 13:05. Patient Condition at Discharge: Stable Plan - Discharge Summary Discharge Rx Participant: No New Discharge Prescriptions: New Lactulose [Cephulac] 20 gm PO BID #1000 ml Sulfamethox-Tmp 800-160Mg [Bactrim DS 800-160 mg] 1 tab PO Q12HR #10 tab Amoxic-Pot Clav 875-125Mg [Augmentin 875-125] 1 tab PO Q12HR 10 Days #20 tab Continue HYDROcodone/APAP 10-325MG [Roulette 10-325] 1 tab PO Q8H PRN PRN Reason: Pain Furosemide [Lasix] 20 mg PO DAILY Cyanocobalamin [Vitamin B-12] 250 mcg PO DAILY Cholecalciferol [Vitamin D3 (25 Mcg = 1000 Iu)] 25 mcg PO DAILY Magnesium Oxide [Magox 400] 400 mg PO DAILY Discharge Medication List HYDROcodone/APAP 10-325MG [Roulette 10-325] 1 tab PO Q8H PRN 09/10/19 [History] Cholecalciferol [Vitamin D3 (25 Mcg = 1000 Iu)] 25 mcg PO DAILY 04/22/23 [History] Cyanocobalamin [Vitamin B-12] 250 mcg PO DAILY 04/22/23 [History] Furosemide [Lasix] 20 mg PO DAILY 04/22/23 [History] Magnesium Oxide [Magox 400] 400 mg PO DAILY 04/22/23 [History] Amoxic-Pot Clav 875-125Mg [Augmentin 875-125] 1 tab PO Q12HR 10 Days #20 tab 05/25/23 [Rx] Lactulose [Cephulac] 20 gm PO BID #1000 ml 05/25/23 [Rx] Sulfamethox-Tmp 800-160Mg [Bactrim DS 800-160 mg] 1 tab PO Q12HR #10 tab 05/25/23 [Rx] Follow up Appointment(s)/Referral(s): Lamar Fowler NPC [Family Provider] - 06/11/23 9:30 am (`) Rohan Crowe MD [STAFF PHYSICIAN] - 1 Week Patient Instructions/Handouts: Bacteremia (DC) Activity/Diet/Wound Care/Special Instructions: Please see her PCP, needs to see liver specialist for further workup. Discharge Disposition: HOME SELF-CARE
[2023-05-25 14:46] VITALS: BP 143/68; PULSE 70; RESP 15; TEMP 98.4
== END 2023-05-25 15:48 | disposition home or self-care (01) | DRG 871 ==
LOC: EC 05:31 → 5NMEDONC 10:54 → 4SSUR 21:41
PROVIDERS: ADMIT Student in an Organized Health Care Education/Training Program; ATTEND Student in an Organized Health Care Education/Training Program
DX: A41.59 Other Gram-negative sepsis (principal); G93.41 Metabolic encephalopathy; J96.21 Acute and chronic respiratory failure with hypoxia; N39.0 Urinary tract infection, site not specified; E87.20 Acidosis, unspecified; I13.0 Hypertensive heart and chronic kidney disease with heart failure and stage 1 through stage 4 chronic kidney disease, or unspecified chronic kidney disease; K76.82 Hepatic encephalopathy; I27.20 Pulmonary hypertension, unspecified; R74.01 Elevation of levels of liver transaminase levels; N18.9 Chronic kidney disease, unspecified; D86.9 Sarcoidosis, unspecified; I50.810 Right heart failure, unspecified; I45.10 Unspecified right bundle-branch block; G40.909 Epilepsy, unspecified, not intractable, without status epilepticus; B96.1 Klebsiella pneumoniae [K. pneumoniae] as the cause of diseases classified elsewhere; B95.2 Enterococcus as the cause of diseases classified elsewhere; G89.21 Chronic pain due to trauma; K76.1 Chronic passive congestion of liver; K57.30 Diverticulosis of large intestine without perforation or abscess without bleeding; D69.59 Other secondary thrombocytopenia; K21.9 Gastro-esophageal reflux disease without esophagitis; R79.1 Abnormal coagulation profile; M19.90 Unspecified osteoarthritis, unspecified site; N20.0 Calculus of kidney; N28.1 Cyst of kidney, acquired; I89.0 Lymphedema, not elsewhere classified; Z20.822 Contact with and (suspected) exposure to COVID-19; V89.2XXS Person injured in unspecified motor-vehicle accident, traffic, sequela; Z87.891 Personal history of nicotine dependence; Z87.440 Personal history of urinary (tract) infections; Z86.14 Personal history of Methicillin resistant Staphylococcus aureus infection; Z79.899 Other long term (current) drug therapy; Z91.041 Radiographic dye allergy status
CPT/HCPCS: 36415; 70450; 71045; 74176; 76705; 80048; 80053; 81001; 82140; 82150; 82607; 82746; 82803; 83605; 83690; 83880; 84145; 84443; 85025; 85610; 85730; 86140; 87040; 87077; 87086; 87186; 87636; 93005; 94760; 96361; 96374; 96375; 96376; 99285

== ENCOUNTER 2023-08-11 14:47 | Observation (INO) | payer MEDICARE ==
[2023-08-11] MEDS ORDERED: SODIUM CHLORIDE 0.9% 1,000 ML IV STA (15:49)
[2023-08-11] MEDS ORDERED: ONDANSETRON 4 MG/2 ML VIAL IVP STA (15:49)
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
[2023-08-11 17:28] LABS: HCT 37.9 % (34.0-46.0); HGB 12.4 gm/dL (11.4-16.0); Hypochromasia Slight; MCHC 32.8 g/dL (31.0-37.0); MCV 109.8 fL (80.0-100.0); Macrocytosis Marked; Mean Platelet Volume 9.2; RBC 3.45 m/uL (3.80-5.40); RDW 13.9 % (11.5-15.5); WBC 7.2 k/uL (3.8-10.6)
[2023-08-11 17:46] LABS: INR 1.2 (<1.2); Partial Thromboplastin Time 25.5 sec (22.0-30.0)
[2023-08-11 17:58] LABS: ALT 16 U/L (4-34); AST 34 U/L (14-36); African American GFR (CKD) 65 (>60 ml/min/1.73 sqM); Albumin 3.1 g/dL (3.5-5.0); Alkaline Phosphatase 134 U/L (38-126); Anion Gap 7 mmol/L; Blood Urea Nitrogen 25 mg/dL (7-17); Carbon Dioxide 25 mmol/L (22-30); Chloride 106 mmol/L (98-107); Glucose 123 mg/dL (74-99); Lipase 93 U/L (23-300); Magnesium 1.6 mg/dL (1.6-2.3); Non-African American GFR(CKD) 57 (>60 ml/min/1.73 sqM); Phosphorus 2.4 mg/dL (2.5-4.5); Potassium 5.3 mmol/L (3.5-5.1); Sodium 138 mmol/L (137-145); Total Bilirubin 2.9 mg/dL (0.2-1.3); Total Protein 6.2 g/dL (6.3-8.2)
[2023-08-11 18:01] LABS: Appearance,Urine Cloudy (Clear); Bacteria,Urine Moderate /hpf; Bilirubin,Urine Negative (Negative); Blood,Urine Moderate (Negative); Color,Urine Yellow; Glucose,Urine (UA) Negative (Negative); Ketones,Urine Negative (Negative); Leukocyte Esterase,Urine Large (Negative); Mucus,Urine Rare /hpf; Nitrite,Urine Negative (Negative); PH, Urine 6.5 (5.0-8.0); Protein,Urine 1+ (Negative); RBC,Urine 50 /hpf (0-5); Specific Gravity,Urine 1.017 (1.001-1.035); Squamous Epithelial Cell,Urine 4 /hpf (0-4); Urobilinogen,Urine <2.0 mg/dL (<2.0); WBC,Urine >182 /hpf (0-5)
[2023-08-11 18:04] LABS: NT-Pro-B-Type Natriuretic Pept 534 pg/mL
[2023-08-11 18:20] LABS: Band Neutrophils % 2 %; Monocytes # (M) 0.22 k/uL (0-1.0); Neutrophils % (M) 88 %; Nucleated Red Blood Cells 0 /100 WBC (0-0); Total Cells Counted 100
[2023-08-11 18:22] LABS: Platelet Count 96 k/uL (150-450)
[2023-08-11] MEDS ORDERED: MORPHINE SULFATE 4 MG/ML SYRINGE IVP PRN (19:34)
[2023-08-11] MEDS ORDERED: MORPHINE SULFATE 4 MG/ML SYRINGE IVP STA (19:34)
--- NOTE | 2023-08-11 21:09 | XR ---
EXAMINATION TYPE: XR chest 2V DATE OF EXAM: 08/11/2023 6:37 PM CLINICAL INDICATION:Female, 72 years old with history of cough; [facility] COMPARISON: 05/20/2023 chest x-ray and before TECHNIQUE: XR chest 2V Frontal and lateral views of the chest. FINDINGS: Lines/Tubes: EKG leads and other extrinsic radiodensities over the chest. No indwelling lines are seen. Lungs/Pleura: Possible trace pleural effusions. No focal consolidation or pneumothorax. Pulmonary vascularity: Mild pulmonary vascular congestion. Heart/mediastinum: Cardiomediastinal silhouette is stable, heart appears mildly enlarged. Musculoskeletal: No acute osseous pathology. Mild degenerative changes of the spine and shoulders. Mo derate anterior wedge compression deformity of an upper lumbar vertebra appears to have been present since at least 03/2023. Other findings: None significant. Cholecystectomy clips. IMPRESSION: Cardiomegaly with mild vascular congestion and possible trace pleural effusions, similar to before. C orrelate for fluid overload/CHF.
--- NOTE | 2023-08-11 21:43 | CT ---
EXAMINATION TYPE: CT abdomen pelvis wo con CT DLP: 583.9 mGycm, Automated exposure control for dose reduction was used. DATE OF EXAM: 08/11/2023 7:27 PM COMPARISON: CT chest from 08/01/2020. CLINICAL INDICATION:Female, 72 years old with history of cough; abdominal pain, nausea, vomiting TECHNIQUE: Axial CT of the abdomen and pelvis. Sagittal and coronal reformats were created on a [employer] workstation. Contrast used: mL of , (none if empty) Oral contrast used: without Oral Contrast (none if empty) FINDINGS: Exam is limited by lack of contrast. LOWER CHEST: Heart is mildly to moderately enlarged. Trace pericardial fluid. Partially calcified aor tic valve and likely mild coronary artery calcifications. Mild calcification of the visualized aorta. Stranding in the lung bases, likely scarring and/or subsegmental atelectasis. ABDOMEN LIVER: Unremarkable GALLBLADDER AND BILE DUCTS: Cholecystectomy clips. Nondilated biliary tree. PANCREAS: Unremarkable. SPLEEN: Negative for acute process. Hypodense 13 mm nodule and perisplenic collateral vessels similar to prior. ADRENAL GLANDS: Unremarkable. KIDNEYS AND URETERS: Left kidney is atrophic/scarred compared to the right. There are multiple bilate ral renal calculi, largest 6 mm in the right lower pole. No definite ureteral calculi or hydronephros is. Somewhat hyperdense 12 mm exophytic nodule from the posterior right kidney, appears similar in si ze compared to the prior study. PELVIS BLADDER: Small amount of gas in the anterior lumen, otherwise unremarkable. REPRODUCTIVE: Unremarkable. ABDOMEN & PELVIS STOMACH AND BOWEL: Mild/moderate stool throughout the colon without acute abnormality demonstrated. A few colonic diverticula. Appendix not seen with certainty, but there is no inflammatory process in t he right lower quadrant. Stomach and small bowel are nondistended, no evidence of obstruction. Small amount of radiodensity in the stomach and duodenum, likely some sort of ingested material. PERITONEUM/RETROPERITONEUM: No evidence of pneumoperitoneum or free fluid. VASCULATURE: Moderate atherosclerotic calcifications are present throughout the abdominal aorta and i ts branches. No evidence of aortic aneurysm. MUSCULOSKELETAL: Moderate diffuse degenerative changes. S-shaped scoliosis. Near complete interbody f usion L4-L5. Moderate chronic anterior wedge deformity of L1 with narrowing of the spinal canal T12-L 1, similar to prior. No clearly acute bony abnormality. LYMPH NODES: No gross evidence for lymphadenopathy. SOFT TISSUE/ABDOMINAL WALL: No acute or concerning abnormality seen. IMPRESSION: 1. No definite acute abnormality in the abdomen or pelvis. 2. Gas in the urinary bladder lumen. Likely considerations include recent instrumentation/catheteriz ation or infection, less likely occult fistula. 3. Other stable chronic and likely incidental findings, as described above.
[2023-08-11] MEDS ORDERED: ONDANSETRON 4 MG/2 ML VIAL IVP PRN (23:20)
[2023-08-11] MEDS ORDERED: NALOXONE 0.4 MG/ML 1 ML VIAL IV PRN (23:20)
[2023-08-12 04:09] LABS: Basophils % (A) 0 %; Eosinophils # (A) 0.1 k/uL (0-0.7); Eosinophils % (A) 1 %; HCT 39.6 % (34.0-46.0); HGB 12.9 gm/dL (11.4-16.0); Hypochromasia Moderate; Lymphocytes # (A) 0.8 k/uL (1.0-4.8); Lymphocytes % (A) 10 %; MCHC 32.5 g/dL (31.0-37.0); MCV 110.8 fL (80.0-100.0); Macrocytosis Marked; Mean Platelet Volume 9.2; Monocytes # (A) 0.4 k/uL (0-1.0); Monocytes % (A) 4 %; Neutrophils # (A) 6.8 k/uL (1.3-7.7); Neutrophils % (A) 83 %; Platelet Count 79 k/uL (150-450); RBC 3.58 m/uL (3.80-5.40); RDW 14.1 % (11.5-15.5); WBC 8.1 k/uL (3.8-10.6)
[2023-08-12 04:20] LABS: ALT 15 U/L (4-34); AST 35 U/L (14-36); African American GFR (CKD) 68 (>60 ml/min/1.73 sqM); Albumin 3.3 g/dL (3.5-5.0); Alkaline Phosphatase 156 U/L (38-126); Anion Gap 8 mmol/L; Blood Urea Nitrogen 25 mg/dL (7-17); Calcium 10.8 mg/dL (8.4-10.2); Carbon Dioxide 24 mmol/L (22-30); Chloride 107 mmol/L (98-107); Glucose 82 mg/dL (74-99); Magnesium 1.7 mg/dL (1.6-2.3); Non-African American GFR(CKD) 59 (>60 ml/min/1.73 sqM); Phosphorus 2.4 mg/dL (2.5-4.5); Sodium 139 mmol/L (137-145); Total Bilirubin 3.1 mg/dL (0.2-1.3); Total Protein 6.8 g/dL (6.3-8.2)
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
[2023-08-12 07:26] LABS: Glucose,Whole Blood 80 mg/dL (70-110)
[2023-08-12] MEDS ORDERED: ENOXAPARIN 40 MG/0.4 ML SYRINGE SQ SCH (09:00)
[2023-08-12] MEDS ORDERED: SPIRONOLACTONE 25 MG TAB PO SCH (09:00)
--- NOTE | 2023-08-12 13:45 | P.DS ---
Providers Date of admission: 08/11/23 23:20 Expected date of discharge: 08/12/23 Attending physician: Ashish Jones MD [facility] Course: Discharge Diagnosis: Urinary tract infection Age-related debility Hypercalcemia likely due to combination of dehydration and sarcoidosis Sarcoidosis Hypertension Hyperkalemia, resolved Lactic acidosis, resolved Thrombocytopenia, chronic and stable Severe pulm HTN Hospital Course: Patient is a 72 year old female with hypertension, seizure, sarcoidosis, pulmonary hypertension, cor pulmonale, and lymphedema presented to the ER with complaint of weakness and decreased appetite. In the ER she underwent an extensive evaluation. On arrival her vitals were remarkable for a pulse of 101. Laboratory analysis was remarkable for platelets 96, INR 1.2, potassium 5.3, BUN 25, lactic acid 3.1, calcium 11, phosphorus 2.4. Influenza A/B/RSV/COVID-19 testing was negative. Urinalysis was consistent with infection with greater than 182 white blood cells. Chest x-ray showed mild vascular congestion with possible trace pleural effusion similar to before. CT abdomen and pelvis shows gas in the urinary bladder lumen possible fistula but more likely related to recent instrumentation or infection, and moderate stool throughout the colon. She was subsequently diagnosed with urinary tract infection and hypercalcemia. She was admitted for further monitoring. She improved after 1 L of IV fluids and was feeling back to baseline. She states her ambulation is near baseline. She was determined stable for discharge home. Patient seen and examined at bedside. She is feeling much better than at admission and is asking to be discharged home. Vital signs reviewed and stable. General: nontoxic, no distress, appears at stated age Cardiovascular: S1S2 reg, no murmur, positive posterior tibial pulse bilateral, Lungs: CTA bilateral, no rhonchi, no rales , no accessory muscle use Abdominal: soft, nontender to palpation, no guarding, no appreciable organomegaly Ext: no gross muscle atrophy, no edema b/l lower extremities, no contractures Neuro: CN II-XI grossly intact, no focal neuro deficits Psych: Alert, oriented, appropriate affect A total of 25 minutes of time were spent preparing this complex discharge summary. Patient was discharged on 08/12/23. This dictation was prepared using [employer] voice recognition software. Though every attempt is made to correct errors during dictation some may still exist. Patient Condition at Discharge: Stable Plan - Discharge Summary New Discharge Prescriptions: New Sulfamethox-Tmp 800-160Mg [Bactrim DS 800-160 mg] 1 tab PO Q12HR #6 tab Continue RX: HYDROcodone/APAP 10-325MG [[place] 10-325] 1 tab PO Q8H PRN PRN Reason: Pain RX: Estradiol Cream [Estrace Cream 0.01%] 1 gm VAGINAL SON RX: Spironolactone [Aldactone] 50 mg PO DAILY RX: Cholecalciferol [Vitamin D3 (25 Mcg = 1000 Iu)] 25 mcg PO DAILY RX: Magnesium 250 mg PO DAILY RX: Nitrofurantoin Macrocrystal [Macrodantin] 50 mg PO HS RX: Cyanocobalamin (Vitamin B-12) [Vitamin B-12] 1,000 mcg PO DAILY Discharge Medication List RX: HYDROcodone/APAP 10-325MG [[place] 10-325] 1 tab PO Q8H PRN 09/10/19 [History] RX: Cholecalciferol [Vitamin D3 (25 Mcg = 1000 Iu)] 25 mcg PO DAILY 04/22/23 [History] RX: Cyanocobalamin (Vitamin B-12) [Vitamin B-12] 1,000 mcg PO DAILY 08/11/23 [History] RX: Estradiol Cream [Estrace Cream 0.01%] 1 gm VAGINAL SON 08/11/23 [History] RX: Magnesium 250 mg PO DAILY 08/11/23 [History] RX: Nitrofurantoin Macrocrystal [Macrodantin] 50 mg PO HS 08/11/23 [History] RX: Spironolactone [Aldactone] 50 mg PO DAILY 08/11/23 [History] Sulfamethox-Tmp 800-160Mg [Bactrim DS 800-160 mg] 1 tab PO Q12HR #6 tab 08/12/23 [Rx] Follow up Appointment(s)/Referral(s): Renny Chowdhury MD [STAFF PHYSICIAN] - 1 Week Lamar Bernstein MD [Primary Care Provider] - 1-2 days Amber Hernandez MD [STAFF PHYSICIAN] - 1 Week Activity/Diet/Wound Care/Special Instructions: Activity: As tolerated Diet: Heart Healthy Special Instructions: Please follow with Dr. Hernandez regarding your sarcoidosis Please see Dr. Chowdhury again to see if you should be placed back on methenamine hippurate Your urine culture was collected just prior to discharge and will take some time to process. Discharge Disposition: HOME SELF-CARE
[2023-08-12 13:48] VITALS: BP 148/82; PULSE 95; RESP 18; TEMP 97.9
== END 2023-08-12 14:02 | disposition home or self-care (01) ==
LOC: EC 14:47 → UNDOADMOB 23:20 → 5NMEDONC 23:20 → INTOOBSV 23:20 → 5NMEDONC 08-12 11:52 → UNDODISIN 08-12 14:02 → UNDODISOB 08-12 14:02
PROVIDERS: ADMIT Internal Medicine; ATTEND Internal Medicine
DX: N39.0 Urinary tract infection, site not specified (principal); D86.9 Sarcoidosis, unspecified; E86.0 Dehydration; E87.20 Acidosis, unspecified; R54 Age-related physical debility; E83.52 Hypercalcemia; E87.5 Hyperkalemia; I11.0 Hypertensive heart disease with heart failure; I50.810 Right heart failure, unspecified; I27.29 Other secondary pulmonary hypertension; G40.909 Epilepsy, unspecified, not intractable, without status epilepticus; M19.90 Unspecified osteoarthritis, unspecified site; D69.6 Thrombocytopenia, unspecified; G89.29 Other chronic pain; M54.9 Dorsalgia, unspecified; I89.0 Lymphedema, not elsewhere classified; R74.8 Abnormal levels of other serum enzymes; Z11.52 Encounter for screening for COVID-19; Z79.899 Other long term (current) drug therapy; Z99.81 Dependence on supplemental oxygen; Z91.041 Radiographic dye allergy status; Z90.49 Acquired absence of other specified parts of digestive tract; Z16.22 Resistance to vancomycin related antibiotics; Z86.14 Personal history of Methicillin resistant Staphylococcus aureus infection; Z16.12 Extended spectrum beta lactamase (ESBL) resistance; Z87.442 Personal history of urinary calculi; Z87.19 Personal history of other diseases of the digestive system; Z87.891 Personal history of nicotine dependence; Z98.890 Other specified postprocedural states; Z82.0 Family history of epilepsy and other diseases of the nervous system; Z82.3 Family history of stroke; Z82.5 Family history of asthma and other chronic lower respiratory diseases; Z82.49 Family history of ischemic heart disease and other diseases of the circulatory system
CPT/HCPCS: 96376; 96361 ×2; 96365; 96372; 96375; 99285; 36415; 93005; 83880; 80053 ×2; 83605 ×2; 83690; 83735 ×2; 84100 ×2; 84484 ×2; 85025 ×2; 85610; 85730; 81001; 87636; 71046; 74176; G0378 ×2; J2270 ×2; J2405 ×2; J0696; J1650

== ENCOUNTER → 2023-12-04 | Outpatient (CLI) | payer MEDICARE | END | disposition home or self-care (01) | LOC: LABWHC1 08:21 | PROVIDERS: ATTEND Urology | DX: N30.01 Acute cystitis with hematuria (principal) | CPT/HCPCS: 87086 ==

== ENCOUNTER 2024-04-01 08:38 | Observation (INO) | payer MEDICARE ==
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
[2024-04-01] MEDS: KETOROLAC 15 MG/ML 1 ML VIAL IVP STA (09:24)
[2024-04-01] MEDS: SODIUM CHLORIDE 0.9% 1,000 ML IV STA ×2 (09:24→13:54)
[2024-04-01] MEDS: ONDANSETRON 4 MG/2 ML VIAL IVP STA (09:26)
[2024-04-01 09:40] LABS: ALT 13 U/L (4-34); AST 30 U/L (14-36); African American GFR (CKD) 53 (>60 ml/min/1.73 sqM); Albumin 3.1 g/dL (3.5-5.0); Alkaline Phosphatase 115 U/L (38-126); Amylase 92 U/L (30-110); Anion Gap 2 mmol/L; Blood Urea Nitrogen 33 mg/dL (7-17); Calcium 10.8 mg/dL (8.4-10.2); Carbon Dioxide 29 mmol/L (22-30); Chloride 109 mmol/L (98-107); Glucose 103 mg/dL (74-99); Non-African American GFR(CKD) 46 (>60 ml/min/1.73 sqM); Potassium 4.1 mmol/L (3.5-5.1); Sodium 140 mmol/L (137-145); Total Bilirubin 2.4 mg/dL (0.2-1.3); Total Protein 5.8 g/dL (6.3-8.2)
[2024-04-01 09:41] LABS: Basophils % (A) 0 %; Eosinophils # (A) 0.1 k/uL (0-0.7); Eosinophils % (A) 2 %; HGB 12.8 gm/dL (11.4-16.0); Lymphocytes % (A) 26 %; MCH 34.3 pg (25.0-35.0); MCV 107.3 fL (80.0-100.0); Macrocytosis Moderate; Mean Platelet Volume 8.3; Monocytes # (A) 0.2 k/uL (0-1.0); Monocytes % (A) 4 %; Neutrophils # (A) 2.6 k/uL (1.3-7.7); Neutrophils % (A) 65 %; RBC 3.73 m/uL (3.80-5.40); RDW 14.2 % (11.5-15.5)
[2024-04-01 10:00] LABS: Platelet Count 84 k/uL (150-450)
[2024-04-01] MEDS: MORPHINE SULFATE 2 MG/ML SYRINGE IVP STA (10:29)
[2024-04-01] MEDS: METOCLOPRAMIDE 5 MG/ML 2 ML VIAL IVP STA (10:39)
[2024-04-01 11:23] LABS: Appearance,Urine Cloudy (Clear); Bacteria,Urine Few /hpf; Bilirubin,Urine Negative (Negative); Blood,Urine Large (Negative); Color,Urine Yellow; Glucose,Urine (UA) Negative (Negative); Ketones,Urine Negative (Negative); Leukocyte Esterase,Urine Large (Negative); Mucus,Urine Rare /hpf; Nitrite,Urine Negative (Negative); PH, Urine 6.5 (5.0-8.0); Protein,Urine Trace (Negative); RBC,Urine >182 /hpf (0-5); Specific Gravity,Urine 1.013 (1.001-1.035); Squamous Epithelial Cell,Urine 1 /hpf (0-4); Urobilinogen,Urine <2.0 mg/dL (<2.0); WBC,Urine 76 /hpf (0-5)
[2024-04-01 12:52] LABS: Lipase 217 U/L (23-300)
--- NOTE | 2024-04-01 13:29 | CT ---
EXAMINATION TYPE: CT abdomen pelvis wo con CT DLP: 582.3 mGycm, Automated exposure control for dose reduction was used. DATE OF EXAM: 04/01/2024 12:12 PM COMPARISON: 08/01/2023 CLINICAL INDICATION:Female, 73 years old with history of Abdominal pain, hematuria; hematuria TECHNIQUE: Axial CT abdomen pelvis wo con;Sagittal and coronal reformats were created on a separate workstation. Contrast used: mL of , (none if empty) Oral contrast used: without Oral Contrast (none if empty) FINDINGS: LOWER CHEST: Unremarkable ABDOMEN LIVER: Unremarkable GALLBLADDER AND BILE DUCTS: Gallbladder is surgically absent with mild intrahepatic and extra hepatic biliary dilatation likely physiologic and a postcholecystectomy change. No evidence of choledocholit hiasis. PANCREAS: Unremarkable. SPLEEN: Splenic probable cyst. ADRENAL GLANDS: Unremarkable. KIDNEYS AND URETERS: Moderate hydronephrosis. Bilateral renal calculi measuring up to 10 mm on the ri ght and 4 mm on the left. Distal right ureteral calculus measuring up tor 5 x 6 mm. PELVIS BLADDER: Unremarkable REPRODUCTIVE: Unremarkable. ABDOMEN & PELVIS STOMACH AND BOWEL: No evidence of bowel obstruction. Scattered colonic diverticula.r PERITONEUM/RETROPERITONEUM: No evidence of pneumoperitoneum or free fluid. VASCULATURE: No evidence of aortic aneurysm. MUSCULOSKELETAL: No acute osseous abnormalities LYMPH NODES: No gross evidence for lymphadenopathy. SOFT TISSUE/ABDOMINAL WALL: Unremarkable IMPRESSION: 1. Mild right hydronephrosis with distal right ureteral calculus proximal to the ureterovesicular ju nction measuring 6 x 5 mm. 2. Additional bilateral nonobstructing renal calculi.
[2024-04-01] MEDS ORDERED: MORPHINE SULFATE 4 MG/ML SYRINGE IV PRN (13:53)
[2024-04-01] MEDS ORDERED: ACETAMINOPHEN TAB 325 MG TAB PO PRN (13:53)
[2024-04-01] MEDS ORDERED: HYDROcodone/APAP 5-325MG 1 EACH TAB PO PRN (13:53)
[2024-04-01] MEDS ORDERED: NALOXONE 0.4 MG/ML 1 ML VIAL IV PRN (13:53)
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
[2024-04-01] MEDS: IV FLUID CONTINUATION 1,000 ML IV ONE (15:30)
[2024-04-01] MEDS: DEXAMETHASONE SOD PHOSPHATE 4 MG/ML 1 ML VIAL IVP STA (15:54)
[2024-04-01] MEDS: ONDANSETRON 4 MG/2 ML VIAL IVP PRN (15:55)
[2024-04-01] MEDS ORDERED: LIDOCAINE 1% INJ 10MG/ML (20 ML MDV) ONE (16:22)
[2024-04-01] MEDS ORDERED: PROPOFOL 10 MG/ML 20 ML VIAL IV ONE (16:22)
--- NOTE | 2024-04-01 16:55 | P.OP ---
Date of Procedure: 04/01/24 Preoperative Diagnosis: right ureteral calculus with obstruction, pyonephrosis right, urinary tract infection with sepsis Postoperative Diagnosis: same Procedure(s) Performed: cystoscopy with placement of double-J catheter right 6 x 24 Anesthesia: KRYSTAL Surgeon: Gerson Cintron Estimated Blood Loss (ml): 0 Pathology: none sent Condition: stable Disposition: PACU Indications for Procedure: patient is 73. She presented to the emergency room with symptoms of urinary tract infection severe right flank pain and disorientation. She is identified to have a 6 mm distal ureteral stone on the right hydronephrosis, urinary tract infection and an elevated lactic acid. SHe comes for urgent stent placement Description of Procedure: patient brought operating suite. Given a general anesthetic. Placed lithotomy position with a sterile prep and drape. Cystoscopy a Foroblique lens and 21- Amharic sheath identifies an acutely inflamed bladder. The right ureteral orifice is normal as is the left. Through the right ureteral orifice and 035 wires passed up to the stone which is quite impacted. Eventually I'm able to pass the stone up into the kidney. Over the wires and passed a 6 x 24 double-J catheter that coils in the renal pelvis and in the bladder. The bladder is drained the patient is awake and returned recovery in good condition. Blood loss is minimal. She tolerated procedure well. She'll be in the hospital postoperatively to infection is controlled. Couple weeks she'll need a ureteroscopy stone and stent removal.
--- NOTE | 2024-04-01 17:24 | FL ---
EXAMINATION TYPE: FL guidance operating room Intraoperative/procedural fluoroscopic services were pro vided. Total fluoroscopy time is 6.2 seconds with a total of 1 submitted images to PACS. Please see t he operative/procedural note for further details. DAP: 0.4095 Gycm2
[2024-04-01] MEDS: SODIUM CHLORIDE 0.9% 1,000 ML IV SCH (18:36)
[2024-04-01] MEDS: HYDROcodone/APAP 10-325MG 1 EACH TAB PO PRN (19:57)
[2024-04-02 01:45] VITALS: RESP 16
[2024-04-02 09:31] LABS: ALT 13 U/L (8-44); AST 31 U/L (13-35); Albumin 3.4 g/dL (3.8-4.9); Albumin/Globulin Ratio 1.42 Ratio (1.60-3.17); Alkaline Phosphatase 120 U/L (41-126); BUN/Creat Ratio 21.81 Ratio (12.00-20.00); Blood Urea Nitrogen 34.9 mg/dL (9.0-27.0); Calcium 10.7 mg/dL (8.7-10.3); Carbon Dioxide 23.2 mmol/L (21.6-31.8); Chloride 109 mmol/L (96-109); Globulin 2.4 g/dL (1.6-3.3); Glucose 126 mg/dL (70-110); Potassium 4.6 mmol/L (3.5-5.5); Sodium 141 mmol/L (135-145); Total Bilirubin 1.8 mg/dL (0.3-1.2); Total Protein 5.8 g/dL (6.2-8.2)
--- NOTE | 2024-04-02 09:52 | P.PN ---
Subjective Progress Note Date: 04/02/24 the patient is in the hospital with an obstructing ureteral stone, pyonephrosis on the right, urinary tract infection with sepsis. A stent was placed yesterday and she is feeling much better. Objective - Vital Signs Vital signs: Vital Signs Temp 97.4 F L 04/02/24 07:00 Pulse 71 04/02/24 07:00 Resp 16 04/02/24 01:43 BP 145/74 04/02/24 07:00 Pulse Ox 100 04/02/24 07:00 FiO2 Intake & Output 04/01/24 04/02/24 04/02/24 18:59 06:59 18:59 Intake Total 400 Output Total 0 Balance 400 Weight 72.575 kg Intake: IV 400 Output: Estimated Blood Loss 0 Other: Voiding Method Incontinent Toilet Bedside Commode # Voids 2 1 # Bowel Movements 1 - Labs CBC & Chem 7: 04/01/24 09:06 04/02/24 05:42 Labs: Abnormal Lab Results - Last 24 Hours (Table) 04/01/24 04/01/24 04/01/24 Range/Units 09:06 09:06 12:15 Plt Count 84 L (150-450) k/uL BUN (9.0-27.0) mg/dL Creatinine (0.6-1.5) mg/dL Est GFR (CKD-EPI) (>=60) BUN/Creatinine Ratio (12.00-20.00) Ratio Glucose (70-110) mg/dL Plasma Lactic Acid Remy 3.5 H* (0.7-2.0) mmol/L Calcium (8.7-10.3) mg/dL Total Bilirubin (0.3-1.2) mg/dL Total Protein (6.2-8.2) g/dL Albumin (3.8-4.9) g/dL Albumin/Globulin Ratio (1.60-3.17) Ratio Urine Appearance Cloudy H (Clear) Urine Protein Trace H (Negative) Urine Blood Large H (Negative) Ur Leukocyte Esterase Large H (Negative) Urine RBC >182 H (0-5) /hpf Urine WBC 76 H (0-5) /hpf Urine WBC Clumps Few H (None) /hpf Urine Bacteria Few H (None) /hpf Urine Mucus Rare H (None) /hpf 04/01/24 04/02/24 Range/Units 19:29 05:42 Plt Count (150-450) k/uL BUN 34.9 H (9.0-27.0) mg/dL Creatinine 1.6 H (0.6-1.5) mg/dL Est GFR (CKD-EPI) 34 L (>=60) BUN/Creatinine Ratio 21.81 H (12.00-20.00) Ratio Glucose 126 H (70-110) mg/dL Plasma Lactic Acid Remy 2.5 H* (0.7-2.0) mmol/L Calcium 10.7 H (8.7-10.3) mg/dL Total Bilirubin 1.8 H (0.3-1.2) mg/dL Total Protein 5.8 L (6.2-8.2) g/dL Albumin 3.4 L (3.8-4.9) g/dL Albumin/Globulin Ratio 1.42 L (1.60-3.17) Ratio Urine Appearance (Clear) Urine Protein (Negative) Urine Blood (Negative) Ur Leukocyte Esterase (Negative) Urine RBC (0-5) /hpf Urine WBC (0-5) /hpf Urine WBC Clumps (None) /hpf Urine Bacteria (None) /hpf Urine Mucus (None) /hpf Assessment and Plan Assessment: impression: Status post stent placement in right ureter for obstructing right ureteral stone, right pyelonephrosis, urinary tract infection with sepsis. Recommendations: She has obviously improved. Her lactic acid level was down to 1.1 yesterday. Her vital signs are stable she is much more alert and feels better. I recommend about 2 weeks before we do the stone manipulation.
[2024-04-02] MEDS: CHLORTHALIDONE 25 MG TAB PO SCH (09:54)
[2024-04-02] MEDS: PANTOPRAZOLE 40 MG TABLET PO SCH (09:54)
[2024-04-02 11:53] LABS: Basophils # (A) 0.01 X 10*3/uL (0.00-0.10); Basophils % (A) 0.1 %; Eosinophils # (A) 0 X 10*3/uL (0.04-0.35); Eosinophils % (A) 0 %; HCT 38.6 % (37.2-46.3); HGB 12.7 g/dL (12.0-15.0); Lymphocytes # (A) 0.44 X 10*3/uL (0.90-5.00); Lymphocytes % (A) 6.4 %; MCH 34.3 pg (27.0-32.0); MCHC 32.9 g/dL (32.0-37.0); MCV 104.3 FL (80.0-97.0); Monocytes # (A) 0.11 X 10*3/uL (0.20-1.00); Monocytes % (A) 1.6 %; NRBC Per 100 WBC 0 X 10*3/uL (0.00-0.01); Neutrophils # (A) 6.29 X 10*3/uL (1.80-7.70); Neutrophils % (A) 91.6 %; Platelet Count 88 X 10*3/uL (140-440); RDW 14.8 % (11.5-14.5); WBC 6.87 X 10*3/uL (4.50-10.00)
--- NOTE | 2024-04-02 15:27 | P.PN ---
Subjective Progress Note Date: 04/02/24 Patient reports significant improvement in her flank pain, still has some soreness of the left side. She did underwent go nephroureteral stent placement. Ongoing ceftriaxone for pyelonephritis. Gen: In NAD, non-toxic HEENT: normocephalic, atraumatic, hearing acuity is intant, mucous membranes moist CVS: perfusing all extremities well, no pitting edema, Respiratory: symmetric chest expansion, no accessory muscle use, GI: soft, NTTP, ND, : no suprapubic tenderness, no CVA tenderness MSK/Derm: no rashes, cyanosis Neuro: CN II-XII intact, no motor weakness, Psych: cooperative, euthymic mood, judgment and insight is intact Hospital course: 73-year-old woman with medical history of seizure disorder, hypertension presented for evaluation of left-sided flank pain. Patient was found to have pyelonephritis as well as nephrolithiasis with obstruction. She was subsequently taken to the operating room and had nephroureteral stent placement with consultation of urology. Patient reported significant improvement in her pain. She was treated with ceftriaxone with urine culture growing gram-negative bacilli. Assessment/plan: Obstructive nephrolithiasis Pyelonephritis, gram-negative bacilli - continue ceftriaxone - f/u UCx - pain, nausea control - f/u urology outpatient for stone removal Hypertension GERD -Home medications reviewed and reconciled Patient is full code Objective - Vital Signs Vital signs: Vital Signs Temp 98.1 F 04/02/24 14:17 Pulse 97 04/02/24 14:17 Resp 16 04/02/24 01:43 BP 135/71 04/02/24 14:17 Pulse Ox 99 04/02/24 14:17 FiO2 Intake & Output 04/01/24 04/02/24 04/02/24 18:59 06:59 18:59 Intake Total 400 118 Output Total 0 Balance 400 118 Weight 72.575 kg Intake: IV 400 Oral 118 Output: Estimated Blood Loss 0 Other: Voiding Method Incontinent Toilet Bedside Commode # Voids 2 1 # Bowel Movements 1 - Labs CBC & Chem 7: 04/02/24 05:50 04/02/24 05:42 Labs: Abnormal Lab Results - Last 24 Hours (Table) 04/01/24 04/02/24 04/02/24 Range/Units 19:29 05:42 05:50 RBC 3.70 L (4.10-5.20) X 10*6/uL MCV 104.3 H (80.0-97.0) FL MCH 34.3 H (27.0-32.0) pg RDW 14.8 H (11.5-14.5) % Plt Count 88 L (140-440) X 10*3/uL Lymphocytes # 0.44 L (0.90-5.00) X 10*3/uL Monocytes # 0.11 L (0.20-1.00) X 10*3/uL Eosinophils # 0 L (0.04-0.35) X 10*3/uL BUN 34.9 H (9.0-27.0) mg/dL Creatinine 1.6 H (0.6-1.5) mg/dL Est GFR (CKD-EPI) 34 L (>=60) BUN/Creatinine Ratio 21.81 H (12.00-20.00) Ratio Glucose 126 H (70-110) mg/dL Plasma Lactic Acid Remy 2.5 H* (0.7-2.0) mmol/L Calcium 10.7 H (8.7-10.3) mg/dL Total Bilirubin 1.8 H (0.3-1.2) mg/dL Total Protein 5.8 L (6.2-8.2) g/dL Albumin 3.4 L (3.8-4.9) g/dL Albumin/Globulin Ratio 1.42 L (1.60-3.17) Ratio Microbiology - Last 24 Hours (Table) 04/01/24 09:06 Urine Culture - Preliminary Urine,Catheterized Gram Neg Bacilli
[2024-04-02 20:39] LABS: Glucose,Whole Blood 124 mg/dL (70-110)
[2024-04-03 08:33] VITALS: BP 151/67; PULSE 60; TEMP 97.9
[2024-04-03 10:16] LABS: Basophils # (A) 0.01 X 10*3/uL (0.00-0.10); Basophils % (A) 0.1 %; Eosinophils # (A) 0.05 X 10*3/uL (0.04-0.35); Eosinophils % (A) 0.7 %; HCT 32.1 % (37.2-46.3); HGB 10.5 g/dL (12.0-15.0); Lymphocytes # (A) 1.06 X 10*3/uL (0.90-5.00); Lymphocytes % (A) 15.9 %; MCH 34.4 pg (27.0-32.0); MCHC 32.7 g/dL (32.0-37.0); MCV 105.2 FL (80.0-97.0); Mean Platelet Volume 12.1 FL (9.5-12.2); Monocytes # (A) 0.37 X 10*3/uL (0.20-1.00); Monocytes % (A) 5.5 %; NRBC Per 100 WBC 0 X 10*3/uL (0.00-0.01); Neutrophils # (A) 5.16 X 10*3/uL (1.80-7.70); Neutrophils % (A) 77.5 %; Platelet Count 84 X 10*3/uL (140-440); RBC 3.05 X 10*6/uL (4.10-5.20); RDW 14.9 % (11.5-14.5); WBC 6.67 X 10*3/uL (4.50-10.00)
[2024-04-03 11:26] LABS: ALT 11 U/L (8-44); AST 29 U/L (13-35); Albumin 2.9 g/dL (3.8-4.9); Albumin/Globulin Ratio 1.71 Ratio (1.60-3.17); Alkaline Phosphatase 90 U/L (41-126); BUN/Creat Ratio 21.12 Ratio (12.00-20.00); Blood Urea Nitrogen 33.8 mg/dL (9.0-27.0); Carbon Dioxide 21.4 mmol/L (21.6-31.8); Chloride 112 mmol/L (96-109); Globulin 1.7 g/dL (1.6-3.3); Glucose 97 mg/dL (70-110); Potassium 4.2 mmol/L (3.5-5.5); Sodium 141 mmol/L (135-145); Total Bilirubin 1.3 mg/dL (0.3-1.2); Total Protein 4.6 g/dL (6.2-8.2)
--- NOTE | 2024-04-03 11:46 | P.DS ---
Providers Date of admission: 04/01/24 13:39 Expected date of discharge: 04/03/24 Attending physician: Sly Byrnes MD Consults: 04/01/24 13:53 Consult Physician Urgent Consulting Provider: Gerson Cintron Reason/Comments: Right ureteral calculus Do you want consulting provider notified?: Already Contacted Primary care physician: [facility] Course: Obstructive nephrolithiasis Pyelonephritis, gram-negative bacilli Hypertension GERD Gen: In NAD, non-toxic HEENT: normocephalic, atraumatic, hearing acuity is intant, mucous membranes moist CVS: perfusing all extremities well, no pitting edema, Respiratory: symmetric chest expansion, no accessory muscle use, GI: soft, NTTP, ND, : no suprapubic tenderness, no CVA tenderness MSK/Derm: no rashes, cyanosis Neuro: CN II-XII intact, no motor weakness, Psych: cooperative, euthymic mood, judgment and insight is intact Hospital course: 73-year-old woman with medical history of seizure disorder, hypertension presented for evaluation of left-sided flank pain. Patient was found to have pyelonephritis as well as nephrolithiasis with obstruction. She was subsequently taken to the operating room and had nephroureteral stent placement with consultation of urology. Patient reported significant improvement in her pain. She was treated with ceftriaxone with urine culture growing gram-negative bacilli, speciation was pending at the time of discharge, however, given the patient was improving on ceftriaxone, she was transition to orals for total 10- day course of antibiotics which included an additional 8 days of cefdinir on discharge. She was instructed to follow-up with urology for stone removal in 1 to 2 weeks. Patient was feeling closer to her baseline and felt comfortable with the plan to return home with PCP follow-up as well for posthospital discharge. I spent 38 minutes coordinating this discharge Patient Condition at Discharge: Good Plan - Discharge Summary Discharge Rx Participant: Yes New Discharge Prescriptions: New Cefdinir 300 mg PO Q12HR #16 cap Continue HYDROcodone/APAP 10-325MG [[place] 10-325] 1 tab PO Q8H PRN PRN Reason: Pain Estradiol Cream [Estrace Cream 0.01%] 1 gm VAGINAL SON Chlorthalidone [Hygroton] 25 mg PO DAILY Omeprazole 40 mg PO DAILY Discharge Medication List HYDROcodone/APAP 10-325MG [[place] 10-325] 1 tab PO Q8H PRN 09/10/19 [History] Estradiol Cream [Estrace Cream 0.01%] 1 gm VAGINAL SON 08/11/23 [History] Chlorthalidone [Hygroton] 25 mg PO DAILY 04/01/24 [History] Omeprazole 40 mg PO DAILY 04/01/24 [History] Cefdinir 300 mg PO Q12HR #16 cap 04/03/24 [Rx] Follow up Appointment(s)/Referral(s): Lamar Bernstein MD [Primary Care Provider] - 1-2 days Gerson Cintron MD [STAFF PHYSICIAN] - 1 Week Patient Instructions/Handouts: Acute Kidney Injury (DC), Urinary Tract Infection in Women (DC), Cystoscopy (DC) Discharge Disposition: HOME SELF-CARE
[2024-04-03] MEDS ORDERED: ESTRADIOL 0.1 MG/GM VAGINAL CREAM 42.5 GM TUBE VAGINAL SCH (21:00)
== END 2024-04-03 11:58 | disposition home or self-care (01) ==
LOC: EC 08:38 → 6NMEDSUR 13:39 → 4SSUR 15:29 → 6NMEDSUR 15:33
PROVIDERS: ADMIT Student in an Organized Health Care Education/Training Program; ATTEND Student in an Organized Health Care Education/Training Program
DX: A41.9 Sepsis, unspecified organism (principal); N13.6 Pyonephrosis; N17.9 Acute kidney failure, unspecified; D86.9 Sarcoidosis, unspecified; E87.20 Acidosis, unspecified; I11.0 Hypertensive heart disease with heart failure; I50.810 Right heart failure, unspecified; J96.11 Chronic respiratory failure with hypoxia; E86.1 Hypovolemia; G40.909 Epilepsy, unspecified, not intractable, without status epilepticus; I27.20 Pulmonary hypertension, unspecified; I89.0 Lymphedema, not elsewhere classified; M19.90 Unspecified osteoarthritis, unspecified site; K21.9 Gastro-esophageal reflux disease without esophagitis; Z79.899 Other long term (current) drug therapy; Z91.041 Radiographic dye allergy status; Z87.891 Personal history of nicotine dependence; Z87.442 Personal history of urinary calculi; Z87.440 Personal history of urinary (tract) infections; Z90.49 Acquired absence of other specified parts of digestive tract; Z98.890 Other specified postprocedural states
CPT/HCPCS: 96361; 96374; 96375; 99285; 36415; 93005; 80053 ×3; 82150; 83605; 83690; 85025 ×3; 81001; 87040; 87086; 87077; 87186; 74176; 52330; 52332; G0378 ×3; C2625; C1769; C1758; J1100; J2765; J2405; J2001; J0696 ×3; J2270; J1885; J2704

== ENCOUNTER → 2024-04-13 | Outpatient (CLI) | payer MEDICARE ==
[2024-04-13 15:33] LABS: Basophils # (A) 0.06 X 10*3/uL (0.00-0.10); Basophils % (A) 1.5 %; Eosinophils # (A) 0.17 X 10*3/uL (0.04-0.35); Eosinophils % (A) 4.2 %; HCT 38.2 % (37.2-46.3); HGB 12.5 g/dL (12.0-15.0); Lymphocytes # (A) 1.52 X 10*3/uL (0.90-5.00); Lymphocytes % (A) 37.3 %; MCH 34.5 pg (27.0-32.0); MCHC 32.7 g/dL (32.0-37.0); MCV 105.5 FL (80.0-97.0); Mean Platelet Volume 11.9 FL (9.5-12.2); Monocytes # (A) 0.26 X 10*3/uL (0.20-1.00); Monocytes % (A) 6.4 %; NRBC Per 100 WBC 0 X 10*3/uL (0.00-0.01); Neutrophils # (A) 2.05 X 10*3/uL (1.80-7.70); Neutrophils % (A) 50.4 %; Platelet Count 98 X 10*3/uL (140-440); RBC 3.62 X 10*6/uL (4.10-5.20); RDW 14.6 % (11.5-14.5); WBC 4.07 X 10*3/uL (4.50-10.00)
[2024-04-13 16:11] LABS: Appearance,Urine Turbid (Clear); Bilirubin,Urine Small (Negative); Blood,Urine Large (Negative); Color,Urine Orange (Yellow); Ketones,Urine Negative (Negative); Nitrite,Urine Positive (Negative); Specific Gravity,Urine 1.015 (1.001-1.030); Urobilinogen,Urine 0.2 E.U./DL
[2024-04-13 16:26] LABS: ALT 13 U/L (8-44); AST 29 U/L (13-35); Albumin 3.2 g/dL (3.8-4.9); Albumin/Globulin Ratio 1.52 Ratio (1.60-3.17); Alkaline Phosphatase 128 U/L (41-126); Blood Urea Nitrogen 25.2 mg/dL (9.0-27.0); Calcium 10.8 mg/dL (8.7-10.3); Chloride 106 mmol/L (96-109); Globulin 2.1 g/dL (1.6-3.3); Glucose 109 mg/dL (70-110); Potassium 3.9 mmol/L (3.5-5.5); Sodium 141 mmol/L (135-145); Total Bilirubin 1.3 mg/dL (0.3-1.2); Total Protein 5.3 g/dL (6.2-8.2)
[2024-04-13 17:16] LABS: Bacteria,Urine 2+ (None Seen)
== END | disposition home or self-care (01) ==
LOC: LABWHC1 08:17
PROVIDERS: ATTEND Internal Medicine Critical Care Medicine
DX: N10 Acute pyelonephritis (principal)
CPT/HCPCS: 36415; 80053; 81001; 82164; 82306; 85025; 87086

== ENCOUNTER 2024-04-14 20:01 | Inpatient (IN) | payer MEDICARE ==
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
[2024-04-14 22:04] LABS: Appearance,Urine Turbid (Clear); Bacteria,Urine Many /hpf; Bilirubin,Urine Negative (Negative); Blood,Urine Large (Negative); Color,Urine Red; Glucose,Urine (UA) Negative (Negative); Ketones,Urine Negative (Negative); Leukocyte Esterase,Urine Large (Negative); Nitrite,Urine Negative (Negative); Protein,Urine 2+ (Negative); RBC,Urine >182 /hpf (0-5); Specific Gravity,Urine 1.018 (1.001-1.035); Urobilinogen,Urine <2.0 mg/dL (<2.0); WBC,Urine >182 /hpf (0-5)
--- NOTE | 2024-04-14 22:14 | XR ---
EXAMINATION TYPE: XR chest 2V DATE OF EXAM: 04/14/2024 COMPARISON: Prior chest x-ray August 11, 2023 HISTORY: Fatigue TECHNIQUE: Frontal and lateral views of the chest are obtained. FINDINGS: Mild cardiomegaly with mild central vascular congestion is present. There is no suspicious peripheral focal air space opacity, pleural effusion, or pneumothorax seen. Cholecystectomy clips ar e redemonstrated. The osseous structures are intact. IMPRESSION: Findings consistent with fluid overload state/ CHF exacerbation though present. Correlat e clinically.
[2024-04-14 23:56] LABS: Basophils % (A) 1 %; Eosinophils # (A) 0.1 k/uL (0-0.7); Eosinophils % (A) 3 %; HCT 38.6 % (34.0-46.0); HGB 12.6 gm/dL (11.4-16.0); Hypochromasia Moderate; Lymphocytes # (A) 1.5 k/uL (1.0-4.8); Lymphocytes % (A) 32 %; MCH 35.4 pg (25.0-35.0); MCHC 32.7 g/dL (31.0-37.0); MCV 108.2 fL (80.0-100.0); Macrocytosis Marked; Mean Platelet Volume 8.1; Monocytes # (A) 0.3 k/uL (0-1.0); Monocytes % (A) 5 %; Neutrophils # (A) 2.6 k/uL (1.3-7.7); Neutrophils % (A) 55 %; RBC 3.57 m/uL (3.80-5.40); RDW 14.4 % (11.5-15.5); WBC 4.7 k/uL (3.8-10.6)
[2024-04-15 00:06] LABS: ALT 13 U/L (4-34); AST 31 U/L (14-36); African American GFR (CKD) 43 (>60 ml/min/1.73 sqM); Alkaline Phosphatase 135 U/L (38-126); Anion Gap 3 mmol/L; Blood Urea Nitrogen 33 mg/dL (7-17); Calcium 10.5 mg/dL (8.4-10.2); Carbon Dioxide 28 mmol/L (22-30); Chloride 109 mmol/L (98-107); Glucose 98 mg/dL (74-99); Lipase 222 U/L (23-300); Non-African American GFR(CKD) 38 (>60 ml/min/1.73 sqM); Potassium 4.3 mmol/L (3.5-5.1); Sodium 140 mmol/L (137-145); Total Bilirubin 1.8 mg/dL (0.2-1.3); Total Protein 5.5 g/dL (6.3-8.2)
[2024-04-15] MEDS ORDERED: NALOXONE 0.4 MG/ML 1 ML VIAL IV PRN (00:16)
[2024-04-15 00:25] LABS: INR 1.3 (<1.2); Partial Thromboplastin Time 26.4 sec (22.0-30.0); Prothrombin Time 13.9 sec (10.0-12.5)
[2024-04-15 02:17] LABS: Anisocytosis (M) Present; Poikilocytosis (M) Present; RBC Fragments Present
[2024-04-15 02:19] LABS: Platelet Count 85 k/uL (150-450)
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
[2024-04-15] MEDS: HYDROcodone/APAP 10-325MG 1 EACH TAB PO PRN (03:35)
[2024-04-15] MEDS: SODIUM CHLORIDE 0.9% 1,000 ML IV SCH (04:23)
[2024-04-15] MEDS: LEVOFLOXACIN 750MG-D5W PMX 750 MG in DEXTROSE/WATER 1 150ML.BAG IVPB SCH (04:23)
[2024-04-15 08:16] LABS: Basophils % (A) 1 %; Eosinophils # (A) 0.1 k/uL (0-0.7); Eosinophils % (A) 3 %; HCT 38.7 % (34.0-46.0); HGB 11.9 gm/dL (11.4-16.0); Hypochromasia Marked; Lymphocytes # (A) 1.5 k/uL (1.0-4.8); Lymphocytes % (A) 33 %; MCH 33.5 pg (25.0-35.0); MCHC 30.7 g/dL (31.0-37.0); MCV 109.2 fL (80.0-100.0); Macrocytosis Marked; Mean Platelet Volume 8.4; Monocytes # (A) 0.3 k/uL (0-1.0); Monocytes % (A) 6 %; Neutrophils # (A) 2.5 k/uL (1.3-7.7); Neutrophils % (A) 54 %; RBC 3.54 m/uL (3.80-5.40); RDW 14.1 % (11.5-15.5); WBC 4.6 k/uL (3.8-10.6)
[2024-04-15 08:19] LABS: Platelet Count 80 k/uL (150-450)
[2024-04-15] MEDS: PANTOPRAZOLE 40 MG TABLET PO SCH (08:23)
[2024-04-15] MEDS: ENOXAPARIN 40 MG/0.4 ML SYRINGE SQ SCH (08:24)
[2024-04-15 08:28] LABS: African American GFR (CKD) 54 (>60 ml/min/1.73 sqM); Anion Gap 6 mmol/L; Blood Urea Nitrogen 31 mg/dL (7-17); Calcium 10.3 mg/dL (8.4-10.2); Carbon Dioxide 27 mmol/L (22-30); Chloride 107 mmol/L (98-107); Glucose 72 mg/dL (74-99); Non-African American GFR(CKD) 47 (>60 ml/min/1.73 sqM); Sodium 140 mmol/L (137-145)
[2024-04-15 08:31] LABS: Potassium 3.7 mmol/L (3.5-5.1)
[2024-04-15] MEDS: CHLORTHALIDONE 25 MG TAB PO SCH (09:29)
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
[2024-04-15] MEDS: ERTAPENEM 1 GM in SODIUM CHLORIDE 0.9% 50 ML IVPB SCH (16:19)
[2024-04-16 07:47] LABS: Basophils % (A) 1 %; Eosinophils # (A) 0.1 k/uL (0-0.7); Eosinophils % (A) 3 %; HGB 11.4 gm/dL (11.4-16.0); Hypochromasia Marked; Lymphocytes # (A) 1.1 k/uL (1.0-4.8); Lymphocytes % (A) 31 %; MCH 34.2 pg (25.0-35.0); MCHC 31.7 g/dL (31.0-37.0); Macrocytosis Marked; Mean Platelet Volume 8.2; Monocytes # (A) 0.3 k/uL (0-1.0); Monocytes % (A) 7 %; Neutrophils # (A) 1.9 k/uL (1.3-7.7); Neutrophils % (A) 54 %; RBC 3.33 m/uL (3.80-5.40); RDW 14.3 % (11.5-15.5); WBC 3.6 k/uL (3.8-10.6)
[2024-04-16 07:49] LABS: Platelet Count 66 k/uL (150-450)
[2024-04-16 08:22] LABS: African American GFR (CKD) 47 (>60 ml/min/1.73 sqM); Anion Gap 2 mmol/L; Blood Urea Nitrogen 32 mg/dL (7-17); Calcium 10.4 mg/dL (8.4-10.2); Carbon Dioxide 26 mmol/L (22-30); Chloride 110 mmol/L (98-107); Glucose 74 mg/dL (74-99); Non-African American GFR(CKD) 41 (>60 ml/min/1.73 sqM); Potassium 3.8 mmol/L (3.5-5.1); Sodium 138 mmol/L (137-145)
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
--- NOTE | 2024-04-16 11:31 | P.PN ---
Subjective Progress Note Date: 04/16/24 Patient observed at bedside. No significant overnight events. Patient does not complain of dysuria or urgency. Review of systems: Pertinent positives and negatives as discussed in HPI, a complete review of systems was performed and all other systems are negative. Physical examination: Vital signs reviewed General: non toxic, no distress, appears at stated age, normal weight Derm: no unusual rashes/lesions, warm Head: atraumatic, normocephalic, symmetric Eyes: EOMI, no lid lag, anicteric sclera, pupils equal round reactive to light ENT: Nose and ears atraumatic Neck: No cervical lymphadenopathy, trachea midline, supple Mouth: no lip lesion, mucus membranes moist Cardiovascular: S1S2 reg, no murmur, positive dorsalis pedis pulse bilateral, grade 3 bilateral nonpitting edema, patient had compression socks Lungs: Bibasilar crackles, no rhonchi, no rales, no accessory muscle use Abdominal: soft, nontender to palpation, no guarding Ext: muscle strength 4 out of 5 in lower extremities, 5 out of 5 in upper extremities, no gross muscle atrophy, no contractures, Neuro: CN II-XI grossly intact, no gross focal neuro deficits Psych: Alert, oriented, appropriate affect Data reviewed. WBC 3.6, hemoglobin 11.4, platelet 66, creatinine 1.32 Assessment/Plan: 73-year-old female with PMH of recurrent UTIs, nephrolithiasis status post left ureteral stent and sarcoidosis presents to the ER with concerns regarding ongoing UTI symptoms. Patient admitted for further workup of UTI. UTI, failed outpatient treatment, s/p L ureteral stent on 04/01/24: Started on IV levofloxacin 750 mg every 48 hour (adjusted renal dose) based on sensitivities from Urine culture Per urology, urine culture obtained on (04/13) shows ESBL Klebsiella oxytoca Culture showed sensitivity to Levaquin though there is resistance to ciprofloxacin which is why it was decided, after speaking with ID, that we would start etrapenem 1 g IVPB IV daily instead and discontinue Levaquin. - Will consider PICC line for thursday so pt can continue abx at home. (2-week course) Continue IV normal saline 75 cc/h Cardiomegaly with fluid overload on CXR: Not requiring supplemental oxygen at this time #Macrocytosis B12 greater than 1800, still pending folate levels #Chronic conditions: Hypertension: Resume chlorthalidone 25 mg p.o. daily GERD: Resume omeprazole 40 mg p.o. daily Osteoarthritis: Resume [place] [id number] 1 tablet p.o. every 8 hour CKD stage 3b: at baseline Thrombocytopenia, at baseline Elevated total bilirubin: At baseline DVT prophylaxis: Lovenox 40mg Subc daily CODE STATUS: Full code Discussed with: Patient Anticipated discharge place: Home Anticipated discharge time: Likely Thursday (04/18) after receiving PICC line. I have seen and evaluated the patient today. Discussed with the resident and agree with the residents finding and plan as documented in the resident's note. Changes highlighted in blue font. Objective - Vital Signs Vital signs: Vital Signs Temp 98.5 F 04/16/24 04:30 Pulse 93 04/16/24 04:30 Resp 17 04/16/24 04:30 BP 131/80 04/16/24 04:30 Pulse Ox 100 04/16/24 04:30 FiO2 Intake & Output 04/15/24 04/16/24 04/16/24 18:59 06:59 18:59 Weight 87.543 kg 75.5 kg Other: Voiding Method Toilet Toilet Diaper Diaper # Voids 1 2 - Labs CBC & Chem 7: 04/16/24 07:29 04/16/24 07:29 Labs: Abnormal Lab Results - Last 24 Hours (Table) 04/15/24 04/15/24 04/15/24 Range/Units 06:32 06:32 06:32 RBC 3.54 L (3.80-5.40) m/uL MCV 109.2 H (80.0-100.0) fL MCHC 30.7 L (31.0-37.0) g/dL Plt Count 80 L (150-450) k/uL Macrocytosis Marked A BUN 31 H (7-17) mg/dL Creatinine 1.18 H (0.52-1.04) mg/dL Glucose 72 L (74-99) mg/dL Calcium 10.3 H (8.4-10.2) mg/dL Vitamin B12 >1800.0 H (200.0-944.0) pg/mL Microbiology - Last 24 Hours (Table) 04/14/24 21:45 Urine Culture - Preliminary Urine,Voided Gram Neg Bacilli
--- NOTE | 2024-04-16 13:51 | P.PN ---
Subjective Progress Note Date: 04/16/24 Principal diagnosis: Reason for follow-up is urinary tract infection Patient is a 73-year-old female with a past medical history significant for hypertension osteoarthritis seizure disorder history of nephrolithiasis and recurrent urine tract infection patient recently did have left ureteral stent placement on 04/01/2024 now being admitted to hospital for evaluation of weakness fatigue did have a positive UA concerning for symptomatic urinary tract infection with outpatient culture positive for ESBL Klebsiella On today's evaluation that is 04/16/2024, Patient is afebrile this morning patient denies having any chest pain shortness of breath or cough, the patient i s breathing comfortably and currently on room air, patient denies any abdominal pain no diarrhea no nausea no vomiting, complaining of weakness no other symptoms. Patient white count is 3.6, creatinine is 1.32 urine is growing gram-negative Objective - Vital Signs Vital signs: Vital Signs Temp 98.0 F 04/16/24 08:00 Pulse 74 04/16/24 08:00 Resp 16 04/16/24 08:00 BP 125/62 04/16/24 08:00 Pulse Ox 96 04/16/24 08:00 FiO2 Intake & Output 04/15/24 04/16/24 04/16/24 18:59 06:59 18:59 Weight 87.543 kg 75.5 kg Other: Voiding Method Toilet Toilet Toilet Diaper Diaper Diaper # Voids 1 2 1 - Exam GENERAL DESCRIPTION: An elderly female lying in bed in no distress RESPIRATORY SYSTEM: Unlabored breathing , decreased breath sounds at bases HEART: S1 S2 regular rate and rhythm , ABDOMEN: Soft , no tenderness EXTREMITIES: No edema feet - Labs CBC & Chem 7: 04/16/24 07:29 04/16/24 07:29 Labs: Abnormal Lab Results - Last 24 Hours (Table) 04/16/24 04/16/24 Range/Units 07:29 07:29 WBC 3.6 L (3.8-10.6) k/uL RBC 3.33 L (3.80-5.40) m/uL MCV 108.0 H (80.0-100.0) fL Plt Count 66 L (150-450) k/uL Macrocytosis Marked A Chloride 110 H (98-107) mmol/L BUN 32 H (7-17) mg/dL Creatinine 1.32 H (0.52-1.04) mg/dL Calcium 10.4 H (8.4-10.2) mg/dL Microbiology - Last 24 Hours (Table) 04/14/24 21:45 Urine Culture - Preliminary Urine,Voided Gram Neg Bacilli Assessment and Plan (1) Infection with ESBL Klebsiella oxytoca Current Visit: Yes Status: Acute Code(s): A49.8 - OTHER BACTERIAL INFECTIONS OF UNSPECIFIED SITE; Z16.12 - EXTENDED SPECTRUM BETA LACTAMASE (ESBL) RESISTANCE SNOMED Code(s): 7093090456 (2) UTI (urinary tract infection) Current Visit: Yes Status: Acute Priority: High Code(s): N39.0 - URINARY TRACT INFECTION, SITE NOT SPECIFIED SNOMED Code(s): 22945315 Plan: 1patient presented to hospital with weakness fatigue nausea which are usually typical symptoms of her UTI and also have some intermittent hematuria in this patient who recently did have ureteral stent placement on 04/01/2024 urine culture at that time were positive for Citrobacter however urine culture on 04/13/2024 now finalized with ESBL E. coli that is resistant to Cipro but sensitive to Levaquin, with resistant Cipro sensitivity to Levaquin cannot be trusted and the patient likely developed resistant during treatment hence Levaquin was discontinued 2-patient to continue with n Invanz 1 g daily pending culture obtained this admission and will likely need midline and outpatient IV antibiotics this was discussed with admitting team Dictation was produced using [employer] dictation software. please excuse any grammatical, word or spelling errors. Time with Patient: Less than 30
[2024-04-17 09:40] LABS: Basophils # (A) 0.03 X 10*3/uL (0.00-0.10); Basophils % (A) 0.9 %; Eosinophils # (A) 0.14 X 10*3/uL (0.04-0.35); Eosinophils % (A) 4.1 %; HCT 30.7 % (37.2-46.3); HGB 10.1 g/dL (12.0-15.0); Immature Grans, Automated 0 %; Immature Platelet Fraction 3.9 % (1.1-6.1); Lymphocytes # (A) 1.42 X 10*3/uL (0.90-5.00); Lymphocytes % (A) 41.9 %; MCH 33.9 pg (27.0-32.0); MCHC 32.9 g/dL (32.0-37.0); Mean Platelet Volume 12.2 FL (9.5-12.2); Monocytes # (A) 0.27 X 10*3/uL (0.20-1.00); NRBC Per 100 WBC 0 X 10*3/uL (0.00-0.01); Neutrophils # (A) 1.53 X 10*3/uL (1.80-7.70); Neutrophils % (A) 45.1 %; Platelet Count 69 X 10*3/uL (140-440); RBC 2.98 X 10*6/uL (4.10-5.20); RDW 14.5 % (11.5-14.5); WBC 3.39 X 10*3/uL (4.50-10.00)
[2024-04-17 10:31] LABS: Chloride 108 mmol/L (96-109); Glucose 74 mg/dL (70-110); Sodium 141 mmol/L (135-145)
[2024-04-17 10:32] LABS: Calcium 9.9 mg/dL (8.7-10.3)
[2024-04-17] MEDS: MEROPENEM 1 GM in SODIUM CHLORIDE 0.9% 100 ML IVPB SCH (11:03)
--- NOTE | 2024-04-17 11:49 | P.PN ---
Subjective Progress Note Date: 04/17/24 Patient observed at bedside. No significant overnight events. Patient does not complain of dysuria or urgency. Review of systems: Pertinent positives and negatives as discussed in HPI, a complete review of systems was performed and all other systems are negative. Physical examination: Vital signs reviewed General: non toxic, no distress, appears at stated age, normal weight Derm: no unusual rashes/lesions, warm Head: atraumatic, normocephalic, symmetric Eyes: EOMI, no lid lag, anicteric sclera, pupils equal round reactive to light ENT: Nose and ears atraumatic Neck: No cervical lymphadenopathy, trachea midline, supple Mouth: no lip lesion, mucus membranes moist Cardiovascular: S1S2 reg, no murmur, Lungs: Clear to auscultation, no rhonchi, no rales, no accessory muscle use Abdominal: soft, nontender to palpation, no guarding Ext: muscle strength 5 out of 5 in lower extremities, 5 out of 5 in upper extremities, no gross muscle atrophy, no contractures, Neuro: CN II-XI grossly intact, no gross focal neuro deficits Psych: Alert, oriented, appropriate affect Data reviewed. WBC 3.39, hemoglobin 10.1, platelets 69, creatinine 1.4 Assessment/Plan: 73-year-old female with PMH of recurrent UTIs, nephrolithiasis status post left ureteral stent and sarcoidosis presents to the ER with concerns regarding ongoing UTI symptoms. Patient admitted for further workup of ESBL Klebsiella she is already status post UTI. Currently on meropenem, will likely need IV antibiotics at home. ESBL UTI, failed outpatient treatment, s/p L ureteral stent on 04/01/24: -Urology evaluated patient during this admission Had discussions with ID, levofloxacin might have some intermediate sensitivity, however since patient failed prior levofloxacin antibiotic therapy, will benefit from carbapenems. Currently on meropenem 1 g IV every 8 hours, will likely need outpatient IV therapy, PICC line placement likely tomorrow Cardiomegaly with fluid overload on CXR: -Asymptomatic, Continue to monitor Pancytopenia -Likely secondary to acute illness -Patient does have a history of thrombocytopenia -B12 within normal limits, folic acid pending -Continue to monitor CBC #Chronic conditions: Hypertension: Resume chlorthalidone 25 mg p.o. daily GERD: Resume omeprazole 40 mg p.o. daily Osteoarthritis: Resume [place] [id number] 1 tablet p.o. every 8 hour CKD stage 3b: at baseline Thrombocytopenia, at baseline Elevated total bilirubin: At baseline DVT prophylaxis: Lovenox 40mg Subc daily CODE STATUS: Full code Discussed with: Patient Anticipated discharge place: Home Anticipated discharge time: Likely Thursday (04/18) after receiving PICC line. Objective - Vital Signs Vital signs: Vital Signs Temp 98.4 F 04/17/24 08:21 Pulse 64 04/17/24 08:21 Resp 16 04/17/24 08:21 BP 134/62 04/17/24 08:21 Pulse Ox 100 04/17/24 08:21 FiO2 Intake & Output 04/16/24 04/17/24 04/17/24 18:59 06:59 18:59 Intake Total 118 Balance 118 Weight 71 kg Intake: Oral 118 Other: Voiding Method Toilet Toilet Toilet Diaper Diaper Diaper # Voids 1 1 - Labs CBC & Chem 7: 04/17/24 02:49 04/17/24 02:49 Labs: Abnormal Lab Results - Last 24 Hours (Table) 04/17/24 04/17/24 Range/Units 02:49 02:49 WBC 3.39 L (4.50-10.00) X 10*3/uL RBC 2.98 L (4.10-5.20) X 10*6/uL Hgb 10.1 L (12.0-15.0) g/dL Hct 30.7 L (37.2-46.3) % MCV 103.0 H (80.0-97.0) FL MCH 33.9 H (27.0-32.0) pg Plt Count 69 L (140-440) X 10*3/uL Neutrophils # 1.53 L (1.80-7.70) X 10*3/uL BUN 28.0 H (9.0-27.0) mg/dL Est GFR (CKD-EPI) 40 L (>=60) Microbiology - Last 24 Hours (Table) 04/14/24 21:45 Urine Culture - Final Urine,Voided Klebsiella oxytoca
--- NOTE | 2024-04-17 21:32 | P.PN ---
Subjective Progress Note Date: 04/17/24 Principal diagnosis: Reason for follow-up is urinary tract infection Patient is a 73-year-old female with a past medical history significant for hypertension osteoarthritis seizure disorder history of nephrolithiasis and recurrent urine tract infection patient recently did have left ureteral stent placement on 04/01/2024 now being admitted to hospital for evaluation of weakness fatigue did have a positive UA concerning for symptomatic urinary tract infection with outpatient culture positive for ESBL Klebsiella On today's evaluation that is 04/17/2024,the patient denies any fever or any chills, patient is breathing comfortably on room air, the patient denies chest pain shortness of breath and no significant cough, patient denies abdominal pain, no nausea vomiting or diarrhea patient still complain of feeling weak denies any worsening urinary symptoms. Patient white count is 3.39, creatinine is 1.4 urine has been finalized with Klebsiella that is intermediate sensitivity to ertapenem Objective - Vital Signs Vital signs: Vital Signs Temp 98.4 F 04/17/24 08:21 Pulse 64 04/17/24 08:21 Resp 16 04/17/24 08:21 BP 134/62 04/17/24 08:21 Pulse Ox 100 04/17/24 08:21 FiO2 Intake & Output 04/16/24 04/17/24 04/17/24 18:59 06:59 18:59 Intake Total 118 Balance 118 Weight 71 kg Intake: Oral 118 Other: Voiding Method Toilet Toilet Diaper Diaper # Voids 1 - Exam GENERAL DESCRIPTION: An elderly female lying in bed in no distress RESPIRATORY SYSTEM: Unlabored breathing , decreased breath sounds at bases HEART: S1 S2 regular rate and rhythm , ABDOMEN: Soft , no tenderness EXTREMITIES: No edema feet - Labs CBC & Chem 7: 04/17/24 02:49 04/17/24 02:49 Labs: Abnormal Lab Results - Last 24 Hours (Table) 04/17/24 Range/Units 02:49 WBC 3.39 L (4.50-10.00) X 10*3/uL RBC 2.98 L (4.10-5.20) X 10*6/uL Hgb 10.1 L (12.0-15.0) g/dL Hct 30.7 L (37.2-46.3) % MCV 103.0 H (80.0-97.0) FL MCH 33.9 H (27.0-32.0) pg Plt Count 69 L (140-440) X 10*3/uL Neutrophils # 1.53 L (1.80-7.70) X 10*3/uL Microbiology - Last 24 Hours (Table) 04/14/24 21:45 Urine Culture - Final Urine,Voided Klebsiella oxytoca Assessment and Plan (1) Infection with ESBL Klebsiella oxytoca Current Visit: Yes Status: Acute Code(s): A49.8 - OTHER BACTERIAL INFECTIONS OF UNSPECIFIED SITE; Z16.12 - EXTENDED SPECTRUM BETA LACTAMASE (ESBL) RESISTANCE SNOMED Code(s): 4345673910 (2) UTI (urinary tract infection) Current Visit: Yes Status: Acute Priority: High Code(s): N39.0 - URINARY TRACT INFECTION, SITE NOT SPECIFIED SNOMED Code(s): 95510419 Plan: 1patient presented to hospital with weakness fatigue nausea which are usually typical symptoms of her UTI and also have some intermittent hematuria in this patient who recently did have ureteral stent placement on 04/01/2024 urine culture at that time were positive for Citrobacter however urine culture on 04/13/2024 now finalized with ESBL E. coli that is resistant to Cipro but sensitive to Levaquin, with resistant Cipro sensitivity to Levaquin cannot be trusted and the patient likely developed resistant during treatment hence Levaquin was discontinued 2-patient urine is now growing Klebsiella with intermediate sensitive to ertapenem we will discontinue ertapenem start the patient on meropenem get a midline for outpatient IV antibiotic at least 10 days on DC Dictation was produced using [employer] dictation software. please excuse any grammatical, word or spelling errors. Time with Patient: Less than 30
[2024-04-18 07:38] VITALS: RESP 13
[2024-04-18 10:36] LABS: BUN/Creat Ratio 19.15 Ratio (12.00-20.00); Blood Urea Nitrogen 24.9 mg/dL (9.0-27.0); Calcium 9.8 mg/dL (8.7-10.3); Carbon Dioxide 26.2 mmol/L (21.6-31.8); Chloride 107 mmol/L (96-109); Glucose 75 mg/dL (70-110); Potassium 3.9 mmol/L (3.5-5.5); Sodium 139 mmol/L (135-145)
[2024-04-18 11:02] LABS: Basophils # (A) 0.02 X 10*3/uL (0.00-0.10); Basophils % (A) 0.7 %; Elliptocytes 2+; Eosinophils # (A) 0.16 X 10*3/uL (0.04-0.35); Eosinophils % (A) 5.4 %; HCT 32.1 % (37.2-46.3); HGB 10.1 g/dL (12.0-15.0); Immature Grans, Automated 0 %; Lymphocytes % (A) 40.3 %; MCH 34.2 pg (27.0-32.0); MCHC 31.5 g/dL (32.0-37.0); MCV 108.8 FL (80.0-97.0); Mean Platelet Volume 11.6 FL (9.5-12.2); Monocytes # (A) 0.26 X 10*3/uL (0.20-1.00); Monocytes % (A) 8.7 %; NRBC Per 100 WBC 0.02 X 10*3/uL (0.00-0.01); Neutrophils # (A) 1.34 X 10*3/uL (1.80-7.70); Neutrophils % (A) 44.9 %; Platelet Count 90 X 10*3/uL (140-440); RBC 2.95 X 10*6/uL (4.10-5.20); RDW 14.8 % (11.5-14.5); WBC 2.98 X 10*3/uL (4.50-10.00)
--- NOTE | 2024-04-18 12:00 | P.DS ---
Providers Date of admission: 04/16/24 14:26 Expected date of discharge: 04/18/24 Attending physician: Jim Gomze MD Consults: 04/15/24 03:46 Consult Physician Urgent Consulting Provider: Gerson Cintron Consult Reason/Comments: UTI s/p stent Do you want consulting provider notified?: Yes 04/15/24 15:00 Consult Physician Routine Consulting Provider: Rohan Crowe Consult Reason/Comments: ESBL UTI Do you want consulting provider notified?: Already Contacted Primary care physician: [facility] Hospital Course: Discharge Diagnosis: ESBL UTI, failed outpatient treatment, status post left ureteral stent on 04/01/2024 Cardiomegaly with fluid overload on CXR Pancytopenia Hypertension GERD AMADOR CKD stage IIIb Thrombocytopenia hyperbilirubinemia Hospital Course: 73-year-old female with PMH of recurrent UTIs, nephrolithiasis status post recent left ureteral stent (04/01/24), CKD stage 3b, and sarcoidosis presents to the ER with concerns regarding UTI. In the ED patient admitted to feeling fatigued and ill, but denied urinary complaints, abdominal pain, back pain, CVA tenderness, fever, chills, nausea, vomiting, shortness of breath, and chest pain. In the ED patient's vitals were stable with the exception of O2 saturation of 92 while on room air which quickly improved. In the ED patient received labs significant for WBC 4.7, hemoglobin 12.6, PT 13.9, INR 1.3, sodium 140, potassium 4.3, BUN 33, creatinine 1.41, calcium 10.5, total bilirubin 1.8, alkaline phosphatase 135, and albumin 3. Patient also received a UA in the ED suspicious for UTI. In addition patient received CXR consistent with fluid overload state/CHF exacerbation. Patient also received an EKG , showed sinus rhythm with frequent PACs. Patient was admitted for further workup and treatment of UTI. Patient was initially started on Levaquin but once urine cultures the patient had given on (04/13) and her urologist office came back positive for Klebsiella oxytoca, which was sensitive to levofloxacin but resistant to ciprofloxacin. ID was also consulted. Due to persistent ESBL UTI despite being on Levaquin, antibiotics were switched to ertapenem and then to meropenem. Patient then received a PICC line so that she could receive 10-day course of IV antibiotics as an outpatient. Patient is discharged to home with care from family/home health services. Patient is advised to follow-up with her PCP, infectious disease doctor, and urologist. Patient is encouraged to read discharge instructions in regards to UTI in women and midline catheter. Vital signs reveiwed and stable: General: non toxic, no distress, appears at stated age, normal weight Derm: no unusual rashes/lesions, warm Head: atraumatic, normocephalic, symmetric Eyes: EOMI, no lid lag, anicteric sclera, pupils equal round reactive to light ENT: Nose and ears atraumatic Neck: No cervical lymphadenopathy, trachea midline, supple Mouth: no lip lesion, mucus membranes moist Cardiovascular: S1S2 reg, no murmur, Lungs: Clear to auscultation, no rhonchi, no rales, no accessory muscle use Abdominal: soft, nontender to palpation, no guarding Ext: muscle strength 5 out of 5 in lower extremities, 5 out of 5 in upper extremities, no gross muscle atrophy, no contractures, Neuro: CN II-XI grossly intact, no gross focal neuro deficits Psych: Alert, oriented, appropriate affect A total of 33 minutes were spent preparing this complex discarge summary. Patient was discharged on 04/18/24 at 1111. I have seen and evaluated the patient today. Discussed with the resident and agree with resident's findings and plan as documented in the resident's note. Changes highlighted in blue font. Patient Condition at Discharge: Stable Plan - Discharge Summary Discharge Rx Participant: No New Discharge Prescriptions: New Meropenem [Merrem] 1 gm IVPB Q8H 10 Days #0 each Continue HYDROcodone/APAP 10-325MG [Raymond 10-325] 1 tab PO Q8H PRN PRN Reason: Pain Estradiol Cream [Estrace Cream 0.01%] 1 gm VAGINAL SON Chlorthalidone [Hygroton] 25 mg PO DAILY Omeprazole 40 mg PO DAILY Discharge Medication List HYDROcodone/APAP 10-325MG [Raymond 10-325] 1 tab PO Q8H PRN 09/10/19 [History] Estradiol Cream [Estrace Cream 0.01%] 1 gm VAGINAL SON 08/11/23 [History] Chlorthalidone [Hygroton] 25 mg PO DAILY 04/01/24 [History] Omeprazole 40 mg PO DAILY 04/01/24 [History] Meropenem [Merrem] 1 gm IVPB Q8H 10 Days #0 each 04/18/24 [Rx] Follow up Appointment(s)/Referral(s): Erik Moser MD [STAFF PHYSICIAN] - 1 Week Lamar Bernstein MD [Primary Care Provider] - 1-2 days Rohan Crowe MD [STAFF PHYSICIAN] - 1 Week Patient Instructions/Handouts: Urinary Tract Infection in Women (DC), Midline Catheter (DC) Activity/Diet/Wound Care/Special Instructions: Please see urology and PCP.
[2024-04-18 15:09] VITALS: BP 125/72; PULSE 75; TEMP 97.3
--- NOTE | 2024-04-19 13:33 | P.PN ---
Subjective Progress Note Date: 04/18/24 Principal diagnosis: Reason for follow-up is urinary tract infection Patient is a 73-year-old female with a past medical history significant for hypertension osteoarthritis seizure disorder history of nephrolithiasis and recurrent urine tract infection patient recently did have left ureteral stent placement on 04/01/2024 now being admitted to hospital for evaluation of weakness fatigue did have a positive UA concerning for symptomatic urinary tract infection with outpatient culture positive for ESBL Klebsiella On today's evaluation that is04/18/2024,the patient remains to be afebrile, patient is on 2 L nasal cannula supplemental oxygen and denies any shortness of breath no chest pain or cough.Patient denies having any nausea or vomiting, no abdominal pain and no diarrhea has been reported mention feeling slightly better. Patient white count is 2.98, creatinine is 1.3 urine with a drug-resistant Klebsiella intermediate sensitivity to ertapenem Objective - Vital Signs Vital signs: Vital Signs Temp 97.5 F L 04/18/24 07:37 Pulse 68 04/18/24 07:37 Resp 13 04/18/24 08:00 BP 138/70 04/18/24 07:37 Pulse Ox 97 04/18/24 07:37 FiO2 Intake & Output 04/17/24 04/18/24 04/18/24 18:59 06:59 18:59 Intake Total 120 Balance 120 Weight 73.3 kg Intake: Oral 120 Other: Voiding Method Toilet Toilet Toilet Diaper Diaper Diaper # Voids 1 1 # Bowel Movements 1 - Exam GENERAL DESCRIPTION: An elderly female lying in bed in no distress RESPIRATORY SYSTEM: Unlabored breathing , decreased breath sounds at bases HEART: S1 S2 regular rate and rhythm , ABDOMEN: Soft , no tenderness EXTREMITIES: No edema feet - Labs CBC & Chem 7: 04/18/24 05:54 04/18/24 05:54 Labs: Abnormal Lab Results - Last 24 Hours (Table) 04/18/24 04/18/24 Range/Units 05:54 05:54 WBC 2.98 L (4.50-10.00) X 10*3/uL RBC 2.95 L (4.10-5.20) X 10*6/uL Hgb 10.1 L (12.0-15.0) g/dL Hct 32.1 L (37.2-46.3) % MCV 108.8 H (80.0-97.0) FL MCH 34.2 H (27.0-32.0) pg MCHC 31.5 L (32.0-37.0) g/dL RDW 14.8 H (11.5-14.5) % Plt Count 90 L (140-440) X 10*3/uL Neutrophils # 1.34 L (1.80-7.70) X 10*3/uL NRBC/100 WBC Diff 0.02 H (0.00-0.01) X 10*3/uL Elliptocytes 2+ A Est GFR (CKD-EPI) 44 L (>=60) Assessment and Plan (1) Infection with ESBL Klebsiella oxytoca Status: Acute Code(s): A49.8 - OTHER BACTERIAL INFECTIONS OF UNSPECIFIED SITE; Z16.12 - EXTENDED SPECTRUM BETA LACTAMASE (ESBL) RESISTANCE SNOMED Code(s): 2925944776 (2) UTI (urinary tract infection) Status: Acute Priority: High Code(s): N39.0 - URINARY TRACT INFECTION, SITE NOT SPECIFIED SNOMED Code(s): 76566341 Plan: 1patient presented to hospital with weakness fatigue nausea which are usually typical symptoms of her UTI and also have some intermittent hematuria in this patient who recently did have ureteral stent placement on 04/01/2024 urine culture at that time were positive for Citrobacter however urine culture on 04/13/2024 now finalized with ESBL E. coli that is resistant to Cipro but sensitive to Levaquin, with resistant Cipro sensitivity to Levaquin cannot be trusted and the patient likely developed resistant during treatment hence Levaquin was discontinued with a subsequent urine culture grew drug-resistant Klebsiella with intermediate sensitivity to ertapenem patient did get a midline we will consider 10-day course of IV meropenem on discharge and close outpatient follow-up question concern answered Dictation was produced using [employer] software. please excuse any grammatical, word or spelling errors. Time with Patient: Less than 30
== END 2024-04-18 17:03 | disposition home health service (06) | DRG 690 ==
LOC: EC 20:01 → 3SCARD 04-15 00:52 → 6NMEDSUR 04-15 14:38 → OBSVTOIN 04-16 14:26
PROVIDERS: ADMIT Internal Medicine; ATTEND Internal Medicine
PROC: 05HF33Z Insertion of Infusion Device into Left Cephalic Vein, Percutaneous Approach (ICD-10-PCS; principal; 2024-04-18 18:10)
DX: N39.0 Urinary tract infection, site not specified (principal); D61.818 Other pancytopenia; I13.0 Hypertensive heart and chronic kidney disease with heart failure and stage 1 through stage 4 chronic kidney disease, or unspecified chronic kidney disease; Z16.12 Extended spectrum beta lactamase (ESBL) resistance; Z16.23 Resistance to quinolones and fluoroquinolones; R17 Unspecified jaundice; N20.2 Calculus of kidney with calculus of ureter; I27.29 Other secondary pulmonary hypertension; I50.813 Acute on chronic right heart failure; N18.32 Chronic kidney disease, stage 3b; I48.0 Paroxysmal atrial fibrillation; R31.0 Gross hematuria; D75.89 Other specified diseases of blood and blood-forming organs; B96.1 Klebsiella pneumoniae [K. pneumoniae] as the cause of diseases classified elsewhere; D86.9 Sarcoidosis, unspecified; G47.33 Obstructive sleep apnea (adult) (pediatric); I89.0 Lymphedema, not elsewhere classified; K21.9 Gastro-esophageal reflux disease without esophagitis; G89.29 Other chronic pain; M54.9 Dorsalgia, unspecified; M19.90 Unspecified osteoarthritis, unspecified site; Z79.899 Other long term (current) drug therapy; Z87.440 Personal history of urinary (tract) infections; Z87.891 Personal history of nicotine dependence; Z86.14 Personal history of Methicillin resistant Staphylococcus aureus infection; Z86.19 Personal history of other infectious and parasitic diseases; Z91.041 Radiographic dye allergy status
CPT/HCPCS: 36410; 36415; 71046; 76937; 80048; 80053; 81001; 82607; 82747; 83605; 83690; 84484; 85025; 85610; 85730; 87077; 87086; 87186; 93005; 96365; 96372; 99285

== ENCOUNTER → 2024-05-16 | Outpatient (CLI) | payer MEDICARE | END | disposition home or self-care (01) | LOC: LABWHC1 11:06 | PROVIDERS: ATTEND Urology | DX: N20.1 Calculus of ureter (principal) | CPT/HCPCS: 87077; 87086; 87186 ==

== ENCOUNTER 2024-05-24 06:52 | Day surgery (SDC) | payer MEDICARE ==
[~2024-05-24 06:52] MED LIST: GENTAMICIN 120 MG in SODIUM CHLORIDE 0.9% 100 ML IVPB PRN; LIDOCAINE 1% (10MG/ML) FOR IV START INTRADERMA PRN
[2024-05-24] MEDS ORDERED: MIDAZOLAM 2 MG/2 ML VIAL IV PRN (07:00)
[2024-05-24] MEDS ORDERED: HYDROmorphone 0.5 MG/0.5 ML SYRINGE IVP PRN (07:00)
[2024-05-24] MEDS ORDERED: fentaNYL (PF) 50 MCG/ML 2 ML AMP IVP PRN (07:00)
--- NOTE | 2024-05-24 07:58 | XR ---
EXAMINATION TYPE: XR KUB DATE OF EXAM: 05/24/2024 Comparison: 11/05/2022 Clinical History: 73-year-old female Right Ureteral Stone N20.1 Findings: Cholecystectomy clips. Right ureteral stent. Vascular calcifications left upper quadrant. Left-sided pelvic phlebolith. 8 mm right renal calculus. Possible faint 6 mm calcification right side of the pel vis along a distal stent. Nonobstructive bowel gas pattern. Mild stool burden. Impression: 1. Right ureteral stent. 8 mm right renal calculus. 2. Possible 6 mm calcification versus bowel content along the distal aspect of the right ureteral bri nt.
[2024-05-24] MEDS: LACTATED RINGERS 1,000 ML IV ONE (08:01)
[2024-05-24] MEDS: ONDANSETRON 4 MG/2 ML VIAL IVP ONE (08:33)
[2024-05-24] MEDS: DEXAMETHASONE SOD PHOSPHATE 4 MG/ML 1 ML VIAL IV ONE (08:33)
[2024-05-24] MEDS: LACTATED RINGERS 1,000 ML IV SCH (08:34)
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
[2024-05-24] MEDS ORDERED: LIDOCAINE 1% INJ 10MG/ML (20 ML MDV) ONE (09:14)
[2024-05-24] MEDS ORDERED: MIDAZOLAM 2 MG/2 ML VIAL ONE (09:14)
[2024-05-24] MEDS ORDERED: fentaNYL (PF) 50 MCG/ML 2 ML AMP ONE (09:14)
[2024-05-24] MEDS ORDERED: PHENYLEPHRINE 10 MG/ML VIAL ONE (09:14)
[2024-05-24] MEDS ORDERED: PROPOFOL 10 MG/ML 20 ML VIAL IV ONE (09:14)
[2024-05-24 10:30] VITALS: TEMP 97.7
--- NOTE | 2024-05-24 10:45 | FL ---
EXAMINATION TYPE: FL guidance operating room Intraoperative/procedural fluoroscopic services were pro vided. Total fluoroscopy time is 4.3 seconds with a total of 6 submitted images to PACS. Please see t he operative/procedural note for further details. DAP: [id number] mGym2
--- NOTE | 2024-05-24 12:28 | P.OP ---
Date of Procedure: 05/24/24 Preoperative Diagnosis: Right ureteral stone Postoperative Diagnosis: Same Procedure(s) Performed: Cystoscopy, right ureteroscopy, laser lithotripsy, stone basketing and stent removal Implants: None Anesthesia: JAMISONA Surgeon: Renny Chowdhury Estimated Blood Loss (ml): 5 Pathology: other (right ureteral and renal stone) Condition: stable Disposition: PACU Indications for Procedure: This is a 73-year-old female with history of 6 mm right-sided distal ureteral stone, she is status post right-sided stent insertion for septic stone at that time on April 01. Presents today for definitive stone management, option of right-sided ureteroscopy with laser was discussed with her. Aware the risk which includes but not limited to bleeding, infection, injury to the ureter Operative Findings: Right distal ureteral stone, right sided upper pole stone Description of Procedure: Patient brought the operating room, general anesthesia was induced. She was prepped and draped in sterile fashion and placed in a dorsal lithotomy position. Cystoscopy fitted through the 21 Egyptian sheath was inserted per urethra, cystoscopy was performed which showed no abnormality within the bladder. Next the stent was removed intact. Next a semirigid ureteroscope was inserted per urethra and advanced up the right ureteral orifice, a stone was encountered in the distal ureter. Using the holmium laser the stone was fragmented, stone fragments were removed using the stone basket, at this time ureteroscope was advanced into the proximal ureter which showed no additional stones, pullback ureteroscopy was performed which showed no injury to the ureter or any sizable ureteral stone fragments. As a rigid scope was withdrawn a sensor wire was advanced through. Next 1113 Egyptian access sheath was passed over the wire into the proximal ureter under fluoroscopy. Next a flexible ureteroscope was inserted through the access sheath, renoscopy was performed showed a large stone in the upper pole. Using the holmium laser the stone was fragmented, sizable stone fragments were removed using a stone basket. Repeat renoscopy showed no injury to the kidney or any sizable fragments, on fluoroscopy there was no radiopaque densities. Pullback ureteroscopy was performed which showed no injury to the ureter or any ureteral stones, there was no ureteral edema thus a stent was not placed. The bladder was emptied at the end of the case. Patient tolerated procedure well and was taken to recovery in stable condition
[2024-05-24 12:46] VITALS: BP 123/69; PULSE 93; RESP 18
== END 2024-05-24 12:56 | disposition home or self-care (01) ==
LOC: OR 06:52
PROVIDERS: ATTEND Urology
DX: N20.2 Calculus of kidney with calculus of ureter (principal); M19.90 Unspecified osteoarthritis, unspecified site; I27.29 Other secondary pulmonary hypertension; I11.0 Hypertensive heart disease with heart failure; I50.810 Right heart failure, unspecified; G89.29 Other chronic pain; G40.909 Epilepsy, unspecified, not intractable, without status epilepticus; Z87.891 Personal history of nicotine dependence; Z90.49 Acquired absence of other specified parts of digestive tract; Z90.89 Acquired absence of other organs; Z91.041 Radiographic dye allergy status; Z79.899 Other long term (current) drug therapy
CPT/HCPCS: 74018; 82365

== ENCOUNTER 2024-12-14 17:31 | Inpatient (IN) | payer MEDICARE ==
[2024-12-14] MEDS: SODIUM CHLORIDE 0.9% 1,000 ML IV ONE (18:45)
[2024-12-14 18:56] LABS: Appearance,Urine Cloudy (Clear); Bacteria,Urine Moderate /hpf; Bilirubin,Urine Negative (Negative); Blood,Urine Moderate (Negative); Color,Urine Yellow; Glucose,Urine (UA) Negative (Negative); Ketones,Urine Trace (Negative); Leukocyte Esterase,Urine Large (Negative); Nitrite,Urine Negative (Negative); Protein,Urine 3+ (Negative); RBC,Urine 25 /hpf (0-5); Specific Gravity,Urine 1.018 (1.001-1.035); Squamous Epithelial Cell,Urine 4 /hpf (0-4); WBC,Urine >182 /hpf (0-5)
[2024-12-14 18:58] LABS: ALT 11 U/L (4-34); AST 26 U/L (14-36); African American GFR (CKD) 52 (>60 ml/min/1.73 sqM); Albumin 2.9 g/dL (3.5-5.0); Alkaline Phosphatase 128 U/L (38-126); Amylase 90 U/L (30-110); Anion Gap 8 mmol/L; Blood Urea Nitrogen 35 mg/dL (7-17); Calcium 11.1 mg/dL (8.4-10.2); Carbon Dioxide 28 mmol/L (22-30); Chloride 103 mmol/L (98-107); Glucose 104 mg/dL (74-99); Lipase 225 U/L (23-300); Non-African American GFR(CKD) 45 (>60 ml/min/1.73 sqM); Potassium 4.5 mmol/L (3.5-5.1); Sodium 139 mmol/L (137-145); Total Bilirubin 2.3 mg/dL (0.2-1.3); Total Protein 5.5 g/dL (6.3-8.2)
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
[2024-12-14 19:21] LABS: HCT 41.4 % (34.0-46.0); HGB 13.3 gm/dL (11.4-16.0); Hypochromasia Slight; MCH 32.5 pg (25.0-35.0); MCHC 32.1 g/dL (31.0-37.0); MCV 101.5 fL (80.0-100.0); Macrocytosis Slight; Mean Platelet Volume 8.4; Platelet Count 100 k/uL (150-450); RBC 4.08 m/uL (3.80-5.40); RDW 14.7 % (11.5-15.5); WBC 4.9 k/uL (3.8-10.6)
[2024-12-14 20:14] LABS: Lymphocytes # (M) 1.47 k/uL (1.0-4.8); Monocytes # (M) 0.59 k/uL (0-1.0); Neutrophils # (M) 2.74 k/uL (1.3-7.7); Neutrophils % (M) 56 %; Nucleated Red Blood Cells 1 /100 WBC (0-0); Total Cells Counted 100
[2024-12-14 20:15] LABS: Large Platelets Present
--- NOTE | 2024-12-14 20:20 | US ---
EXAMINATION TYPE: US renals and bladder DATE OF EXAM: 12/14/2024 COMPARISON: CT 04/01/2024 CLINICAL INDICATION: Female, 74 years old with history of pain; patient states no pain. UTI. Hx right renal stone TECHNIQUE: Grayscale imaging of the bilateral kidneys and urinary bladder: FINDINGS: EXAM MEASUREMENTS: Right Kidney: 9.8 x 5.1 x 3.9 cm Left Kidney: Peripheral atrophy of the left kidney measuring 6.6 x 3.2 x 2.9 cm, significantly limit ed evaluation due to shadowing bowel gas and patient body habitus. limited exam due to overlying bowel gas and patient body habitus Right Kidney: Multiple small simple appearing anechoic cysts seen, largest measuring 1.1 x 1.1 x 0.9c m Left Kidney: Significant left renal parenchymal atrophy. Left kidney not well evaluated due to shadow ing bowel gas. However, no definitive left-sided hydronephrosis appreciated. Bladder: wnl as best seen Bilateral Jets seen: not visualized Simple appearing 1.9 cm cyst incidentally seen in the spleen. There is no evidence for hydronephrosis at this point in time. No nephrolithiasis is seen. No jeffery s are identified. Limited evaluation of the urinary bladder due to underdistention. IMPRESSION: Severely Limited evaluation of the left kidney due to shadowing bowel gas. Within these limitations, no convincing evidence of acute obstructive uropathy. [facility], , 12/14/2024 8:18 PM
--- NOTE | 2024-12-14 20:32 | XR ---
EXAMINATION TYPE: XR chest 2V DATE OF EXAM: 12/14/2024 8:23 PM COMPARISON: Multiple prior chest radiograph, most recently dated 04/14/2024. CLINICAL INDICATION: Female, 74 years old with history of dyspnea; [facility] TECHNIQUE: XR chest 2V Frontal and lateral views of the chest. FINDINGS: Cardiomegaly and interstitial opacities with trace pleural effusions. No acute focal consolidation. No pneumothorax. No acute osseous abnormality. IMPRESSION: Cardiomegaly and interstitial opacities suggestive of pulmonary vascular congestion given trace effus ions. Superimposed infectious etiology would be possible as well. [facility], , 12/14/2024 8:30 PM
[2024-12-14] MEDS: IPRATROPIUM-ALBUTEROL 3 ML NEB INHALATION STA (20:44)
[2024-12-14] MEDS ORDERED: NALOXONE 0.4 MG/ML 1 ML VIAL IV PRN (21:59)
[2024-12-14] MEDS ORDERED: IBUPROFEN 400 MG TAB PO PRN (21:59)
[2024-12-14] MEDS ORDERED: MORPHINE SULFATE 4 MG/ML SYRINGE IV PRN (21:59)
[2024-12-14] MEDS ORDERED: ACETAMINOPHEN TAB 325 MG TAB PO PRN (21:59)
[2024-12-14] MEDS ORDERED: PANTOPRAZOLE 40 MG TABLET PO PRN (23:40)
[2024-12-14] MEDS ORDERED: HYDROcodone/APAP 10-325MG 1 EACH TAB PO PRN (23:44)
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
[2024-12-15] MEDS: LACTATED RINGERS 1,000 ML IV SCH (00:10)
[2024-12-15] MEDS: HYDROcodone/APAP 10-325MG 1 EACH TAB PO SCH (00:10)
[2024-12-15 08:01] LABS: ALT 11 U/L (4-34); AST 30 U/L (14-36); African American GFR (CKD) 58 (>60 ml/min/1.73 sqM); Albumin 2.6 g/dL (3.5-5.0); Alkaline Phosphatase 123 U/L (38-126); Anion Gap 5 mmol/L; Blood Urea Nitrogen 36 mg/dL (7-17); Calcium 10.6 mg/dL (8.4-10.2); Carbon Dioxide 29 mmol/L (22-30); Chloride 102 mmol/L (98-107); Globulin 2.6 g/dL; Glucose 75 mg/dL (74-99); Magnesium 1.7 mg/dL (1.6-2.3); Non-African American GFR(CKD) 50 (>60 ml/min/1.73 sqM); Potassium 4.4 mmol/L (3.5-5.1); Sodium 136 mmol/L (137-145); Total Protein 5.2 g/dL (6.3-8.2)
[2024-12-15 08:10] LABS: Basophils % (A) 0 %; Eosinophils # (A) 0.2 k/uL (0-0.7); Eosinophils % (A) 3 %; HCT 40.4 % (34.0-46.0); HGB 12.5 gm/dL (11.4-16.0); Hypochromasia Marked; Lymphocytes # (A) 1.4 k/uL (1.0-4.8); Lymphocytes % (A) 23 %; MCH 32.5 pg (25.0-35.0); MCHC 31.1 g/dL (31.0-37.0); MCV 104.7 fL (80.0-100.0); Macrocytosis Moderate; Mean Platelet Volume 8.3; Monocytes # (A) 0.4 k/uL (0-1.0); Monocytes % (A) 6 %; Neutrophils # (A) 3.8 k/uL (1.3-7.7); Neutrophils % (A) 64 %; RBC 3.85 m/uL (3.80-5.40); RDW 14.6 % (11.5-15.5); WBC 5.9 k/uL (3.8-10.6)
[2024-12-15] MEDS ORDERED: CHLORTHALIDONE 25 MG TAB PO SCH (09:00)
[2024-12-15] MEDS: predniSONE 20 MG TAB PO SCH (09:01)
[2024-12-15] MEDS: ENOXAPARIN 40 MG/0.4 ML SYRINGE SQ SCH (09:01)
[2024-12-15] MEDS: FUROSEMIDE 20 MG TAB PO SCH (09:01)
[2024-12-15 09:14] LABS: Platelet Count 78 k/uL (150-450)
--- NOTE | 2024-12-15 17:55 | P.PN ---
Subjective Progress Note Date: 12/15/24 Hospital course: Patient is a pleasant 74-year-old female with a past medical history of sarcoidosis home oxygen dependent on 2 L O2 via nasal cannula, hypertension, recurrent UTIs, and CKD stage IIIa. She presented to the emergency department on 12/14/2024 secondary to urinary frequency, urgency, and weakness status post recent diagnosis of UTI on 12/05/2024 and failing outpatient antibiotic treatment. Physical exam: Vital signs reviewed and stable. General: Nontoxic, no distress and appears stated age. Derm: Skin warm and dry, normal coloration for ethnicity. Head: Atraumatic, normocephalic and symmetric. Eyes: EOM's intact, no lid lag, and anicteric sclera Mouth: no lip lesions, mucus membranes moist Cardiovascular: regular rate and rhythm with normal S1S2, no murmur, positive posterior tibial pulses bilaterally, and cap refill < 2 seconds. Lungs: Respirations even, regular, and unlabored on room air. Lungs CTA bilaterally, no rhonchi, no rales, no wheezing, and no accessory muscle usage. Abdominal: soft, nontender to palpation, no guarding, no appreciable organomegaly Ext: ROM intact. No gross muscle atrophy, no edema, no contractures Neuro: Speech clear, face symmetrical and CN II-XII grossly intact with no noted focal neuro deficits Psych: Alert and oriented to person, place, time, and situation. Appropriate and pleasant affect. Assessment and Plan of Care: UTI, failed outpatient management Lactic acidosis -Continue IV antibiotics with Rocephin 2 g daily. Per most recent recent urine culture and sensitivity report obtained 12/05/2024. -Follow-up on repeat urine culture and blood culture. -Renal ultrasound negative for hydronephrosis and nephrolithiasis showing limited evaluation of left kidney due to shadowing/bowel gas but reporting peripheral atrophy of left kidney and right kidney showing multiple small simple appearing cysts with largest measuring 1.1 x 1.1 x 0.9 cm. 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 -Monitor I's and O's -Bladder scan to monitor for postvoid residual/urinary retention -Continue gentle IV fluid hydration with lactated Ringer's at 50 cc/h and monitor for resolution. Hypercalcemia, likely secondary to sarcoidosis but patient also on chlorthalidone which may cause increased risk for hypercalcemia -Corrected calcium level to albumen was 12.1 upon arrival and currently 11.7 -Chlorthalidone was discontinued as it can cause hypercalcemia by decrease calciuria -Continue Lasix 20 mg daily. Sarcoidosis Pulmonary hypertension Chronic hypoxic respiratory failure, home oxygen dependent Chronic hyperbilirubinemia and transaminitis, secondary to sarcoidosis Thrombocytopenia -Continue supplemental oxygen and titrate as needed to maintain SpO2 equal to or greater than 90%. -Continue prednisone 20 mg po daily due to underlying sarcoidosis CKD Stage IIIa -Stable and at baseline, continue to monitor with repeat morning labs Data and imaging reviewed: Vital signs reviewed. Blood pressure 167/100, heart rate 62, respiratory rate 18, temp 97.6 F, and SpO2 of 97% on baseline 2 L. Morning labs reviewed. CBC showing macrocytosis with MCV of 104.7 and thrombocytosis with platelet count of 78. Lactic acid remains elevated at 2.5. BMP showing BUN of 36, creatinine 1.11, GFR 50. Blood glucose 75. Calcium 10.6 with corrected calcium of 11.7 CODE STATUS: Full code DVT prophylaxis: Lovenox Anticipated discharge date: Pending clinical course and final urine culture and sensitivity reports as patient failed outpatient treatment Anticipated discharge place: Home Patient was seen independently by Nurse Pracitioner. This document was prepared using [employer] dictation software. Please allow for errors in reinsurance clerk, while rare they do occur. Noel Lemos NP rendered care for this patient independently, reviewed the findings and plan as documented in the note above and agree with plan. I did not physically speak with or examine the patient on this date. Objective - Vital Signs Vital signs: Vital Signs Temp 98.0 F 12/14/24 17:38 Pulse 70 12/15/24 05:09 Resp 16 12/15/24 05:09 BP 148/74 12/15/24 05:09 Pulse Ox 96 12/15/24 05:09 FiO2 Intake & Output 12/14/24 12/15/24 12/15/24 18:59 06:59 18:59 Weight 74.843 kg - Labs CBC & Chem 7: 12/15/24 07:36 12/15/24 07:36 Labs: Abnormal Lab Results - Last 24 Hours (Table) 12/14/24 12/14/24 12/14/24 Range/Units 18:42 18:42 18:42 MCV 101.5 H (80.0-100.0) fL Plt Count 100 L (150-450) k/uL Nucleated RBCs 1 H (0-0) /100 WBC Sodium (137-145) mmol/L BUN 35 H (7-17) mg/dL Creatinine 1.21 H (0.52-1.04) mg/dL Glucose 104 H (74-99) mg/dL Plasma Lactic Acid Remy (0.7-2.0) mmol/L Calcium 11.1 H (8.4-10.2) mg/dL Total Bilirubin 2.3 H (0.2-1.3) mg/dL Alkaline Phosphatase 128 H (38-126) U/L Total Protein 5.5 L (6.3-8.2) g/dL Albumin 2.9 L (3.5-5.0) g/dL Urine Appearance Cloudy H (Clear) Urine Protein 3+ H (Negative) Urine Ketones Trace H (Negative) Urine Blood Moderate H (Negative) Ur Leukocyte Esterase Large H (Negative) Urine RBC 25 H (0-5) /hpf Urine WBC >182 H (0-5) /hpf Urine WBC Clumps Many H (None) /hpf Urine Bacteria Moderate H (None) /hpf 12/14/24 12/14/24 12/15/24 Range/Units 18:42 21:35 00:26 MCV (80.0-100.0) fL Plt Count (150-450) k/uL Nucleated RBCs (0-0) /100 WBC Sodium (137-145) mmol/L BUN (7-17) mg/dL Creatinine (0.52-1.04) mg/dL Glucose (74-99) mg/dL Plasma Lactic Acid Remy 3.2 H* 3.7 H* 4.1 H* (0.7-2.0) mmol/L Calcium (8.4-10.2) mg/dL Total Bilirubin (0.2-1.3) mg/dL Alkaline Phosphatase (38-126) U/L Total Protein (6.3-8.2) g/dL Albumin (3.5-5.0) g/dL Urine Appearance (Clear) Urine Protein (Negative) Urine Ketones (Negative) Urine Blood (Negative) Ur Leukocyte Esterase (Negative) Urine RBC (0-5) /hpf Urine WBC (0-5) /hpf Urine WBC Clumps (None) /hpf Urine Bacteria (None) /hpf 12/15/24 12/15/24 12/15/24 Range/Units 04:44 07:36 07:36 MCV 104.7 H (80.0-100.0) fL Plt Count 78 L (150-450) k/uL Nucleated RBCs (0-0) /100 WBC Sodium 136 L (137-145) mmol/L BUN 36 H (7-17) mg/dL Creatinine 1.11 H (0.52-1.04) mg/dL Glucose (74-99) mg/dL Plasma Lactic Acid Remy 2.8 H* (0.7-2.0) mmol/L Calcium 10.6 H (8.4-10.2) mg/dL Total Bilirubin 2.0 H (0.2-1.3) mg/dL Alkaline Phosphatase (38-126) U/L Total Protein 5.2 L (6.3-8.2) g/dL Albumin 2.6 L (3.5-5.0) g/dL Urine Appearance (Clear) Urine Protein (Negative) Urine Ketones (Negative) Urine Blood (Negative) Ur Leukocyte Esterase (Negative) Urine RBC (0-5) /hpf Urine WBC (0-5) /hpf Urine WBC Clumps (None) /hpf Urine Bacteria (None) /hpf
[2024-12-16 11:00] LABS: HCT 39.4 % (34.0-46.0); HGB 12.8 gm/dL (11.4-16.0); Hypochromasia Slight; MCH 33.2 pg (25.0-35.0); MCHC 32.5 g/dL (31.0-37.0); MCV 102.2 fL (80.0-100.0); Macrocytosis Slight; Mean Platelet Volume 9.2; RBC 3.86 m/uL (3.80-5.40); RDW 14.9 % (11.5-15.5); WBC 6.3 k/uL (3.8-10.6)
[2024-12-16 11:01] LABS: Platelet Count 68 k/uL (150-450)
[2024-12-16 11:02] LABS: African American GFR (CKD) 51 (>60 ml/min/1.73 sqM); Anion Gap 8 mmol/L; Blood Urea Nitrogen 38 mg/dL (7-17); Calcium 10.8 mg/dL (8.4-10.2); Carbon Dioxide 28 mmol/L (22-30); Chloride 100 mmol/L (98-107); Glucose 73 mg/dL (74-99); Magnesium 1.7 mg/dL (1.6-2.3); Non-African American GFR(CKD) 44 (>60 ml/min/1.73 sqM); Potassium 3.6 mmol/L (3.5-5.1); Sodium 136 mmol/L (137-145)
[2024-12-16] MEDS: MAGNESIUM SULFATE-D5W PMX 1 GM in DEXTROSE/WATER 1 100ML.BAG IVPB SCH (13:48)
[2024-12-16] MEDS: LACTULOSE 20 GM/30 ML CUP PO ONE (16:44)
--- NOTE | 2024-12-16 18:55 | P.PN ---
Subjective Progress Note Date: 12/16/24 Hospital course: Patient is a pleasant 74-year-old female with a past medical history of sarcoidosis home oxygen dependent on 2 L O2 via nasal cannula, hypertension, recurrent UTIs, and CKD stage IIIa. She presented to the emergency department on 12/14/2024 secondary to urinary frequency, urgency, and weakness status post recent diagnosis of UTI on 12/05/2024 and failing outpatient antibiotic treatment. Physical exam: Patient seen and fully evaluated at bedside this morning. Patient and updated on preliminary urine culture results and waiting on final culture and sensitivity report. Patient reports continued urinary frequency and urgency but states she is no longer dribbling small amounts and appears to be having more urinary output at this time. She denies any other complaints at this time. States that she has been ambulating to and from restroom a little better and not having as much difficulties with weakness Vital signs reviewed and stable. General: Nontoxic, no distress and appears stated age. Derm: Skin warm and dry, normal coloration for ethnicity. Head: Atraumatic, normocephalic and symmetric. Eyes: EOM's intact, no lid lag, and anicteric sclera Mouth: no lip lesions, mucus membranes moist Cardiovascular: regular rate and rhythm with normal S1S2, no murmur, positive posterior tibial pulses bilaterally, and cap refill < 2 seconds. Lungs: Respirations even, regular, and unlabored on room air. Lungs CTA bilaterally, no rhonchi, no rales, no wheezing, and no accessory muscle usage. Abdominal: soft, nontender to palpation, no guarding, no appreciable organomegaly Ext: ROM intact. No gross muscle atrophy, no edema, no contractures Neuro: Speech clear, face symmetrical and CN II-XII grossly intact with no noted focal neuro deficits Psych: Alert and oriented to person, place, time, and situation. Appropriate and pleasant affect. Assessment and Plan of Care: UTI, failed outpatient management Lactic acidosis -Continue IV antibiotics with Rocephin 2 g daily. Per most recent recent urine culture and sensitivity report obtained 12/05/2024. -Set up for gram-negative bacilli -Renal ultrasound negative for hydronephrosis and nephrolithiasis showing limited evaluation of left kidney due to shadowing/bowel gas but reporting peripheral atrophy of left kidney and right kidney showing multiple small simple appearing cysts with largest measuring 1.1 x 1.1 x 0.9 cm. 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 -Monitor I's and O's -Bladder scan to monitor for postvoid residual/urinary retention -Continue gentle IV fluid hydration with lactated Ringer's at 50 cc/h and monitor for resolution. Hypercalcemia, likely secondary to sarcoidosis but patient also on chlorthalidone which may cause increased risk for hypercalcemia -Corrected calcium level to albumen was 12.1 upon arrival and currently 11.7 -Chlorthalidone was discontinued as it can cause hypercalcemia by decrease calciuria -Continue Lasix 20 mg daily. Sarcoidosis Pulmonary hypertension Chronic hypoxic respiratory failure, home oxygen dependent Chronic hyperbilirubinemia and transaminitis, secondary to sarcoidosis Thrombocytopenia -Continue supplemental oxygen and titrate as needed to maintain SpO2 equal to or greater than 90%. -Continue prednisone 20 mg po daily due to underlying sarcoidosis CKD Stage IIIa -Stable and at baseline, continue to monitor with repeat morning labs Data and imaging reviewed: Vital signs reviewed. Blood pressure 106/73, heart rate 106, respiratory rate 16, temp 97.5 F, and SpO2 of 100% on 2 L. Preliminary urine cultures positive for gram-negative bacilli. Morning labs reviewed. CBC showing macrocytosis with MCV of 102.2 and thrombocytosis with platelet count of 68. Lactic acidosis resolved with lactic acid of 2.0.. BMP showing BUN of 38, creatinine 1.23, GFR 44. Blood glucose 73. Calcium 10.8 with corrected calcium of 11.7 CODE STATUS: Full code DVT prophylaxis: Lovenox Anticipated discharge date: Pending clinical course and final urine culture and sensitivity reports as patient failed outpatient treatment Anticipated discharge place: Home Patient was seen independently by Nurse Pracitioner. This document was prepared using [employer] dictation software. Please allow for errors in machine design checker, while rare they do occur. Noel Lemos NP rendered care for this patient independently, reviewed the findings and plan as documented in the note above and agree with plan. I did not physically speak with or examine the patient on this date. Objective - Vital Signs Vital signs: Vital Signs Temp 97.5 F L 12/16/24 07:32 Pulse 106 H 12/16/24 07:32 Resp 16 12/16/24 07:32 BP 106/73 12/16/24 07:32 Pulse Ox 100 12/16/24 07:32 FiO2 Intake & Output 12/15/24 12/16/24 12/16/24 18:59 06:59 18:59 Output Total 100 Balance -100 Weight 74.843 kg Output: Urine 100 Other: Voiding Method Diaper External Catheter # Voids 2 - Labs CBC & Chem 7: 12/16/24 10:20 12/16/24 10:20 Labs: Abnormal Lab Results - Last 24 Hours (Table) 12/15/24 12/15/24 12/15/24 Range/Units 07:36 08:49 12:26 Plt Count 78 L (150-450) k/uL Plasma Lactic Acid Remy 2.5 H* 2.2 H* (0.7-2.0) mmol/L Microbiology - Last 24 Hours (Table) 12/14/24 18:42 Urine Culture - Preliminary Urine,Voided Gram Neg Bacilli
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
[2024-12-17 01:56] VITALS: RESP 16
[2024-12-17 08:03] VITALS: BP 176/76; PULSE 57; TEMP 97.4
[2024-12-17] MEDS: SENNOSIDES 8.6 MG TAB PO SCH (08:20)
[2024-12-17 09:54] LABS: HCT 36.6 % (37.2-46.3); HGB 12.2 g/dL (12.0-15.0); MCHC 33.3 g/dL (32.0-37.0); MCV 101.9 FL (80.0-97.0); Mean Platelet Volume 12.9 FL (9.5-12.2); NRBC Per 100 WBC 0 X 10*3/uL (0.00-0.01); Platelet Count 98 X 10*3/uL (140-440); RBC 3.59 X 10*6/uL (4.10-5.20); RDW 14.9 % (11.5-14.5); WBC 6.78 X 10*3/uL (4.50-10.00)
--- NOTE | 2024-12-17 10:44 | P.PN ---
Subjective Progress Note Date: 12/17/24 Hospital course: Patient is a pleasant 74-year-old female with a past medical history of sarcoidosis home oxygen dependent on 2 L O2 via nasal cannula, hypertension, recurrent UTIs, and CKD stage IIIa. She presented to the emergency department on 12/14/2024 secondary to urinary frequency, urgency, and weakness status post recent diagnosis of UTI on 12/05/2024 and failing outpatient antibiotic treatment. Renal ultrasound negative for hydronephrosis and nephrolithiasis showing limited evaluation of left kidney due to shadowing/bowel gas but reporting parenchymal atrophy of left kidney and right kidney showing multiple small simple appearing cysts with largest measuring 1.1 x 1.1 x 0.9 cm. Physical exam: Patient seen and fully evaluated at bedside this morning. Patient and updated on preliminary urine culture results and waiting on final culture and sensitivity report. Patient reports continued urinary frequency and urgency but states she is no longer dribbling small amounts and appears to be having more urinary output at this time. She denies any other complaints at this time. States that she has been ambulating to and from restroom a little better and not having as much difficulties with weakness Vital signs reviewed and stable. General: Nontoxic, no distress and appears stated age. Derm: Skin warm and dry, normal coloration for ethnicity. Head: Atraumatic, normocephalic and symmetric. Eyes: EOM's intact, no lid lag, and anicteric sclera Mouth: no lip lesions, mucus membranes moist Cardiovascular: regular rate and rhythm with normal S1S2, no murmur, positive posterior tibial pulses bilaterally, and cap refill < 2 seconds. Lungs: Respirations even, regular, and unlabored on room air. Lungs CTA bilaterally, no rhonchi, no rales, no wheezing, and no accessory muscle usage. Abdominal: soft, nontender to palpation, no guarding, no appreciable organomegaly Ext: ROM intact. No gross muscle atrophy, no edema, no contractures Neuro: Speech clear, face symmetrical and CN II-XII grossly intact with no noted focal neuro deficits Psych: Alert and oriented to person, place, time, and situation. Appropriate and pleasant affect. Assessment and Plan of Care: UTI, failed outpatient management Lactic acidosis -Continue IV antibiotics with Rocephin 2 g daily. Per most recent recent urine culture and sensitivity report obtained 12/05/2024. -Set up for gram-negative bacilli -Renal ultrasound negative for hydronephrosis and nephrolithiasis showing limited evaluation of left kidney due to shadowing/bowel gas but reporting parenchymal atrophy of left kidney and right kidney showing multiple small simple appearing cysts with largest measuring 1.1 x 1.1 x 0.9 cm. 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 -Monitor I's and O's -Bladder scan to monitor for postvoid residual/urinary retention -Continue gentle IV fluid hydration with lactated Ringer's at 50 cc/h and monitor for resolution. Hypercalcemia, likely secondary to sarcoidosis but patient also on chlorthalidone which may cause increased risk for hypercalcemia -Corrected calcium level to albumen was 12.1 upon arrival and currently 11.7 -Chlorthalidone was discontinued as it can cause hypercalcemia by decrease calciuria -Continue Lasix 20 mg daily. Sarcoidosis Pulmonary hypertension Chronic hypoxic respiratory failure, home oxygen dependent Chronic hyperbilirubinemia and transaminitis, secondary to sarcoidosis Thrombocytopenia -Continue supplemental oxygen and titrate as needed to maintain SpO2 equal to or greater than 90%. -Continue prednisone 20 mg po daily due to underlying sarcoidosis CKD Stage IIIa -Stable and at baseline, continue to monitor with repeat morning labs Data and imaging reviewed: Vital signs reviewed. Blood pressure 106/73, heart rate 106, respiratory rate 16, temp 97.5 F, and SpO2 of 100% on 2 L. Preliminary urine cultures positive for gram-negative bacilli. Morning labs reviewed. CBC showing macrocytosis with MCV of 102.2 and thrombocytosis with platelet count of 68. Lactic acidosis resolved with lactic acid of 2.0.. BMP showing BUN of 38, creatinine 1.23, GFR 44. Blood glucose 73. Calcium 10.8 with corrected calcium of 11.7 CODE STATUS: Full code DVT prophylaxis: Lovenox Anticipated discharge date: Pending clinical course and final urine culture and sensitivity reports as patient failed outpatient treatment Anticipated discharge place: Home Patient was seen independently by Nurse Pracitioner. This document was prepared using [employer] dictation software. Please allow for errors in tub chucker, while rare they do occur. Noel Lemos NP rendered care for this patient independently, reviewed the findings and plan as documented in the note above and agree with plan. I did not physically speak with or examine the patient on this date. Objective - Vital Signs Vital signs: Vital Signs Temp 97.4 F L 12/17/24 07:17 Pulse 57 L 12/17/24 07:17 Resp 16 12/17/24 07:17 BP 176/76 12/17/24 07:17 Pulse Ox 100 12/17/24 07:17 FiO2 Intake & Output 12/16/24 12/17/24 12/17/24 18:59 06:59 18:59 Intake Total 480 240 Output Total 200 Balance 480 -200 240 Intake: Oral 480 240 Output: Urine 200 Other: Voiding Method Diaper Diaper Diaper External Catheter External Catheter External Catheter # Voids 1 1 1 # Bowel Movements 1 1 - Labs CBC & Chem 7: 12/17/24 05:14 12/16/24 10:20 Labs: Abnormal Lab Results - Last 24 Hours (Table) 12/16/24 12/16/24 12/17/24 Range/Units 10:20 10:20 05:14 RBC 3.59 L (4.10-5.20) X 10*6/uL Hct 36.6 L (37.2-46.3) % MCV 102.2 H 101.9 H (80.0-100.0) fL MCH 34.0 H (27.0-32.0) pg RDW 14.9 H (11.5-14.5) % Plt Count 68 L 98 L (150-450) k/uL MPV 12.9 H (9.5-12.2) FL Sodium 136 L (137-145) mmol/L BUN 38 H (7-17) mg/dL Creatinine 1.23 H (0.52-1.04) mg/dL Glucose 73 L (74-99) mg/dL Calcium 10.8 H (8.4-10.2) mg/dL Microbiology - Last 24 Hours (Table) 12/14/24 18:42 Urine Culture - Final Urine,Voided Klebsiella pneumoniae
--- NOTE | 2024-12-17 11:54 | P.DS ---
Providers Date of admission: 12/14/24 22:00 Expected date of discharge: 12/17/24 Attending physician: Ashish Jones MD Consults: 12/15/24 17:19 Consult Physician Routine Consulting Provider: Rohan Crowe Consult Reason/Comments: recurrent UTIs, failed outpatient tx Do you want consulting provider notified?: Yes Primary care physician: [facility] Course: Discharge Diagnosis: Complicated Klebsiella pneumoniae UTI, failed outpatient management. Urine culture resulting positive for Klebsiella pneumoniae resistant to ampicillin, Unasyn, and nitrofurantoin. Patient received 4-day course of IV antibiotics with Rocephin and is being discharged home with an additional 6 day course of oral cefuroxime 500 mg every 12 hours for a total treatment course of 10 days of antibiotic therapy for recurrent complicated UTIs. Patient strongly encouraged to take antibiotic exactly as prescribed and complete entire course and to follow-up outpatient with PCP in 1 to 2 days and recommending following up with urologist secondary to her recurrent UTIs and mat weaver for her chronic kidney disease and hypercalcemia. Lactic acidosis. Resolved Hypercalcemia, likely secondary to sarcoidosis but patient also on chlorthalidone which may cause increased risk for hypercalcemia. Haldol was discontinued and patient started on Lasix 20 mg daily. Patient to follow-up outpatient with mat weaver for continued long-term monitoring/management of her CKD and hypercalcemia Sarcoidosis Pulmonary hypertension Chronic hypoxic respiratory failure, home oxygen dependent Chronic hyperbilirubinemia and transaminitis, secondary to sarcoidosis Thrombocytopenia CKD Stage IIIa. Stable and at baseline, Hospital course: Patient is a pleasant 74-year-old female with a past medical history of sarcoidosis home oxygen dependent on 2 L O2 via nasal cannula, hypertension, recurrent UTIs, and CKD stage IIIa. She presented to the emergency department on 12/14/2024 secondary to urinary frequency, urgency, and weakness status post recent diagnosis of UTI on 12/05/2024 and failing outpatient 10 day antibiotic treatment course. Upon arrival to our facility patient underwent evaluation in the emergency department. Vital signs upon arrival show blood pressure 119/67, heart rate 6, respiratory rate 18, temp 98.0 F, and SpO2 initially 88% on room air increasing to 99% on 2 L which is patient's baseline home oxygen. Labs completed and reviewed. CBC showing macrocytosis and thrombocytopenia with MCV of 101.5 and platelet count of 100. BMP consistent with patient's known stage III CKD with BUN of 35, creatinine 1.21, and GFR 45. Blood glucose 104. Initial lactic acid was 3.2 and increased to 4.1 prior to downtrending and resolving 24 hours later. Urinalysis positive for 3+ protein, trace ketones, moderate blood, large leukocytes, 25 RBCs, greater than 182 WBCs and urine WBC clumps with moderate urine bacteria. Renal ultrasound negative for hydronephrosis and nephrolithiasis showing limited evaluation of left kidney due to shadowing/bowel gas but reporting parenchymal atrophy of left kidney and right kidney showing multiple small simple appearing cysts with largest measuring 1.1 x 1.1 x 0.9 cm. Patient reports she follows with Dr. Chowdhury urologist for these recurrent UTIs. She was admitted under our services with consultation to infectious disease for recurrent complicated multidrug-resistant UTIs. Patient underwent 3 night hospitalization receiving IV fluids for treatment of her lactic acidosis which resolved after 24 hours of IV antibiotics and IV fluid hydration. Renal function remained stable. Evaluated by infectious disease. By day 3 patient's urinary symptoms improving and she reports feeling stronger and no longer having urinary frequency and dribbling with urgency. Urine culture resulting positive for Klebsiella pneumoniae resistant to ampicillin, Unasyn, and nitrofurantoin. Patient received 4-day course of IV antibiotics with Rocephin and is being discharged home with an additional 6 day course of oral cefuroxime 500 mg every 12 hours for a total treatment course of 10 days of antibiotic therapy for recurrent complicated UTIs. Patient strongly encouraged to take antibiotic exactly as prescribed and complete entire course and to follow-up outpatient with PCP in 1 to 2 days and recommending following up with urologist secondary to her recurrent UTIs and mat weaver for her chronic kidney disease and hypercalcemia. Morning labs labs on day of discharge remain pending at 2:07 PM Physical exam: Vital signs reviewed and stable. General: Nontoxic, no distress and appears stated age. Derm: Skin warm and dry, normal coloration for ethnicity. Head: Atraumatic, normocephalic and symmetric. Eyes: EOM's intact, no lid lag, and anicteric sclera Mouth: no lip lesions, mucus membranes moist Cardiovascular: regular rate and rhythm with normal S1S2, no murmur, positive posterior tibial pulses bilaterally, and cap refill < 2 seconds. Lungs: Respirations even, regular, and unlabored on room air. Lungs CTA bilaterally, no rhonchi, no rales, no wheezing, and no accessory muscle usage. Abdominal: soft, nontender to palpation, no guarding, no appreciable organomegaly Ext: ROM intact. No gross muscle atrophy, no edema, no contractures Neuro: Speech clear, face symmetrical and CN II-XII grossly intact with no noted focal neuro deficits Psych: Alert and oriented to person, place, time, and situation. Appropriate and pleasant affect. A total of 33 minutes of time were spent preparing this complex discharge summary. Pt was discharged on 12/17/2024 at 11:53 AM Patient was seen independently by Nurse Practitioner. This document was prepared using [employer] dictation software. Please allow for errors in podiatric medicine professor while rare they do occur. Noel Lemos NP rendered care for this patient independently, reviewed the findings and plan as documented in the note above. I did not physically speak with or examine the patient on this date. Patient Condition at Discharge: Stable Plan - Discharge Summary Discharge Rx Participant: No New Discharge Prescriptions: New Cefuroxime [Ceftin] 500 mg PO BID 6 Days #24 tab Furosemide [Lasix] 20 mg PO DAILY 30 Days #30 tab Continue HYDROcodone/APAP 10-325MG [[place] 10-325] 1 tab PO TID PRN PRN Reason: Pain Omeprazole 40 mg PO DAILY PRN PRN Reason: Heartburn Discontinued Chlorthalidone [Hygroton] 25 mg PO DAILY Discharge Medication List HYDROcodone/APAP 10-325MG [[place] 10-325] 1 tab PO TID PRN 09/10/19 [History] Omeprazole 40 mg PO DAILY PRN 04/01/24 [History] Cefuroxime [Ceftin] 500 mg PO BID 6 Days #24 tab 12/17/24 [Rx] Furosemide [Lasix] 20 mg PO DAILY 30 Days #30 tab 12/17/24 [Rx] Follow up Appointment(s)/Referral(s): Lamar Bernstein MD [Primary Care Provider] - 1-2 days Odalis Recinos MD [STAFF PHYSICIAN] - 1 Week Renny Chowdhury MD [STAFF PHYSICIAN] - 1 Week Patient Instructions/Handouts: Urinary Tract Infection in Women (DC) Activity/Diet/Wound Care/Special Instructions: Activity: As tolerated. Take breaks as needed. Diet: Heart healthy diet. Special Instructions: Take all of your medications as directed and remember to keep all of your doctor's appointments and follow-up as needed. Thank you for allowing us to participate in your care, it was truly a pleasure having you for our patient!!! Discharge/Stand Alone Forms: Who Do I Call? Discharge Disposition: HOME SELF-CARE
[2024-12-17 14:58] LABS: ALT 13 U/L (8-44); AST 53 U/L (13-35); Albumin/Globulin Ratio 1.43 Ratio (1.60-3.17); Alkaline Phosphatase 119 U/L (41-126); Blood Urea Nitrogen 32.5 mg/dL (9.0-27.0); Carbon Dioxide 25.3 mmol/L (21.6-31.8); Chloride 101 mmol/L (96-109); Globulin 2.1 g/dL (1.6-3.3); Glucose 72 mg/dL (70-110); Potassium 4.1 mmol/L (3.5-5.5); Sodium 141 mmol/L (135-145); Total Bilirubin 0.7 mg/dL (0.3-1.2); Total Protein 5.1 g/dL (6.2-8.2)
== END 2024-12-17 12:15 | disposition home health service (06) | DRG 690 ==
LOC: EC 17:31 → OBSVTOIN 22:00 → 6NMEDSUR 22:00
PROVIDERS: ADMIT Internal Medicine; ATTEND Internal Medicine
DX: N39.0 Urinary tract infection, site not specified (principal); D69.6 Thrombocytopenia, unspecified; E87.20 Acidosis, unspecified; I27.29 Other secondary pulmonary hypertension; G40.909 Epilepsy, unspecified, not intractable, without status epilepticus; N18.31 Chronic kidney disease, stage 3a; I12.9 Hypertensive chronic kidney disease with stage 1 through stage 4 chronic kidney disease, or unspecified chronic kidney disease; J96.11 Chronic respiratory failure with hypoxia; Z16.11 Resistance to penicillins; Z16.24 Resistance to multiple antibiotics; B96.1 Klebsiella pneumoniae [K. pneumoniae] as the cause of diseases classified elsewhere; E83.52 Hypercalcemia; D86.9 Sarcoidosis, unspecified; R74.01 Elevation of levels of liver transaminase levels; D75.89 Other specified diseases of blood and blood-forming organs; Z99.81 Dependence on supplemental oxygen; Z91.041 Radiographic dye allergy status; Z87.891 Personal history of nicotine dependence; Z79.899 Other long term (current) drug therapy; Z87.440 Personal history of urinary (tract) infections
CPT/HCPCS: 36415; 71046; 76770; 80048; 80053; 81001; 82150; 83605; 83690; 83735; 85025; 85027; 87077; 87086; 87186; 93005; 94640; 96361; 96365; 96367; 96372; 99285

== ENCOUNTER 2025-01-12 16:41 | Emergency (ER) | payer MEDICARE ==
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
[2025-01-12] MEDS: SODIUM CHLORIDE 0.9% 500 ML 500 ML IV ONE (17:40)
[2025-01-12 18:00] VITALS: RESP 18
[2025-01-12 18:01] LABS: Basophils # (A) 0.04 10*3/uL (0.00-0.10); Basophils % (A) 0.8 %; Eosinophils # (A) 0.12 10*3/uL (0.04-0.35); Eosinophils % (A) 2.5 %; HCT 38.7 % (37.2-46.3); HGB 13.3 g/dL (12.0-15.0); Lymphocytes # (A) 1.46 10*3/uL (0.90-5.00); MCH 34.3 pg (27.0-32.0); MCHC 34.4 g/dL (32.0-37.0); MCV 99.7 fL (80.0-97.0); Mean Platelet Volume 11.6 fL (9.5-12.2); Monocytes # (A) 0.38 10*3/uL (0.20-1.00); Monocytes % (A) 7.8 %; Neutrophils # (A) 2.86 10*3/uL (1.80-7.70); Neutrophils % (A) 58.7 %; Platelet Count 145 10*3/uL (140-440); RBC 3.88 10*6/uL (4.10-5.20); RDW 14.5 % (11.5-14.5); WBC 4.87 10*3/uL (4.50-10.00)
[2025-01-12 18:13] LABS: ALT 14 U/L (4-34); AST 41 U/L (14-36); African American GFR (CKD) 51 (>60 ml/min/1.73 sqM); Albumin 2.8 g/dL (3.5-5.0); Alkaline Phosphatase 155 U/L (38-126); Anion Gap 5 mmol/L; Blood Urea Nitrogen 27 mg/dL (7-17); Calcium 10.8 mg/dL (8.4-10.2); Carbon Dioxide 29 mmol/L (22-30); Chloride 105 mmol/L (98-107); Glucose 94 mg/dL (74-99); Magnesium 1.6 mg/dL (1.6-2.3); Non-African American GFR(CKD) 44 (>60 ml/min/1.73 sqM); Sodium 139 mmol/L (137-145); Total Bilirubin 2.2 mg/dL (0.2-1.3); Total Protein 5.6 g/dL (6.3-8.2)
[2025-01-12 18:43] LABS: Appearance,Urine Cloudy (Clear); Bacteria,Urine Moderate /hpf; Bilirubin,Urine Negative (Negative); Blood,Urine Small (Negative); Color,Urine Yellow; Glucose,Urine (UA) Negative (Negative); Ketones,Urine Negative (Negative); Leukocyte Esterase,Urine Moderate (Negative); Mucus,Urine Rare /hpf; Nitrite,Urine Positive (Negative); PH, Urine 6.5 (5.0-8.0); Protein,Urine 1+ (Negative); RBC,Urine 7 /hpf (0-5); Specific Gravity,Urine 1.018 (1.001-1.035); Squamous Epithelial Cell,Urine 3 /hpf (0-4); WBC,Urine 43 /hpf (0-5)
[2025-01-12 19:28] VITALS: BP 157/82; PULSE 78; TEMP 97.6
[2025-01-12] MEDS: ONDANSETRON 4 MG ODT STARTER PACK 2 TAB BTL PO STA (19:31)
[2025-01-12] MEDS: cefTRIAXone IN SWFI 1,000 MG/10 ML SYRINGE IVP STA (19:31)
[2025-01-12] MEDS: traMADol 50 MG STARTER PACK 3 TAB BTL PO STA (19:36)
[2025-01-12] MEDS: MORPHINE SULFATE 4 MG/ML SYRINGE IVP STA (19:37)
== END 2025-01-12 20:02 | disposition home or self-care (01) ==
LOC: EC 16:41
DX: N39.0 Urinary tract infection, site not specified (principal); Z87.891 Personal history of nicotine dependence; Z91.041 Radiographic dye allergy status
CPT/HCPCS: 36415; 93005; 80053; 83605; 83735; 85025; 81001; 87086; 99284; 96374; 96375; 96361; J2270; J0696; S0119

== ENCOUNTER 2025-03-15 19:31 | Emergency (ER) | payer MEDICARE ==
[2025-03-15 19:38] VITALS: PULSE 89
[2025-03-15 20:22] LABS: Appearance,Urine Cloudy (Clear); Bacteria,Urine Few /hpf; Bilirubin,Urine Negative (Negative); Blood,Urine Moderate (Negative); Color,Urine Yellow; Glucose,Urine (UA) Negative (Negative); Ketones,Urine Negative (Negative); Leukocyte Esterase,Urine Negative (Negative); Mucus,Urine Rare /hpf; Nitrite,Urine Negative (Negative); Protein,Urine 2+ (Negative); RBC,Urine 28 /hpf (0-5); Specific Gravity,Urine 1.019 (1.001-1.035); Squamous Epithelial Cell,Urine 9 /hpf (0-4); WBC,Urine 8 /hpf (0-5)
[2025-03-15] MEDS: SODIUM CHLORIDE 0.9% 500 ML 500 ML IV ONE (20:39)
[2025-03-15] MEDS: METOCLOPRAMIDE 5 MG/ML 2 ML VIAL IVP STA (20:40)
[2025-03-15 20:53] LABS: Basophils # (A) 0.06 10*3/uL (0.00-0.10); Basophils % (A) 1.1 %; Eosinophils # (A) 0.27 10*3/uL (0.04-0.35); Eosinophils % (A) 4.8 %; HGB 12.8 g/dL (12.0-15.0); Lymphocytes % (A) 37.2 %; MCH 33.9 pg (27.0-32.0); MCHC 34.6 g/dL (32.0-37.0); MCV 97.9 fL (80.0-97.0); Mean Platelet Volume 10.5 fL (9.5-12.2); Monocytes # (A) 0.58 10*3/uL (0.20-1.00); Monocytes % (A) 10.3 %; Neutrophils # (A) 2.62 10*3/uL (1.80-7.70); Neutrophils % (A) 46.4 %; Platelet Count 122 10*3/uL (140-440); RBC 3.78 10*6/uL (4.10-5.20); RDW 14.2 % (11.5-14.5); WBC 5.64 10*3/uL (4.50-10.00)
[2025-03-15 21:04] LABS: ALT 13 U/L (4-34); AST 31 U/L (14-36); African American GFR (CKD) 29 (>60 ml/min/1.73 sqM); Albumin 2.6 g/dL (3.5-5.0); Alkaline Phosphatase 158 U/L (38-126); Anion Gap 6 mmol/L; Blood Urea Nitrogen 31 mg/dL (7-17); Calcium 11.6 mg/dL (8.4-10.2); Carbon Dioxide 23 mmol/L (22-30); Chloride 106 mmol/L (98-107); Glucose 105 mg/dL (74-99); Magnesium 1.8 mg/dL (1.6-2.3); Non-African American GFR(CKD) 25 (>60 ml/min/1.73 sqM); Potassium 4.4 mmol/L (3.5-5.1); Sodium 135 mmol/L (137-145); Total Bilirubin 1.2 mg/dL (0.2-1.3); Total Protein 5.1 g/dL (6.3-8.2)
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
[2025-03-15] MEDS: cefTRIAXone IN SWFI 1,000 MG/10 ML SYRINGE IVP STA ×2 (21:46→21:48)
[2025-03-15 22:02] VITALS: BP 148/88; RESP 17; TEMP 98
== END 2025-03-15 22:01 | disposition home or self-care (01) ==
LOC: EC 19:31
DX: N17.9 Acute kidney failure, unspecified (principal); Z87.891 Personal history of nicotine dependence; Z91.041 Radiographic dye allergy status
CPT/HCPCS: 36415; 80053; 83735; 85025; 81001; 99284; 96374; 96375; 96361; J2765; J0696; 87086

== ENCOUNTER 2025-04-06 06:48 | Observation (INO) | payer MEDICARE ==
[2025-04-06] MEDS: SODIUM CHLORIDE 0.9% 1,000 ML IV ONE (07:32)
[2025-04-06 07:36] LABS: Basophils # (A) 0.04 10*3/uL (0.00-0.10); Basophils % (A) 0.8 %; Eosinophils # (A) 0.19 10*3/uL (0.04-0.35); Eosinophils % (A) 4.0 %; HCT 35.5 % (37.2-46.3); HGB 12.0 g/dL (12.0-15.0); Lymphocytes # (A) 1.47 10*3/uL (0.90-5.00); Lymphocytes % (A) 30.8 %; MCH 34.2 pg (27.0-32.0); MCHC 33.8 g/dL (32.0-37.0); MCV 101.1 fL (80.0-97.0); Monocytes # (A) 0.33 10*3/uL (0.20-1.00); Monocytes % (A) 6.9 %; Neutrophils # (A) 2.72 10*3/uL (1.80-7.70); Neutrophils % (A) 57.1 %; Platelet Count 124 10*3/uL (140-440); RBC 3.51 10*6/uL (4.10-5.20); RDW 16.0 % (11.5-14.5); WBC 4.77 10*3/uL (4.50-10.00)
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
[2025-04-06 07:59] LABS: ALT 14 U/L (4-34); AST 37 U/L (14-36); African American GFR (CKD) 38 (>60 ml/min/1.73 sqM); Albumin 2.7 g/dL (3.5-5.0); Alkaline Phosphatase 144 U/L (38-126); Anion Gap 5 mmol/L; Blood Urea Nitrogen 33 mg/dL (7-17); Calcium 10.4 mg/dL (8.4-10.2); Carbon Dioxide 27 mmol/L (22-30); Chloride 108 mmol/L (98-107); Glucose 87 mg/dL (74-99); Non-African American GFR(CKD) 33 (>60 ml/min/1.73 sqM); Potassium 4.1 mmol/L (3.5-5.1); Sodium 140 mmol/L (137-145); Total Protein 5.2 g/dL (6.3-8.2)
[2025-04-06 09:01] LABS: Bacteria,Urine Many /hpf; Bilirubin,Urine Negative (Negative); Blood,Urine Trace (Negative); Color,Urine Yellow; Glucose,Urine (UA) Negative (Negative); Hyaline Casts,Urine 15 /lpf (0-2); Ketones,Urine Negative (Negative); Leukocyte Esterase,Urine Large (Negative); Mucus,Urine Rare /hpf; Nitrite,Urine Negative (Negative); PH, Urine 6.0 (5.0-8.0); Protein,Urine 1+ (Negative); RBC,Urine 4 /hpf (0-5); Specific Gravity,Urine 1.020 (1.001-1.035); Squamous Epithelial Cell,Urine 1 /hpf (0-4); Urobilinogen,Urine 3.0 mg/dL (<2.0); WBC,Urine 132 /hpf (0-5)
[2025-04-06] MEDS ORDERED: NALOXONE 0.4 MG/ML 1 ML VIAL IV PRN (10:02)
[2025-04-06] MEDS: ONDANSETRON 4 MG/2 ML VIAL IVP STA (10:35)
[2025-04-06] MEDS: ACETAMINOPHEN TAB 325 MG TAB PO PRN (12:23)
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
[2025-04-06] MEDS: MORPHINE SULFATE 2 MG/ML SYRINGE IVP PRN (16:48)
[2025-04-06] MEDS: SODIUM CHLORIDE 0.9% 1,000 ML IV SCH (16:48)
[2025-04-06] MEDS: HYDROcodone/APAP 10-325MG 1 EACH TAB PO PRN (17:58)
[2025-04-06] MEDS: HEPARIN SODIUM,PORCINE 5,000 UNIT/ML 1 ML VIAL SQ SCH (20:39)
[2025-04-06] MEDS: LACTATED RINGERS 1,000 ML IV ONE (23:19)
--- NOTE | 2025-04-07 08:03 | US ---
EXAMINATION TYPE: US abdomen limited DATE OF EXAM: 04/07/2025 COMPARISON: Renal ultrasound 12/14/2024, CT abdomen and pelvis 04/01/2024, abdominal ultrasound CLINICAL INDICATION: Female, 74 years old with history of Transaminitis, hyperbilirubinemia; transami nitis TECHNIQUE: Grayscale and color Doppler imaging of the right upper quadrant was performed. FINDINGS: EXAM MEASUREMENTS: Liver Length: 11.6 cm Gallbladder Wall: Surgically absent CBD: 1.0 cm Right Kidney: 9.6 x 5.1 x 4.9 cm BIOMEDICAL EQUIPMENT TECH NOTES:limited due to bowel gas Pancreas: obscured by overlying bowel gas Liver: dilated ducts seen inside Gallbladder: surgically absent CBD: wnl Right Kidney: 2 cystic areas seen. The pancreas is obscured by overlying bowel gas. No focal hepatic lesion with homogeneous echotexture . Intra and extrahepatic hepatic biliary ductal dilatation. Gallbladder surgically absent. Right kidn ey demonstrates no hydronephrosis or shadowing calculus. No solid mass. There are 2 simple appearing cortical cysts identified. IMPRESSION: Intra-and extrahepatic biliary duct dilatation post cholecystectomy. Probably related to cholecystect michael physiology. Correlate clinically with biliary labs. [facility], , 04/07/2025 8:01 AM
[2025-04-07 10:04] LABS: Vitamin B12 >3600.0 pg/mL (200.0-944.0)
[2025-04-07 13:31] LABS: Basophils # (A) 0.05 10*3/uL (0.00-0.10); Basophils % (A) 0.9 %; Eosinophils # (A) 0.16 10*3/uL (0.04-0.35); Eosinophils % (A) 2.8 %; HCT 32.9 % (37.2-46.3); HGB 11.1 g/dL (12.0-15.0); Lymphocytes # (A) 1.30 10*3/uL (0.90-5.00); Lymphocytes % (A) 22.7 %; MCH 33.9 pg (27.0-32.0); MCHC 33.7 g/dL (32.0-37.0); MCV 100.6 fL (80.0-97.0); Monocytes # (A) 0.37 10*3/uL (0.20-1.00); Monocytes % (A) 6.5 %; Neutrophils # (A) 3.83 10*3/uL (1.80-7.70); Neutrophils % (A) 66.9 %; RBC 3.27 10*6/uL (4.10-5.20); RDW 16.3 % (11.5-14.5); WBC 5.72 10*3/uL (4.50-10.00)
[2025-04-07 13:42] LABS: African American GFR (CKD) 42 (>60 ml/min/1.73 sqM); Anion Gap 7 mmol/L; Blood Urea Nitrogen 33 mg/dL (7-17); Calcium 10.4 mg/dL (8.4-10.2); Carbon Dioxide 24 mmol/L (22-30); Chloride 105 mmol/L (98-107); Glucose 128 mg/dL (74-99); Non-African American GFR(CKD) 36 (>60 ml/min/1.73 sqM); Potassium 4.8 mmol/L (3.5-5.1); Sodium 136 mmol/L (137-145)
[2025-04-07 14:45] LABS: Platelet Count 72 10*3/uL (140-440)
[2025-04-07 14:47] LABS: Ovalocytes Present
--- NOTE | 2025-04-07 17:47 | P.PN ---
Subjective Progress Note Date: 04/07/25 Hospital Course: 74-year-old female presents emergency department chief complaint of possible UTI she states she has some urinary frequency and dysuria. She denies any reports of fever no chest pain no shortness of breath no current headache denies any flank pain or back pain. Patient denies no vomiting, or fever. UA +. Rochephin and fluid continued for UTI. Pt. BUN 33 / Cr 1.44 and lactic acid 2.2 > 1.6 - trending ISMAEL and lactic acidosis resolved. Patient CBC on admission also evident of possible macrocytic anemia - MCV 101.1, Hct - 35.5, Plt 124, b12 3600, folate ordered. Patient states she overall feels much better. Subjective: Patient seen and examined at bedside. No acute events overnight. Pertinent positives and negatives as discussed above, a complete review of systems was performed and all other systems are negative. Vitals: Signs Reviewed Physical examination: Vital signs reviewed General: non toxic, no distress, appears at stated age, normal weight Derm: no unusual rashes/lesions, warm Head: atraumatic, normocephalic, symmetric Eyes: EOMI, anicteric sclera, pupils equal round reactive to light ENT: Nose and ears atraumatic Neck: No cervical lymphadenopathy, trachea midline, supple Mouth: no lip lesion, mucus membranes moist Cardiovascular: abnormal rhythm, no murmur, positive dorsalis pedis pulse bilateral, no edema Lungs: CTA bilateral, no rhonchi, no rales, no accessory muscle use Abdominal: soft, nontender to palpation, no guarding Ext: muscle strength 4 out of 5 in all 4 extremities grossly, no gross muscle atrophy. Edema bilaterally Neuro: CN II-XI grossly intact, no gross focal neuro deficits Psych: Alert, oriented to person, place, and time Data Received Today: Pertinent Labs: WBC: 5.72 Hgb: 12 > 111 Hct > 32.9 plts: 124 > 72 MCV 101.1 > 100.6 Na: 140 > 136 K: 4.1 > 4.8 Co2: 27 > 24 BUN: 33 Cr: 1.55 > 1.44 Plasma lactic acid: 3.4 > 2.2 > 1.6 Bili total: 2.0 AST 37 TSH: 1.63 Imaging: Abd US:) impresion - Extrahepatic biliary duct dilation postcholecystectomy. Possibly Related to cholecystectomy physiology. Assessment and Plan: Acute metabolic encephalopathy secondary to UTI: Rocephin 2g IV QD. History of ESBL + VRE. Fall precautions. Folate Consult ID - history of VRE and ESBL and sepsis sedconday to UTIs Lactic acidosis: NS at 75 cc/hr. Trend until negative. ISMAEL on CKD stage IIIA: IV hydration as above. Repeat labs in the AM. Macrocytosis: Chronic. Possibly related to bone marrow or hepatic involvement of Sarcoidosis. Check Folateabove. Hyperbilirubinemia: Chronic. Possibly related to hepatic sarcoidosis. Trend. 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 Trend. Hypercalcemia: Chronic in the setting of Sarcoidosis. IV hydration as above. Trend. Irregular HR: EKG ordered. Chronic respiratory failure on 2L home O2 Sarcoidosis: Outpatient Rheumatology follow up DVT ppx: Heparin Code status: Full code Anticipated discharge place: Course Anticipated discharge time: Pending clinical course Manuel Kirk MD PGY-1 FM Dictation was produced using [employer] dictation software. please excuse any grammatical, word or spelling errors. I saw and evaluated the patient during the liang and critical portions of this encounter, and discussed the case in detail with the resident author of this note, I agree with the Assessment and Plan, and my changes, if any, are highlighted in blue. Objective - Vital Signs Vital signs: Vital Signs Temp 97.4 F L 04/07/25 07:11 Pulse 88 04/07/25 07:11 Resp 17 04/07/25 07:11 BP 143/61 04/07/25 07:11 Pulse Ox 97 04/07/25 07:11 FiO2 Intake & Output 04/06/25 04/07/25 04/07/25 18:59 06:59 18:59 Output Total 150 Balance -150 Weight 79.379 kg Output: Urine 150 Uretheral (Santos) 150 - Labs CBC & Chem 7: 04/07/25 12:48 04/07/25 12:48 Labs: Abnormal Lab Results - Last 24 Hours (Table) 04/06/25 04/06/25 04/07/25 Range/Units 18:26 21:32 00:25 RBC (4.10-5.20) 10*6/uL Hgb (12.0-15.0) g/dL Hct (37.2-46.3) % MCV (80.0-97.0) fL MCH (27.0-32.0) pg RDW (11.5-14.5) % Plt Count (140-440) 10*3/uL Sodium (137-145) mmol/L BUN (7-17) mg/dL Creatinine (0.52-1.04) mg/dL Glucose (74-99) mg/dL Plasma Lactic Acid Remy 2.4 H* 3.1 H* 2.2 H* (0.7-2.0) mmol/L Calcium (8.4-10.2) mg/dL Vitamin B12 (200.0-944.0) pg/mL 04/07/25 04/07/25 04/07/25 Range/Units 03:15 12:48 12:48 RBC 3.27 L (4.10-5.20) 10*6/uL Hgb 11.1 L (12.0-15.0) g/dL Hct 32.9 L (37.2-46.3) % MCV 100.6 H (80.0-97.0) fL MCH 33.9 H (27.0-32.0) pg RDW 16.3 H (11.5-14.5) % Plt Count 72 L (140-440) 10*3/uL Sodium 136 L (137-145) mmol/L BUN 33 H (7-17) mg/dL Creatinine 1.44 H (0.52-1.04) mg/dL Glucose 128 H (74-99) mg/dL Plasma Lactic Acid Remy (0.7-2.0) mmol/L Calcium 10.4 H (8.4-10.2) mg/dL Vitamin B12 >3600.0 H (200.0-944.0) pg/mL Microbiology - Last 24 Hours (Table) 04/06/25 08:37 Urine Culture - Preliminary Urine,Voided
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
[2025-04-08] MEDS: AMPICILLIN-SULBACTAM 3 GM in SODIUM CHLORIDE 0.9% 100 ML IVPB SCH (00:19)
[2025-04-08 08:53] LABS: ALT 14 U/L (8-44); AST 41 U/L (13-35); Albumin 2.5 g/dL (3.8-4.9); Albumin/Globulin Ratio 1.56 Ratio (1.60-3.17); Alkaline Phosphatase 119 U/L (41-126); Anion Gap 7.40 mmol/L (4.00-12.00); BUN/Creat Ratio 18.80 Ratio (12.00-20.00); Blood Urea Nitrogen 28.2 mg/dL (9.0-27.0); Calcium 9.4 mg/dL (8.7-10.3); Carbon Dioxide 24.6 mmol/L (21.6-31.8); Chloride 108 mmol/L (96-109); Globulin 1.6 g/dL (1.6-3.3); Glucose 70 mg/dL (70-110); Potassium 4.4 mmol/L (3.5-5.5); Sodium 140 mmol/L (135-145); Total Protein 4.1 g/dL (6.2-8.2)
[2025-04-08 09:43] LABS: Basophils # (A) 0.05 X 10*3/uL (0.00-0.10); Basophils % (A) 1.1 %; Eosinophils # (A) 0.24 X 10*3/uL (0.04-0.35); Eosinophils % (A) 5.2 %; HCT 28.4 % (37.2-46.3); HGB 9.2 g/dL (12.0-15.0); Immature Grans, Automated 0.20 %; Lymphocytes # (A) 1.60 X 10*3/uL (0.90-5.00); Lymphocytes % (A) 34.7 %; MCH 33.3 pg (27.0-32.0); MCHC 32.4 g/dL (32.0-37.0); MCV 102.9 FL (80.0-97.0); Macrocytosis (M) 2+ (None Seen); Monocytes # (A) 0.43 X 10*3/uL (0.20-1.00); Monocytes % (A) 9.3 %; NRBC Per 100 WBC 0 X 10*3/uL (0.00-0.01); Neutrophils # (A) 2.28 X 10*3/uL (1.80-7.70); Neutrophils % (A) 49.5 %; Platelet Count 93 X 10*3/uL (140-440); RBC 2.76 X 10*6/uL (4.10-5.20); RDW 16.5 % (11.5-14.5); WBC 4.61 X 10*3/uL (4.50-10.00)
[2025-04-08 10:23] LABS: Hepatitis A Antibody IgM Nonreactive (Nonreactive); Hepatitis B Surface Antigen Nonreactive (Nonreactive); Hepatitis C IgG Antibody Nonreactive (Nonreactive)
--- NOTE | 2025-04-08 12:20 | P.PN ---
Subjective Progress Note Date: 04/08/25 Hospital course: 74-year-old female presents emergency department chief complaint of possible UTI she states she has some urinary frequency and dysuria. She denies any reports of fever no chest pain no shortness of breath no current headache denies any flank pain or back pain. Patient denies no vomiting, or fever. UA +. Rochephin and fluid continued for UTI. Pt. BUN 33 / Cr 1.44 and lactic acid 2.2 > 1.6 - trending ISMAEL and lactic acidosis resolved. Patient CBC on admission also evident of possible macrocytic anemia - MCV 101.1, Hct - 35.5, Plt 124, b12 3600, folate ordered. ID was consulted and recommends starting Unasyn until urine cultures finalize. Subjective: Patient seen and examined at bedside. No acute events overnight. Patient states she still has some shortness of breath today as well abdominal pain. She notes that she usually uses 2 L nasal cannula at home however only at night and not during the day. Patient notes she has chronic lymphedema but would not like to wrap her legs at this time as she has a particular wrap at home she uses. She denies fevers, chills, chest pain. Pertinent positives and negatives as discussed above, a complete review of systems was performed and all other systems are negative. Vitals: Signs Reviewed Physical Exam: General: nontoxic, no distress, appears at stated age Derm: warm, dry, intact Head: atraumatic, normocephalic, symmetric Eyes: EOMI, anicteric sclera Mouth: no lip lesion, mucus membranes moist Cardiovascular: S1 S2 reg, no murmur, rubs, or gallops Lungs: CTA bilateral, no rhonchi, no rales, no accessory muscle use Abdominal: soft, non-tender to palpation, no appreciable organomegaly Extremities: no gross muscle atrophy, bilateral edema Neuro: Alert, Oriented, CNII-XII grossly intact, gait normal Psych: well appearing, appropriate affect Data Received Today: Pertinent Labs: WBC 4.6, hemoglobin 9.2, sodium 148, potassium 4.4, BUN 28.2, creatinine 1.5, B12 > 3600, TSH 1.63 Imaging: EKG per my read: Sinus rhythm at 67 bpm, normal axis, prolonged SC interval, T wave inversions in leads V2 and V3. Blood cultures show no growth at 24 hours Urine cultures pending Assessment and Plan: Acute metabolic encephalopathy secondary to UTI ISMAEL on CKD stage IIIa Lactic acidosis - resolved - Discontinue Rocephin 2 g IV daily - ID consulted, recommends Unasyn 3 g every 6 hours while waiting for cultures to finalize - Started Unasyn - Continue fluids, NS at 125 mL/h Thrombocytopenia - Chronic, likely splenic sequestration - Continue to monitor Macrocytosis Hyperbilirubinemia Hypercalcemia Sarcoidosis - Likely chronic in setting of sarcoidosis - Continue to monitor - Sarcoidosis followed up outpatiently with rheumatology - Folate level pending - B12> 3600 Chronic: Chronic respiratory failure -on 2 L at home DVT ppx: Heparin Code status: Full code Anticipated discharge place: Home Anticipated discharge time: 24 to 48 hours Michelle Gomez DO PGY-1 IM Dictation was produced using [employer] dictation software. please excuse any grammatical, word or spelling errors. I saw and evaluated the patient during the liang and critical portions of this encounter, and discussed the case in detail with the resident author of this note, I agree with the Assessment and Plan, and my changes, if any, are highlighted in blue. Objective - Vital Signs Vital signs: Vital Signs Temp 97.9 F 04/08/25 08:00 Pulse 77 04/08/25 08:00 Resp 18 04/08/25 08:00 BP 128/74 04/08/25 08:00 Pulse Ox 99 04/08/25 08:00 FiO2 Intake & Output 04/07/25 04/08/25 04/08/25 18:59 06:59 18:59 Intake Total 1620 Output Total 250 Balance 1370 Intake: Oral 1620 Output: Urine 250 Other: Voiding Method Toilet Bedside Commode # Voids 2 1 - Labs CBC & Chem 7: 04/08/25 02:35 04/08/25 02:35 Labs: Abnormal Lab Results - Last 24 Hours (Table) 04/07/25 04/07/25 04/08/25 Range/Units 12:48 12:48 02:35 RBC 3.27 L 2.76 L (4.10-5.20) 10*6/uL Hgb 11.1 L 9.2 L (12.0-15.0) g/dL Hct 32.9 L 28.4 L (37.2-46.3) % MCV 100.6 H 102.9 H (80.0-97.0) fL MCH 33.9 H 33.3 H (27.0-32.0) pg RDW 16.3 H 16.5 H (11.5-14.5) % Plt Count 72 L 93 L (140-440) 10*3/uL Macrocytosis (manual) 2+ A (None Seen) Elliptocytes 2+ A (None Seen) Sodium 136 L (137-145) mmol/L BUN 33 H (7-17) mg/dL Creatinine 1.44 H (0.52-1.04) mg/dL Est GFR (CKD-EPI) (>=60) Glucose 128 H (74-99) mg/dL Calcium 10.4 H (8.4-10.2) mg/dL AST (13-35) U/L Total Protein (6.2-8.2) g/dL Albumin (3.8-4.9) g/dL Albumin/Globulin Ratio (1.60-3.17) Ratio 04/08/25 Range/Units 02:35 RBC (4.10-5.20) 10*6/uL Hgb (12.0-15.0) g/dL Hct (37.2-46.3) % MCV (80.0-97.0) fL MCH (27.0-32.0) pg RDW (11.5-14.5) % Plt Count (140-440) 10*3/uL Macrocytosis (manual) (None Seen) Elliptocytes (None Seen) Sodium (137-145) mmol/L BUN 28.2 H (7-17) mg/dL Creatinine (0.52-1.04) mg/dL Est GFR (CKD-EPI) 37 L (>=60) Glucose (74-99) mg/dL Calcium (8.4-10.2) mg/dL AST 41 H (13-35) U/L Total Protein 4.1 L (6.2-8.2) g/dL Albumin 2.5 L (3.8-4.9) g/dL Albumin/Globulin Ratio 1.56 L (1.60-3.17) Ratio Microbiology - Last 24 Hours (Table) 04/06/25 10:35 Blood Culture - Preliminary Blood 07/10/25 08:37 Urine Culture - Preliminary Urine,Voided
--- NOTE | 2025-04-08 16:04 | P.PN ---
Subjective Progress Note Date: 04/08/25 Principal diagnosis: Reason for follow-up is recurrent UTI Patient is a 74-year-old female with a past medical history significant for GI Bleed, Hypertension, Musculoskeletal Disorder, Osteoarthritis (OA), Renal Disease, Seizure Disorder recurrent UTI patient has been boarding to the hospital for evaluation of urinary frequency dysuria and the patient also have some mental status changes has been diagnosed with a UTI prompting this consultation. On today's evaluation that is 04/08/2024, patient did have a temperature of 98 F this morning and denies having any chills, patient is on room air and breathing comfortably no chest pain or cough, the patient did not have any nausea vomiting abdominal pain or any diarrhea. The patient white count 4.64, creatinine is 1.5 urine is growing Enterococcus blood cultures are pending Objective - Vital Signs Vital signs: Vital Signs Temp 97.6 F 04/08/25 14:00 Pulse 79 04/08/25 14:00 Resp 20 04/08/25 14:00 BP 145/70 04/08/25 14:00 Pulse Ox 97 04/08/25 14:00 FiO2 Intake & Output 04/07/25 04/08/25 04/08/25 18:59 06:59 18:59 Intake Total 1620 Output Total 250 Balance 1370 Intake: Oral 1620 Output: Urine 250 Other: Voiding Method Toilet Bedside Commode # Voids 2 1 - Exam GENERAL DESCRIPTION: An elderly female lying in bed in no distress RESPIRATORY SYSTEM: Unlabored breathing , decreased breath sounds at bases HEART: S1 S2 regular rate and rhythm , ABDOMEN: Soft , no tenderness EXTREMITIES: No edema feet - Labs CBC & Chem 7: 04/08/25 02:35 04/08/25 02:35 Labs: Abnormal Lab Results - Last 24 Hours (Table) 04/08/25 04/08/25 Range/Units 02:35 02:35 RBC 2.76 L (4.10-5.20) X 10*6/uL Hgb 9.2 L (12.0-15.0) g/dL Hct 28.4 L (37.2-46.3) % MCV 102.9 H (80.0-97.0) FL MCH 33.3 H (27.0-32.0) pg RDW 16.5 H (11.5-14.5) % Plt Count 93 L (140-440) X 10*3/uL Macrocytosis (manual) 2+ A (None Seen) Elliptocytes 2+ A (None Seen) BUN 28.2 H (9.0-27.0) mg/dL Est GFR (CKD-EPI) 37 L (>=60) AST 41 H (13-35) U/L Total Protein 4.1 L (6.2-8.2) g/dL Albumin 2.5 L (3.8-4.9) g/dL Albumin/Globulin Ratio 1.56 L (1.60-3.17) Ratio Microbiology - Last 24 Hours (Table) 04/06/25 08:37 Urine Culture - Final Urine,Voided Enterococ casseliflavus(grp d) 04/06/25 10:35 Blood Culture - Preliminary Blood Assessment and Plan (1) UTI (urinary tract infection) Current Visit: Yes Status: Acute Priority: High Code(s): N39.0 - URINARY TRACT INFECTION, SITE NOT SPECIFIED SNOMED Code(s): 03924420 (2) Elevated liver enzymes Current Visit: Yes Status: Acute Code(s): R74.8 - ABNORMAL LEVELS OF OTHER SERUM ENZYMES SNOMED Code(s): 983102743 Plan: 1patient presented hospital with weakness some mental status changes also urinary burning and frequency positive UA concerning for asymptomatic UTI likely from enteric gram-negative pathogen patient did have a history of ESBL and VRE with the last urine culture in February was Enterococcus intermediate to vancomycin but sensitive to ampicillin 2-patient did have elevated liver enzymes status post cholecystectomy ultrasound did not show any acute changes, liver enzymes are trending down hepatitis panel negative 3-patient urine is growing Enterococcus that is sensitive to ampicillin to continue with Unasyn while waiting for the blood culture to finalize Dictation was produced using [employer] dictation software. please excuse any grammatical, word or spelling errors. Time with Patient: Less than 30
[2025-04-09 06:07] LABS: Basophils # (A) 0.05 10*3/uL (0.00-0.10); Basophils % (A) 1.2 %; Eosinophils # (A) 0.31 10*3/uL (0.04-0.35); Eosinophils % (A) 7.4 %; HCT 32.4 % (37.2-46.3); HGB 10.7 g/dL (12.0-15.0); Lymphocytes # (A) 1.65 10*3/uL (0.90-5.00); Lymphocytes % (A) 39.5 %; MCH 33.1 pg (27.0-32.0); MCHC 33.0 g/dL (32.0-37.0); MCV 100.3 fL (80.0-97.0); Monocytes # (A) 0.35 10*3/uL (0.20-1.00); Monocytes % (A) 8.4 %; Neutrophils # (A) 1.81 10*3/uL (1.80-7.70); Neutrophils % (A) 43.3 %; RBC 3.23 10*6/uL (4.10-5.20); RDW 15.8 % (11.5-14.5); WBC 4.18 10*3/uL (4.50-10.00)
[2025-04-09 06:16] LABS: ALT 15 U/L (4-34); AST 50 U/L (14-36); African American GFR (CKD) 57 (>60 ml/min/1.73 sqM); Albumin 2.4 g/dL (3.5-5.0); Albumin/Globulin Ratio 1.0; Alkaline Phosphatase 134 U/L (38-126); Anion Gap 3 mmol/L; Blood Urea Nitrogen 24 mg/dL (7-17); Calcium 9.9 mg/dL (8.4-10.2); Carbon Dioxide 24 mmol/L (22-30); Chloride 108 mmol/L (98-107); Globulin 2.4 g/dL; Glucose 78 mg/dL (74-99); Non-African American GFR(CKD) 49 (>60 ml/min/1.73 sqM); Potassium 4.0 mmol/L (3.5-5.1); Sodium 135 mmol/L (137-145); Total Protein 4.8 g/dL (6.3-8.2)
[2025-04-09 06:30] LABS: Platelet Count 97 10*3/uL (140-440)
[2025-04-09 08:01] VITALS: BP 128/71; PULSE 58; RESP 18; TEMP 98
--- NOTE | 2025-04-09 12:06 | P.DS ---
Providers Date of admission: 04/06/25 10:32 Expected date of discharge: 04/09/25 Attending physician: Chan Red MD Consults: 04/06/25 16:47 Consult Physician Routine Consulting Provider: Rohan Crowe Consult Reason/Comments: UTI hx of ESBL and VRE Do you want consulting provider notified?: Yes [facility] Course: Discharge Diagnosis: Acute metabolic encephalopathy secondary to Complicated UTI Thrombocytopenia Macrocytosis Chronic respiratory failure Hospital Course: 74-year-old female presents emergency department chief complaint of possible UTI she states she has some urinary frequency and dysuria. She denies any reports of fever no chest pain no shortness of breath no current headache denies any flank pain or back pain. Patient denies no vomiting, or fever. UA + and UC evident for G + entero kvng - swithced to Unasyn from Rocephin. Pt. BUN 24 / Cr 1.12 and lactic acid 2.2 > 1.6 which was resolved. Patient CBC on admission also evident of possible macrocytic anemia - MCV 101.1, Hct - 35.5, Plt 124, b12 3600, possible due to chronic effects sarcoidosis. Patient had encephalopathy secondary to UTI was treated with fluids. ID was consulted started Unasyn and recommended switch to Augmentin PO for 7 days outpatient. Patient agreed to follow up with PCP and urologist. Patient seen and examined at bedside. Hemodynamicaly stable. Vital signs reviewed and stable. Physical Exam: General: nontoxic, no distress, appears at stated age Derm: warm, dry, intact Head: atraumatic, normocephalic, symmetric Eyes: EOMI, anicteric sclera Mouth: no lip lesion, mucus membranes moist Cardiovascular: S1 S2 reg, no murmur, rubs, or gallops Lungs: CTA bilateral, no rhonchi, no rales, no accessory muscle use Abdominal: soft, non-tender to palpation, no appreciable organomegaly Extremities: no gross muscle atrophy, bilateral edema Neuro: Alert, Oriented, CNII-XII grossly intact, gait normal Psych: well appearing, appropriate affect Patient hemodynamically stable for discharge and continuation of Augmentin PO for 7 days and home medications Follow-up with PCP and urologist. A total of greater than 30 minutes of time were spent preparing this complex discharge summary. Patient was discharged on 04/09/2025. Manuel Kirk MD PGY-1 FM Dictation was produced using [employer] dictation software. please excuse any grammatical, word or spelling errors. I saw and evaluated the patient during the liang and critical portions of this encounter, and discussed the case in detail with the resident author of this note, I agree with the Assessment and Plan, and my changes, if any, are highlighted in blue. Patient Condition at Discharge: Stable Plan - Discharge Summary New Discharge Prescriptions: New Acetaminophen Tab [Tylenol] 650 mg PO Q6HR PRN tab PRN Reason: Mild Pain Or Fever > 100.5 Amoxic-Pot Clav 875-125Mg [Augmentin 875-125] 1 tab PO BID #14 tab Continue HYDROcodone/APAP 10-325MG [Joppa 10-325] 1 tab PO TID Discharge Medication List HYDROcodone/APAP 10-325MG [Joppa 10-325] 1 tab PO TID 09/10/19 [History] Acetaminophen Tab [Tylenol] 650 mg PO Q6HR PRN tab 04/09/25 [Rx] Amoxic-Pot Clav 875-125Mg [Augmentin 875-125] 1 tab PO BID #14 tab 04/09/25 [Rx] Follow up Appointment(s)/Referral(s): Lamar Bernstein MD [Primary Care Provider] - 1-2 days Patient Instructions/Handouts: Urinary Tract Infection in Women (DC) Discharge Disposition: HOME SELF-CARE
--- NOTE | 2025-04-09 14:32 | P.PN ---
Subjective Progress Note Date: 04/09/25 Principal diagnosis: Reason for follow-up is recurrent UTI Patient is a 74-year-old female with a past medical history significant for GI Bleed, Hypertension, Musculoskeletal Disorder, Osteoarthritis (OA), Renal Disease, Seizure Disorder recurrent UTI patient has been boarding to the hospital for evaluation of urinary frequency dysuria and the patient also have some mental status changes has been diagnosed with a UTI prompting this consultation. On today's evaluation that is 04/09/2025, Patient is afebrile patient is currently on room air and denies having any shortness of breath, the patient denies any chest pain or cough, the patient denies any nausea vomiting did not have any abdominal pain and no diarrhea, mentions feeling better wants to go home. Patient white count is 4.18, creatinine is 1.12 urine with Enterococcus sensitive to ampicillin Objective - Vital Signs Vital signs: Vital Signs Temp 98.0 F 04/09/25 07:59 Pulse 58 L 04/09/25 07:59 Resp 18 04/09/25 07:59 BP 128/71 04/09/25 07:59 Pulse Ox 98 04/09/25 07:59 FiO2 Intake & Output 04/08/25 04/09/25 04/09/25 18:59 06:59 18:59 Intake Total 1280 Output Total 475 200 Balance -475 1080 Intake: Intake, IV Titration 500 Amount Ampicillin-Sulbactam 3 gm 100 In Sodium Chloride 0.9% 100 ml @ 200 mls/hr IVPB Q12H STEFAN Rx#:[id number] Sodium Chloride 0.9% 1, 400 000 ml @ 125 mls/hr IV . Q8H STEFAN Rx#:[id number] Oral 780 Output: Urine 475 200 Other: Voiding Method Toilet Toilet Bedside Commode Bedside Commode External Catheter External Catheter # Voids 2 # Bowel Movements 1 - Labs CBC & Chem 7: 04/09/25 05:44 04/09/25 05:44 Labs: Abnormal Lab Results - Last 24 Hours (Table) 04/09/25 04/09/25 Range/Units 05:44 05:44 WBC 4.18 L (4.50-10.00) 10*3/uL RBC 3.23 L (4.10-5.20) 10*6/uL Hgb 10.7 L (12.0-15.0) g/dL Hct 32.4 L (37.2-46.3) % MCV 100.3 H (80.0-97.0) fL MCH 33.1 H (27.0-32.0) pg RDW 15.8 H (11.5-14.5) % Plt Count 97 L (140-440) 10*3/uL Sodium 135 L (137-145) mmol/L Chloride 108 H (98-107) mmol/L BUN 24 H (7-17) mg/dL Creatinine 1.12 H (0.52-1.04) mg/dL AST 50 H (14-36) U/L Alkaline Phosphatase 134 H (38-126) U/L Total Protein 4.8 L (6.3-8.2) g/dL Albumin 2.4 L (3.5-5.0) g/dL Microbiology - Last 24 Hours (Table) 04/06/25 10:35 Blood Culture - Preliminary Blood 04/06/25 08:37 Urine Culture - Final Urine,Voided Enterococ casseliflavus(grp d) Assessment and Plan (1) UTI (urinary tract infection) Status: Acute Priority: High Code(s): N39.0 - URINARY TRACT INFECTION, SITE NOT SPECIFIED SNOMED Code(s): 99156485 (2) Elevated liver enzymes Status: Acute Code(s): R74.8 - ABNORMAL LEVELS OF OTHER SERUM ENZYMES SNOMED Code(s): 307262866 Plan: 1patient presented hospital with weakness some mental status changes also urinary burning and frequency positive UA concerning for asymptomatic UTI likely from enteric gram-negative pathogen patient did have a history of ESBL and VRE with the last urine culture in February was Enterococcus intermediate to vancomycin but sensitive to ampicillin 2-patient did have elevated liver enzymes status post cholecystectomy ultrasound did not show any acute changes, liver enzymes are trending down hepatitis panel negative 3-patient urine is growing Enterococcus that is sensitive to ampicillin overall improvement on Unasyn to finish therapy with oral Augmentin x 7 days this was discussed with admitting team working on discharge also discussed with the patient and family how to prevent recurrent UTI including personal hygiene and she will follow-up with urology regarding urinary retention Dictation was produced using [employer] dictation software. please excuse any grammatical, word or spelling errors. Time with Patient: Less than 30
== END 2025-04-09 13:58 | disposition home or self-care (01) ==
LOC: EC 06:48 → 4SSUR 10:32
PROVIDERS: ADMIT Internal Medicine; ATTEND Internal Medicine
DX: N39.0 Urinary tract infection, site not specified (principal); G93.41 Metabolic encephalopathy; N17.9 Acute kidney failure, unspecified; E87.20 Acidosis, unspecified; D69.6 Thrombocytopenia, unspecified; E83.52 Hypercalcemia; R74.8 Abnormal levels of other serum enzymes; R74.01 Elevation of levels of liver transaminase levels; R17 Unspecified jaundice; D75.89 Other specified diseases of blood and blood-forming organs; J96.10 Chronic respiratory failure, unspecified whether with hypoxia or hypercapnia; D86.9 Sarcoidosis, unspecified; I89.0 Lymphedema, not elsewhere classified; I13.0 Hypertensive heart and chronic kidney disease with heart failure and stage 1 through stage 4 chronic kidney disease, or unspecified chronic kidney disease; N18.31 Chronic kidney disease, stage 3a; I27.29 Other secondary pulmonary hypertension; G40.909 Epilepsy, unspecified, not intractable, without status epilepticus; M19.90 Unspecified osteoarthritis, unspecified site; Z99.81 Dependence on supplemental oxygen; Z87.891 Personal history of nicotine dependence; Z87.442 Personal history of urinary calculi; Z87.440 Personal history of urinary (tract) infections; Z91.041 Radiographic dye allergy status
CPT/HCPCS: 96366 ×3; 96367; 96372 ×4; 96361; 96365; 96375; 99285; 36415; 93005; 97162; 97166; 82747; 80053 ×3; 80048; 80074; 84443; 82607; 83605 ×2; 85025 ×4; 81001; 87040; 87086; 87077; 87186; 76705; G0378 ×4; J1644 ×4; J2405; J0696 ×2; J2270; J0295 ×2